=== PATIENT | female | born 1985 | race Caucasian/White ===

== ENCOUNTER 2016-04-21 15:23 | Emergency (ER) | payer OTHER ==
[2016-04-21] MEDS ORDERED: Ketorolac INJ* 30 MG/ML 1 ML VIAL IV ONE (16:38)
[2016-04-21] MEDS ORDERED: NS 0.9% 1000 ML* 1,000 ML IV ONE (16:38)
[2016-04-21] MEDS ORDERED: Ondansetron INJ* 2 MG/ML VIAL ONE (16:51)
[2016-04-21] MEDS ORDERED: Ketorolac INJ* 30 MG/ML 1 ML VIAL ONE (16:51)
[2016-04-21] MEDS ORDERED: Ondansetron INJ* 2 MG/ML VIAL IV ONE (16:53)
[2016-04-21 17:02] LABS: Hematocrit 40 % (35-47); Hemoglobin 12.9 g/dl (12.0-16.0); Mean Corpuscular HGB Conc 32 g/dl (31-36); Mean Corpuscular Hemoglobin 25 pg (27-31); Mean Corpuscular Volume 79 fL (80-97); Mean Platelet Volume 7 um3 (7.4-10.4); Red Cell Distribution Width 15 % (10.5-15); White Blood Count 12.2 10^3/ul (3.5-10.8)
[2016-04-21 17:07] LABS: Urine Bacteria Absent (Absent); Urine Bilirubin Negative (Negative); Urine Glucose Negative (Negative); Urine Nitrite Negative (Negative)
[2016-04-21 17:35] LABS: ALT 12 U/L (7-52); AST 15 U/L (13-39); Albumin 3.7 g/dL (3.2-5.2); Alkaline Phosphatase 64 U/L (34-104); Anion Gap 6 mmol/L (2-11); BUN/Creatinine Ratio 10.4 (8-20); Blood Urea Nitrogen 11 mg/dL (6-24); CO2 Carbon Dioxide 26 mmol/L (22-32); Calcium 8.4 mg/dL (8.6-10.3); Chloride 107 mmol/L (101-111); EGFR African American 77.3 (>60); EGFR Non-African American 60.1 (>60); Globulin 3.1 g/dL (2-4); Glucose 87 mg/dL (70-100); Lipase 22 U/L (11.0-82.0); Potassium 3.7 mmol/L (3.5-5.0); Sodium 139 mmol/L (133-145); Total Protein 6.8 g/dL (6.4-8.9)
--- NOTE | 2016-04-21 18:48 | RAD ---
INDICATION: Right flank pain COMPARISON: CT abdomen pelvis dated May 24, 2013 TECHNIQUE: Real-time ultrasound examination of the right kidney including grayscale and Doppler color flow analysis. FINDINGS: The right kidney measures 11.2 x 5.5 x 5.2 cm. There is mild right-sided hydronephrosis. There is a small amount of perinephric fluid. At the right ureterovesical junction there is a shadowing 7 mm calcification that attenuates but does not a limited 8 the right ureteral jets. The left ureteral jet is normal. IMPRESSION: Sonographic imaging depicts a 7 mm calcification in the right ureterovesical junction with mild ipsilateral hydronephrosis.
[2016-04-21] MEDS ORDERED: Ciprofloxacin TAB* 500 MG PO ONE (19:35)
[2016-04-21] MEDS ORDERED: oxyCODONE TAB* 5 MG TAB PO ONE (20:05)
[2016-04-21 20:51] VITALS: BP 111/73
--- NOTE | 2016-04-21 22:08 | ED ---
Huan Sher Claudia, scribed for Derrick Beach MD on 04/21/16 at 1656 . GI/ HPI - HPI Summary HPI Summary: 30 year old female presents to the ED with right sided flank pain sudden onset this am when she woke up. Pt notes similar Sx to when she had a kidney stone in 2008. Pt admits to dysuria and nausea but denies any vomiting, diarrhea, vaginal pain or discharge. Pt denies any alleviating factors. - History of Current Complaint Chief Complaint: EDFlankPain Time Seen by Provider: 04/21/16 16:27 Stated Complaint: KIDNEY PAIN Hx Obtained From: Patient Onset/Duration: Started Hours Ago - this am, Still Present Timing: Constant Pain Intensity: 10 Location of Pain: Flank - right Pain Characteristics: Sharp Associated Signs and Symptoms: Positive: Nausea, Dysuria, Flank Pain. Negative : Vomiting, Discharge, Diarrhea, Fever Additional Signs & Symptoms: Negative: Vaginal Discharge - Allergy/Home Medications Allergies/Adverse Reactions: Allergies Allergy/AdvReac Type Severity Reaction Status Date / Time Amoxicillin Allergy Intermediate Vomiting Verified 02/17/16 17:23 and diarrhea Metronidazole [From Flagyl] Allergy Unknown Vomiting Verified 02/17/16 17:23 PMH/Surg Hx/FS Hx/Imm Hx Previously Healthy: Yes Endocrine/Hematology History: Denies: Hx Diabetes, Hx Thyroid Disease Cardiovascular History: Denies: Hx Congestive Heart Failure, Hx Hypertension, Hx Pacemaker/ICD Respiratory History: Reports: Hx Asthma, Hx Sleep Apnea - current CPAP user Denies: Hx Chronic Obstructive Pulmonary Disease (COPD) GI History: Denies: Hx Ulcer, Other GI Disorders History: Reports: Other Problems/Disorders - RENAL STONES Denies: Hx Dialysis, Hx Renal Disease Sensory History: Denies: Hx Hearing Aid Neurological History: Reports: Other Neuro Impairments/Disorders Psychiatric History: Reports: Hx Anxiety, Hx Depression, Hx Panic Disorder, Hx Inpatient Treatment, Hx Community Mental Health Tx, Hx Bipolar Disorder - Surgical History Surgery Procedure, Year, and Place: 01/19 [facility] [place] pilonidal cyst. 08/27 [facility] [place] (right ) renal lithotripsy - Immunization History Date of Tetanus Vaccine: october 2012 Date of Influenza Vaccine: 12/2012 Infectious Disease History: Yes Infectious Disease History: Reports: Hx of Known/Suspected MRSA Denies: Hx Clostridium Difficile, Hx Hepatitis, Hx Human Immunodeficiency Virus (HIV), Hx Shingles, Hx Tuberculosis, Hx Known/Suspected VRE, Hx Known/ Suspected VRSA, History Other Infectious Disease, Traveled Outside the [place] in Last 30 Days - Family History Known Family History: Positive: Unknown, Respiratory Disease - sister - asthma Negative: Cardiac Disease, Hypertension, Diabetes - Social History Occupation: Employed Full-time Lives: With Family Alcohol Use: Occasionally Alcohol Amount: 2 DRINKS/WEEK Hx Substance Use: No Substance Use Type: Reports: None Hx Tobacco Use: No Smoking Status (MU): Never Smoked Tobacco Review of Systems Negative: Fever, Chills Eyes: Negative ENT: Negative Cardiovascular: Negative Respiratory: Negative Positive: Nausea. Negative: Vomiting, Diarrhea Positive: dysuria, flank pain - right Musculoskeletal: Negative Skin: Negative Neurological: Negative Psychological: Normal All Other Systems Reviewed And Are Negative: Yes Physical Exam Triage Information Reviewed: Yes Vital Signs On Initial Exam: Initial Vitals Temp Pulse Resp BP Pulse Ox 98.0 F 78 16 150/97 100 04/21/16 15:36 04/21/16 15:36 04/21/16 15:36 04/21/16 15:36 04/21/16 15:36 Vital Signs Reviewed: Yes Appearance: Negative: Well-Appearing - uncomfortable, holding right flank Eyes: Positive: EOMI ENT: Positive: Other - moist mucosa Neck: Positive: Supple, Nontender Respiratory/Lung Sounds: Positive: Other - breathing comfortably Cardiovascular: Positive: RRR, S1, S2 Abdomen Description: Positive: Nontender, Soft - flat, Other: - right flank tenderness towards the low back. no cvat. Musculoskeletal: Negative: Edema Left, Edema Right Neurological: Positive: Alert, Oriented to Person Place, Time Psychiatric: Positive: Other - logical coherent Diagnostics - Vital Signs Vital Signs Temp Pulse Resp BP Pulse Ox 04/21/16 15:36 98.0 F 78 16 150/97 100 - Laboratory Lab Results: Lab Results 04/21/16 04/21/16 04/21/16 Range/Units 16:50 16:50 16:50 WBC 12.2 H (3.5-10.8) 10^3/ul RBC 5.10 (4.0-5.4) 10^6/ul Hgb 12.9 (12.0-16.0) g/dl Hct 40 (35-47) % MCV 79 L (80-97) fL MCH 25 L (27-31) pg MCHC 32 (31-36) g/dl RDW 15 (10.5-15) % Plt Count 288 (150-450) 10^3/ul MPV 7 L (7.4-10.4) um3 Neut % (Auto) 66.1 (38-83) % Lymph % (Auto) 24.2 L (25-47) % [place] % (Auto) 7.4 (1-9) % Eos % (Auto) 1.4 (0-6) % Baso % (Auto) 0.9 (0-2) % Absolute Neuts (auto) 8.1 H (1.5-7.7) 10^3/ul Absolute Lymphs (auto) 3.0 (1.0-4.8) 10^3/ul Absolute Monos (auto) 0.9 H (0-0.8) 10^3/ul Absolute Eos (auto) 0.2 (0-0.6) 10^3/ul Absolute Basos (auto) 0.1 (0-0.2) 10^3/ul Absolute Nucleated RBC 0.01 10^3/ul Nucleated RBC % 0.1 Sodium 139 (133-145) mmol/L Potassium 3.7 (3.5-5.0) mmol/L Chloride 107 (101-111) mmol/L Carbon Dioxide 26 (22-32) mmol/L Anion Gap 6 (2-11) mmol/L BUN 11 (6-24) mg/dL Creatinine 1.06 H (0.51-0.95) mg/dL Est GFR ( Amer) 77.3 (>60) Est GFR (Non-Af Amer) 60.1 (>60) BUN/Creatinine Ratio 10.4 (8-20) Glucose 87 (70-100) mg/dL Calcium 8.4 L (8.6-10.3) mg/dL Total Bilirubin 0.30 (0.2-1.0) mg/dL AST 15 (13-39) U/L ALT 12 (7-52) U/L Alkaline Phosphatase 64 (34-104) U/L Total Protein 6.8 (6.4-8.9) g/dL Albumin 3.7 (3.2-5.2) g/dL Globulin 3.1 (2-4) g/dL Albumin/Globulin Ratio 1.2 (1-3) Lipase 22 (11.0-82.0) U/L Beta HCG, Quant < 0.60 mIU/mL Urine Color Yellow Urine Appearance Cloudy Urine pH 5.0 (5-9) Ur Specific [place] 1.018 (1.010-1.030) Urine Protein Negative (Negative) Urine Ketones Negative (Negative) Urine Blood 3+ H (Negative) Urine Nitrate Negative (Negative) Urine Bilirubin Negative (Negative) Urine Urobilinogen Negative (Negative) Ur Leukocyte Esterase Trace H (Negative) Urine WBC (Auto) 1+(6-10/hpf) H (Absent) Urine RBC (Auto) 3+(>10/hpf) H (Absent) Ur Squamous Epith Cells Present H (Absent) Urine Bacteria Absent (Absent) Urine Glucose Negative (Negative) Result Diagrams: 04/21/16 16:50 04/21/16 16:50 Lab Statement: Any lab studies that have been ordered have been reviewed, and results considered in the medical decision making process. - Ultrasound No standard instances Ultrasound Interpretation: Positive (See Comments) - RENAL US: PER RADIOLOGIST, SONOGRAPHIC IMAGING DEPICTS A 7MM CALCIFICATION IN THE RIGHT URETEROVESICAL JUNCTION WITH MILD IPSILATERAL HYDRONEPHROSIS. Ultrasound Interpretation Completed By: Radiologist Re-Evaluation - Re-Evaluation 1 Re-Evaluation Time: 18:27 Comment: Results of the Renal US is disussed with the patient. Pt notes that the pain medication helped a significant amount. She notes that the pain went from a 10/10 to a 4/10. Pt agrees to a follow-up with Dr. Rahman. GIGU Course/Dx - Course Assessment/Plan: She has a right renal stone measuring 7mm. She has a history of this and unfortunately needed a stent and procedure to break the stone. There is no sign of sepsis, UTI, or proximal tenderness as she has no CVA tenderness. She agrees to come back for continuous vomiting, intractable pain, and fever. She will call Dr. Rahman for appointment in the morning. - Diagnoses Provider Diagnoses: Right kidney stone Discharge - Discharge Plan Condition: Good Disposition: HOME Prescriptions: Ciprofloxacin TAB* [Cipro Tab*] 500 mg PO BID #10 tab Ondansetron ODT TAB* [Zofran Odt TAB*] 4 mg PO Q8H PRN #12 tab.odt PRN Reason: Nausea oxyCODONE/Acetamin 5/325 MG* [Percocet 5/325 TAB*] 2 tab PO Q4H PRN #20 tab MDD 6 PRN Reason: Pain Patient Education Materials: Kidney Stones (ED) Forms: *Work Release Referrals: Nikolas Rahman MD [Medical Doctor] - The documentation as recorded by the Huan goldberg Claudia accurately reflects the service I personally performed and the decisions made by , Derrick Beach MD.
== END 2016-04-21 20:50 | disposition home or self-care (01) ==
LOC: ED 15:23
DX: N20.0 Calculus of kidney (principal); Z87.442 Personal history of urinary calculi; F31.9 Bipolar disorder, unspecified; Z88.0 Allergy status to penicillin
CPT/HCPCS: 36415; 76775; 80053; 81003; 81015; 83690; 84702; 85025; 87086; 99283; A9270-GY; J1885; J2405

== ENCOUNTER → 2016-04-24 13:08 | Day surgery (SDC) | payer OTHER ==
--- NOTE | 2016-04-23 22:26 | HP ---
ADMITTING HISTORY AND PHYSICAL: DATE OF ADMISSION: 04/24/16 ADMITTING DIAGNOSES: 1. Calculus, right ureter. 3. Right hydronephrosis. PLANNED PROCEDURE: Right ureteroscopy, possible laser and stent insertion. SURGEON: Dr. Rahman. HISTORY OF PRESENT ILLNESS: Barbara Ahmadi is a 30-year-old lady who was evaluated for right flank pain and dysuria. She had been initially evaluated in the emergency room and an ultrasound had revealed a 7 mm calculus in the right distal ureter with right hydronephrosis. She continues to have fairly significant pain and would like removal of the calculus and is now being brought in for right ureteroscopy. PAST MEDICAL HISTORY: Significant for: 1. Renal calculi. 2. Asthma. 3. Anxiety. PAST SURGICAL HISTORY: Significant for: 1. Right foot skin graft. 2. Lithotripsy. MEDICATIONS ON ADMISSION: 1. NuvaRing. 2. Klonopin 1 tablets 4 times a day (the patient not sure of the dose at the time of this dictation). 3. Zyrtec 10 mg a day. 4. Singulair 10 mg a day. 5. Wellbutrin 250 mg daily. 6. ProAir inhaler daily. 7. Cipro 500 mg twice a day. 8. Percocet p.r.n. ALLERGIES: FLAGYL and AMOXICILLIN. PHYSICAL EXAMINATION GENERAL: Reveals a pleasant uncomfortable-appearing, overweight lady. VITAL SIGNS: Blood pressure is 132/78, pulse 72 per minute, temperature 98.2, oxygen saturation 98% on room air. LUNGS: Clear bilaterally. CARDIOVASCULAR: Regular rate and rhythm. S1, S2. ABDOMEN: Soft with right flank tenderness. IMPRESSION: A 30-year-old lady with a calculus in the right distal ureter. I have discussed the options of trying to continue conservative management and trying alpha-blockers, but because of the severity and persistence of the pain, she would like to proceed with right ureteroscopy and the procedure was discussed in detail with her. PLAN: Right ureteroscopy, possible laser, and stent insertion. CC: Dr. Sarahi Henderson; Dr. Pako Causey* [id number]/CPS #: [id number] MTDD
[~2016-04-24 13:08] MED LIST: Buffered Lidocaine 1% SYR 3ML* 3 ML/SYR SYRINGE INTRADERM ONE; DiMENhydriNATE IV* 50 MG/ML VIAL IV PUSH PRN; Gentamicin ADULT (*) 180 MG in NS 0.9% 100 ML* 100 ML IVPB ONE; Iohexol 180 (CONTRAST) 10 ML SDV IV ONE; Lidocaine 2% MPF* 2 ML VIAL ONE; Midazolam* 1 MG/ML 2 ML VIAL (2 MG) ONE; Ondansetron ODT TAB* 4 MG PO PRN; Propofol* 10 MG/ML 20 ML BTL IV PUSH ONE; fentaNYL* 50 MCG/ML 2 ML VIAL (100 MCG VIAL) IV PRN; fentaNYL* 50 MCG/ML 2 ML VIAL (100 MCG VIAL) ONE
[2016-04-24 13:45] LABS: UR Preg Kit Lot# 6060104
[2016-04-24 13:46] LABS: Manual Entry Verification AS; UR Preg Internal Control QC Line Present
[2016-04-24 19:25] VITALS: BP 108/64
--- NOTE | 2016-04-25 17:04 | OP ---
OPERATIVE REPORT: DATE OF OPERATION: 04/24/16 - [facility] DATE OF : 81 SURGEON: Nikolas Rahman MD ANESTHESIOLOGIST: Richard Jarquin MD ANESTHESIA: General. PRE-OP DIAGNOSES: 1. Right hydronephrosis. 2. Calculus, right ureter. POST-OP DIAGNOSIS: Right hydronephrosis. OPERATIVE PROCEDURE: Cystoscopy, right retrograde pyelogram, right ureteroscopy , right pyeloscopy, and right stent insertion. INDICATIONS: Barbara Ahmadi is a 30-year-old lady with a history of recurrent renal calculi. She has had right flank pain and nausea secondary to a 7-mm calculus noted on ultrasound. Because of continued pain, she desires and is now being brought in for right ureteroscopy. COMPLICATIONS: None. POSTOPERATIVE CONDITION: Stable. STENT USED: 6-[place]izen [place] stent, right ureter. OPERATIVE FINDINGS: 1. Normal-appearing bladder. 2. Edema and inflammatory changes noted, right ureterovesical junction, but no calculus noted. 3. Right hydronephrosis and proximal hydroureter. POSTOPERATIVE CONDITION: Stable. DESCRIPTION OF PROCEDURE: After induction of general anesthesia, the patient was placed in dorsal lithotomy position. Sequential compression devices were in place and functioning. Initial cystoscopy revealed a normal-appearing bladder. A guidewire was introduced into the right ureter. Retrograde pyelogram revealed right hydronephrosis and proximal hydroureter. A 6-[place]izen [place] semi-rigid ureteroscope was introduced and advanced into the right ureter. Just inside the ureterovesical junction, there was about 1- to 1.5-cm length area, where there was significant edema and inflammation. The ureter above this was completely normal and dilated. The ureteroscope was advanced under direct vision. I did not visualize any calculus in the distal, mid, or proximal ureter. The ureteroscope was introduced into the renal pelvis and pyeloscopy was performed. I did not visualize a calculus in the renal pelvis either. It is possible that the calculus had passed, but the continued pain and obstruction were secondary to the edema and inflammation. The uteroscope was withdrawn under direct vision. I waited a few minutes to see if the contrast would drain spontaneously after withdrawing the ureteroscope, but since it did not, I elected to go ahead and proceed with placement of a 6- [place] stent. A 6- [place] stent was introduced and positioned under fluoroscopy with good proximal and distal positioning obtained. Significant drainage was noted from the stent at the end of the procedure. The bladder was emptied. The patient tolerated the procedure satisfactorily and was transferred back to the recovery area in stable condition. CC: Dr. Sarahi Henderson; Dr. Nikolas Rahman* [id number]/CPS #: [id number] MTDD
--- NOTE | 2016-04-26 09:48 | RAD ---
INDICATION: RIGHT hydronephrosis. Retrograde pyelogram and stent placement. COMPARISON: RIGHT unilateral renal ultrasound April 21, 2016 TECHNIQUE: 18 seconds fluoroscopy. FINDINGS: RIGHT retrograde pyelogram documents mild caliectasis. RIGHT ureteral stent placed with decompression of the collecting system. IMPRESSION: Procedural fluoroscopy. CPT II Codes: 6045F
== END | disposition home or self-care (01) ==
LOC: OR 13:08
PROVIDERS: ATTEND Urology
DX: N13.2 Hydronephrosis with renal and ureteral calculous obstruction (principal); E66.9 Obesity, unspecified; J45.909 Unspecified asthma, uncomplicated
CPT/HCPCS: 74420; 81025; C1876; J1580; J2250; J2704; J3010

== ENCOUNTER 2016-04-27 01:39 | Emergency (ER) | payer OTHER ==
[2016-04-27] MEDS ORDERED: Ketorolac INJ* 30 MG/ML 1 ML VIAL IV PUSH ONE (02:25)
[2016-04-27] MEDS ORDERED: Ondansetron INJ* 2 MG/ML VIAL ONE (02:27)
[2016-04-27] MEDS ORDERED: Ondansetron INJ* 2 MG/ML VIAL IV ONE (02:28)
[2016-04-27 03:03] LABS: Urine Bacteria Absent (Absent); Urine Bilirubin Negative (Negative); Urine Glucose Negative (Negative); Urine Nitrite Negative (Negative)
[2016-04-27 03:20] LABS: BUN/Creatinine Ratio 10.3 (8-20); Calcium 8.7 mg/dL (8.6-10.3); EGFR African American 76.4 (>60); EGFR Non-African American 59.4 (>60); Potassium 4.2 mmol/L (3.5-5.0)
[2016-04-27 03:23] LABS: Hematocrit 40 % (35-47); Mean Corpuscular HGB Conc 32 g/dl (31-36); Mean Corpuscular Hemoglobin 26 pg (27-31); Mean Corpuscular Volume 79 fL (80-97); Mean Platelet Volume 8 um3 (7.4-10.4); Red Blood Count 5.09 10^6/ul (4.0-5.4); Red Cell Distribution Width 15 % (10.5-15); White Blood Count 11.3 10^3/ul (3.5-10.8)
--- NOTE | 2016-04-27 03:31 | ED ---
Bartolome Sher Billy, scribed for Yoan Avila MD on 04/27/16 at 0253 . GI/ HPI - HPI Summary HPI Summary: Patient is a 30 year-old female coming to [facility] presenting with constant right flank pain for 2 days. She reports pain severity 8/10. She was seen by Dr. Rahman for right hydronephrosis and had a right uretal stent placed. Pain was controlled by Percocet, but the patient states that she has since run out of pain medication. She denies any other symptoms at this time. - History of Current Complaint Chief Complaint: EDUrogenitalProblems Time Seen by Provider: 04/27/16 02:42 Stated Complaint: POST SURGERY PAIN FROM STENT ON L SIDE OF KIDNEY Hx Obtained From: Patient Onset/Duration: Started Days Ago, Still Present Timing: Constant Severity: Moderate Current Severity: Moderate Pain Intensity: 8 Location of Pain: Flank Associated Signs and Symptoms: Positive: Negative Aggravating Factor(s): Nothing Alleviating Factor(s): Medication - Allergy/Home Medications Allergies/Adverse Reactions: Allergies Allergy/AdvReac Type Severity Reaction Status Date / Time Amoxicillin Allergy Intermediate Vomiting Verified 04/24/16 13:36 and diarrhea Metronidazole [From Flagyl] Allergy Unknown Vomiting Verified 04/24/16 13:36 PMH/Surg Hx/FS Hx/Imm Hx Endocrine/Hematology History: Reports: Hx Anemia - STATES HX OF -OFF AND ON Denies: Hx Diabetes, Hx Thyroid Disease Cardiovascular History: Denies: Hx Congestive Heart Failure, Hx Hypertension, Hx Pacemaker/ICD Respiratory History: Reports: Hx Asthma, Hx Sleep Apnea - current CPAP user Denies: Hx Chronic Obstructive Pulmonary Disease (COPD) GI History: Denies: Hx Ulcer, Other GI Disorders History: Reports: Hx Kidney Stones - CURRENTLY / 04/2016 STENT PLACEMENT, Other Problems/Disorders - RENAL STONES Denies: Hx Dialysis, Hx Renal Disease Sensory History: Denies: Hx Contacts or Glasses, Hx Hearing Aid Opthamlomology History: Denies: Hx Contacts or Glasses Neurological History: Reports: Other Neuro Impairments/Disorders Psychiatric History: Reports: Hx Anxiety - ON MEDICATION FOR, Hx Depression - ON MEDICATION FOR, Hx Panic Disorder, Hx Inpatient Treatment, Hx Community Mental Health Tx, Hx Bipolar Disorder - Surgical History Surgery Procedure, Year, and Place: 01/19 [facility] [place] pilonidal cyst. 08/27 [facility] [place] (right ) renal lithotripsy Hx Anesthesia Reactions: No - Immunization History Date of Tetanus Vaccine: october 2012 Date of Influenza Vaccine: 12/2012 Infectious Disease History: No Infectious Disease History: Reports: Hx of Known/Suspected MRSA Denies: Hx Clostridium Difficile, Hx Hepatitis, Hx Human Immunodeficiency Virus (HIV), Hx Shingles, Hx Tuberculosis, Hx Known/Suspected VRE, Hx Known/ Suspected VRSA, History Other Infectious Disease, Traveled Outside the [place] in Last 30 Days - Family History Known Family History: Positive: Respiratory Disease - sister - asthma Negative: Cardiac Disease, Hypertension, Diabetes - Social History Alcohol Use: Occasionally Alcohol Amount: 2 DRINKS Hx Substance Use: No Substance Use Type: Reports: None Hx Tobacco Use: No Smoking Status (MU): Former Smoker Amount Used/How Often: A TEEN Review of Systems Negative: Fever Positive: flank pain All Other Systems Reviewed And Are Negative: Yes Physical Exam Triage Information Reviewed: Yes Vital Signs On Initial Exam: Initial Vitals Temp Pulse Resp BP Pulse Ox 97.5 F 95 16 106/68 97 04/27/16 01:53 04/27/16 01:53 04/27/16 01:53 04/27/16 01:53 04/27/16 01:53 Vital Signs Reviewed: Yes Appearance: Positive: Well-Appearing, Pain Distress - mild discomfport, Obese Skin: Positive: Warm Eyes: Positive: EOMI, JOHN ENT: Positive: Hearing grossly normal Neck: Positive: Supple Respiratory/Lung Sounds: Positive: Clear to Auscultation, Breath Sounds Present Cardiovascular: Positive: Normal Abdomen Description: Positive: Nontender, No Organomegaly, Soft. Negative: CVA Tenderness (R), CVA Tenderness (L) Bowel Sounds: Positive: Present Musculoskeletal: Positive: Strength/ROM Intact Neurological: Positive: Sensory/Motor Intact, Alert, Oriented to Person Place, Time Psychiatric: Positive: Affect/Mood Appropriate Diagnostics - Vital Signs Vital Signs Temp Pulse Resp BP Pulse Ox 04/27/16 01:53 97.5 F 95 16 106/68 97 - Laboratory Lab Results: Lab Results 04/27/16 04/27/16 04/27/16 Range/Units 02:17 02:17 02:45 WBC 11.3 H (3.5-10.8) 10^3/ul RBC 5.09 (4.0-5.4) 10^6/ul Hgb 13.0 (12.0-16.0) g/dl Hct 40 (35-47) % MCV 79 L (80-97) fL MCH 26 L (27-31) pg MCHC 32 (31-36) g/dl RDW 15 (10.5-15) % Plt Count 317 (150-450) 10^3/ul MPV 8 (7.4-10.4) um3 Neut % (Auto) 66.2 (38-83) % Lymph % (Auto) 24.9 L (25-47) % [place] % (Auto) 6.2 (1-9) % Eos % (Auto) 2.2 (0-6) % Baso % (Auto) 0.5 (0-2) % Absolute Neuts (auto) 7.5 (1.5-7.7) 10^3/ul Absolute Lymphs (auto) 2.8 (1.0-4.8) 10^3/ul Absolute Monos (auto) 0.7 (0-0.8) 10^3/ul Absolute Eos (auto) 0.3 (0-0.6) 10^3/ul Absolute Basos (auto) 0.1 (0-0.2) 10^3/ul Absolute Nucleated RBC 0 10^3/ul Nucleated RBC % 0 Sodium 136 (133-145) mmol/L Potassium 4.2 (3.5-5.0) mmol/L Chloride 105 (101-111) mmol/L Carbon Dioxide 27 (22-32) mmol/L Anion Gap 4 (2-11) mmol/L BUN 11 (6-24) mg/dL Creatinine 1.07 H (0.51-0.95) mg/dL Est GFR ( Amer) 76.4 (>60) Est GFR (Non-Af Amer) 59.4 (>60) BUN/Creatinine Ratio 10.3 (8-20) Glucose 82 (70-100) mg/dL Calcium 8.7 (8.6-10.3) mg/dL Urine Color Yellow Urine Appearance Cloudy Urine pH 8.0 (5-9) Ur Specific [place] 1.014 (1.010-1.030) Urine Protein 2+(100 mg/dl) H (Negative) Urine Ketones Negative (Negative) Urine Blood 3+ H (Negative) Urine Nitrate Negative (Negative) Urine Bilirubin Negative (Negative) Urine Urobilinogen Negative (Negative) Ur Leukocyte Esterase 2+ H (Negative) Urine WBC (Auto) 1+(6-10/hpf) H (Absent) Urine RBC (Auto) 3+(>10/hpf) H (Absent) Ur Squamous Epith Cells Present H (Absent) Urine Bacteria Absent (Absent) Urine Glucose Negative (Negative) Result Diagrams: 04/27/16 02:17 04/27/16 02:17 Lab Statement: Any lab studies that have been ordered have been reviewed, and results considered in the medical decision making process. Re-Evaluation - Re-Evaluation First Eval Re-Evaluation Time: 03:33 Change: Improved Comment: Pain has improved. GIGU Course/Dx - Course Assessment/Plan: 30 year-old female coming to the ED with right flank pain. She recently had a right uretal stent placed by Dr. Rahman. She will be sent home with Percocet and follow up with urology. - Diagnoses Provider Diagnoses: Renal colic Discharge - Discharge Plan Condition: Stable Disposition: HOME Patient Education Materials: Renal Colic (ED) Referrals: Sarahi Henderson MD [Primary Care Provider] - Nikolas Rahman MD [Medical Doctor] - The documentation as recorded by the Bartolome goldberg Billy accurately reflects the service I personally performed and the decisions made by , Yoan Avila MD.
[2016-04-27] MEDS ORDERED: HYDROmorphone INJ* 1 MG/ML CARPUJECT SYRINGE IV SLOW PU ONE (03:33)
[2016-04-27] MEDS ORDERED: oxyCODONE/Acetamin 5/325 MG* TAB PO ONE (03:38)
[2016-04-27 03:45] VITALS: BP 114/54
== END 2016-04-27 04:05 | disposition home or self-care (01) ==
LOC: ED 01:39
DX: N13.2 Hydronephrosis with renal and ureteral calculous obstruction (principal); Z87.442 Personal history of urinary calculi; Z88.1 Allergy status to other antibiotic agents; Z88.0 Allergy status to penicillin; Z87.891 Personal history of nicotine dependence
CPT/HCPCS: 36415; 80048; 81003; 81015; 85025; 87086; 96374; 96375; 99284; A9270-GY; J1170; J1885; J2405

== ENCOUNTER 2016-06-14 08:06 | Emergency (ER) | payer OTHER ==
[2016-06-14 08:37] VITALS: BP 131/78
[2016-06-14] MEDS ORDERED: Phenazopyridine TAB* 100 MG PO ONE (09:18)
[2016-06-14] MEDS ORDERED: Ibuprofen TAB* 600 MG PO ONE (09:18)
--- NOTE | 2016-06-14 10:06 | UC ---
Complaint Female HPI - HPI Summary HPI Summary: ONSET OF DYSURIA, FREQUENCY AND URGENCY LAST NIGHT. NO FEVER OR NAUSEA OR BACK PAIN. HAS H/O KIDNEY STONES MOST RECENTLY IN APRIL 2016. LAST SAW UROLOGY 3 DAYS AGO ON 06/11/16 AND HAD CLEAN URINE. HAD 3 DAYS WORTH OF CIPRO FROM A PREVIOUS RX AND HAS TAKEN 2 DOSES (LAST NIGHT AND THIS MORNING). STATES THE PAIN HAS GONE FROM A 10 TO A 7. - History Of Current Complaint Chief Complaint: UCGU Stated Complaint: URINARY ISSUE Time Seen by Provider: 06/14/16 08:11 Hx Obtained From: Patient Hx Last Menstrual Period: Nuvaring Control Onset/Duration: Sudden Onset, Lasting Hours, Still Present Timing: Constant Severity Initially: Moderate Severity Currently: Moderate Pain Intensity: 8 Pain Scale Used: 0-10 Numeric Character: Burning Aggravating Factor(s): Urination Alleviating Factor(s): Nothing Associated Signs And Symptoms: Negative: Fever, Back Pain, Vaginal Bleeding/ Discharge, Vaginal Discharge, Nausea, Vomiting(# Of Episodes =), Genital Swelling, Genital Blisters - Allergies/Home Medications Allergies/Adverse Reactions: Allergies Allergy/AdvReac Type Severity Reaction Status Date / Time Amoxicillin Allergy Intermediate Vomiting Verified 06/14/16 08:21 and diarrhea Metronidazole [From Flagyl] Allergy Unknown Vomiting Verified 06/14/16 08:21 PMH/Surg Hx/FS Hx/Imm Hx Endocrine History Of: Denies: Diabetes, Thyroid Disease Cardiovascular History Of: Denies: Cardiac Disorders, Hypertension, Pacemaker/ICD, Congestive Heart Failure Respiratory History Of: Reports: Asthma, Bronchitis - HX OF IN THE PAST Denies: COPD GI/ History Of: Reports: Kidney Stones - CURRENTLY / 04/2016 STENT PLACEMENT Denies: Ulcer, Renal Disease Psychological History Of: Reports: Anxiety - ON MEDICATION FOR, Depression - ON MEDICATION FOR, Bipolar Disorder, Post Traumatic Stress Disorder - Surgical History Surgical History: Yes Surgery Procedure, Year, and Place: 01/19 [facility] – [place] pilonidal cyst. 08/27 [facility] [place] ) renal lithotripsy - Family History Known Family History: Positive: Respiratory Disease - sister - asthma Negative: Cardiac Disease, Hypertension, Diabetes Family History: KIDNEY STONES - DAD - Social History Alcohol Use: Occasionally Alcohol Amount: 2 DRINKS Substance Use Type: None Smoking Status (MU): Former Smoker Amount Used/How Often: A TEEN - Immunization History Most Recent Influenza Vaccination: Jan 2016 Most Recent Tetanus Shot: UTD Review of Systems Constitutional: Negative Respiratory: Negative Cardiovascular: Negative Gastrointestinal: Abdominal Pain Genitourinary: Dysuria, Frequency, Urgency All Other Systems Reviewed And Are Negative: Yes Physical Exam Triage Information Reviewed: Yes Appearance: Well-Appearing, No Pain Distress, Well-Nourished Vital Signs: Initial Vital Signs Temp 98.2 F 06/14/16 08:26 Pulse 85 06/14/16 08:26 Resp 18 06/14/16 08:26 BP 131/78 06/14/16 08:26 Pulse Ox 98 06/14/16 08:26 Vital Signs Reviewed: Yes Eyes: Positive: Conjunctiva Clear ENT: Positive: Hearing grossly normal Neck: Positive: Supple Respiratory: Positive: No respiratory distress, No accessory muscle use Cardiovascular: Positive: Pulses Normal Abdomen Description: Positive: Soft, Other: - SUPRAPUBIC TTP. Negative: CVA Tenderness (R), CVA Tenderness (L), Distended, Guarding Musculoskeletal: Positive: No Edema Neurological: Positive: Alert Psychological: Positive: Age Appropriate Behavior Skin: Negative: rashes Diagnostics - Laboratory Diagnostic Studies Completed/Ordered: URINE DIP SP. GR 1.025, 2+LEUKS Complaint Female Dx - Differential Dx/Diagnosis Provider Diagnoses: UTI Discharge - Discharge Plan Condition: Stable Disposition: HOME Prescriptions: Ciprofloxacin TAB* [Cipro Tab*] 500 mg PO BID #4 tab Phenazopyridine TAB* [Pyridium TAB*] 200 mg PO TID #6 tab Patient Education Materials: Urinary Tract Infection in Women (ED) Forms: *Work Release Referrals: Sarahi Henderson MD [Primary Care Provider] - If Needed Nikolas Rahman MD [Medical Doctor] - If Needed Additional Instructions: WE WILL SEND YOUR URINE FOR CULTURE AND CALL YOU IF WE NEED TO CHANGE YOUR ANTIBIOTIC. STAY HYDRATED. GO TO THE ER WITHOUT FAIL IF YOU DEVELOP WORSENING PAIN, FEVER, NAUSEA OR ANY OTHER CONCERNING SYMPTOMS.
== END 2016-06-14 10:30 | disposition home or self-care (01) ==
LOC: UCEAST 08:06
DX: N39.0 Urinary tract infection, site not specified (principal); Z87.442 Personal history of urinary calculi; F41.9 Anxiety disorder, unspecified; F31.9 Bipolar disorder, unspecified; F43.10 Post-traumatic stress disorder, unspecified; Z88.0 Allergy status to penicillin; Z88.1 Allergy status to other antibiotic agents
CPT/HCPCS: 81002; 87086; 99212; A9270-GY; G0463

== ENCOUNTER 2016-07-14 16:01 | Emergency (ER) | payer OTHER ==
[2016-07-14 17:07] VITALS: BP 121/76
--- NOTE | 2016-07-14 18:11 | UC ---
UC General HPI - HPI Summary HPI Summary: HAD DIARRHEA FIVE DAYS AGO. CALLED INTO WORK AND TOLD TO GET DOCTORS NOT TO RETURN TO WORK WHEN SYMPTOM FREE. CURRENTLY NO DIARRHEA. NO FEVER. NO PAIN. NO FEVER. - History of Current Complaint Chief Complaint: UCGeneralIllness Stated Complaint: WORK NOTE Time Seen by Provider: 07/14/16 16:38 Hx Obtained From: Patient, Family/Manager Nuclear Onset/Duration: Gradual Onset, Lasting Days, Resolved Onset Severity: Moderate Current Severity: None Pain Intensity: 0 Associated Signs & Symptoms: Positive: Diarrhea - Allergy/Home Medications Allergies/Adverse Reactions: Allergies Allergy/AdvReac Type Severity Reaction Status Date / Time Amoxicillin Allergy Intermediate Vomiting Verified 06/14/16 08:21 and diarrhea Metronidazole [From Flagyl] Allergy Unknown Vomiting Verified 06/14/16 08:21 PMH/Surg Hx/FS Hx/Imm Hx Previously Healthy: Yes Endocrine History Of: Denies: Diabetes, Thyroid Disease Cardiovascular History Of: Denies: Cardiac Disorders, Hypertension, Pacemaker/ICD, Congestive Heart Failure Respiratory History Of: Reports: Asthma, Bronchitis - HX OF IN THE PAST Denies: COPD GI/ History Of: Reports: Kidney Stones - CURRENTLY / 04/2016 STENT PLACEMENT Denies: Ulcer, Renal Disease Psychological History Of: Reports: Anxiety - ON MEDICATION FOR, Depression - ON MEDICATION FOR, Bipolar Disorder, Post Traumatic Stress Disorder - Surgical History Surgical History: Yes Surgery Procedure, Year, and Place: 01/19 [facility] [place] pilonidal cyst. 08/27 [facility] [place] (right ) renal lithotripsy - Family History Known Family History: Positive: Respiratory Disease - sister - asthma Negative: Cardiac Disease, Hypertension, Diabetes Family History: KIDNEY STONES - DAD - Social History Occupation: Employed Full-time Lives: With Family Alcohol Use: Weekly Alcohol Amount: 2 DRINKS Substance Use Type: None Smoking Status (MU): Former Smoker Amount Used/How Often: A TEEN - Immunization History Most Recent Influenza Vaccination: Jan 2016 Most Recent Tetanus Shot: UTD Review of Systems Constitutional: Negative Skin: Negative Eyes: Negative ENT: Negative Respiratory: Negative Cardiovascular: Negative Gastrointestinal: Diarrhea - RESOLVED Genitourinary: Negative Motor: Negative Neurovascular: Negative Musculoskeletal: Negative Neurological: Negative Psychological: Negative All Other Systems Reviewed And Are Negative: Yes Physical Exam Triage Information Reviewed: Yes Appearance: Well-Appearing, No Pain Distress, Well-Nourished, Obese Vital Signs: Initial Vital Signs Temp 97.8 F 03/26/17 16:33 Pulse 80 07/14/16 16:33 Resp 18 07/14/16 16:33 BP 121/76 07/14/16 16:33 Pulse Ox 100 07/14/16 16:33 Vital Signs Reviewed: Yes Eye Exam: Normal Eyes: Positive: Conjunctiva Clear ENT Exam: Normal ENT: Positive: Normal ENT inspection, Hearing grossly normal, Pharynx normal, TMs normal Dental Exam: Normal Neck exam: Normal Neck: Positive: Supple, Nontender, No Lymphadenopathy. Negative: Nuchal Rigidity Respiratory Exam: Normal Respiratory: Positive: Chest non-tender, Lungs clear, Normal breath sounds, No respiratory distress Cardiovascular Exam: Normal Cardiovascular: Positive: RRR, No Murmur Abdominal Exam: Normal Abdomen Description: Positive: Nontender, No Organomegaly, Soft. Negative: CVA Tenderness (R), CVA Tenderness (L) Bowel Sounds: Positive: Present Musculoskeletal Exam: Normal Musculoskeletal: Positive: Strength Intact, ROM Intact Neurological Exam: Normal Psychological Exam: Normal Skin Exam: Normal Course/Dx - Differential Dx - Multi-Symptom Differential Diagnoses: Metabolic Abnormality Provider Diagnoses: NORMAL PHYSICAL EXAM; RETURN TO WORK NOTE PROVIDED Discharge - Discharge Plan Condition: Stable Disposition: HOME Patient Education Materials: Normal Exam (ED) Forms: *Work Release Referrals: Sarahi Henderson MD [Primary Care Provider] -
== END 2016-07-14 17:36 | disposition home or self-care (01) ==
LOC: UCEAST 16:01
DX: Z00.8 Encounter for other general examination (principal); F31.9 Bipolar disorder, unspecified; F43.10 Post-traumatic stress disorder, unspecified
CPT/HCPCS: 99211; G0463

== ENCOUNTER 2016-07-28 10:26 | Emergency (ER) | payer OTHER ==
[2016-07-28] MEDS ORDERED: Ibuprofen TAB* 600 MG PO ONE (11:29)
[2016-07-28 11:35] VITALS: BP 108/74
--- NOTE | 2016-07-28 12:06 | UC ---
Throat Pain/Nasal Vasyl HPI - HPI Summary HPI Summary: WOKE UP YESTERDAY MORNING WITH ST. GOT MUCH WORSE OVER THE COURSE OF THE DAY. LAST NIGHT HAD SUBJECTIVE FEVER, CHILLS AND MANZANO. FEELS LIKE SHE IS SWALLOWING GLASS. DIFFUSE BODY ACHES. - History of Current Complaint Stated Complaint: BAD SORE THROAT,ACHES Time Seen by Provider: 07/28/16 11:29 Hx Obtained From: Patient Hx Last Menstrual Period: 07/17/16 Onset/Duration: Gradual Onset, Lasting Days - 1 DAY, Still Present Severity: Severe Pain Intensity: 10 Pain Scale Used: 0-10 Numeric Cough: None Associated Signs & Symptoms: Positive: Fever. Negative: Wheezing, Hoarseness, Nasal Discharge, Vomiting, Rash - Allergies/Home Medications Allergies/Adverse Reactions: Allergies Allergy/AdvReac Type Severity Reaction Status Date / Time Amoxicillin Allergy Intermediate Vomiting Verified 06/14/16 08:21 and diarrhea Metronidazole [From Flagyl] Allergy Unknown Vomiting Verified 06/14/16 08:21 PMH/Surg Hx/FS Hx/Imm Hx Endocrine History Of: Denies: Diabetes, Thyroid Disease Cardiovascular History Of: Denies: Cardiac Disorders, Hypertension, Pacemaker/ICD, Congestive Heart Failure Respiratory History Of: Reports: Asthma, Bronchitis - HX OF IN THE PAST Denies: COPD GI/ History Of: Reports: Kidney Stones - CURRENTLY / 04/2016 STENT PLACEMENT Denies: Ulcer, Renal Disease Psychological History Of: Reports: Anxiety - ON MEDICATION FOR, Depression - ON MEDICATION FOR, Bipolar Disorder, Post Traumatic Stress Disorder - Surgical History Surgical History: Yes Surgery Procedure, Year, and [place] [facility] [place] [facility] [place] lithotripsy again in 04/2016 with stents - Family History Known Family History: Positive: Respiratory Disease - sister - asthma Negative: Cardiac Disease, Hypertension, Diabetes Family History: KIDNEY STONES - DAD - Social History Alcohol Use: Weekly Alcohol Amount: 2 DRINKS Substance Use Type: None Smoking Status (MU): Former Smoker Amount Used/How Often: A TEEN - Immunization History Most Recent Influenza Vaccination: Jan 2016 Most Recent Tetanus Shot: UTD Review of Systems Constitutional: Fever, Chills, Fatigue ENT: Sore Throat Respiratory: Negative Cardiovascular: Negative Gastrointestinal: Negative Musculoskeletal: Myalgia Neurological: Headache All Other Systems Reviewed And Are Negative: Yes Physical Exam Triage Information Reviewed: Yes Appearance: Well-Nourished, Ill-Appearing - MILD, Pain Distress - MODERATE Vital Signs: Initial Vital Signs Temp 100.7 F 07/28/16 11:30 Pulse 120 07/28/16 11:30 Resp 16 07/28/16 11:30 BP 108/74 07/28/16 11:30 Pulse Ox 97 07/28/16 11:30 Vital Signs Reviewed: Yes Eyes: Positive: Conjunctiva Clear ENT: Positive: Hearing grossly normal, Pharyngeal erythema, TMs normal. Negative: Tonsillar swelling, Tonsillar exudate Neck: Positive: Supple, Tenderness @ - SPFL CERVICL LAD, Enlarged Nodes @ - SPFL CERVICL LAD Respiratory Exam: Normal Cardiovascular: Positive: Tachycardia Abdomen Description: Positive: Soft Musculoskeletal: Positive: No Edema Neurological: Positive: Alert Psychological: Positive: Age Appropriate Behavior Skin: Negative: rashes Diagnostics - Laboratory Diagnostic Studies Completed/Ordered: RAPID STREP POSITIVE. RAPID FLU NEGATIVE Throat Pain/Nasal Course/Dx - Differential Dx/Diagnosis Provider Diagnoses: STREP PHARYNGITIS Discharge - Discharge Plan Condition: Stable Disposition: HOME Prescriptions: Cephalexin CAP* [Keflex 500 CAP*] 500 mg PO BID #20 cap Ibuprofen TAB* [Motrin TAB* 600 MG] 1 tab PO Q6H PRN #30 tab PRN Reason: Pain Patient Education Materials: Strep Throat (ED) Forms: *Work Release Referrals: Sarahi Henderson MD [Primary Care Provider] - If Needed Additional Instructions: STREP TEST POSITIVE. RAPID FLU NEGATIVE. OTC CHLORASEPTIC OR CEPACOL LOZENGES FOR SORE THROAT NEEDED ONCE SYMPTOMS RESOLVED - NEW TOOTHBRUSH DO NOT SHARE FOOD, DRINK, UTENSILS
== END 2016-07-28 13:10 | disposition home or self-care (01) ==
LOC: UCEAST 10:26
DX: J02.0 Streptococcal pharyngitis (principal); J45.909 Unspecified asthma, uncomplicated; F41.9 Anxiety disorder, unspecified; F31.9 Bipolar disorder, unspecified; F43.10 Post-traumatic stress disorder, unspecified; Z87.891 Personal history of nicotine dependence; Z87.09 Personal history of other diseases of the respiratory system; Z87.442 Personal history of urinary calculi; Z88.3 Allergy status to other anti-infective agents
CPT/HCPCS: 87502; 87651; 99212; A9270-GY; G0463

== ENCOUNTER 2016-07-30 19:20 | Emergency (ER) | payer OTHER ==
[2016-07-30 20:59] VITALS: BP 110/75
--- NOTE | 2016-07-30 21:22 | UC ---
Throat Pain/Nasal Vasyl HPI - HPI Summary HPI Summary: The patient comes in today for: 1. Throat pain: Onset: Two days ago. Palliative/provocative: Drinking ice helps. Quality: Soreness. Region: Posterior pharynx. Severity: Sore throat 10/28 Associated symptoms: Previous treatment: She was seen two days ago for her sore throat. The flu test and the strep test were done, but only the strep test was positive. She was put on cephalexin 500 mg twice a day. She also has ibuprofen. Gargling of salt water. Right ear: hurts. She states that she is doing better. Rhinitis: Green material. Fever: None since Friday. Asthma is acting up at this time. She is only on albuterol inhaler. * - History of Current Complaint Chief Complaint: UCGeneralIllness Stated Complaint: THROAT PAIN Time Seen by Provider: 07/30/16 21:15 Hx Obtained From: Patient Hx Last Menstrual Period: 07/17/16 - Allergies/Home Medications Allergies/Adverse Reactions: Allergies Allergy/AdvReac Type Severity Reaction Status Date / Time Amoxicillin Allergy Intermediate Vomiting Verified 07/30/16 20:43 and diarrhea Metronidazole [From Flagyl] Allergy Unknown Vomiting Verified 07/30/16 20:43 PMH/Surg Hx/FS Hx/Imm Hx Previously Healthy: No - Family planning/Nuvaring. Endocrine History Of: Denies: Diabetes, Thyroid Disease, Hyperthyroidism, Hypothyroidism, Dyslipidemia Cardiovascular History Of: Denies: Cardiac Disorders, Hypertension, Pacemaker/ICD, Myocardial Infarction , Congestive Heart Failure, Atrial Fibrillation, Deep Vein Thrombosis, Bleeding Disorders Respiratory History Of: Reports: Asthma Denies: COPD, Bronchitis, Pneumonia, Pulmonary Embolism GI/ History Of: Reports: Kidney Stones - CURRENTLY 04/2016 STENT PLACEMENT Denies: Gastroesophageal Reflux, Ulcer, Gastrointestinal Bleed, Gall Bladder Disease, Diverticulitis, Renal Disease, Urosepsis Neurological History Of: Denies: TIA, CVA, Dementia, Seizures, Migraine Psychological History Of: Reports: Anxiety - ON MEDICATION FOR, Depression - ON MEDICATION FOR, Bipolar Disorder, Post Traumatic Stress Disorder Denies: Schizophrenia Cancer History Of: Denies: Lung Cancer, Colorectal Cancer, Breast Cancer, Prostate Cancer, Cervical Cancer Other History Of: Negative For: HIV, Hepatitis B, Hepatitis C, Anticoagulant Therapy - Surgical History Surgical History: Yes Surgery Procedure, Year, and Place: 01/19 [facility] [place] pilonidal cyst. 08/27 [facility] [place] (right ) renal lithotripsy again in 04/2016 with stents - Family History Known Family History: Positive: Respiratory Disease - sister - asthma Negative: Cardiac Disease, Hypertension, Diabetes Family History: KIDNEY STONES - DAD - Social History Occupation: Employed Part-time, Student Alcohol Use: Weekly Alcohol Amount: 2 DRINKS Substance Use Type: None Smoking Status (MU): Former Smoker Amount Used/How Often: A TEEN - Immunization History Most Recent Influenza Vaccination: Jan 2016 Most Recent Tetanus Shot: UTD Review of Systems Constitutional: Negative Skin: Negative Eyes: Negative ENT: Sore Throat, Ear Ache Respiratory: Negative Cardiovascular: Negative Gastrointestinal: Negative Genitourinary: Negative All Other Systems Reviewed And Are Negative: Yes Physical Exam Triage Information Reviewed: Yes Appearance: Well-Appearing, No Pain Distress, Well-Nourished, Other: - She is quite anxious about her condition and is asking a lot of questions. Vital Signs: Initial Vital Signs Temp 97.8 F 07/30/16 20:52 Pulse 95 07/30/16 20:52 Resp 18 07/30/16 20:52 BP 110/75 07/30/16 20:52 Pulse Ox 100 07/30/16 20:52 Vital Signs Reviewed: Yes Eyes: Positive: Conjunctiva Clear. Negative: Discharge ENT: Positive: Hearing grossly normal, Other: - No tonsilar exudates or asymmetry.. Negative: Pharyngeal erythema, Nasal congestion, Nasal drainage, TM bulging, TM dull, TM red, Tonsillar swelling, Tonsillar exudate Dental: Negative: Gross Decay/Caries @, Dental Fracture @ Neck: Positive: Supple, Nontender, No Lymphadenopathy. Negative: Nuchal Rigidity Respiratory: Positive: Lungs clear, No respiratory distress, No accessory muscle use. Negative: Crackles, Wheezing Cardiovascular: Positive: RRR, No Murmur Abdomen Description: Positive: Nontender, No Organomegaly, Soft. Negative: Distended, Guarding Musculoskeletal: Positive: Strength Intact, ROM Intact Neurological: Positive: Alert, Muscle Tone Normal, Fatigued Psychological: Positive: Age Appropriate Behavior, Consolable Skin: Negative: rashes, breakdown Throat Pain/Nasal Course/Dx - Course Course Of Treatment: Patient was concerned about her asthma. Told her we can prescribe a steroid inhaler to help her during this time. She does not think that she needs it usually. - Differential Dx/Diagnosis Provider Diagnoses: pharyngitis. asthma Discharge - Discharge Plan Condition: Stable Disposition: HOME Patient Education Materials: Asthma (ED), Pharyngitis (ED) Forms: *School Release, *Work Release Referrals: Sarahi Henderson MD [Primary Care Provider] -
== END 2016-07-30 21:55 | disposition home or self-care (01) ==
LOC: UCEAST 19:20
DX: J02.9 Acute pharyngitis, unspecified (principal); J45.909 Unspecified asthma, uncomplicated; F41.8 Other specified anxiety disorders; Z88.1 Allergy status to other antibiotic agents; Z87.891 Personal history of nicotine dependence
CPT/HCPCS: 99212; G0463

== ENCOUNTER 2016-09-25 20:30 | Emergency (ER) | payer OTHER ==
[2016-09-25 22:11] VITALS: BP 129/75
--- NOTE | 2016-09-25 23:35 | UC ---
Abdominal Pain Female HPI - HPI Summary HPI Summary: diarrhea since 09/17/16. States it started out pure watery that was yellow. Now diarrhea is more solid, but is bright green. No abd pain. No fever. No blood in the stool. No vomiting. Has not traveled outside the country. Was on antibiotics in July. Is on city water and purifies it. 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 States the stool got more formed for a day or so and then diarrhea came back. - History of Current Complaint Chief Complaint: UCGI Stated Complaint: DIARRHEA Time Seen by Provider: 09/25/16 23:34 Hx Obtained From: Patient Hx Last Menstrual Period: 09/20/16 ?: No Onset/Duration: Gradual Onset Timing: Constant Severity Initially: Moderate Severity Currently: Moderate Pain Intensity: 0 Pain Scale Used: 0-10 Numeric Location: Diffuse Radiates: No Character: Cramping Aggravating Factor(s): Food Associated Signs and Symptoms: Positive: Decreased Appetite, Diarrhea. Negative : Fever, Constipation, Blood in Stool, Urinary Symptoms, Nausea, Vomiting Allergies/Adverse Reactions: Allergies Allergy/AdvReac Type Severity Reaction Status Date / Time Amoxicillin Allergy Intermediate Vomiting Verified 09/25/16 22:02 and diarrhea Metronidazole [From Flagyl] Allergy Unknown Vomiting Verified 09/25/16 22:02 PMH/Surg Hx/FS Hx/Imm Hx Previously Healthy: Yes Other History Of: Negative For: HIV, Hepatitis B, Hepatitis C, Anticoagulant Therapy - Surgical History Surgical History: Yes Surgery Procedure, Year, and Place: 01/19 [facility] [place] pilonidal cyst. 08/27 [facility] [place] renal lithotripsy again in 04/2016 with stents - Family History Known Family History: Positive: Respiratory Disease - sister - asthma Negative: Cardiac Disease, Hypertension, Diabetes Family History: KIDNEY STONES - DAD - Social History Occupation: Employed Full-time Alcohol Use: Occasionally Alcohol Amount: 2 DRINKS Substance Use Type: None Smoking Status (MU): Former Smoker Amount Used/How Often: A TEEN - Immunization History Most Recent Influenza Vaccination: Jan 2016 Most Recent Tetanus Shot: UTD Review of Systems Constitutional: Negative Skin: Negative Eyes: Negative ENT: Negative Respiratory: Negative Cardiovascular: Negative Gastrointestinal: Diarrhea Genitourinary: Negative Motor: Negative Neurovascular: Negative Musculoskeletal: Negative Neurological: Negative Psychological: Negative All Other Systems Reviewed And Are Negative: Yes Physical Exam Triage Information Reviewed: Yes Appearance: No Pain Distress, Ill-Appearing, Obese Vital Signs: Initial Vital Signs Temp 98 F 09/25/16 21:57 Pulse 80 09/25/16 21:57 Resp 16 09/25/16 21:57 BP 129/75 09/25/16 21:57 Pulse Ox 100 09/25/16 21:57 Vital Signs Reviewed: Yes Eyes: Positive: Conjunctiva Clear ENT: Positive: Hearing grossly normal. Negative: Muffled/hoarse voice Neck: Positive: Supple, Nontender, No Lymphadenopathy Respiratory: Positive: Lungs clear, Normal breath sounds, No respiratory distress Cardiovascular: Positive: RRR, No Murmur, Pulses Normal, Brisk Capillary Refill Abdomen Description: Positive: Nontender, No Organomegaly, Soft. Negative: CVA Tenderness (R), CVA Tenderness (L), Distended, Guarding, Hepatomegaly, McBurney' s Point Tenderness, Peritoneal Signs, Pulsatile Mass, Splenomegaly Bowel Sounds: Positive: Present Musculoskeletal: Positive: Strength Intact, ROM Intact Neurological: Positive: Alert, Muscle Tone Normal Psychological Exam: Normal Skin Exam: Normal Abd Pain Female Course/Dx - Course Course Of Treatment: pt unable to provide stool sample while in UC. Will send with lab slip and lab slip. - Differential Dx/Diagnosis Differential Diagnosis: Bowel Obstruction, Diverticulitis, Irritable Bowel Syndrome, Other - colitis, inflammatory bowel disease, dysentery Provider Diagnoses: acute diarrhea Discharge - Discharge Plan Condition: Stable Disposition: HOME Patient Education Materials: Acute Diarrhea (ED), Loperamide (By mouth) Forms: *Work Release Referrals: Sarahi Henderson MD [Primary Care Provider] - Additional Instructions: You may take loperamide, immodium if you do not have fever. Please return the stool specimen to be tested. Once the stool has been submitted it will be a few days, and we will have results. We will contact you if you need further treatment based on the results. Go to the emergency room if you have new or worsening symptoms.
== END 2016-09-26 00:45 | disposition home or self-care (01) ==
LOC: UCEAST 20:30
DX: R19.7 Diarrhea, unspecified (principal); E66.9 Obesity, unspecified; Z88.1 Allergy status to other antibiotic agents; Z87.891 Personal history of nicotine dependence
CPT/HCPCS: 99211; G0463

== ENCOUNTER 2017-01-09 10:34 | Emergency (ER) | payer OTHER ==
[2017-01-09] MEDS ORDERED: NS 0.9% 1000 ML* 1,000 ML IV ONE (10:49)
[2017-01-09] MEDS ORDERED: methylPREDNISolone 125 MG* 2 ML VIAL IV ONE (10:49)
--- NOTE | 2017-01-09 11:23 | RAD ---
HISTORY: Shortness of breath COMPARISONS: December 06, 2015 VIEWS: 4: Frontal dual-energy and lateral views of the chest. FINDINGS: CARDIOMEDIASTINAL SILHOUETTE: The cardiomediastinal silhouette is normal. ERIC: The eric are normal. PLEURA: The costophrenic angles are sharp. No pleural abnormalities are noted. LUNG PARENCHYMA: The lungs are clear. ABDOMEN: The upper abdomen is clear. There is no subphrenic gas. BONES AND SOFT TISSUES: No bone or soft tissue abnormalities are noted. OTHER: None. IMPRESSION: NO ACTIVE CARDIOPULMONARY DISEASE.
[2017-01-09 11:28] LABS: Hematocrit 41 % (35-47); Hemoglobin 13.4 g/dl (12.0-16.0); Mean Corpuscular HGB Conc 33 g/dl (31-36); Mean Corpuscular Hemoglobin 27 pg (27-31); Mean Corpuscular Volume 81 fL (80-97); Mean Platelet Volume 7 um3 (7.4-10.4); Red Blood Count 5.01 10^6/ul (4.0-5.4); Red Cell Distribution Width 16 % (10.5-15); White Blood Count 9.7 10^3/ul (3.5-10.8)
[2017-01-09 11:41] LABS: ALT 12 U/L (7-52); AST 14 U/L (13-39); Albumin 3.6 g/dL (3.2-5.2); Alkaline Phosphatase 72 U/L (34-104); Anion Gap 7 mmol/L (2-11); Blood Urea Nitrogen 11 mg/dL (6-24); C Reactive Protein 25.08 mg/L (< 5.00); CO2 Carbon Dioxide 24 mmol/L (22-32); Calcium 8.6 mg/dL (8.6-10.3); Chloride 108 mmol/L (101-111); EGFR African American 82.1 (>60); EGFR Non-African American 63.9 (>60); Globulin 3.3 g/dL (2-4); Glucose 81 mg/dL (70-100); Potassium 3.6 mmol/L (3.5-5.0); Sodium 139 mmol/L (133-145); Total Protein 6.9 g/dL (6.4-8.9)
[2017-01-09 13:12] LABS: Urine Bilirubin Negative (Negative); Urine Glucose Negative (Negative); Urine Nitrite Negative (Negative)
[2017-01-09 13:18] LABS: Urine Bacteria 1+ (Absent)
[2017-01-09 13:23] VITALS: BP 105/64
--- NOTE | 2017-01-09 18:34 | ED ---
Joel Sher Angela, scribed for Jan Fuller MD on 01/09/17 at 1051 . Asthma - HPI Summary HPI Summary: This pt is a 31 y/o female presenting to [facility] c/o asthma exacerbation since 9 days ago. Pt reports she went to her PCP's office 3 days ago and was prescribed a Z-pack. She just finished Z-pack today. Pt states using her nebulizer twice this morning with relief. Pt denies any triggers, she states only being around air freshener in [facility]. LMP: upcoming this week. Pt is not on any steroids currently. - History of Current Complaint Chief Complaint: EDAsthma Stated Complaint: ASTHMA ISSUES Time Seen by Provider: 01/09/17 10:45 Hx Obtained From: Patient Hx Last Menstrual Period: 09/20/16 Onset/Duration: Lasting Days Timing: Days Pain Intensity: 0 Location/Character: Wheezing Aggravating Symptoms: Other: - unknown Alleviating Symptoms: Inhalers/Nebulizers Associated Signs and Symptoms: Positive: Shortness of Breath. Negative: Calf Pain, Edema, URI, Sinus Infection - Allergy/Home Medications Allergies/Adverse Reactions: Allergies Allergy/AdvReac Type Severity Reaction Status Date / Time Amoxicillin Allergy Intermediate Vomiting Verified 09/25/16 22:02 and diarrhea Metronidazole [From Flagyl] Allergy Unknown Vomiting Verified 09/25/16 22:02 PMH/Surg Hx/FS Hx/Imm Hx Endocrine/Hematology History: Reports: Hx Anemia - STATES HX OF -OFF AND ON Denies: Hx Anticoagulant Therapy, Hx Diabetes, Hx Thyroid Disease Cardiovascular History: Denies: Hx Congestive Heart Failure, Hx Deep Vein Thrombosis, Hx Hypertension , Hx Myocardial Infarction, Hx Pacemaker/ICD Respiratory History: Reports: Hx Asthma, Hx Sleep Apnea - current CPAP user Denies: Hx Chronic Obstructive Pulmonary Disease (COPD), Hx Lung Cancer, Hx Pneumonia, Hx Pulmonary Embolism GI History: Denies: Hx Gall Bladder Disease, Hx Gastrointestinal Bleed, Hx Ulcer, Hx Urosepsis, Other GI Disorders History: Reports: Hx Kidney Stones - CURRENTLY / 04/2016 STENT PLACEMENT, Other Problems/Disorders - RENAL STONES Denies: Hx Dialysis, Hx Renal Disease Sensory History: Denies: Hx Contacts or Glasses, Hx Hearing Aid Opthamlomology History: Denies: Hx Contacts or Glasses Neurological History: Reports: Other Neuro Impairments/Disorders Denies: Hx Dementia, Hx Migraine, Hx Seizures, Hx Transient Ischemic Attacks (TIA) Psychiatric History: Reports: Hx Anxiety - ON MEDICATION FOR, Hx Depression - ON MEDICATION FOR, Hx Panic Disorder, Hx Inpatient Treatment, Hx Community Mental Health Tx, Hx Bipolar Disorder Denies: Hx Schizophrenia - Surgical History Surgery Procedure, Year, and Place: 01/19 [facility] [place] pilonidal cyst. 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 Denies: Hx Clostridium Difficile, Hx Hepatitis, Hx Human Immunodeficiency Virus (HIV), Hx Shingles, Hx Tuberculosis, Hx Known/Suspected VRE, Hx Known/ Suspected VRSA, History Other Infectious Disease, Traveled Outside the in Last 30 Days - Family History Known Family History: Positive: Respiratory Disease - sister - asthma Negative: Cardiac Disease, Hypertension, Diabetes Family History: KIDNEY STONES - DAD - Social History Alcohol Use: Occasionally Alcohol Amount: 2 DRINKS Hx Substance Use: No Substance Use Type: Reports: None Hx Tobacco Use: No Smoking Status (MU): Former Smoker Amount Used/How Often: A TEEN Review of Systems Negative: Fever, Chills Negative: Chest Pain Positive: Shortness Of Breath Gastrointestinal: Negative Genitourinary: Negative Skin: Negative Negative: Headache, Weakness, Paresthesia All Other Systems Reviewed And Are Negative: Yes Physical Exam - Summary Physical Exam Summary: VITAL SIGNS: Reviewed. GENERAL: ~Patient is a well-developed and nourished female who is lying comfortable in the stretcher. ~Patient is not in any acute respiratory distress. HEAD AND FACE: No signs of trauma. ~No ecchymosis, hematomas or skull depressions. No sinus tenderness. EYES: PERRLA, EOMI x 2, No injected conjunctiva, no nystagmus. EARS: Hearing grossly intact. Ear canals and tympanic membranes are within normal limits. MOUTH: Oropharynx within normal limits. NECK: Supple, trachea is midline, no adenopathy, no JVD, no carotid bruit, no c- spine tenderness, neck with full ROM. CHEST: Symmetric, no tenderness at palpation LUNGS: Clear to auscultation bilaterally. No wheezing or crackles. CVS: Regular rate and rhythm, S1 and S2 present, no murmurs or gallops appreciated. ABDOMEN: Soft, non-tender. No signs of distention. No rebound no guarding, and no masses palpated. Bowel sounds are normal. EXTREMITIES: FROM in all major joints, no edema, no cyanosis or clubbing. NEURO: Alert and oriented x 3. No acute neurological deficits. Speech is normal and follows commands. SKIN: Dry and warm Triage Information Reviewed: Yes Vital Signs On Initial Exam: Initial Vitals Temp Pulse Resp BP Pulse Ox 97.5 F 63 22 120/72 99 01/09/17 10:35 01/09/17 10:35 01/09/17 10:35 01/09/17 10:35 01/09/17 10:35 Vital Signs Reviewed: Yes Diagnostics - Vital Signs Vital Signs Temp Pulse Resp BP Pulse Ox 01/09/17 10:35 97.5 F 63 22 120/72 99 - Laboratory Lab Results: Lab Results 01/09/17 01/09/17 01/09/17 Range/Units 11:10 11:10 11:10 WBC 9.7 (3.5-10.8) 10^3/ul RBC 5.01 (4.0-5.4) 10^6/ul Hgb 13.4 (12.0-16.0) g/dl Hct 41 (35-47) % MCV 81 (80-97) fL MCH 27 (27-31) pg MCHC 33 (31-36) g/dl RDW 16 H (10.5-15) % Plt Count 290 (150-450) 10^3/ul MPV 7 L (7.4-10.4) um3 Neut % (Auto) 53.5 (38-83) % Lymph % (Auto) 37.2 (25-47) % Iron % (Auto) 7.0 (1-9) % Eos % (Auto) 1.7 (0-6) % Baso % (Auto) 0.6 (0-2) % Absolute Neuts (auto) 5.2 (1.5-7.7) 10^3/ul Absolute Lymphs (auto) 3.6 (1.0-4.8) 10^3/ul Absolute Monos (auto) 0.7 (0-0.8) 10^3/ul Absolute Eos (auto) 0.2 (0-0.6) 10^3/ul Absolute Basos (auto) 0.1 (0-0.2) 10^3/ul Absolute Nucleated RBC 0 10^3/ul Nucleated RBC % 0 Sodium 139 (133-145) mmol/L Potassium 3.6 (3.5-5.0) mmol/L Chloride 108 (101-111) mmol/L Carbon Dioxide 24 (22-32) mmol/L Anion Gap 7 (2-11) mmol/L BUN 11 (6-24) mg/dL Creatinine 1.00 H (0.51-0.95) mg/dL Est GFR ( Amer) 82.1 (>60) Est GFR (Non-Af Amer) 63.9 (>60) BUN/Creatinine Ratio 11.0 (8-20) Glucose 81 (70-100) mg/dL Calcium 8.6 (8.6-10.3) mg/dL Total Bilirubin 0.40 (0.2-1.0) mg/dL AST 14 (13-39) U/L ALT 12 (7-52) U/L Alkaline Phosphatase 72 (34-104) U/L C-Reactive Protein 25.08 H (< 5.00) mg/L B-Natriuretic Peptide 55 ( - 100) pg/mL Total Protein 6.9 (6.4-8.9) g/dL Albumin 3.6 (3.2-5.2) g/dL Globulin 3.3 (2-4) g/dL Albumin/Globulin Ratio 1.1 (1-3) Beta HCG, Quant < 0.60 mIU/mL Urine Color Urine Appearance Urine pH (5-9) Ur Specific Secor (1.010-1.030) Urine Protein (Negative) Urine Ketones (Negative) Urine Blood (Negative) Urine Nitrate (Negative) Urine Bilirubin (Negative) Urine Urobilinogen (Negative) Ur Leukocyte Esterase (Negative) Urine WBC (Auto) (Absent) Urine RBC (Auto) (Absent) Ur Squamous Epith Cells (Absent) Urine Bacteria (Absent) Urine Glucose (Negative) 01/09/17 Range/Units 12:15 WBC (3.5-10.8) 10^3/ul RBC (4.0-5.4) 10^6/ul Hgb (12.0-16.0) g/dl Hct (35-47) % MCV (80-97) fL MCH (27-31) pg MCHC (31-36) g/dl RDW (10.5-15) % Plt Count (150-450) 10^3/ul MPV (7.4-10.4) um3 Neut % (Auto) (38-83) % Lymph % (Auto) (25-47) % Iron % (Auto) (1-9) % Eos % (Auto) (0-6) % Baso % (Auto) (0-2) % Absolute Neuts (auto) (1.5-7.7) 10^3/ul Absolute Lymphs (auto) (1.0-4.8) 10^3/ul Absolute Monos (auto) (0-0.8) 10^3/ul Absolute Eos (auto) (0-0.6) 10^3/ul Absolute Basos (auto) (0-0.2) 10^3/ul Absolute Nucleated RBC 10^3/ul Nucleated RBC % Sodium (133-145) mmol/L Potassium (3.5-5.0) mmol/L Chloride (101-111) mmol/L Carbon Dioxide (22-32) mmol/L Anion Gap (2-11) mmol/L BUN (6-24) mg/dL Creatinine (0.51-0.95) mg/dL Est GFR ( Amer) (>60) Est GFR (Non-Af Amer) (>60) BUN/Creatinine Ratio (8-20) Glucose (70-100) mg/dL Calcium (8.6-10.3) mg/dL Total Bilirubin (0.2-1.0) mg/dL AST (13-39) U/L ALT (7-52) U/L Alkaline Phosphatase (34-104) U/L C-Reactive Protein (< 5.00) mg/L B-Natriuretic Peptide ( - 100) pg/mL Total Protein (6.4-8.9) g/dL Albumin (3.2-5.2) g/dL Globulin (2-4) g/dL Albumin/Globulin Ratio (1-3) Beta HCG, Quant mIU/mL Urine Color Yellow Urine Appearance Cloudy Urine pH 5 (5-9) Ur Specific Secor 1.035 H (1.010-1.030) Urine Protein Negative (Negative) Urine Ketones Negative (Negative) Urine Blood Negative (Negative) Urine Nitrate Negative (Negative) Urine Bilirubin Negative (Negative) Urine Urobilinogen Negative (Negative) Ur Leukocyte Esterase 2+ H (Negative) Urine WBC (Auto) 2+(11-20/hpf) H (Absent) Urine RBC (Auto) Absent (Absent) Ur Squamous Epith Cells Present H (Absent) Urine Bacteria 1+ H (Absent) Urine Glucose Negative (Negative) Result Diagrams: 01/09/17 11:10 01/09/17 11:10 Lab Statement: Any lab studies that have been ordered have been reviewed, and results considered in the medical decision making process. - Radiology Chest XR Xray Interpretation: No Acute Changes - IMPRESSION: No active cardiopulmonary disease. ED physician has reviewed this radiology report and agrees. Radiology Interpretation Completed By: Radiologist Re-Evaluation - Re-Evaluation First Eval Re-Evaluation Time: 12:20 Comment: I reviewed the XR results with the pt. She is feeling better. Asthma Course/Dx - Course Assessment/Plan: This pt is a 31 y/o female presenting to [facility] c/o asthma exacerbation since 9 days ago. Pt reports she went to her PCP's office 3 days ago and was prescribed a Z-pack. She just finished Z-pack today. Pt states using her nebulizer twice this morning with relief. Pt denies any triggers, she states only being around air freshener in [facility]. LMP: upcoming this week. Pt is not on any steroids currently. Tests results are without any significant abnormalities. Urinalysis is negative for UTI. Chest XR is negative for an acute pathology. In the ED course, the pt was not wheezing, was not in respiratory distress, or SOB. Pt reported that she took her nebulizer twice at home and her symptoms resolved. The pt was upset for a couple of hours and the symptoms did not return. Therefore, the pt will be discharged home and will follow up with her PCP. Pt is hemodynamically stable, alert and oriented x3. - Diagnoses Differential Diagnosis/HQI/PQRI: Positive: Bronchitis, CHF, COPD Excerbation, Reactive Airway Disease Provider Diagnoses: Asthma exacerbation Discharge - Discharge Plan Condition: Stable Disposition: HOME Prescriptions: predniSONE TAB* [Deltasone TAB*] 40 mg PO DAILY #8 tab Patient Education Materials: Asthma (ED) Forms: *Work Release Referrals: Sarahi Henderson MD [Primary Care Provider] - Genesis Rogers MD [Medical Doctor] - 3 Days Additional Instructions: Please follow up with your primary care provider. Also, follow up with Dr. Rogers, pie crust mixer. The documentation as recorded by the Joel goldberg Angela accurately reflects the service I personally performed and the decisions made by me, Jan Fuller MD.
--- NOTE | 2017-01-11 08:56 | PN ---
Progress Note - Progress Note Date of Service: 01/09/17 Note: urine preliminary culture results show 10-25,000 of enterococcus faecalis. urine dip does not show UTI. Patient did not have complaints. No need for treatment due to amount of bacteria growth. However will wait for susceptibility final results incase treatment is needed in future.
== END 2017-01-09 13:00 | disposition home or self-care (01) ==
LOC: ED 10:34
DX: J45.901 Unspecified asthma with (acute) exacerbation (principal); G47.30 Sleep apnea, unspecified; F41.8 Other specified anxiety disorders; F31.9 Bipolar disorder, unspecified; Z87.891 Personal history of nicotine dependence
CPT/HCPCS: 36415; 71020; 80053; 81003; 81015; 83880; 84702; 85025; 86140; 87077; 87086; 87186; 96360; 99282; J2930

== ENCOUNTER 2017-02-10 16:11 | Emergency (ER) | payer OTHER ==
[2017-02-10 16:19] VITALS: BP 139/81
--- NOTE | 2017-02-10 16:47 | RAD ---
INDICATION: Right thumb pain COMPARISON: None TECHNIQUE: AP, lateral, and oblique views were obtained. FINDINGS: The bony structures, joint spaces, and soft tissues are normal for age. IMPRESSION: NEGATIVE EXAMINATION.
--- NOTE | 2017-02-10 18:05 | UC ---
Upper Extremity HPI - HPI Summary HPI Summary: 31 yo pt states her right thumb at the MP joint has been aching, burning pain, and feels it popping and snapping. States that her right thumb popped out in 1997 and this is the first time it has bothered her since then. She did not fracture it in 1997. States she is right handed. 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 States it started aching on 02/03/17. - History of Current Complaint Chief Complaint: UCUpperExtremity Stated Complaint: HAND PAIN, AND FINGER PAIN Time Seen by Provider: 02/10/17 16:15 Hx Obtained From: Patient Hx Last Menstrual Period: 3 wks ago ?: No Onset/Duration: Gradual Onset, Lasting Weeks - 1 Severity Initially: Moderate Severity Currently: Moderate Pain Intensity: 5 Pain Scale Used: 0-10 Numeric Location Of Pain: Is Discrete @ - right thumb MP joint Character: Aching, Burning Alleviating Factor(s): Nothing Associated Signs And Symptoms: Positive: Negative Related History: Dominant Hand Right - Allergies/Home Medications Allergies/Adverse Reactions: Allergies Allergy/AdvReac Type Severity Reaction Status Date / Time Amoxicillin Allergy Intermediate Vomiting Verified 02/10/17 16:19 and diarrhea Metronidazole [From Flagyl] Allergy Unknown Vomiting Verified 02/10/17 16:19 Home Medications: Home Medications Fluticasone-Salmeterol 250-50* [Advair Diskus 250-50*] 1 puff INH DAILY [History Confirmed 02/10/17] PMH/Surg Hx/FS Hx/Imm Hx Previously Healthy: Yes Other History Of: Negative For: HIV, Hepatitis B, Hepatitis C, Anticoagulant Therapy - Surgical History Surgical History: Yes Surgery Procedure, Year, and Place: 01/19 [facility] [place]ilon[place]. 08/27 [facility] [place] renal lithotripsy again in 04/2016 with stents - Family History Known Family History: Positive: Respiratory Disease - sister - asthma Negative: Cardiac Disease, Hypertension, Diabetes Family History: KIDNEY STONES - DAD - Social History Alcohol Use: Occasionally Alcohol Amount: 2 DRINKS Substance Use Type: None Smoking Status (MU): Former Smoker Amount Used/How Often: A TEEN - Immunization History Most Recent Influenza Vaccination: Jan 2016 Most Recent Tetanus Shot: UTD Review of Systems Constitutional: Negative Respiratory: Negative Cardiovascular: Negative Musculoskeletal: Arthralgia Neurological: Negative Psychological: Negative Is Patient Immunocompromised?: Yes All Other Systems Reviewed And Are Negative: Yes Physical Exam Triage Information Reviewed: Yes Appearance: Well-Appearing, Well-Nourished, Pain Distress Vital Signs: Initial Vital Signs Temp 98.3 F 02/10/17 16:15 Pulse 98 02/10/17 16:15 Resp 18 02/10/17 16:15 BP 139/81 02/10/17 16:15 Pulse Ox 100 02/10/17 16:15 Vital Signs Reviewed: Yes Eyes: Positive: Conjunctiva Clear ENT: Positive: Normal ENT inspection Neck: Positive: Supple Respiratory: Positive: No respiratory distress Cardiovascular: Positive: RRR, Pulses Normal, Brisk Capillary Refill Musculoskeletal: Positive: Strength Intact, ROM Intact, Other: - UCL ligaments intact with stress by me Neurological: Positive: Alert Psychological Exam: Normal Skin Exam: Normal Upper Extremity Course/Dx - Course Course Of Treatment: xray neg for fx or dislocation per radiologist. LEILA MANUEL reviewed xray and report and agrees with this. - Differential Dx/Diagnosis Differential Diagnosis/HQI/PQRI: Arthritis, Strain, Sprain, Other - dislocation Provider Diagnoses: right thumb sprain. elevated BP without diagnosis of HTN Discharge - Discharge Plan Condition: Stable Disposition: HOME Prescriptions: Ibuprofen TAB* [Motrin TAB* 800 MG] 800 mg PO Q6H #30 tab Patient Education Materials: Skier's Thumb (ED), Finger Sprain (ED) Forms: *Gen. Provider Communication, *Work Release Referrals: Janie Reese MD [Medical Doctor] - As Soon As Possible (within one week as referred by Dr. Yue Kimbrough ) Sarahi Henderson MD [Primary Care Provider] - 2 Weeks (for elevated BP ) Additional Instructions: Please wear the splint at all times until you are seen by Dr. Reese or the orthopedist. You may take the splint off to shower, but then replace it. You may take ibuprofen for pain. Return to urgent care if you have new or worsening symptoms, or are not able to obtain a timely appointment with orthopedics.
== END 2017-02-10 17:27 | disposition home or self-care (01) ==
LOC: UCEAST 16:11
DX: S63.601A Unspecified sprain of right thumb, initial encounter (principal); X58.XXXA Exposure to other specified factors, initial encounter; Y93.9 Activity, unspecified; Y92.9 Unspecified place or not applicable; R03.0 Elevated blood-pressure reading, without diagnosis of hypertension; Z88.1 Allergy status to other antibiotic agents; Z87.891 Personal history of nicotine dependence
CPT/HCPCS: 99211; G0463

== ENCOUNTER 2017-03-06 16:08 | Emergency (ER) | payer OTHER ==
[2017-03-06 16:58] VITALS: BP 139/75
--- NOTE | 2017-03-06 17:37 | UC ---
Respiratory Complaint HPI - HPI Summary HPI Summary: 2 day history of increasing sinus pressure, left ear pain, sore throat, decreased appetite and subjective fever. Has hx of asthma, needed prolonged prednisone use in to gain control. Has advair which she is concerned about using because of FH of glaucoma. Uses singulair regularly, last albuterol use was 2 weeks ago. - History of Current Complaint Chief Complaint: UCGeneralIllness Stated Complaint: THROAT PAIN Time Seen by Provider: 03/06/17 17:23 Hx Obtained From: Patient Hx Last Menstrual Period: 02/17/17 Onset/Duration: Gradual Onset, Lasting Days - 3 Timing: Constant Severity Initially: Moderate Severity Currently: Moderate Character: Cough: Productive, Sputum Description: - yellow Aggravating Factors: Deep Breaths, Recumbent Position Alleviating Factors: Nothing - has used codein cough suppressant and ibuprofen Associated Signs And Symptoms: Positive: Dyspnea, Nasal Congestion, Hoarseness, Sinus Discomfort - Risk Factors Pulmonary Embolism Risk Factors: Negative Cardiac Risk Factors: Negative Pseudomonas Risk Factors: Negative Tuberculosis Risk Factors: Negative - Allergies/Home Medications Allergies/Adverse Reactions: Allergies Allergy/AdvReac Type Severity Reaction Status Date / Time Amoxicillin Allergy Intermediate Vomiting Verified 03/06/17 16:49 and diarrhea Metronidazole [From Flagyl] Allergy Unknown Vomiting Verified 03/06/17 16:49 PMH/Surg Hx/FS Hx/Imm Hx - Additional Past Medical History Additional PMH: obesity sleep apnea, irregular use of treatment. Respiratory History: Asthma Psychological History: Anxiety, Depression Other History Of: Negative For: HIV, Hepatitis B, Hepatitis C, Anticoagulant Therapy - Surgical History Surgical History: Yes Surgery Procedure, Year, and Place: 01/19 [facility] [place] pilonidal cyst. 08/27 [facility] [place] ) renal lithotripsy again in 04/2016 with stents - Family History Known Family History: Positive: Respiratory Disease - sister - asthma Negative: Cardiac Disease, Hypertension, Diabetes Family History: KIDNEY STONES - DAD - Social History Alcohol Use: Occasionally Alcohol Amount: 2 DRINKS Substance Use Type: None Smoking Status (MU): Former Smoker Amount Used/How Often: A TEEN - Immunization History Most Recent Influenza Vaccination: Jan 2016 Most Recent Tetanus Shot: UTD Review of Systems Constitutional: Fatigue Skin: Negative Eyes: Negative ENT: Sore Throat, Ear Ache - left Respiratory: Cough Cardiovascular: Negative Gastrointestinal: Negative Genitourinary: Negative Motor: Negative Neurovascular: Negative Musculoskeletal: Negative Neurological: Headache Psychological: Negative Is Patient Immunocompromised?: No All Other Systems Reviewed And Are Negative: Yes Physical Exam Triage Information Reviewed: Yes Appearance: Ill-Appearing - looks mildly unwell, Obese Vital Signs: Initial Vital Signs Temp 98.4 F 03/06/17 16:51 Pulse 90 03/06/17 16:51 Resp 20 03/06/17 16:51 BP 139/75 03/06/17 16:51 Pulse Ox 98 03/06/17 16:51 Eyes: Positive: Conjunctiva Clear ENT: Positive: TM dull - bilateral, Other - percussive sinus tenderness. Neck: Positive: Supple, Nontender, No Lymphadenopathy Respiratory: Positive: Lungs clear, Normal breath sounds Cardiovascular: Positive: RRR, No Murmur Musculoskeletal Exam: Normal Neurological Exam: Normal Psychological Exam: Other - mildly anxious UC Diagnostic Evaluation - Laboratory O2 Sat by Pulse Oximetry: 98 Respiratory Course/Dx - Course Course Of Treatment: zpack for sinusitis, initiate Advair and albuterol - Differential Dx/Diagnosis Differential Diagnosis/HQI/PQRI: Asthma, Bronchitis, Laryngitis, Sinusitis Provider Diagnoses: acute bilateral frontal sinusitis Discharge - Discharge Plan Condition: Stable Disposition: HOME Prescriptions: Azithromyxin FAVIO (NF) [Z-Favio (Zithromax) 250 mg tabs #6] 2 tab PO .TODAY, THEN 1 DAILY #6 tab Ibuprofen TAB* [Motrin TAB* 800 MG] 800 mg PO TID PRN #30 tab PRN Reason: Pain Patient Education Materials: Sinusitis (ED) Referrals: Sarahi Henderson MD [Primary Care Provider] - Additional Instructions: Take your full course of antibiotics. Begin use of advair to prevent progression of your asthma. Using this for a week or so now can help to prevent the need for oral steroids. Use ibuprofen as needed for pain. Resume nasal steroids as well.
== END 2017-03-06 18:00 | disposition home or self-care (01) ==
LOC: UCEAST 16:08
DX: J01.10 Acute frontal sinusitis, unspecified (principal); Z72.89 Other problems related to lifestyle; Z87.891 Personal history of nicotine dependence
CPT/HCPCS: 99212; G0463

== ENCOUNTER 2017-03-15 18:45 | Emergency (ER) | payer OTHER ==
[2017-03-15 18:55] VITALS: BP 112/85
--- NOTE | 2017-03-15 19:02 | UC ---
UC General HPI - HPI Summary HPI Summary: was out 3 days last week with resolving sinus headache, sx have resolved and needs a note to return to work, no pain, fever, rash, n/v/d - History of Current Complaint Chief Complaint: UCGeneralIllness Stated Complaint: NEEDS A NOTE TO RETURN TO WORK Time Seen by Provider: 03/15/17 18:57 Hx Obtained From: Patient Hx Last Menstrual Period: february 17 Onset/Duration: Resolved Current Severity: None Associated Signs & Symptoms: Positive: Headache Related Hx: Recent Illness - Allergy/Home Medications Allergies/Adverse Reactions: Allergies Allergy/AdvReac Type Severity Reaction Status Date / Time Amoxicillin Allergy Intermediate Vomiting Verified 03/15/17 18:56 and diarrhea Metronidazole [From Flagyl] Allergy Unknown Vomiting Verified 03/15/17 18:56 PMH/Surg Hx/FS Hx/Imm Hx Previously Healthy: No Respiratory History: Asthma Other History Of: Negative For: HIV, Hepatitis B, Hepatitis C, Anticoagulant Therapy - Surgical History Surgical History: Yes Surgery Procedure, Year, and Place: 01/19 [facility] [place] pilonidal cyst. 08/27 [facility] [place] ([place] ) renal lithotripsy again in 04/2016 with stents - Family History Known Family History: Positive: Respiratory Disease - sister - asthma Negative: Cardiac Disease, Hypertension, Diabetes Family History: KIDNEY STONES - DAD - Social History Occupation: Employed Full-time Lives: With Family Alcohol Use: Occasionally Alcohol Amount: 2 DRINKS Substance Use Type: None Smoking Status (MU): Never Smoked Tobacco Amount Used/How Often: tried once or twice as a teen - Immunization History Most Recent Influenza Vaccination: Jan 2016 Most Recent Tetanus Shot: UTD Review of Systems Constitutional: Negative Skin: Negative Eyes: Negative ENT: Negative Respiratory: Negative Cardiovascular: Negative Gastrointestinal: Negative Genitourinary: Negative Motor: Negative Neurovascular: Negative Musculoskeletal: Negative Neurological: Negative Psychological: Negative Is Patient Immunocompromised?: No All Other Systems Reviewed And Are Negative: Yes Physical Exam Triage Information Reviewed: Yes Appearance: Well-Appearing, No Pain Distress, Well-Nourished Vital Signs: Initial Vital Signs Temp 97 F 03/15/17 18:50 Pulse 104 03/15/17 18:50 Resp 16 03/15/17 18:50 BP 112/85 03/15/17 18:50 Pulse Ox 98 03/15/17 18:50 Vital Signs Reviewed: Yes Eye Exam: Normal Eyes: Positive: Conjunctiva Clear ENT Exam: Normal ENT: Positive: Normal ENT inspection, Hearing grossly normal. Negative: Nasal drainage, Trismus, Muffled voice, Hoarse voice Dental Exam: Normal Neck exam: Normal Neck: Positive: Supple Respiratory Exam: Normal Respiratory: Positive: Chest non-tender, No respiratory distress, No accessory muscle use Cardiovascular Exam: Normal Cardiovascular: Positive: RRR, Brisk Capillary Refill Musculoskeletal Exam: Normal Musculoskeletal: Positive: Strength Intact, ROM Intact, No Edema Neurological Exam: Normal Neurological: Positive: Alert, Muscle Tone Normal Psychological Exam: Normal Skin Exam: Normal Course/Dx - Course Course Of Treatment: re check prn - Differential Dx - Multi-Symptom Provider Diagnoses: resolved sinusitis Discharge - Discharge Plan Condition: Stable Disposition: HOME Patient Education Materials: General Headache (ED) Forms: *Work Release Referrals: Sarahi Henderson MD [Primary Care Provider] - If Needed
== END 2017-03-15 19:09 | disposition home or self-care (01) ==
LOC: UCEAST 18:45
DX: Z02.79 Encounter for issue of other medical certificate (principal)
CPT/HCPCS: 99211; G0463

== ENCOUNTER 2017-03-25 21:27 | Emergency (ER) | payer OTHER ==
[2017-03-25 21:39] VITALS: BP 115/74
--- NOTE | 2017-03-25 21:49 | UC ---
Zenaida Sher Alfonso, scribed for Amanuel Domingo MD on 03/25/17 at 2148 . General HPI - HPI Summary HPI Summary: This patient is a 31 year old F presenting to [facility] with a chief complaint of blood in the stool and diarrhea a few days ago. She reports her symptoms are completely resolved. Patient denies pain and nausea. She is requesting a note to return to work tomorrow. - History of Current Complaint Chief Complaint: UCGeneralIllness Stated Complaint: ABDOMINAL COMPLAINT Hx Obtained From: Patient Hx Last Menstrual Period: 03/25/2017 Onset/Duration: Sudden Onset, Resolved Timing: Constant Current Severity: None Associated Signs & Symptoms: Positive: Other - Patient denies pain and nausea - Allergy/Home Medications Allergies/Adverse Reactions: Allergies Allergy/AdvReac Type Severity Reaction Status Date / Time Amoxicillin Allergy Intermediate Vomiting Verified 03/25/17 21:31 and diarrhea Metronidazole [From Flagyl] Allergy Unknown Vomiting Verified 03/25/17 21:31 PMH/Surg Hx/FS Hx/Imm Hx Previously Healthy: No Respiratory History: Asthma Other History Of: Negative For: HIV, Hepatitis B, Hepatitis C, Anticoagulant Therapy - Surgical History Surgical History: Yes Surgery Procedure, Year, and Place: 01/19 [facility] [place] pilonidal cyst. 08/27 [facility] (right ) renal lithotripsy with stent again in 04/2016 with stents - Family History Known Family History: Positive: Respiratory Disease - sister - asthma Negative: Cardiac Disease, Hypertension, Diabetes Family History: KIDNEY STONES - DAD - Social History Alcohol Use: Weekly Alcohol Amount: 2 DRINKS Substance Use Type: None Smoking Status (MU): Never Smoked Tobacco Amount Used/How Often: tried once or twice as a teen - Immunization History Most Recent Influenza Vaccination: February 2017 Most Recent Tetanus Shot: UTD Review of Systems Constitutional: Negative Gastrointestinal: Other - blood in the stool and diarrhea resolved; Negative pain and nausea All Other Systems Reviewed And Are Negative: Yes Physical Exam Triage Information Reviewed: Yes Appearance: Well-Appearing, No Pain Distress, Obese Vital Signs: Initial Vital Signs Temp 97.6 F 03/25/17 21:32 Pulse 99 03/25/17 21:32 Resp 18 03/25/17 21:32 BP 115/74 03/25/17 21:32 Pulse Ox 100 03/25/17 21:32 Vital Signs Reviewed: Yes Eyes: Positive: Conjunctiva Clear ENT: Positive: Normal ENT inspection Neck: Positive: Supple Respiratory: Positive: Lungs clear, No respiratory distress Cardiovascular: Positive: RRR Abdomen Description: Positive: Nontender Bowel Sounds: Positive: Present Musculoskeletal: Positive: Strength Intact Neurological: Positive: Alert Psychological: Positive: Age Appropriate Behavior Skin: Negative: rashes Course/Dx - Differential Dx - Multi-Symptom Provider Diagnoses: General physical exam. Discharge - Discharge Plan Condition: Stable Disposition: HOME Forms: *Work Release Referrals: Sarahi Henderson MD [Primary Care Provider] - Additional Instructions: PLEASE RETURN FOR ANY WORSENING OR CONCERENING SYMPTOMS AND REPORT TO THE ER FOR ANY EMERGENCIES PLEASE MAKE AN APPOINTMENT WTIH YOUR PRIMARY CARE DOCTOR TO BE SEEN WITHIN 1 WEEK The documentation as recorded by the Zenaida goldberg Alfonso accurately reflects the service I personally performed and the decisions made by , Amanuel Domingo MD.
== END 2017-03-25 21:52 | disposition home or self-care (01) ==
LOC: UCEAST 21:27
DX: R19.7 Diarrhea, unspecified (principal); K92.1 Melena; J45.909 Unspecified asthma, uncomplicated; E66.9 Obesity, unspecified; Z88.1 Allergy status to other antibiotic agents
CPT/HCPCS: 99211; G0463

== ENCOUNTER 2017-04-15 20:54 | Emergency (ER) | payer OTHER ==
--- OUTSIDE RECORDS SUMMARY | 2017-04-15 21:02 | XMS REPORT ---
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 5'3.50" Weight 224.00 lb Heart Rate 79 /min BP Systolic Sitting 109 mmHg BP Diastolic Sitting 76 mmHg BMI (Body Mass Index) 39.1 kg/m2 11/08/2011 Height 63.50 inches 5'3.50" Weight 228.00 lb Heart Rate 80 /min BP Systolic Sitting 98 mmHg BP Diastolic Sitting 60 mmHg BMI (Body Mass Index) 39.8 kg/m2 08/26/2011 Height 63.50 inches 5'3.50" Weight 216.00 lb Heart Rate 98 /min BP Systolic Sitting 100 mmHg BP Diastolic Sitting 80 mmHg Body Temperature 97.9 F O2 % BldC Oximetry 97 % BMI (Body Mass Index) 37.7 kg/m2 08/01/2011 Height 63.50 inches 5'3.50" Weight 215.00 lb Heart Rate 68 /min BP Systolic Sitting 102 mmHg L BP Diastolic Sitting 70 mmHg L Body Temperature 97.5 F BMI (Body Mass Index) 37.5 kg/m2 07/29/2011 Height 63.50 inches 5'3.50" Weight 215.00 lb Heart Rate 96 /min BP Systolic Sitting 111 mmHg BP Diastolic Sitting 72 mmHg BMI (Body Mass Index) 37.5 kg/m2 06/24/2011 Height 64 inches 5'4" Est Weight 201.00 lb Heart Rate 68 /min BP Systolic Sitting 100 mmHg BP Diastolic Sitting 80 mmHg BMI (Body Mass Index) 34.5 kg/m2 06/18/2011 Height 64 inches 5'4" Est Weight 206.00 lb Heart Rate 94 /min BP Systolic Sitting 118 mmHg L BP Diastolic Sitting 72 mmHg L BMI (Body Mass Index) 35.4 kg/m2 05/22/2011 Height 64 inches 5'4" Est Weight 199.00 lb Heart Rate 68 /min BP Systolic Sitting 114 mmHg BP Diastolic Sitting 78 mmHg BMI (Body Mass Index) 34.2 kg/m2 Results Test Date Test Result H/L Range Note Laboratory test finding 01/09/2017 C Reactive Protein 25.08 mg/L High &lt ; 5.00 1 HCG < 0.60 mIU/mL 2 Urinalysis Profile 01/09/2017 Urine Color Yellow Urine Appearance Cloudy Urine Specific Eva 1.035 High 1.010-1.030 Urine pH 5 5-9 Urine Urobilinogen Negative Negative Urine Ketones Negative Negative Urine Protein Negative Negative Urine Leukocytes 2+ Negative Urine Blood Negative Negative Urine Nitrite Negative Negative Urine Bilirubin Negative Negative Urine Glucose Negative Negative Urine White Blood Cell 2+(11-20/hpf) Absent Urine Red Blood Cell Absent Absent Urine Bacteria 1+ Absent Urine Squamous Epithelial Cell Present Absent Urine Culture And 01/09/2017 Urine Culture SEE RESULT BELOW 3 Sensitivities CBC Auto Diff 01/09/2017 White Blood Count 9.7 10^3/uL 3.5-10.8 Red Blood Count 5.01 10^6/uL 4.0-5.4 Hemoglobin 13.4 g/dL 12.0-16.0 Hematocrit 41 % 35-47 Mean Corpuscular Volume 81 fL 80-97 Mean Corpuscular Hemoglobin 27 pg 27-31 Mean Corpuscular HGB Conc 33 g/dL 31-36 Red Cell Distribution Width 16 % High 10.5-15 Platelet Count 290 10^3/uL 150-450 Mean Platelet Volume 7 um3 Low 7.4-10.4 Abs Neutrophils 5.2 10^3/uL 1.5-7.7 Abs Lymphocytes 3.6 10^3/uL 1.0-4.8 Abs Monocytes 0.7 10^3/uL 0-0.8 Abs Eosinophils 0.2 10^3/uL 0-0.6 Abs Basophils 0.1 10^3/uL 0-0.2 Abs Nucleated RBC 0 10^3/uL Granulocyte % 53.5 % 38-83 Lymphocyte % 37.2 % 25-47 Monocyte % 7.0 % 1-9 Eosinophil % 1.7 % 0-6 Basophil % 0.6 % 0-2 Nucleated Red Blood Cells % 0 Laboratory test finding 01/09/2017 B-Type Natriuretic Peptide 55 pg/mL 4 BNP Comp Metabolic Panel 01/09/2017 Sodium 139 mmol/L 133-145 Potassium 3.6 mmol/L 3.5-5.0 Chloride 108 mmol/L 101-111 Co2 Carbon Dioxide 24 mmol/L 22-32 Anion Gap 7 mmol/L 2-11 Glucose 81 mg/dL 70-100 Blood Urea Nitrogen 11 mg/dL 6-24 Creatinine 1.00 mg/dL High 0.51-0.95 BUN/Creatinine Ratio 11.0 8-20 Calcium 8.6 mg/dL 8.6-10.3 Total Protein 6.9 g/dL 6.4-8.9 Albumin 3.6 g/dL 3.2-5.2 Globulin 3.3 g/dL 2-4 Albumin/Globulin Ratio 1.1 1-3 Total Bilirubin 0.40 mg/dL 0.2-1.0 Alkaline Phosphatase 72 U/L 34-104 Alt 12 U/L 7-52 Ast 14 U/L 13-39 Egfr Non- 63.9 >60 Egfr 82.1 >60 5 Laboratory test 09/26/2016 Fecal Lactoferrin SEE RESULT BELOW 6 finding (Stool WBC) Stool Occult Blood 09/26/2016 Stool Occult Blood, SEE RESULT BELOW 7 Diag Diag Laboratory test 09/26/2016 E.Coli 0157:H7 SEE RESULT BELOW 8 finding Rapid Influenza A 07/28/2016 Influenza A Molecular NEGATIVE Negative 9 & B Molecular Influenza B Molecular NEGATIVE Negative Urine Culture And 06/14/2016 Urine Culture SEE RESULT BELOW 10, 11 Sensitivities Basic Metabolic Panel 05/02/2016 Sodium 139 mmol/L 133-145 Potassium 3.8 mmol/L 3.5-5.0 Chloride 107 mmol/L 101-111 Co2 Carbon Dioxide 25 mmol/L 22-32 Anion Gap 7 mmol/L 2-11 Glucose 84 mg/dL 70-100 Blood Urea Nitrogen 16 mg/dL 6-24 Creatinine 1.03 mg/dL High 0.51-0.95 BUN/Creatinine Ratio 15.5 8-20 Calcium 10.6 mg/dL High 8.6-10.3 Egfr Non- 62.1 >60 Egfr 79.9 >60 12 Urinalysis Profile 04/27/2016 Urine Color Yellow Urine Appearance Cloudy Urine Specific Eva 1.014 1.010-1.030 Urine pH 8.0 5-9 Urine Urobilinogen Negative Negative Urine Ketones Negative Negative Urine Protein 2+(100 mg/dL) Negative Urine Leukocytes 2+ Negative Urine Blood 3+ Negative Urine Nitrite Negative Negative Urine Bilirubin Negative Negative Urine Glucose Negative Negative Urine White Blood Cell 1+(6-10/hpf) Absent Urine Red Blood Cell 3+(>10/hpf) Absent Urine Bacteria Absent Absent Urine Squamous Epithelial Cell Present Absent Urine Culture And 04/27/2016 Urine Culture SEE RESULT BELOW 13 Sensitivities Basic Metabolic Panel 04/27/2016 Sodium 136 mmol/L 133-145 Potassium 4.2 mmol/L 3.5-5.0 Chloride 105 mmol/L 101-111 Co2 Carbon Dioxide 27 mmol/L 22-32 Anion Gap 4 mmol/L 2-11 Glucose 82 mg/dL 70-100 Blood Urea Nitrogen 11 mg/dL 6-24 Creatinine 1.07 mg/dL High 0.51-0.95 BUN/Creatinine Ratio 10.3 8-20 Calcium 8.7 mg/dL 8.6-10.3 Egfr Non- 59.4 >60 Egfr 76.4 >60 14 CBC Auto Diff 04/27/2016 White Blood Count 11.3 10^3/uL High 3.5-10.8 Red Blood Count 5.09 10^6/uL 4.0-5.4 Hemoglobin 13.0 g/dL 12.0-16.0 Hematocrit 40 % 35-47 Mean Corpuscular Volume 79 fL Low 80-97 Mean Corpuscular Hemoglobin 26 pg Low 27-31 Mean Corpuscular HGB Conc 32 g/dL 31-36 Red Cell Distribution Width 15 % 10.5-15 Platelet Count 317 10^3/uL 150-450 Mean Platelet Volume 8 um3 7.4-10.4 Abs Neutrophils 7.5 10^3/uL 1.5-7.7 Abs Lymphocytes 2.8 10^3/uL 1.0-4.8 Abs Monocytes 0.7 10^3/uL 0-0.8 Abs Eosinophils 0.3 10^3/uL 0-0.6 Abs Basophils 0.1 10^3/uL 0-0.2 Abs Nucleated RBC 0 10^3/uL Granulocyte % 66.2 % 38-83 Lymphocyte % 24.9 % Low 25-47 Monocyte % 6.2 % 1-9 Eosinophil % 2.2 % 0-6 Basophil % 0.5 % 0-2 Nucleated Red Blood Cells % 0 Laboratory test finding 04/24/2016 (HCG) Urine Negative Negative 15 Urinalysis Profile 04/21/2016 Urine Color Yellow Urine Appearance Cloudy Urine Specific Eva 1.018 1.010-1.030 Urine pH 5.0 5-9 Urine Urobilinogen Negative Negative Urine Ketones Negative Negative Urine Protein Negative Negative Urine Leukocytes Trace Negative Urine Blood 3+ Negative Urine Nitrite Negative Negative Urine Bilirubin Negative Negative Urine Glucose Negative Negative Urine White Blood Cell 1+(6-10/hpf) Absent Urine Red Blood Cell 3+(>10/hpf) Absent Urine Bacteria Absent Absent Urine Squamous Epithelial Cell Present Absent CBC Auto Diff 04/21/2016 White Blood Count 12.2 10^3/uL High 3.5-10.8 Red Blood Count 5.10 10^6/uL 4.0-5.4 Hemoglobin 12.9 g/dL 12.0-16.0 Hematocrit 40 % 35-47 Mean Corpuscular Volume 79 fL Low 80-97 Mean Corpuscular Hemoglobin 25 pg Low 27-31 Mean Corpuscular HGB Conc 32 g/dL 31-36 Red Cell Distribution Width 15 % 10.5-15 Platelet Count 288 10^3/uL 150-450 Mean Platelet Volume 7 um3 Low 7.4-10.4 Abs Neutrophils 8.1 10^3/uL High 1.5-7.7 Abs Lymphocytes 3.0 10^3/uL 1.0-4.8 Abs Monocytes 0.9 10^3/uL High 0-0.8 Abs Eosinophils 0.2 10^3/uL 0-0.6 Abs Basophils 0.1 10^3/uL 0-0.2 Abs Nucleated RBC 0.01 10^3/uL Granulocyte % 66.1 % 38-83 Lymphocyte % 24.2 % Low 25-47 Monocyte % 7.4 % 1-9 Eosinophil % 1.4 % 0-6 Basophil % 0.9 % 0-2 Nucleated Red Blood Cells % 0.1 Comp Metabolic Panel 04/21/2016 Sodium 139 mmol/L 133-145 Potassium 3.7 mmol/L 3.5-5.0 Chloride 107 mmol/L 101-111 Co2 Carbon Dioxide 26 mmol/L 22-32 Anion Gap 6 mmol/L 2-11 Glucose 87 mg/dL 70-100 Blood Urea Nitrogen 11 mg/dL 6-24 Creatinine 1.06 mg/dL High 0.51-0.95 BUN/Creatinine Ratio 10.4 8-20 Calcium 8.4 mg/dL Low 8.6-10.3 Total Protein 6.8 g/dL 6.4-8.9 Albumin 3.7 g/dL 3.2-5.2 Globulin 3.1 g/dL 2-4 Albumin/Globulin Ratio 1.2 1-3 Total Bilirubin 0.30 mg/dL 0.2-1.0 Alkaline Phosphatase 64 U/L 34-104 Alt 12 U/L 7-52 Ast 15 U/L 13-39 Egfr Non- 60.1 >60 Egfr 77.3 >60 16 Laboratory test finding 04/21/2016 Lipase 22 U/L 11.0-82.0 HCG < 0.60 mIU/mL 17 Urine Culture And 04/21/2016 Urine Culture SEE RESULT BELOW 18 Sensitivities Laboratory test 02/17/2016 Rapid Strep Negative Negative 19 finding Molecular Laboratory test 01/15/2016 MRSA Screen SEE RESULT BELOW 20 finding Laboratory test 01/11/2016 MRSA Screen SEE RESULT BELOW 21 finding Laboratory test 09/20/2015 TSH (Thyroid Stim 2.50 ?IU/mL 0.34-5.60 22 finding Horm) CBC Auto Diff 09/20/2015 White Blood Count 11.7 10^3/uL High 3.5-10.8 Red Blood Count 4.95 10^6/uL 4.0-5.4 Hemoglobin 12.1 g/dL 12.0-16.0 Hematocrit 38 % 35-47 Mean Corpuscular Volume 77 fL Low 80-97 Mean Corpuscular Hemoglobin 25 pg Low 27-31 Mean Corpuscular HGB Conc 32 g/dL 31-36 Red Cell Distribution Width 15 % 10.5-15 Platelet Count 308 10^3/uL 150-450 Mean Platelet Volume 7 um3 Low 7.4-10.4 Abs Neutrophils 7.8 10^3/uL High 1.5-7.7 Abs Lymphocytes 3.0 10^3/uL 1.0-4.8 Abs Monocytes 0.7 10^3/uL 0-0.8 Abs Eosinophils 0.2 10^3/uL 0-0.6 Abs Basophils 0.1 10^3/uL 0-0.2 Abs Nucleated RBC 0.01 10^3/uL Granulocyte % 66.4 % 38-83 Lymphocyte % 25.4 % 25-47 Monocyte % 5.7 % 1-9 Eosinophil % 1.9 % 0-6 Basophil % 0.6 % 0-2 Nucleated Red Blood Cells % 0.1 HIV 1/2 AB Evaluation 09/20/2015 HIV 1 2 Antibody Nonreactive Nonreactive 23 Comp Metabolic Panel 09/20/2015 Sodium 137 mmol/L 133-145 Potassium 3.6 mmol/L 3.5-5.0 Chloride 104 mmol/L 101-111 Co2 Carbon Dioxide 25 mmol/L 22-32 Anion Gap 8 mmol/L 2-11 Glucose 95 mg/dL 70-100 Blood Urea Nitrogen 12 mg/dL 6-24 Creatinine 0.94 mg/dL 0.51-0.95 BUN/Creatinine Ratio 12.8 8-20 Calcium 8.7 mg/dL 8.6-10.3 Total Protein 6.8 g/dL 6.4-8.9 Albumin 4.0 g/dL 3.2-5.2 Globulin 2.8 g/dL 2-4 Albumin/Globulin Ratio 1.4 1-3 Total Bilirubin 0.50 mg/dL 0.2-1.0 Alkaline Phosphatase 94 U/L 34-104 Alt 11 U/L 7-52 Ast 12 U/L Low 13-39 Egfr Non- 69.5 >60 Egfr 89.3 >60 24 Laboratory test finding 09/20/2015 Lyme Disease Serology Equivocal Negative 25 Lyme Western Blot 09/20/2015 Lyme Disease IgG Ab WB Negative Negative Lyme Disease IgG Bands Present p41, kDa Lyme Disease IgM Ab WB Negative Negative Lyme Disease IgM Bands Present No bands detecte <SEE NOTE> kDa 26 Lyme Disease Interpretation See Comment 27 Urine Culture And 08/26/2015 Urine Culture SEE RESULT BELOW 28 Sensitivities Laboratory test finding 06/12/2015 Rapid Influenza A B SEE RESULT BELOW 29 Antigen Rapid Influenza A & 06/12/2015 Influenza A NEGATIVE Negative 30 B Molecular Molecular Influenza B Molecular NEGATIVE Negative Rapid Influenza A & B 04/26/2015 Influenza A Molecular NEGATIVE Negative 31 Molecular Influenza B Molecular NEGATIVE Negative Laboratory test 04/26/2015 Influenza A & B SEE RESULT BELOW 32 finding Request Laboratory test 05/24/2014 TSH (Thyroid 2.75 IU/mL 0.34-5.60 finding Stimulating Horm) Free T3 3.10 pg/mL 2.5-3.9 Free T4 0.85 ng/mL 0.61-1.12 Laboratory test finding 05/05/2014 Hemoglobin A1c 5.5 5-7 CBC Auto Diff 04/19/2014 White Blood Count 11.2 10^3/uL High 4.8-10.8 Red Blood Count 5.05 10^6/uL 4.0-5.4 Hemoglobin 12.5 g/dL 12.0-16.0 Hematocrit 40 % 35-47 Mean Corpuscular Volume 79 fL Low 80-97 Mean Corpuscular Hemoglobin 25 pg Low 27-31 Mean Corpuscular HGB Conc 32 g/dL 31-36 Red Cell Distribution Width 16 % High 10.5-15 Platelet Count 284 10^3/uL 150-450 Mean Platelet Volume 8 um3 7.4-10.4 Abs Neutrophils 7.2 10^3/uL 1.5-7.7 Abs Lymphocytes 2.9 10^3/uL 1.0-4.8 Abs Monocytes 0.7 10^3/uL 0-0.8 Abs Eosinophils 0.4 10^3/uL 0-0.6 Abs Basophils 0.1 10^3/uL 0-0.2 Abs Nucleated RBC 0.01 10^3/uL Granulocyte % 64.1 % 38-83 Lymphocyte % 25.8 % 25-47 Monocyte % 6.3 % 1-9 Eosinophil % 3.1 % 0-6 Basophil % 0.7 % 0-2 Nucleated Red Blood Cells % 0 Laboratory test finding 04/19/2014 Erythrocyte Sed Rate 25 mm/Hr High 0- 14 Lyme Western Blot 04/19/2014 Lyme Disease IgG Ab WB Negative Negative Lyme Disease IgG Bands Present p41, kDa Lyme Disease IgM Ab WB Negative Negative Lyme Disease IgM Bands Present No bands detecte <SEE NOTE> kDa 33 Lyme Disease Interpretation See Comment 34 Laboratory test finding 01/12/2014 Copper 1.38 g/mL 0.75-1.45 35 Ceruloplasmin 28.4 mg/dL 36 Laboratory test finding 12/11/2013 Saliva Cortisol <50 ng/dL <100 37 Cortisol Free 24HR Urine 12/11/2013 Urine Free Cortisol 43 mcg/24h 3.5- 45 Urine Collection Duration 24 h Urine Total Volume 2700 mL 38 Laboratory test finding 2013 Hemoglobin A1c 5.6 5-7 GC/Chlamydia Amplified Rna 11/09/2013 GC/Chlamydia Rna (SEE NOTE) 39 Comp Metabolic Panel 11/09/2013 Sodium 138 mmol/L 133-145 Potassium 4.1 mmol/L 3.7-5.6 Chloride 104 mmol/L 101-111 Co2 Carbon Dioxide 25 mmol/L 22-32 Anion Gap 9 mmol/L 2-11 Glucose 111 mg/dL High 70-100 Blood Urea Nitrogen 10 mg/dL 6-24 Creatinine 0.98 mg/dL High 0.51-0.95 BUN/Creatinine Ratio 10.2 8-20 Calcium 8.7 mg/dL 8.6-10.3 Total Protein 7.0 g/dL 6.4-8.9 Albumin 3.9 g/dL 3.2-5.2 Globulin 3.1 g/dL 2-4 Albumin/Globulin Ratio 1.3 1-3 Total Bilirubin 0.40 mg/dL 0.2-1.0 Alkaline Phosphatase 117 U/L High 34-104 Alt 21 U/L 7-52 Ast 31 U/L 13-39 Egfr Non- 67.1 >60 Egfr 86.3 >60 40 Laboratory test finding 11/09/2013 TSH (Thyroid Stimulating 1.92 IU/mL 0.34-5.60 Horm) Free T4 0.87 ng/mL 0.61-1.12 Free T3 4.00 pg/mL High 2.5-3.9 Laboratory test finding 11/09/2013 Affirm Vaginal Dna Probe (SEE NOTE) 41 Surgical Pathology 07/15/2013 S RUN DATE: <SEE NOTE> Stool Culture 06/06/2013 Stool Culture (SEE NOTE) 43 Laboratory test finding 06/06/2013 Fecal Lactoferrin (Stool (SEE NOTE) 44 WBC) C. difficile Amplified Dna (SEE NOTE) 45 Laboratory test finding 06/06/2013 Stool Helicobacter pylori Ag TNP Negative 46 Stool Norovirus Ag NEGATIVE 47 Laboratory test finding 06/06/2013 Serum Negative Negative 48 CBC Auto Diff 06/06/2013 White Blood Count 16.4 10^3/uL High 4.8-10.8 Red Blood Count 5.20 10^6/uL 4.0-5.4 Hemoglobin 11.9 g/dL Low 12.0-16.0 Hematocrit 40 % 35-47 Mean Corpuscular Volume 76 fL Low 80-97 Mean Corpuscular Hemoglobin 23 pg Low 27-31 Mean Corpuscular HGB Conc 30 g/dL Low 31-36 Red Cell Distribution Width 15 % 10.5-15 Platelet Count 331 10^3/uL 150-450 Mean Platelet Volume 7 um3 Low 7.4-10.4 Abs Neutrophils 13.3 10^3/uL High 1.5-7.7 Abs Lymphocytes 2.3 10^3/uL 1.0-4.8 Abs Monocytes 0.6 10^3/uL 0-0.8 Abs Eosinophils 0.2 10^3/uL 0-0.6 Abs Basophils 0.1 10^3/uL 0-0.2 Abs Nucleated RBC 0.01 10^3/uL Granulocyte % 80.8 % 38-83 Lymphocyte % 13.9 % Low 25-47 Monocyte % 3.7 % 1-9 Eosinophil % 1.3 % 0-6 Basophil % 0.3 % 0-2 Nucleated Red Blood Cells % 0.1 Comp Metabolic Panel 06/06/2013 Sodium 139 mmol/L 133-145 Potassium 4.4 mmol/L 3.7-5.6 Chloride 107 mmol/L 101-111 Co2 Carbon Dioxide 26 mmol/L 22-32 Anion Gap 6 mmol/L 2-11 Glucose 108 mg/dL High 70-100 Blood Urea Nitrogen 10 mg/dL 6-24 Creatinine 1.02 mg/dL High 0.51-0.95 BUN/Creatinine Ratio 9.8 8-20 Calcium 8.8 mg/dL 8.6-10.3 Total Protein 6.7 g/dL 6.4-8.9 Albumin 3.9 g/dL 3.2-5.2 Globulin 2.8 g/dL 2-4 Albumin/Globulin Ratio 1.4 1-3 Total Bilirubin 0.30 mg/dL 0.2-1.0 Alkaline Phosphatase 109 U/L High 34-104 Alt 13 U/L 7-52 Ast 16 U/L 13-39 Egfr Non- 64.1 >60 Egfr 82.4 >60 49 Laboratory test finding 06/06/2013 Lipase 16 U/L 11.0-82.0 C Reactive Protein 41.57 mg/L 50 Urinalysis 06/06/2013 Urine Color Yellow Urine Appearance Clear Urine Specific Eva 1.028 1.010-1.030 Urine Esterase Negative Negative Urine Nitrate Negative Negative Urine Urobilinogen Negative E.U./dL Negative Urine Protein Trace mg/dL Negative Urine pH 5.0 5-9 Urine Blood Negative Negative Urine Ketones Negative mg/dL Negative Urine Bilirubin Negative Negative Urine Glucose Negative mg/dL Negative Comp Metabolic Panel 05/24/2013 Sodium 136 mmol/L 133-145 Potassium 4.1 mmol/L 3.5-5.0 Chloride 105 mmol/L 101-111 Co2 Carbon Dioxide 25.0 mmol/L 22-32 Anion Gap 6.0 mmol/L 2-11 Glucose 100 mg/dL 70-100 Blood Urea Nitrogen 9 mg/dL 6-24 Creatinine 1.00 mg/dL 0.50-1.40 BUN/Creatinine Ratio 9.0 8-20 Calcium 8.7 mg/dL 8.1-9.9 Total Protein 7.3 g/dL 6.2-8.1 Albumin 3.5 g/dL Low 3.6-5.4 Globulin 3.8 g/dL 2-4 Albumin/Globulin Ratio 0.9 Low 1-3 Total Bilirubin 0.5 mg/dL 0.4-1.5 Alkaline Phosphatase 115 U/L High 30-110 Alt 19 U/L 14-54 Ast 20 U/L 12-42 Egfr Non- 65.6 >60 Egfr 84.3 >60 51 Laboratory test finding 05/24/2013 C Reactive Protein 4.0 mg/dL High Less than 0.5 Serum Negative Negative 52 CBC Auto Diff 05/24/2013 White Blood Count 17.0 10^3/uL High 4.8-10.8 Red Blood Count 5.18 10^6/uL 4.0-5.4 Hemoglobin 12.7 g/dL 12.0-16.0 Hematocrit 39 % 35-47 Mean Corpuscular Volume 76 fL Low 80-97 Mean Corpuscular Hemoglobin 25 pg Low 27-31 Mean Corpuscular HGB Conc 32 g/dL 31-36 Red Cell Distribution Width 15 % 10.5-15 Platelet Count 314 10^3/uL 150-450 Mean Platelet Volume 7 um3 Low 7.4-10.4 Abs Neutrophils 14.1 10^3/uL High 1.5-7.7 Abs Lymphocytes 2.0 10^3/uL 1.0-4.8 Abs Monocytes 0.8 10^3/uL 0-0.8 Abs Eosinophils 0.1 10^3/uL 0-0.6 Abs Basophils 0.1 10^3/uL 0-0.2 Abs Nucleated RBC 0.01 10^3/uL Granulocyte % 83.0 % 38-83 Lymphocyte % 11.5 % Low 25-47 Monocyte % 4.6 % 1-9 Eosinophil % 0.5 % 0-6 Basophil % 0.4 % 0-2 Nucleated Red Blood Cells % 0 Urinalysis 05/24/2013 Urine Color Yellow Urine Appearance Clear Urine Specific Eva 1.029 1.010-1.030 Urine Esterase Negative Negative Urine Nitrate Negative Negative Urine Urobilinogen Negative E.U./dL Negative Urine Protein Trace mg/dL Negative Urine pH 5.0 5-9 Urine Blood Negative Negative Urine Ketones Negative mg/dL Negative Urine Bilirubin Negative Negative Urine Glucose Negative mg/dL Negative CBC Auto Diff 05/06/2013 White Blood Count 15.8 10^3/uL High 4.8-10.8 Red Blood Count 5.48 10^6/uL High 4.0-5.4 Hemoglobin 13.4 g/dL 12.0-16.0 Hematocrit 42 % 35-47 Mean Corpuscular Volume 76 fL Low 80-97 Mean Corpuscular Hemoglobin 25 pg Low 27-31 Mean Corpuscular HGB Conc 32 g/dL 31-36 Red Cell Distribution Width 15 % 10.5-15 Platelet Count 350 10^3/uL 150-450 Mean Platelet Volume 7 um3 Low 7.4-10.4 Abs Neutrophils 9.5 10^3/uL High 1.5-7.7 Abs Lymphocytes 4.9 10^3/uL High 1.0-4.8 Abs Monocytes 1.2 10^3/uL High 0-0.8 Abs Eosinophils 0.2 10^3/uL 0-0.6 Abs Basophils 0.1 10^3/uL 0-0.2 Abs Nucleated RBC 0.01 10^3/uL Granulocyte % 59.8 % 38-83 Lymphocyte % 30.6 % 25-47 Monocyte % 7.8 % 1-9 Eosinophil % 1.1 % 0-6 Basophil % 0.7 % 0-2 Nucleated Red Blood Cells % 0.1 Laboratory test finding 05/06/2013 Serum Negative Negative 53 Comp Metabolic Panel 05/06/2013 Sodium 141 mmol/L 133-145 Potassium 3.6 mmol/L 3.5-5.0 Chloride 108 mmol/L 101-111 Co2 Carbon Dioxide 22.0 mmol/L 22-32 Anion Gap 11.0 mmol/L 2-11 Glucose 81 mg/dL 70-100 Blood Urea Nitrogen 7 mg/dL 6-24 Creatinine 0.90 mg/dL 0.50-1.40 BUN/Creatinine Ratio 7.8 Low 8-20 Calcium 8.9 mg/dL 8.1-9.9 Total Protein 6.9 g/dL 6.2-8.1 Albumin 3.8 g/dL 3.6-5.4 Globulin 3.1 g/dL 2-4 Albumin/Globulin Ratio 1.2 1-3 Total Bilirubin 0.4 mg/dL 0.4-1.5 Alkaline Phosphatase 143 U/L High 30-110 Alt 24 U/L 14-54 Ast 20 U/L 12-42 Egfr Non- 74.0 >60 Egfr 95.2 >60 54 Laboratory test finding 05/06/2013 Alcohol 267.5 mg/dL High Less Than 10 55 Urinalysis 01/31/2013 Urine Color Yellow Urine Appearance Clear Urine Specific Eva 1.022 1.010-1.030 Urine Esterase 1+ Negative Urine Nitrate Negative Negative Urine Urobilinogen Negative E.U./dL Negative Urine Protein Negative mg/dL Negative Urine pH 7.5 5-9 Urine Blood Negative Negative Urine Ketones Negative mg/dL Negative Urine Bilirubin Negative Negative Urine Glucose Negative mg/dL Negative Urine Microscopic 01/31/2013 Urine WBC 1+ (<10 /hpf) None Seen Urine RBC None Seen None Seen Urine Epithelial Cells 2+ Squamous /hpf None Seen Bacteria Urine 2+ None Seen Urine Culture And 01/31/2013 Urine Culture (SEE NOTE) 56 Sensitivities CBC Auto Diff 01/31/2013 White Blood Count 15.0 10^3/uL High 4.8-10.8 Red Blood Count 5.07 10^6/uL 4.0-5.4 Hemoglobin 11.9 g/dL Low 12.0-16.0 Hematocrit 39 % 35-47 Mean Corpuscular Volume 77 fL Low 80-97 Mean Corpuscular Hemoglobin 24 pg Low 27-31 Mean Corpuscular HGB Conc 31 g/dL 31-36 Red Cell Distribution Width 15 % 10.5-15 Platelet Count 244 10^3/uL 150-450 Mean Platelet Volume 7 um3 Low 7.4-10.4 Abs Neutrophils 11.5 10^3/uL High 1.5-7.7 Abs Lymphocytes 2.2 10^3/uL 1.0-4.8 Abs Monocytes 0.9 10^3/uL High 0-0.8 Abs Eosinophils 0.3 10^3/uL 0-0.6 Abs Basophils 0 10^3/uL 0-0.2 Abs Nucleated RBC 0 10^3/uL Granulocyte % 76.9 % 38-83 Lymphocyte % 14.9 % Low 25-47 Monocyte % 5.9 % 1-9 Eosinophil % 2.1 % 0-6 Basophil % 0.2 % 0-2 Nucleated Red Blood Cells % 0 Comp Metabolic Panel 01/31/2013 Sodium 139 mmol/L 133-145 Potassium 3.8 mmol/L 3.5-5.0 Chloride 107 mmol/L 101-111 Co2 Carbon Dioxide 27.0 mmol/L 22-32 Anion Gap 5.0 mmol/L 2-11 Glucose 108 mg/dL High 70-100 Blood Urea Nitrogen 10 mg/dL 6-24 Creatinine 0.70 mg/dL 0.50-1.40 BUN/Creatinine Ratio 14.3 8-20 Calcium 8.5 mg/dL 8.1-9.9 Total Protein 6.7 g/dL 6.2-8.1 Albumin 3.3 g/dL Low 3.6-5.4 Globulin 3.4 g/dL 2-4 Albumin/Globulin Ratio 1.0 1-3 Total Bilirubin 0.7 mg/dL 0.4-1.5 Alkaline Phosphatase 135 U/L High 30-110 Alt 63 U/L High 14-54 Ast 52 U/L High 12-42 Egfr Non- 98.9 >60 Egfr 127.2 >60 57 Laboratory test finding 01/31/2013 Amylase 41 U/L 20-120 Lipase 21 U/L Low 22-51 C Reactive Protein 2.1 mg/dL High Less than 0.5 Hepatitis Acute Panel 01/31/2013 Hepatitis B Surface Nonreactive Nonreactive Antigen Hepatitis B Core IgM Nonreactive Nonreactive Hepatitis A AB IgM Nonreactive Nonreactive Hepatitis C Antibody Nonreactive Nonreactive Urinalysis 01/08/2013 Urine Color Yellow Urine Appearance Cloudy Urine Specific Eva 1.024 1.010-1.030 Urine Esterase 2+ Negative Urine Nitrate Negative Negative Urine Urobilinogen Negative E.U./dL Negative Urine Protein Negative mg/dL Negative Urine pH 5.5 5-9 Urine Blood Negative Negative Urine Ketones Negative mg/dL Negative Urine Bilirubin Negative Negative Urine Glucose Negative mg/dL Negative Urine Microscopic 01/08/2013 Urine WBC 2+ (>10-30 /hpf) None Seen 58 Urine RBC 1+ (<3 /hpf) None Seen Urine Mucus Present /lpf Absent Urine Epithelial Cells 2+ Squamous /hpf None Seen Bacteria Urine 1+ None Seen Crystals Urine Calcium Oxalate /lpf None Seen Urine Culture And Sensitivities 01/08/2013 Urine Culture (SEE NOTE) 59 Comp Metabolic Panel 01/08/2013 Sodium 139 mmol/L 133-145 Potassium 4.2 mmol/L 3.5-5.0 Chloride 105 mmol/L 101-111 Co2 Carbon Dioxide 31.0 mmol/L 22-32 Anion Gap 3.0 mmol/L 2-11 Glucose 127 mg/dL High 70-100 Blood Urea Nitrogen 10 mg/dL 6-24 Creatinine 0.90 mg/dL 0.50-1.40 BUN/Creatinine Ratio 11.1 8-20 Calcium 8.8 mg/dL 8.1-9.9 Total Protein 6.4 g/dL 6.2-8.1 Albumin 3.1 g/dL Low 3.6-5.4 Globulin 3.3 g/dL 2-4 Albumin/Globulin Ratio 0.9 Low 1-3 Total Bilirubin 0.8 mg/dL 0.4-1.5 Alkaline Phosphatase 120 U/L High 30-110 Alt 66 U/L High 14-54 Ast 57 U/L High 12-42 Egfr Non- 74.0 >60 Egfr 95.2 >60 60 CBC Auto Diff 01/08/2013 White Blood Count 13.1 10^3/uL High 4.8-10.8 Red Blood Count 4.92 10^6/uL 4.0-5.4 Hemoglobin 12.0 g/dL 12.0-16.0 Hematocrit 38 % 35-47 Mean Corpuscular Volume 78 fL Low 80-97 Mean Corpuscular Hemoglobin 25 pg Low 27-31 Mean Corpuscular HGB Conc 32 g/dL 31-36 Red Cell Distribution Width 16 % High 10.5-15 Platelet Count 256 10^3/uL 150-450 Mean Platelet Volume 7 um3 Low 7.4-10.4 Abs Neutrophils 9.2 10^3/uL High 1.5-7.7 Abs Lymphocytes 2.6 10^3/uL 1.0-4.8 Abs Monocytes 0.9 10^3/uL High 0-0.8 Abs Eosinophils 0.3 10^3/uL 0-0.6 Abs Basophils 0.1 10^3/uL 0-0.2 Abs Nucleated RBC 0 10^3/uL Granulocyte % 70.3 % 38-83 Lymphocyte % 19.9 % Low 25-47 Monocyte % 7.2 % 1-9 Eosinophil % 2.2 % 0-6 Basophil % 0.4 % 0-2 Nucleated Red Blood Cells % 0 Laboratory test finding 01/08/2013 Lipase 21 U/L Low 22-51 C Reactive Protein 2.2 mg/dL High Less than 0.5 CBC Auto Diff 01/06/2013 White Blood Count 11.7 10^3/uL High 4.8-10.8 Red Blood Count 5.01 10^6/uL 4.0-5.4 Hemoglobin 12.4 g/dL 12.0-16.0 Hematocrit 39 % 35-47 Mean Corpuscular Volume 77 fL Low 80-97 Mean Corpuscular Hemoglobin 25 pg Low 27-31 Mean Corpuscular HGB Conc 32 g/dL 31-36 Red Cell Distribution Width 16 % High 10.5-15 Platelet Count 265 10^3/uL 150-450 Mean Platelet Volume 8 um3 7.4-10.4 Abs Neutrophils 7.0 10^3/uL 1.5-7.7 Abs Lymphocytes 3.2 10^3/uL 1.0-4.8 Abs Monocytes 1.0 10^3/uL High 0-0.8 Abs Eosinophils 0.3 10^3/uL 0-0.6 Abs Basophils 0.1 10^3/uL 0-0.2 Abs Nucleated RBC 0.01 10^3/uL Granulocyte % 60.3 % 38-83 Lymphocyte % 27.6 % 25-47 Monocyte % 8.6 % 1-9 Eosinophil % 2.8 % 0-6 Basophil % 0.7 % 0-2 Nucleated Red Blood Cells % 0.1 Comp Metabolic Panel 01/06/2013 Sodium 140 mmol/L 133-145 Potassium 4.1 mmol/L 3.5-5.0 Chloride 107 mmol/L 101-111 Co2 Carbon Dioxide 27.0 mmol/L 22-32 Anion Gap 6.0 mmol/L 2-11 Glucose 84 mg/dL 70-100 Blood Urea Nitrogen 11 mg/dL 6-24 Creatinine 0.80 mg/dL 0.50-1.40 BUN/Creatinine Ratio 13.8 8-20 Calcium 9.2 mg/dL 8.1-9.9 Total Protein 6.1 g/dL Low 6.2-8.1 Albumin 3.4 g/dL Low 3.6-5.4 Globulin 2.7 g/dL 2-4 Albumin/Globulin Ratio 1.3 1-3 Total Bilirubin 0.4 mg/dL 0.4-1.5 Alkaline Phosphatase 133 U/L High 30-110 Alt 74 U/L High 14-54 Ast 106 U/L High 12-42 Egfr Non- 84.8 >60 Egfr 109.1 >60 61 CBC Auto Diff 08/26/2012 White Blood Count 13.6 10^3/uL High 4.8-10.8 Red Blood Count 4.73 10^6/uL 4.0-5.4 Hemoglobin 11.7 g/dL Low 12.0-16.0 Hematocrit 37 % 35-47 Mean Corpuscular Volume 78 fL Low 80-97 Mean Corpuscular Hemoglobin 25 pg Low 27-31 Mean Corpuscular HGB Conc 32 g/dL 31-36 Red Cell Distribution Width 15 % 10.5-15 Platelet Count 300 10^3/uL 150-450 Mean Platelet Volume 8 um3 7.4-10.4 Abs Neutrophils 8.8 10^3/uL High 1.5-7.7 Abs Lymphocytes 3.3 10^3/uL 1.0-4.8 Abs Monocytes 1.0 10^3/uL High 0-0.8 Abs Eosinophils 0.4 10^3/uL 0-0.6 Abs Basophils 0.1 10^3/uL 0-0.2 Abs Nucleated RBC 0.01 10^3/uL Granulocyte % 64.6 % 38-83 Lymphocyte % 24.5 % Low 25-47 Monocyte % 7.4 % 1-9 Eosinophil % 3.1 % 0-6 Basophil % 0.4 % 0-2 Nucleated Red Blood Cells % 0.1 Laboratory test finding 08/26/2012 Glucose 87 mg/dL 70-100 B Type Natriuretic Peptide 28.0 pg/mL 0-100 Urine Culture And Sensitivities 07/28/2012 Urine Culture (SEE NOTE) 62 Urinalysis W/Microscopic 07/28/2012 Urine Color Yellow Urine Appearance Clear Urine Specific Eva 1.007 Low 1.010-1.030 Urine Esterase 1+ Negative Urine Nitrate Negative Negative Urine Urobilinogen Negative E.U./dL Negative Urine Protein Negative mg/dL Negative Urine pH 6.0 5-9 Urine Blood Negative Negative Urine Ketones Negative mg/dL Negative Urine Bilirubin Negative Negative Urine Glucose Negative mg/dL Negative Urine WBC 1+ (<10 /hpf) None Seen Urine RBC None Seen None Seen Urine Epithelial Cells 1+ Squamous /hpf None Seen Bacteria Urine 1+ None Seen Laboratory test finding 07/28/2012 Hemoglobin A1c 5.7 5-7 Ua Routine 07/28/2012 Ua Specific Eva 1.005 Ua PH 5 Ua Color yellow Ua Appera clear Ua WBC negative Ua Protein negative Ua Glucose negative Ua Ketones negative Ua Bilirubin negative Ua Urobilinogen negative Ua Nitrite negative Ua Occult Blood negative CBC Auto Diff 07/15/2012 White Blood Count 14.6 10^3/uL High 4.8-10.8 Red Blood Count 5.04 10^6/uL 4.0-5.4 Hemoglobin 13.1 g/dL 12.0-16.0 Hematocrit 40 % 35-47 Mean Corpuscular Volume 79 fL Low 80-97 Mean Corpuscular Hemoglobin 26 pg Low 27-31 Mean Corpuscular HGB Conc 33 g/dL 31-36 Red Cell Distribution Width 16 % High 10.5-15 Platelet Count 283 10^3/uL 150-450 Mean Platelet Volume 8 um3 7.4-10.4 Abs Neutrophils 9.7 10^3/uL High 1.5-7.7 Abs Lymphocytes 3.6 10^3/uL 1.0-4.8 Abs Monocytes 0.8 10^3/uL 0-0.8 Abs Eosinophils 0.4 10^3/uL 0-0.6 Abs Basophils 0.1 10^3/uL 0-0.2 Abs Nucleated RBC 0.01 10^3/uL Granulocyte % 66.4 % 38-83 Lymphocyte % 24.8 % Low 25-47 Monocyte % 5.6 % 1-9 Eosinophil % 2.5 % 0-6 Basophil % 0.7 % 0-2 Nucleated Red Blood Cells % 0.1 Comp Metabolic Panel 07/15/2012 Sodium 140 mmol/L 133-145 Potassium 4.2 mmol/L 3.5-5.0 Chloride 107 mmol/L 101-111 Co2 Carbon Dioxide 24.0 mmol/L 22-32 Anion Gap 9.0 mmol/L 2-11 Glucose 110 mg/dL High 70-100 Blood Urea Nitrogen 10 mg/dL 6-24 Creatinine 0.90 mg/dL 0.50-1.40 BUN/Creatinine Ratio 11.1 8-20 Calcium 8.8 mg/dL 8.1-9.9 Total Protein 6.3 g/dL 6.2-8.1 Albumin 3.2 g/dL Low 3.6-5.4 Globulin 3.1 g/dL 2-4 Albumin/Globulin Ratio 1.0 1-3 Total Bilirubin 0.4 mg/dL 0.4-1.5 Alkaline Phosphatase 93 U/L 30-110 Alt 17 U/L 14-54 Ast 24 U/L 12-42 Egfr Non- 74.6 >60 Egfr 95.9 >60 63 Laboratory test finding 07/15/2012 Free T4 0.86 ng/mL 0.61-1.24 64 Free T3 3.68 pg/mL 2.39-6.79 65 TSH (Thyroid Stimulating Horm) 1.69 miu/mL 0.34-5.60 66 Laboratory test finding 01/30/2012 Throat Beta Strep (SEE NOTE) 67 Culture CBC Auto Diff 01/29/2012 White Blood Count 13.9 10^3/uL High 4.8-10.8 Red Blood Count 4.94 10^6/uL 4.0-5.4 Hemoglobin 12.6 g/dL 12.0-16.0 Hematocrit 40 % 35-47 Mean Corpuscular Volume 80 fL 80-97 Mean Corpuscular Hemoglobin 26 pg Low 27-31 Mean Corpuscular HGB Conc 32 g/dL 31-36 Red Cell Distribution Width 16 % High 10.5-15 Platelet Count 300 10^3/uL 150-450 Mean Platelet Volume 7 um3 Low 7.4-10.4 Abs Neutrophils 10.0 10^3/uL High 1.5-7.7 Abs Lymphocytes 2.8 10^3/uL 1.0-4.8 Abs Monocytes 0.8 10^3/uL 0-0.8 Abs Eosinophils 0.3 10^3/uL 0-0.6 Abs Basophils 0 10^3/uL 0-0.2 Abs Nucleated RBC 0 10^3/uL Granulocyte % 71.8 % 38-83 Lymphocyte % 19.8 % Low 25-47 Monocyte % 6.0 % 1-9 Eosinophil % 2.1 % 0-6 Basophil % 0.3 % 0-2 Nucleated Red Blood Cells % 0 Comp Metabolic Panel 01/29/2012 Sodium 136 mmol/L 133-145 Potassium 3.9 mmol/L 3.5-5.0 Chloride 107 mmol/L 101-111 Co2 Carbon Dioxide 27.0 mmol/L 22-32 Anion Gap 2.0 mmol/L 2-11 Glucose 93 mg/dL 70-100 Blood Urea Nitrogen 7 mg/dL 6-24 Creatinine 0.90 mg/dL 0.50-1.40 BUN/Creatinine Ratio 7.8 Low 8-20 Calcium 8.4 mg/dL 8.1-9.9 Total Protein 6.3 GM/DL 6.2-8.1 Albumin 3.3 GM/DL Low 3.6-5.4 Globulin 3.0 GM/DL 2-4 Albumin/Globulin Ratio 1.1 1-3 Total Bilirubin 0.7 mg/dL 0.1-1.0 68 Alkaline Phosphatase 85 U/L 30-110 Alt 22 U/L 14-54 Ast 27 U/L 12-42 Egfr Non- 74.6 >60 Egfr 95.9 >60 69 Laboratory test finding 01/29/2012 Vitamin B12 258 pg/mL 180-914 Laboratory test finding 01/29/2012 B Type Natriuretic Peptide 8.0 pg/mL 0 -100 TSH (Thyroid Stimulating Horm) 2.74 MIU/ML 0.34-5.60 Free T3 3.73 pg/mL 2.39-6.79 Free T4 0.86 NG/ML 0.61-1.24 Laboratory test finding 11/11/2011 TSH 3.12 MIU/ML 0.34-5.60 Lipid Profile (Trig/Chol/HDL) 11/11/2011 Triglyceride 132 mg/dL 40-200 Cholesterol 172 mg/dL Less Than 200 70 High Density Lipoprotein 56 mg/dL 40-60 71 Cholesterol/HDL Ratio 3.07 AVERAGE 1-4.44 Low Density Lipoprotein 90 mg/dL Less Than 100 72 Comp Metabolic Panel 11/11/2011 Sodium 137 mmol/L 135-145 Potassium 4.6 mmol/L 3.5-5.0 Chloride 109 mmol/L 101-111 Co2 (Carbon Dioxide) 23.0 mmol/L 22-32 Anion Gap 5.0 mmol/L 2-11 73 Glucose 86 mg/dL 70-100 BUN 9 mg/dL 6-24 Creatinine 0.8 mg/dL 0.50-1.40 One Over Creatinine 1.25 BUN/Creatinine Ratio 11.3 8-20 Calcium 8.4 mg/dL 8.1-9.9 Total Protein 5.6 GM/DL Low 6.2-8.1 Albumin 3.2 GM/DL Low 3.6-5.4 Globulin 2.4 GM/DL 2-4 Albumin/Globulin Ratio 1.3 1-3 Bilirubin Total 1.2 mg/dL 0.4-1.5 74 Alkaline Phosphatase 82 U/L 30-110 Alt (SGPT) 22 U/L 14-54 Ast (Sgot) 40 U/L 12-42 eGFR Non- 86.0 > 60 eGFR 110.7 > 60 75 Laboratory test 07/29/2011 Throat Culture <SEE 76 finding Full NOTE> 1 Acute inflammation: >10.00 2 <5.0 Negative 5.0 - 25.0 Indeterminate (Repeat testing recommended after 72 hours) >25.0 Positive Perimenopausal women can display HCG levels of up to 20 mIU/mL 3 SEE RESULT BELOW Name: BARBARA AHMADI : [address]: Jan Fuller MD Acct: [id number] Unit: [id number] AGE: 31 Location: ED Re01/09/17 SEX: F Status: DEP ER SPEC: [id number] NADIR: 01/09/17-[address] [facility] [address]: Jan Fuller MD REQ: [id number] RECD: 01/09/17-1242 STATUS: COMP WENDY DR: Sarahi Henderson MD _ SOURCE: URINE SPDESC: ORDERED: Urine Culture QUERIES: Urine Source: Random Procedure Result Reported Site Urine Culture Final 01/11/17- 08 ML Organism 1 ENTEROCOCCUS FAECALIS [place] Count 10-25,000 (Moderate) CFU/ML 1. ENTEROCOCCUS FAECALIS M.I.C. RX --------- ------ Ampicillin <=2 S Penicillin 2 S Ciprofloxacin <=0.5 S Gentamicin High Level S Levofloxacin 0.5 S Linezolid 1 S Nitrofurantoin <=16 S * Quinupristin/Dalfopristin 4 R * Streptomycin High Level S Tetracycline >=16 R Tigecycline <=0.12 S Vancomycin 1 S Imipenem-Deduced S * Ampicillin/Sulbactam-Deduced S * These antibiotics are not available in the [facility] Formulary Contact the Microbiology Department for any additional antibiotic reporting. * ML - MAIN LAB ([facility]) . END OF REPORT * ML=Testing performed at Main Lab DEPARTMENT OF PATHOLOGY, [address] [place] [address] Thomas Christensen M.D. Director [facility] # [id number] 4 >100 to <200 pg/mL: likely compensated congestive heart failure (CHF) 200 to 400 pg/mL: likely moderate CHF >400 pg/mL: likely moderate to severe CHF 5 Because ethnic data is not always readily available, this report includes an eGFR for both -Americans and non- Americans. The National Kidney Disease Education Program (NKDEP) does not endorse the use of the MDRD equation for patients that are not between the ages of 18 and 70, are , have extremes of body size, muscle mass, or nutritional status, or are non- or non-. According to the National Kidney Foundation, irrespective of diagnosis, the stage of the disease is based on the level of kidney function: Stage Description GFR(mL/min/1.73 m(2)) 1 Kidney damage with normal or decreased GFR 90 2 Kidney damage with mild decrease in GFR 60-89 3 Moderate decrease in GFR 30-59 4 Severe decrease in GFR 15-29 5 Kidney failure <15 (or dialysis) 6 SEE RESULT BELOW Name: BARBARA AHMADI : [address]: Sarahi Henderson MD Acct: [id number] Unit: [id number] AGE: 30 Location: [facility] Re09/26/16 SEX: F Status: REG REF SPEC: [id number] NADIR: 09/26/16-[address] [facility] [address]: Sarahi Henderson MD REQ: [id number] RECD: 09/26/16 STATUS: RES _ SOURCE: STOOL SPDESC: ORDERED: E.coli O157:H7, Occult Bl, Diag, C. diff PCR, Stool Culture, Fecal Lacto Rotavirus Ag St Procedure Result Reported Site E.coli O157:H7 Culture PENDING Stool Culture PENDING Stool Specimen Description PENDING Shiga Toxin 1 2 PENDING C. difficile PCR PENDING Fecal Lactoferrin (Stool WBC) Final 09/26/16- 2022 ML Fecal Lactoferrin Negative by Immunoassay TEST LIMITATIONS: Assay detects elevated levels of lactoferrin released from fecal leukocytes as a marker of intestinal inflammation. The test may not be appropriate in immunocompromised persons. Fecal samples from breast fed infants should not be used with this assay. Stool Occult Blood (1) PENDING CONTINUED ON NEXT PAGE * ML=Testing performed at Main Lab DEPARTMENT OF PATHOLOGY, [address] [place] [address] Thomas Christensen M.D. Director [facility] # [id number] Patient: BARBARA AHMADI [id number] (Continued) Specimen: [id number] Collected: 09/26/16 Received: 09/26/16 (Continued) Procedure Result Reported Site Rotavirus Antigen Stool PENDING * ML - MAIN LAB ([facility]) . END OF REPORT * ML=Testing performed at Main Lab DEPARTMENT OF PATHOLOGY, [address] [place] [address] Thomas Christensen M.D. Director [facility] # [id number] 7 SEE RESULT BELOW Name: BARBARA HAMADI : [address]: Sarahi Henderson MD Acct: [id number] Unit: [id number] AGE: 30 Location: [facility] Re09/26/16 SEX: F Status: REG REF SPEC: [id number] NADIR: 09/26/16-[address] [facility] [address]: Sarahi Henderson MD REQ: [id number] RECD: 09/26/16 STATUS: RES _ SOURCE: STOOL SPDESC: ORDERED: E.coli O157:H7, Occult Bl, Diag, C. diff PCR, Stool Culture, Fecal Lacto Rotavirus Ag St Procedure Result Reported Site E.coli O157:H7 Culture PENDING Stool Culture PENDING Stool Specimen Description Final 09/26/16- 2042 ML Stool Color Greenish Brown Stool Form Nonformed Stool Consistency Pasty Shiga Toxin 1 2 Final 09/27/16- 1037 ML Organism 1 Negative Shiga Toxin 1 2 Immunochromatographic Assay C. difficile PCR Final 09/26/16- 2115 ML Organism 1 027 Presumptive NEGATIVE Organism 2 Toxigenic C.diff NEGATIVE Fecal Lactoferrin (Stool WBC) Final 09/26/16- 2022 ML Fecal Lactoferrin Negative by Immunoassay TEST LIMITATIONS: Assay detects elevated levels of lactoferrin released from fecal leukocytes as a marker of intestinal inflammation. The test may not be appropriate in immunocompromised persons. Fecal samples from breast fed infants should not be used CONTINUED ON NEXT PAGE * ML=Testing performed at Main Lab DEPARTMENT OF PATHOLOGY, [address] [place] [address] Thomas Christensen M.D. Director [facility] # [id number] Patient: BARBARA AHMADI [id number] (Continued) Specimen: [id number] Collected: 09/26/16 Received: 09/26/16 (Continued) Procedure Result Reported Site Fecal Lactoferrin (Stool WBC) Final (continued) 09/26/16- 2022 with this assay. Stool Occult Blood (1) Final 09/26/16- 2042 ML Stool Occult Blood Negative Collection Date (1) 09/26/16 Rotavirus Antigen Stool Final 09/27/16- 1052 ML Organism 1 Negative Rotavirus Antigen testing by enzyme immunoassay * ML - MAIN LAB ([facility]) . END OF REPORT * ML=Testing performed at Main Lab DEPARTMENT OF PATHOLOGY, [address] [place] [address] Thomas Christensen M.D. Director [facility] # [id number] 8 SEE RESULT BELOW Name: BARBARA AHMADI : [address]: Sarahi Henderson MD Acct: [id number] Unit: [id number] AGE: 30 Location: [facility] Re09/26/16 SEX: F Status: REG REF SPEC: [id number] NADIR: 09/26/16-[address] [facility] [address]: Sarahi Henderson MD REQ: [id number] RECD: 09/26/16170 STATUS: COMP _ SOURCE: STOOL SPDESC: ORDERED: E.coli O157:H7, Occult Bl, Diag, C. diff PCR, Stool Culture, Fecal Lacto Rotavirus Ag St Procedure Result Reported Site E.coli O157:H7 Culture Final 09/28/16- 1117 ML E. coli 0157 Culture Negative Stool Culture Final 09/29/16- 0944 ML Result No enteric pathogens isolated Testing for Salmonella, Shigella, Aeromonas, Plesiomonas, Yersinia and Campylobacter are included in a Stool Culture. Vibrio spp not routinely tested for in a stool culture. If testing is desired, please request specifically when placing test order. Sensitivities not routinely performed on stool isolates, as antibiotics may prolong the carriage rate of bacteria. Please contact the microbiology lab if sensitivities are required. Stool Specimen Description Final 09/26/16- 204 ML Stool Color Greenish Brown Stool Form Nonformed Stool Consistency Pasty Shiga Toxin 1 2 Final 09/27/16- 1037 ML Organism 1 Negative Shiga Toxin 1 2 CONTINUED ON NEXT PAGE * ML=Testing performed at Main Lab DEPARTMENT OF PATHOLOGY, [address] [place] [address] Thomas Christensen M.D. Director [facility] # [id number] Patient: KARLENEBARBARA L [id number] (Continued) Specimen: [id number] Collected: 09/26/16-1414 Received: 09/26/16-1699 (Continued) Procedure Result Reported Site Shiga Toxin 1 2 Final (continued) 09/27/16- 1037 Immunochromatographic Assay C. difficile PCR Final 09/26/16- 2115 ML Organism 1 027 Presumptive NEGATIVE Organism 2 Toxigenic C.diff NEGATIVE Fecal Lactoferrin (Stool WBC) Final 09/26/16- 2022 ML Fecal Lactoferrin Negative by Immunoassay TEST LIMITATIONS: Assay detects elevated levels of lactoferrin released from fecal leukocytes as a marker of intestinal inflammation. The test may not be appropriate in immunocompromised persons. Fecal samples from breast fed infants should not be used with this assay. Stool Occult Blood (1) Final 09/26/16- 2042 ML Stool Occult Blood Negative Collection Date (1) 09/26/16 Rotavirus Antigen Stool Final 09/27/16- 1052 ML Organism 1 Negative Rotavirus Antigen testing by enzyme immunoassay * ML - MAIN LAB ([facility]) . END OF REPORT * ML=Testing performed at Main Lab DEPARTMENT OF PATHOLOGY, [address] [place] [address] Thomas Christensen M.D. Director [facility] # [id number] 9 [employer]: [id number] 11 SEE RESULT BELOW Name: BARBARA AHMADI : [address]: Sheila Lawler MD Acct: [id number] Unit: [id number] AGE: 30 Location: [facility] Re06/14/16 SEX: F Status: DEP ER SPEC: [id number] NADIR: 06/14/[address] [facility] [address]: Sheila Lawler MD REQ: [id number] RECD: 06/14/16 STATUS: NEFTALY NGUYEN DR: Sarahi Henderson MD _ SOURCE: URINE SPDESC: ORDERED: Urine Culture COMMENTS: [id number] Procedure Result Reported Site Urine Culture Final 06/15/16 43 ML No Growth (<1,000 CFU/mL) * ML - MAIN LAB ([facility]) . END OF REPORT * ML=Testing performed at Main Lab DEPARTMENT OF PATHOLOGY, [address] [place] [address] Thomas Christensen M.D. Director [facility] # [id number] 12 Because ethnic data is not always readily available, this report includes an eGFR for both -Americans and non- Americans. The National Kidney Disease Education Program (NKDEP) does not endorse the use of the MDRD equation for patients that are not between the ages of 18 and 70, are , have extremes of body size, muscle mass, or nutritional status, or are non- or non-. According to the National Kidney Foundation, irrespective of diagnosis, the stage of the disease is based on the level of kidney function: Stage Description GFR(mL/min/1.73 m(2)) 1 Kidney damage with normal or decreased GFR 90 2 Kidney damage with mild decrease in GFR 60-89 3 Moderate decrease in GFR 30-59 4 Severe decrease in GFR 15-29 5 Kidney failure <15 (or dialysis) 13 SEE RESULT BELOW Name: BARBARA AHMADI : [address]: Yoan Avila MD Acct: [id number] Unit: [id number] AGE: 30 Location: ED Re04/27/16 SEX: F Status: DEP ER SPEC: [id number] NADIR: 04/27/16-[address] [facility] [address]: Yoan Avila MD REQ: [id number] RECD: 04/27/16 STATUS: NEFTALY NGUYEN DR: [facility] Sarahi Henderson MD _ SOURCE: URINE [facility]: ORDERED: Urine Culture Procedure Result Reported Site Urine Culture Final 04/28/16928 ML No Growth (<1,000 CFU/mL) * ML - [facility] LAB ([facility]) . END OF REPORT * ML=Testing performed at Main Lab DEPARTMENT OF PATHOLOGY, [address] [place] [address] Thomas Christensen M.D. Director [facility] # [id number] 14 Because ethnic data is not always readily available, this report includes an eGFR for both -Americans and non- Americans. The National Kidney Disease Education Program (NKDEP) does not endorse the use of the MDRD equation for patients that are not between the ages of 18 and 70, are , have extremes of body size, muscle mass, or nutritional status, or are non- or non-. According to the National Kidney Foundation, irrespective of diagnosis, the stage of the disease is based on the level of kidney function: Stage Description GFR(mL/min/1.73 m(2)) 1 Kidney damage with normal or decreased GFR 90 2 Kidney damage with mild decrease in GFR 60-89 3 Moderate decrease in GFR 30-59 4 Severe decrease in GFR 15-29 5 Kidney failure <15 (or dialysis) 15 If is still suspected, please repeat test after 48 to 72 hours. This test detects intact HCG only and is indicated for the early detection of . 16 Because ethnic data is not always readily available, this report includes an eGFR for both -Americans and non- Americans. The National Kidney Disease Education Program (NKDEP) does not endorse the use of the MDRD equation for patients that are not between the ages of 18 and 70, are , have extremes of body size, muscle mass, or nutritional status, or are non- or non-. According to the National Kidney Foundation, irrespective of diagnosis, the stage of the disease is based on the level of kidney function: Stage Description GFR(mL/min/1.73 m(2)) 1 Kidney damage with normal or decreased GFR 90 2 Kidney damage with mild decrease in GFR 60-89 3 Moderate decrease in GFR 30-59 4 Severe decrease in GFR 15-29 5 Kidney failure <15 (or dialysis) 17 <5.0 Negative 5.0 - 25.0 Indeterminate (Repeat testing recommended after 72 hours) >25.0 Positive Perimenopausal women can display HCG levels of up to 20 mIU/mL 18 SEE RESULT BELOW Name: BARBARA AHMADI : [address]: Derrick Beach MD Acct: [id number] Unit: [id number] AGE: 30 Location: ED Re04/21/16 SEX: F Status: DEP ER SPEC: [id number] NADIR: 04/21/16-[address] [facility] [address]: Derrick Beach MD REQ: [id number] RECD: 04/21/16 STATUS: NEFTALY NGUYEN DR: Sarahi Henderson MD _ SOURCE: URINE SPDESC: ORDERED: Urine Culture Procedure Result Reported Site Urine Culture Final 04/23/16- 0820 ML No growth of clinically significant organisms * ML - MAIN LAB ([facility]) . END OF REPORT * ML=Testing performed at Main Lab DEPARTMENT OF PATHOLOGY, [address] [place] [address] Thomas Christensen M.D. Director [facility] # [id number] 19 [employer]: [id number] MELINA Copeland 20 SEE RESULT BELOW Name: BARBARA AHMADI : [address]: Yoan ORNELAS Acct: [id number] Unit: [id number] AGE: 30 Location: [facility] Re01/15/16 SEX: F Status: REG REF SPEC: [id number] NADIR: 01/15/16-[address] [facility] [address]: Yoan ORNELAS REQ: [id number] RECD: 01/15/16-2030 STATUS: NEFTALY NGUYEN DR: Sarahi Henderson MD _ SOURCE: NASAL SPDESC: ORDERED: MRSA PCR-Nasal Procedure Result Reported Site MRSA PCR (Nasal) Final 01/16/16- 0151 ML Organism 1 MRSA NEGATIVE * ML - MAIN LAB ([facility]) . END OF REPORT * ML=Testing performed at Main Lab DEPARTMENT OF PATHOLOGY, [address] [place] [address] Thomas Christensen M.D. Director [facility] # [id number] 21 SEE RESULT BELOW Name: BARBARA AHMADI : [address]: Yoan ORNELAS Acct: [id number] Unit: [id number] AGE: 30 Location: [facility] Re01/11/16 SEX: F Status: REG REF SPEC: [id number] NADIR: 01/11/16-[address] [facility] [address]: Yoan ORNELAS REQ: [id number] RECD: 01/15/16 STATUS: NEFTALY NGUYEN DR: Sarahi Henderson MD _ SOURCE: NASAL SPDESC: ORDERED: MRSA PCR-Nasal Procedure Result Reported Site MRSA PCR (Nasal) Final 01/16/16- 015 ML Organism 1 MRSA NEGATIVE * ML - MAIN LAB ([facility]) . END OF REPORT * ML=Testing performed at Main Lab DEPARTMENT OF PATHOLOGY, [address] [place] [address] Thomas Christensen M.D. Director [facility] # [id number] 22 FASTING 10 HOUR 23 It is recognized that currently available assays for the detection of antibodies to HIV-1 and/or HIV-2 may not detect all infected individuals. HIV antibodies may be undetectable in some stages of the infection and in some clinical conditions. The performance of this assay has not been established for populations of infants or children. Assayed by Chemiluminescence Microparticle Immunoassay on the Siemens Advia Centaur CP. Values obtained with different methods or kits cannot be used interchangeably.The diagnostic specificity of the ADVIA Centaur 1/O/2 Enhanced assay in the low risk population was 99.90% (6052/6058) with a 95% confidence interval of 99.78 to 99.96%. 24 Because ethnic data is not always readily available, this report includes an eGFR for both -Americans and non- Americans. The National Kidney Disease Education Program (NKDEP) does not endorse the use of the MDRD equation for patients that are not between the ages of 18 and 70, are , have extremes of body size, muscle mass, or nutritional status, or are non- or non-. According to the National Kidney Foundation, irrespective of diagnosis, the stage of the disease is based on the level of kidney function: Stage Description GFR(mL/min/1.73 m(2)) 1 Kidney damage with normal or decreased GFR 90 2 Kidney damage with mild decrease in GFR 60-89 3 Moderate decrease in GFR 30-59 4 Severe decrease in GFR 15-29 5 Kidney failure <15 (or dialysis) 25 Not diagnostic. Supplemental testing ordered by reflex. Test Performed by: [place] [address] Carving Machine Operator: Santhosh Rowland II, M.D., Ph.D. 26 No bands detected 27 Specific serologic response to B. burgdorferi infection is not detected, but cannot rule out early infection during which low or undetectable antibody levels to B. burgdorferi may be present. If clinically indicated, a new serum specimen should be submitted in 7-14 days. ADDITIONAL INFORMATION CDC criteria require >=5 bands for IgG or >=2 bands for IgM for the Immunoblot to be considered positive. Bands (e.g.,p41) may be detected in patients without Lyme disease, and patterns not meeting the CDC criteria should be interpreted with caution. Immunoblot should be ordered only on specimens that are positive or equivocal by a FDA-licensed Lyme disease antibody screening test (e.g., EIA). Test Performed by: [address] [address] Carving Machine Operator: Santhosh Rowland II, M.D., Ph.D. 28 SEE RESULT BELOW Name: BARBARA AHMADI Mateusz : [address]: Sheila Lawler MD Acct: [id number] Unit: [id number] AGE: 29 Location: [facility] Re08/26/15 SEX: F Status: DEP ER SPEC: [id number] NADIR: 08/26/[address] [facility] [address]: Sheila Lawler MD REQ: [id number] RECD: 08/27/158 STATUS: NEFTALY NGUYEN DR: Jessica [facility] Sarahi Henderson MD _ SOURCE: URINE SPDESC: ORDERED: Urine Culture Procedure Result Reported Site Urine Culture Final 08/29/15- 32 ML Organism 1 ESCHERICHIA COLI [place] Count 75-100,000 (Many) CFU/ML 1. ESCHERICHIA COLI M.I.C. RX --------- ------ Ampicillin 4 S Cefazolin <=4 S Cefepime <=1 S Ceftriaxone <=1 S Ciprofloxacin <=0.25 S Gentamicin <=1 S Levofloxacin <=0.12 S Meropenem <=0.25 S Nitrofurantoin <=16 S Tetracycline <=1 S Pipercillin/Tazobactam <=4 S Trimethoprim/Sulfamethoxazole <=20 S Amoxicillin/Clavulanic Acid <=2 S Aztreonam <=1 S Contact the Microbiology Department for any additional antibiotic reporting. * ML - MAIN LAB ([facility]) . END OF REPORT * ML=Testing performed at Main Lab DEPARTMENT OF PATHOLOGY, [address] [place] [address] Thomas Christensen M.D. Director [facility] # [id number] 29 SEE RESULT BELOW Name: BARBARA AHMADI : [address]: Erik Karimi MD Acct: [id number] Unit: [id number] AGE: 29 Location: ED Re06/11/15 SEX: F Status: REG ER SPEC: [id number] NADIR: 06/12/[address]: Erik Karimi MD REQ: [id number] RECD: 06/12/15 STATUS: NEFTALY NGUYEN DR: Sarahi Henderson MD _ SOURCE: NASAL SPDESC: ORDERED: Flu A B Request Procedure Result Reported Site Rapid Influenza A B Request Final 06/12/1556 ML Specimen received for Influenza A/B Molecular testing * ML - MAIN LAB ([facility]) . END OF REPORT * ML=Testing performed at Main Lab DEPARTMENT OF PATHOLOGY, [address] [place] [address] Thomas Christensen M.D. Director [facility] # [id number] Flatwork Washer: [id number] SHAW PERALES 31 Flatwork Washer: [id number] MARIS VAZQUEZ 32 SEE RESULT BELOW Name: BARBARA AHMADI : [address]: Tone Edmond MD Acct: [id number] Unit: [id number] AGE: 29 Location: [facility] Re04/26/15 SEX: F Status: REG REF SPEC: [id number] NADIR: 04/26/[address]: Tone Edmond MD REQ: [id number] RECD: 04/26/15 STATUS: COMP _ [facility]: ORDERED: Flu A B Request Procedure Result Reported Site Rapid Influenza A B Request Final 04/26/15- 2044 ML Specimen received for Influenza A/B Molecular testing * ML - MAIN LAB ([facility]) . END OF REPORT * ML=Testing performed at Main Lab DEPARTMENT OF PATHOLOGY, [address] [place] [address] Thomas Christensen M.D. Director [facility] # [id number] 33 No bands detected 34 Specific serologic response to B. burgdorferi infection is not detected, but cannot rule out early infection during which low or undetectable antibody levels to B. burgdorferi may be present. If clinically indicated, a new serum specimen should be submitted in 7-14 days. ADDITIONAL INFORMATION CDC criteria require >=5 bands for IgG or >=2 bands for IgM for the Immunoblot to be considered positive. Bands (e.g.,p41) may be detected in patients without Lyme disease, and patterns not meeting the CDC criteria should be interpreted with caution. Immunoblot should be ordered only on specimens that are positive or equivocal by a FDA-licensed Lyme disease antibody screening test (e.g., EIA). Test Performed by: [place] [address] Carving Machine Operator: Van Rubin M.D. 35 Test Performed by: [place] [address] Carving Machine Operator: Boy Nogueira III, M.D. 36 -- REFERENCE VALUE -- 16.0 - 45.0 Test Performed by: [place] [address] Carving Machine Operator: Boy Nogueira III, M.D. 37 Test Performed by: [place] [address] Carving Machine Operator: Boy Nogueira III, M.D. 38 Test Performed by: [place] [address] Carving Machine Operator: Boy Nogueira III, M.D. 39 RUN DATE: 11/13/13 [facility] LAB LIVE PAGE 1 RUN TIME: [address] [place] [address] Specimen Inquiry Name: BARBARA AHMADI : [address]: Sarahi Henderson MD Acct: [id number] Unit: [id number] AGE: 27 Location: [facility] Re11/09/13 SEX: F Status: REG REF SPEC: [id number] NADIR: 11/09/[address]: Sarahi Henderson MD REQ: [id number] RECD: 11/09/13 STATUS: COMP _ SOURCE: URINE SPDESC: ORDERED: GC/Chlam RNA QUERIES: [employer] Number [id number] Procedure Result Verified Site Chlamydia Trachomatis RNA Final 11/13/13- 0759 ML NEGATIVE for Chlamydia trachomatis rRNA GC (N. gonorrhoeae) RNA Final 11/12/13- 1421 ML NEGATIVE for Neisseria gonorrhoeae rRNA A negative result does not preclude the presence of a C. trachomatis or N. gonorrhoeae infection because results are dependent on adequate specimen collection, absence of inhibitors, and sufficient rRNA to be detected. Test results may be affected by improper specimen collection, improper storage, technical error, or specimen mixup. Limitations of the Procedure: The [employer] Combo 2 Assay is not intended for the evaluation of suspected sexual abuse or for other medico-legal indications. For those patients for whom a false positive result may have adverse psychosocial impact, the CDC recommends retesting by a method using an alternate technology. Therapeutic failure or success cannot be determined with the [employer] Combo 2 Assay since nucleic acid may persist following appropriate antimicrobial therapy. Results from the [employer] Combo 2 Assay should be interpreted in conjunction with other laboratory and clinical data available to the clinican. CONTINUED ON NEXT PAGE * ML=Testing performed at Main Lab DEPARTMENT OF PATHOLOGY, [facility] [employer] [place] [address] Thomas Christensen M.D. Director [facility] # [id number] RUN DATE: 11/13/13 [facility] LAB LIVE PAGE 2 RUN TIME: 758 [facility] [employer] [place], [place] [address] Specimen Inquiry Patient: SASHA AHMADICARLA Child [id number] (Continued) Specimen: [id number] Collected: 11/09/13 Received: 11/09/13 (Continued) Procedure Result Verified Site GC (N. gonorrhoeae) RNA Final (continued) 11/12/13- 1421 Performance characteristics for detecting C. trachomatis and N. gonorrhoeae are derived from high prevalence populations. Positive results in low prevalence populations should be interpreted carefully with the understanding that the likelihood of a false positive may be higher than a true positive. END OF REPORT * ML=Testing performed at Main Lab DEPARTMENT OF PATHOLOGY, [address] [place] [address] Thomas Christensen M.D. Director [facility] # [id number] 40 Because ethnic data is not always readily available, this report includes an eGFR for both -Americans and non- Americans. The National Kidney Disease Education Program (NKDEP) does not endorse the use of the MDRD equation for patients that are not between the ages of 18 and 70, are , have extremes of body size, muscle mass, or nutritional status, or are non- or non-. According to the National Kidney Foundation, irrespective of diagnosis, the stage of the disease is based on the level of kidney function: Stage Description GFR(mL/min/1.73 m(2)) 1 Kidney damage with normal or decreased GFR 90 2 Kidney damage with mild decrease in GFR 60-89 3 Moderate decrease in GFR 30-59 4 Severe decrease in GFR 15-29 5 Kidney failure <15 (or dialysis) 41 RUN DATE: 11/10/13 [facility] LAB LIVE PAGE 1 RUN TIME: [address] [place] [address] Specimen Inquiry Name: BARBARA AHMADI : [address]: Sarahi Henderson MD Acct: [id number] Unit: [id number] AGE: 27 Location: [facility] Re11/09/13 SEX: F Status: REG REF SPEC: [id number] NADIR: 11/09/13-[address] [facility] [address]: Sarahi Henderson MD REQ: [id number] RECD: 11/09/13 STATUS: COMP _ SOURCE: VAGINAL SPDESC: ORDERED: Affirm QUERIES: [employer] Number [id number] Procedure Result Verified Site Affirm Vaginal DNA Probe Final 11/10/13- 1338 ML Organism 1 Negative Trichomonas Organism 2 POSITIVE GARDNERELLA Organism 3 Negative Roula The presence of G. vaginalis, although suggestive, is not diagnostic for bacterial vaginosis. Results should be interpreted in conjunction with other clinical and laboratory data available. Women with vaginal discharge should be evaluated for risk factors of cervicitis and pelvic inflammatory disease, toxic shock syndrome (S.aureus), and if present, evaluated for organisms not included in this assay such as N. gonorrhoeae, C. trachomatis, Mobiluncus, Mycoplasma and/or Prevotella. Mixed infections may occur. The performance of this test on patient specimens collected during or immediately after antimicrobial therapy is unknown. The presence or absence of Roula species, G. vaginalis or T. vaginalis cannot be used as a test for therapeutic success or failure. END OF REPORT * ML=Testing performed at Main Lab DEPARTMENT OF PATHOLOGY, [facility] [employer] [place] [address] Thomas Christensen M.D. Director [facility] # [id number] RUN DATE: 07/19/13 [facility] LAB LIVE PAGE 1 RUN TIME: 6722 [facility] [employer] [place], [place] [address] Specimen Inquiry Name: BARBARA AHMADI : [address]: Edson Dodge MD Acct: [id number] Unit: [id number] AGE: 27 Location: [facility] Re07/15/13 SEX: F Status: REG REF SPEC: [id number] NADIR: 07/15/13- SUBM DR: Edson Dodge MD REQ: [id number] RECD: 07/15/13 STATUS: MARLY NGUYEN DR: Sarahi Henderson MD _ ORDERED: H PYLORI IMM ST, LEVEL IV/2 An H. pylori immunostain, with appropriately reacting controls, was performed on sections cut from specimen #2 and is negative for helicobacter organisms. Addendum Signed (signature on file) Sara Talamantes MD 1135 FINAL DIAGNOSIS 1. Duodenum, biopsy: A. Benign duodenal mucosa with no significant pathologic abnormalities. B. No evidence of villous blunting or increased intraepithelial lymphocytes. 2. Stomach, antrum, biopsy: Body type gastric mucosa with minimal superficial chronic inflammation. COMMENT: No Helicobacter organisms are seen on H E examination. An H. pylori immunostain is pending and the results will be reported in an addendum. CLINICAL HISTORY Abdominal pain CONTINUED ON NEXT PAGE * ML=Testing performed at Main Lab DEPARTMENT OF PATHOLOGY, [facility] [employer] [place], [place] [address] Thomas Christensen M.D. Director [facility] Permit #[id number] RUN DATE: 07/19/13 [facility] LAB LIVE PAGE 2 RUN TIME: 1135 [facility] [employer] [place], [place] [address] Specimen Inquiry Patient: BARBARA AHMADI [id number] (Continued) POST-OPERATIVE DIAGNOSIS (Continued) POST-OPERATIVE DIAGNOSIS Esophagus - normal, stomach - normal, biopsied; duodenum - normal, biopsied GROSS DESCRIPTION 1. The specimen is received in formalin labeled Guera Kirk Duodenum, and consists of a 0.5 x 0.3 x 0.2 cm. gorman-pink, irregular soft tissue fragments. Submitted entirely, one cassette. 2. The specimen is received in formalin labeled Barbara Ahmadi Biopsies Gastric Antrum, and consists of a 0.5 x 0.3 x 0.2 cm. gorman, irregular soft tissue fragment. Submitted entirely, one cassette. Signed (signature on file) Sara Talamantes MD 1617 END OF REPORT * ML=Testing performed at Main Lab DEPARTMENT OF PATHOLOGY, [facility] [employer] [place], [place] [address] Thomas Christesnen M.D. Director [facility] Permit #[id number] RUN DATE: 06/08/13 [facility] LAB LIVE PAGE 1 RUN TIME: 946 [facility] [employer] [place], [place] [address] Specimen Inquiry Name: BARBARA AHMADI : [address]: Laure Goel MD Acct: [id number] Unit: [id number] AGE: 27 Location: ED Re06/06/13 SEX: F Status: DEP ER SPEC: [id number] NADIR: 06/06/13-[address] [facility] [address]: Laure Goel MD REQ: [id number] RECD: 06/06/13736 STATUS: NEFTALY NGUYEN DR: Sarahi Henderson MD _ SOURCE: STOOL [facility]: ORDERED: Stool Culture, Fecal Lactoferr, C. diff Amp DNA COMMENTS: Unable to perform Shiga Toxin testing. Specimen collection requirements were not met. Stool for Shiga Toxin testing must be received by the laboratory within 2 hours of collection or placed in Thomas-Nickolas transport medium. Verbal to ED by NISH at 1430 on 06/06/13. *please interpret stool culture result with caution* Stool specimen was not placed into appropriate transport medium within recommended time-frame. Testing may be less Sensitive. Procedure Result Verified Site Stool Culture Final 06/08/13- 0947 ML Result No enteric pathogens isolated Testing for Salmonella, Shigella, Aeromonas, Plesiomonas, Yersinia and Campylobacter are included in a Stool Culture. Vibrio spp not routinely tested for in a stool culture. If testing is desired, please request specifically when placing test order. Sensitivities not routinely performed on stool isolates, as antibiotics may prolong the carriage rate of bacteria. Please contact the microbiology lab if sensitivities are required. Stool Specimen Description Final 06/06/13- 1444 ML Stool Color Gorman Stool Form Nonformed Stool Consistency Liquid CONTINUED ON NEXT PAGE * ML=Testing performed at Main Lab DEPARTMENT OF PATHOLOGY, [address] [place] [address] Thomas Christensen M.D. Director [facility] Permit #[id number] RUN DATE: 06/08/13 [facility] LAB LIVE PAGE 2 RUN TIME: [address] [place] [address] Specimen Inquiry Patient: BARBARA AHMADI [id number] (Continued) Specimen: [id number] Collected: 06/06/13-1109 Received: 06/06/13-1431 (Continued) Procedure Result Verified Site Shiga Toxin 1 2 Final 06/06/13- 1444 ML Test not performed C. difficile Amplified DNA Final 06/07/13- 1411 ML Organism 1 Neg: No C. difficile detected Assay tests for toxigenic C. difficile with Pathogen Locus (PALOC) TEST LIMITATIONS: Assay does not distinguish between viable and nonviable organisms. Test results are to be used in conjunction with information available from the patient clinical evaluation and other diagnostic procedures. Two distinct groups have been identified that can harbor C. difficile asymptomatically at very high rates. Colonization at rates up to 50% and higher have been reported in infants and rates up to 32% in cystic fibrosis patients. Fecal Lactoferrin (Stool WBC) Final 06/07/13- 1350 ML Fecal Lactoferrin Positive by Immunoassay TEST LIMITATIONS: Assay detects elevated levels of lactoferrin released from fecal leukocytes as a marker of intestinal inflammation. The test may not be appropriate in immunocompromised persons. Fecal samples from breast fed infants should not be used with this assay. END OF REPORT * ML=Testing performed at Main Lab DEPARTMENT OF PATHOLOGY, [facility] [employer] [place], [place] [address] Thomas Christensen M.D. Director [facility] Permit #[id number] RUN DATE: 06/07/13 [facility] LAB LIVE PAGE 1 RUN TIME: [address] [place] [address] Specimen Inquiry Name: BARBARA AHMADI : [address]: Laure Goel MD Acct: [id number] Unit: [id number] AGE: 27 Location: ED Re06/06/13 SEX: F Status: DEP ER SPEC: [id number] NADIR: 06/06/13-[address] [facility] [address]: Laure Goel MD REQ: [id number] RECD: 06/06/13-143 STATUS: RES OTHR DR: Sarahi Henderson MD _ SOURCE: STOOL SPDESC: ORDERED: Stool Culture, Fecal Lactoferr, C. diff Amp DNA COMMENTS: Unable to perform Shiga Toxin testing. Specimen collection requirements were not met. Stool for Shiga Toxin testing must be received by the laboratory within 2 hours of collection or placed in [place]-Nickolas transport medium. Verbal to ED by NISH at 1430 on 06/06/13. *please interpret stool culture result with caution* Stool specimen was not placed into appropriate transport medium within recommended time-frame. Testing may be less Sensitive. Procedure Result Verified Site Stool Culture PENDING Stool Specimen Description Final 06/06/13- 1444 ML Stool Color Gorman Stool Form Nonformed Stool Consistency Liquid Shiga Toxin 1 2 Final 06/06/13- 1444 ML Test not performed C. difficile Amplified DNA PENDING Fecal Lactoferrin (Stool WBC) Final 06/07/13- 1350 ML Fecal Lactoferrin Positive by Immunoassay TEST LIMITATIONS: Assay detects elevated levels of lactoferrin released from fecal leukocytes as a marker of intestinal inflammation. The test may not be appropriate in immunocompromised persons. Fecal samples from breast fed infants should not be used CONTINUED ON NEXT PAGE * ML=Testing performed at Main Lab DEPARTMENT OF PATHOLOGY, [facility] [employer] [place] [address] Thomas Christensen M.D. Director [facility] Permit #[id number] RUN DATE: 06/07/13 [facility] LAB LIVE PAGE 2 RUN TIME: 2746 [facility] [employer] [place], [place] [address] Specimen Inquiry Patient: BARBARA AHMADI [id number] (Continued) Specimen: [id number] Collected: 06/06/13-1109 Received: 06/06/13-1431 (Continued) Procedure Result Verified Site Fecal Lactoferrin (Stool WBC) Final (continued) 06/07/13- 1350 with this assay. END OF REPORT * ML=Testing performed at Main Lab DEPARTMENT OF PATHOLOGY, [facility] [employer] [place] [address] Thomas Christensen M.D. Director [facility] Permit #[id number] RUN DATE: 06/07/13 [facility] LAB LIVE PAGE 1 RUN TIME: 1411 [facility] [employer] [facility] [place], [place] [address] Specimen Inquiry Name: BARBARA AHMADI : [address]: Laure Goel MD Acct: [id number] Unit: [id number] AGE: 27 Location: ED Re06/06/13 SEX: F Status: DEP ER SPEC: [id number] NADIR: 06/06/13-[address] [facility] [address]: Laure Goel MD REQ: [id number] RECD: 06/06/13 STATUS: RES OTHR DR: Sarahi Henderson MD _ SOURCE: STOOL SPDESC: ORDERED: Stool Culture, Fecal Lactoferr, C. diff Amp DNA COMMENTS: Unable to perform Shiga Toxin testing. Specimen collection requirements were not met. Stool for Shiga Toxin testing must be received by the laboratory within 2 hours of collection or placed in Thomas-Nickolas transport medium. Verbal to ED by NISH at 1430 on 06/06/13. *please interpret stool culture result with caution* Stool specimen was not placed into appropriate transport medium within recommended time-frame. Testing may be less Sensitive. Procedure Result Verified Site Stool Culture PENDING Stool Specimen Description Final 06/06/13- 1444 ML Stool Color Gorman Stool Form Nonformed Stool Consistency Liquid Shiga Toxin 1 2 Final 06/06/13- 1444 ML Test not performed C. difficile Amplified DNA Final 06/07/13- 1411 ML Organism 1 Neg: No C. difficile detected Assay tests for toxigenic C. difficile with Pathogen Locus (PALOC) TEST LIMITATIONS: Assay does not distinguish between viable and nonviable organisms. Test results are to be used in conjunction with information available from the patient clinical evaluation CONTINUED ON NEXT PAGE * ML=Testing performed at Main Lab DEPARTMENT OF PATHOLOGY, [facility] [employer] [place] [address] Thomas Christensen M.D. Director [facility] Permit #[id number] RUN DATE: 06/07/13 [facility] LAB LIVE PAGE 2 RUN TIME: [address] [place] [address] Specimen Inquiry Patient: AHMADIBARBARA [id number] (Continued) Specimen: [id number] Collected: 06/06/13-1109 Received: 06/06/13-143 (Continued) Procedure Result Verified Site C. difficile Amplified DNA Final (continued) 06/07/13- 1411 and other diagnostic procedures. Two distinct groups have been identified that can harbor C. difficile asymptomatically at very high rates. Colonization at rates up to 50% and higher have been reported in infants and rates up to 32% in cystic fibrosis patients. Fecal Lactoferrin (Stool WBC) Final 06/07/13- 1350 ML Fecal Lactoferrin Positive by Immunoassay TEST LIMITATIONS: Assay detects elevated levels of lactoferrin released from fecal leukocytes as a marker of intestinal inflammation. The test may not be appropriate in immunocompromised persons. Fecal samples from breast fed infants should not be used with this assay. END OF REPORT * ML=Testing performed at Main Lab DEPARTMENT OF PATHOLOGY, [address] [place] [address] Thomas Christensen M.D. Director [facility] Permit #[id number] 46 Helicobacter pylori Ag, F was cancelled on 06/14/2013 at 07:15; Strict frozen sample required, unable to aliquot. Test Performed by: [address] [address] Carving Machine Operator: Boy Nogueira III, M.D. 47 A negative result does not exclude norovirus infection. Test Performed by: [employer] [address] [place] [phone] 48 This test detects intact HCG only and is indicated for the early detection of . 49 Because ethnic data is not always readily available, this report includes an eGFR for both -Americans and non- Americans. The National Kidney Disease Education Program (NKDEP) does not endorse the use of the MDRD equation for patients that are not between the ages of 18 and 70, are , have extremes of body size, muscle mass, or nutritional status, or are non- or non-. According to the National Kidney Foundation, irrespective of diagnosis, the stage of the disease is based on the level of kidney function: Stage Description GFR(mL/min/1.73 m(2)) 1 Kidney damage with normal or decreased GFR 90 2 Kidney damage with mild decrease in GFR 60-89 3 Moderate decrease in GFR 30-59 4 Severe decrease in GFR 15-29 5 Kidney failure <15 (or dialysis) 50 Low risk: <1.0 mg/L Average risk: 1.0-3.0 mg/L High risk: >3.0 mg/L Acute inflammation: >10.0 mg/L 51 Because ethnic data is not always readily available, this report includes an eGFR for both -Americans and non- Americans. The National Kidney Disease Education Program (NKDEP) does not endorse the use of the MDRD equation for patients that are not between the ages of 18 and 70, are , have extremes of body size, muscle mass, or nutritional status, or are non- or non-. According to the National Kidney Foundation, irrespective of diagnosis, the stage of the disease is based on the level of kidney function: Stage Description GFR(mL/min/1.73 m(2)) 1 Kidney damage with normal or decreased GFR 90 2 Kidney damage with mild decrease in GFR 60-89 3 Moderate decrease in GFR 30-59 4 Severe decrease in GFR 15-29 5 Kidney failure <15 (or dialysis) 52 This test detects intact HCG only and is indicated for the early detection of . 53 This test detects intact HCG only and is indicated for the early detection of . 54 Because ethnic data is not always readily available, this report includes an eGFR for both -Americans and non- Americans. The National Kidney Disease Education Program (NKDEP) does not endorse the use of the MDRD equation for patients that are not between the ages of 18 and 70, are , have extremes of body size, muscle mass, or nutritional status, or are non- or non-. According to the National Kidney Foundation, irrespective of diagnosis, the stage of the disease is based on the level of kidney function: Stage Description GFR(mL/min/1.73 m(2)) 1 Kidney damage with normal or decreased GFR 90 2 Kidney damage with mild decrease in GFR 60-89 3 Moderate decrease in GFR 30-59 4 Severe decrease in GFR 15-29 5 Kidney failure <15 (or dialysis) 55 The detection limit for Ethanol is 10.0 mg/dl . Values less than 10.0 mg/dl cannot be accurately measured. 56 RUN DATE: 02/02/13 [facility] LAB LIVE PAGE 1 RUN TIME: [address] [place] [address] Specimen Inquiry Name: BARBARA AHMADI : [address]: Keshav Narvaez MD Acct: [id number] Unit: [id number] AGE: 27 Location: ED Re01/31/13 SEX: F Status: DEP ER SPEC: [id number] NADIR: 01/31/[address]: Francisco Tarango MD REQ: [id number] RECD: 01/31/13 STATUS: NEFTALY NGUYEN DR: Sarahi Henderson MD _ SOURCE: URINE [facility]: ORDERED: Urine Culture Procedure Result Verified Site Urine Culture Final 02/02/13920 ML Organism 1 NORMAL VERONA [place] Count 75-100,000 (Many) CFU/ML END OF REPORT * ML=Testing performed at Main Lab DEPARTMENT OF PATHOLOGY, [address] [place] [address] Thomas Christensen M.D. Director [facility] Permit #[id number] 57 Because ethnic data is not always readily available, this report includes an eGFR for both -Americans and non- Americans. The National Kidney Disease Education Program (NKDEP) does not endorse the use of the MDRD equation for patients that are not between the ages of 18 and 70, are , have extremes of body size, muscle mass, or nutritional status, or are non- or non-. According to the National Kidney Foundation, irrespective of diagnosis, the stage of the disease is based on the level of kidney function: Stage Description GFR(mL/min/1.73 m(2)) 1 Kidney damage with normal or decreased GFR 90 2 Kidney damage with mild decrease in GFR 60-89 3 Moderate decrease in GFR 30-59 4 Severe decrease in GFR 15-29 5 Kidney failure <15 (or dialysis) 58 2+ (>10-30 /hpf) 59 RUN DATE: 01/10/13 [facility] LAB LIVE PAGE 1 RUN TIME: [address] [place] [address] Specimen Inquiry Name: AHMADIBARBARA L : [address]: Francisco Valenzuela MD Acct: [id number] Unit: [id number] AGE: 27 Location: ED Re01/08/13 SEX: F Status: DEP ER SPEC: [id number] NADIR: 01/08/[address]: Francisco Valenzuela MD REQ: [id number] RECD: 01/08/13 STATUS: NEFTALY NGUYEN DR: Sarahi Henderson MD _ SOURCE: URINE SPDESC: ORDERED: Urine Culture Procedure Result Verified Site Urine Culture Final 01/10/13- 0844 ML Organism 1 NORMAL VERONA [place] Count >100,000 (Many) CFU/ML END OF REPORT * ML=Testing performed at Main Lab DEPARTMENT OF PATHOLOGY, [address] [place] [address] Thomas Christensen M.D. Director [facility] Permit #[id number] 60 Because ethnic data is not always readily available, this report includes an eGFR for both -Americans and non- Americans. The National Kidney Disease Education Program (NKDEP) does not endorse the use of the MDRD equation for patients that are not between the ages of 18 and 70, are , have extremes of body size, muscle mass, or nutritional status, or are non- or non-. According to the National Kidney Foundation, irrespective of diagnosis, the stage of the disease is based on the level of kidney function: Stage Description GFR(mL/min/1.73 m(2)) 1 Kidney damage with normal or decreased GFR 90 2 Kidney damage with mild decrease in GFR 60-89 3 Moderate decrease in GFR 30-59 4 Severe decrease in GFR 15-29 5 Kidney failure <15 (or dialysis) 61 Because ethnic data is not always readily available, this report includes an eGFR for both -Americans and non- Americans. The National Kidney Disease Education Program (NKDEP) does not endorse the use of the MDRD equation for patients that are not between the ages of 18 and 70, are , have extremes of body size, muscle mass, or nutritional status, or are non- or non-. According to the National Kidney Foundation, irrespective of diagnosis, the stage of the disease is based on the level of kidney function: Stage Description GFR(mL/min/1.73 m(2)) 1 Kidney damage with normal or decreased GFR 90 2 Kidney damage with mild decrease in GFR 60-89 3 Moderate decrease in GFR 30-59 4 Severe decrease in GFR 15-29 5 Kidney failure <15 (or dialysis) 62 RUN DATE: 07/31/12 [facility] LAB LIVE PAGE 1 RUN TIME: [address] [place] [address] Specimen Inquiry Name: BARBARA AHMADI : [address]: Sarahi Henderson MD Acct: [id number] Unit: [id number] AGE: 26 Location: [facility] Re07/28/12 SEX: F Status: REG REF SPEC: [id number] NADIR: 07/28/12-[address] [facility] [address]: Sarahi Henderson MD REQ: [id number] RECD: 07/28/12 STATUS: COMP _ SOURCE: URINE SPDESC: ORDERED: Urine Culture QUERIES: Medent Number [id number] Procedure Result Verified Site Urine Culture Final 07/31/12- 0901 ML Organism 1 STREP GROUP B [place] Count >100,000 (Many) CFU/ML Organism 2 ESCHERICHIA COLI [place] Count 10-25,000 (Moderate) CFU/ML Susceptibility testing of penicillins and other B-lactams approved by FDA for treatment of Streptococcus pyogenes (Group A Strep) and Streptococcus agalactiae (Group B Strep) is not necessary for clinical purposes and need not be done routinely, since as with vancomycin, resistant strains have not been recognized. (CLSI M933-M02;p.66) Positive isolates will be saved for one week. Please call the Microbiology Laboratory if further susceptibility testing is needed. 2. ESCHERICHIA COLI M.I.C. RX --------- ------ Ampicillin 8 S Cefazolin <=4 S Cefepime <=1 S Ceftriaxone <=1 S Ciprofloxacin <=0.25 S Gentamicin <=1 S Imipenem <=0.25 S Levofloxacin <=0.12 S Meropenem <=0.25 S Nitrofurantoin 32 S CONTINUED ON NEXT PAGE * ML=Testing performed at Main Lab DEPARTMENT OF PATHOLOGY, [facility] [employer] [place], [place] [address] Thomas Christensen M.D. Director [facility] Permit #[id number] RUN DATE: 07/31/12 [facility] LAB LIVE PAGE 2 RUN TIME: 900 [facility] [employer] [place], [place] [address] Specimen Inquiry Patient: BARBARA AHMADI [id number] (Continued) Specimen: [id number] Collected: 07/28/12 Received: 07/28/12 (Continued) Procedure Result Verified Site Urine Culture Final (continued) 07/31/12- 900 2. ESCHERICHIA COLI (continued) M.I.C. RX --------- ------ Tetracycline <=1 S Pipercillin/Tazobactam <=4 S Trimethoprim/Sulfamethoxazole <=20 S Amoxicillin/Clavulanic Acid 4 S Aztreonam <=1 S Contact the Microbiology Department for any additional antibiotic reporting. END OF REPORT * ML=Testing performed at Main Lab DEPARTMENT OF PATHOLOGY, [address] [place] [address] Thomas Christensen M.D. Director [facility] Permit #[id number] 63 Because ethnic data is not always readily available, this report includes an eGFR for both -Americans and non- Americans. The National Kidney Disease Education Program (NKDEP) does not endorse the use of the MDRD equation for patients that are not between the ages of 18 and 70, are , have extremes of body size, muscle mass, or nutritional status, or are non- or non-. According to the National Kidney Foundation, irrespective of diagnosis, the stage of the disease is based on the level of kidney function: Stage Description GFR(mL/min/1.73 m(2)) 1 Kidney damage with normal or decreased GFR 90 2 Kidney damage with mild decrease in GFR 60-89 3 Moderate decrease in GFR 30-59 4 Severe decrease in GFR 15-29 5 Kidney failure <15 (or dialysis) 64 FASTING 12 HOUR 65 FASTING 12 HOUR 66 FASTING 12 HOUR 67 RUN DATE: 02/01/12 [facility] LAB LIVE PAGE 1 RUN TIME: [address] [place] [address] Specimen Inquiry Name: BARBARA AHMADI : [address]: Kim Donaldson NP Acct: [id number] Unit: [id number] AGE: 26 Location: [facility] Re01/30/12 SEX: F Status: REG REF SPEC: [id number] NADIR: 01/30/[address]: Kim Donaldson NP REQ: [id number] RECD: 01/30/12 STATUS: COMP _ SOURCE: THROAT SPDESC: ORDERED: Throat Beta Str QUERIES: Medent Number [id number] Procedure Result Verified Site Throat Beta Strep Culture Final 02/01/12- 901 ML Negative For Group A Beta Streptococcus END OF REPORT * ML=Testing performed at Main Lab DEPARTMENT OF PATHOLOGY, [address] [place] [address] Thomas Christensen M.D. Director [facility] Permit #[id number] 68 A metabolite of Naproxen, O-desmethylnaproxen, has been shown to interfere with the Jendrassik-Storden method for measuring total bilirubin. Samples from patients who have taken Naproxen have shown spurious elevation in total bilirubin levels. 69 Because ethnic data is not always readily available, this report includes an eGFR for both -Americans and non- Americans. The National Kidney Disease Education Program (NKDEP) does not endorse the use of the MDRD equation for patients that are not between the ages of 18 and 70, are , have extremes of body size, muscle mass, or nutritional status, or are non- or non-. According to the National Kidney Foundation, irrespective of diagnosis, the stage of the disease is based on the level of kidney function: Stage Description GFR(mL/min/1.73 m(2)) 1 Kidney damage with normal or decreased GFR 90 2 Kidney damage with mild decrease in GFR 60-89 3 Moderate decrease in GFR 30-59 4 Severe decrease in GFR 15-29 5 Kidney failure <15 (or dialysis) 70 CHOLESTEROL INTERPRETATION: Desirable: Less than 200 MG/DL Borderline-High Risk: 200-239 MG/DL High-Risk: 240 MG/DL and over 71 HDL INTERPRETATION: Undesirable: High Risk: Less than 40 MG/DL Desirable: Low Risk: Greater than 60 MG/DL 72 LDL INTERPRETATION: Low Risk Optimal Level: LDL Less than 100 MG/DL Near or Above Optimal: LDL 100-129 MG/DL Borderline High Risk: LDL 130-159 MG/DL High Risk: LDL 160-189 MG/DL Very High Risk: LDL Greater than 189 MG/DL 73 Anion gap measurement may be of limited value in the presence of any alkalosis, especially in a combined acid base disorder. . 74 A metabolite of Naproxen, O-desmethylnaproxen, has been shown to interfere with the Jendrassik-Lakshmi method for measuring total bilirubin. Samples from patients who have taken Naproxen have shown spurious elevation in total bilirubin levels. 75 Because ethnic data is not always readily available, this report includes an eGFR for both -Americans and non- Americans. The National Kidney Disease Education Program (NKDEP) does not endorse the use of the MDRD equation for patients that are not between the ages of 18 and 70, are , have extremes of body size, muscle mass, or nutritional status, or are non- or non-. According to the National Kidney Foundation, irrespective of diagnosis, the stage of the disease is based on the level of kidney function: Stage Description GFR(mL/min/1.73 m(2)) 1 Kidney damage with normal or decreased GFR 90 2 Kidney damage with mild decrease in GFR 60-89 3 Moderate decrease in GFR 30-59 4 Severe decrease in GFR 15-29 5 Kidney failure <15 (or dialysis) 76 RUN DATE: 07/31/11 [facility] NMI LIVE PAGE 1 RUN TIME: 1032 Specimen Inquiry RUN USER: INTERFACE Name: BARBARA AHMADI Status: REG REF Re07/29/11 Age/Sex: 25/F Unit#: [id number] Location: [facility] : [birth year] SPEC #: [id number] NADIR: 07/29/11 STATUS: COMP REQ #: [id number] RECD: 07/29/[address] [facility] [address]: Santiago MANUEL,[facility] SOURCE: THROAT ENTR: 07/29/[address]: SPDCURT: ORDERED: THROAT CULTURE QUERIES: MEDENT REQUISITION # [id number] ACT WKST: B 07/31/11 #1 Procedure Result Verified Site > THROAT CULTURE FULL Final -1032 ML NORMAL THROAT VERONA FULL THROAT CULTURES ARE CLINICALLY INDICATED TO DETECT THE PRESENCE OF GROUP A STREP, ARCANOBACTERIUM AND YEAST. ML - [facility] State Permit #[id number] [address] [place] [address] DEPARTMENT OF PATHOLOGY, [address] [place] [address] [facility] Permit #[id number] Thomas Christensen M.D. Director Cortney Morales M.D. [employer] Procedures Date CPT Code Description Status 02/21/201799037 Inject Tendon Sheath Or Ligament Aponeurosis Eg Plantar Completed Fascia 03/08/2013 Colonoscopy Completed 07/30/2012 46359 Polysomnography Sleep Staging 4+ Parameters W/Cpap Completed 06/03/2012 00991 Polysomnography Sleep Staging 4+ Parameters Completed Encounters Type Date Location Provider CPT E/M Dx Office Visit 02/21/2017 [facility] [place] [address] M65.311 9:30a [facility] Office Visit 02/04/2017 [facility] [place] [address] J45.909 2:15p Services Of [facility] G47.33 E66.01 Office Visit 01/13/2017 10:15a [facility] [place] [address] J45.909 Services Of [facility] G47.33 E66.01 Z68.41 Office Visit 01/06/2017 2:20p [facility] Internal Medicine Pamela Gutierrez, N.P. 64776 J45.901 - [place] Office Visit 08/20/2016 3:40p [facility] Internal Medicine Jan Howard, 71563 R11.2 - Antolin Cabrera Office Visit 08/06/2016 2:15p [facility] Micaela Diamond 03013 G47.33 Services Of [facility] RUI CARRERO, [facility]- E66.01 Z68.41 Office Visit 05/13/2016 10:00a [facility] [place] [address] J06.9 [place] A08.4 Office Visit 05/01/2016 2:40p [facility] Internal Medicine Sarahi Henderson M.D. 59892 H53.8 - [place] R51 N20.0 E66.9 Office Visit 04/11/2016 4:20p [facility] [place] [address] J06.9 - [place] Office Visit 02/06/2016 1:20p [facility] Internal Medicine Pamela Gutierrez, N.P. 81255 B37.3 - [place] R19.7 Office Visit 01/08/2016 4:20p [facility] Internal Medicine Elzbieta Daniels M.D. 12016 R21 - [place] J01.90 Office Visit 2015 4:20p [facility] [place] [address] J45.21 [place] J30.9 R05 Office Visit 11/20/2015 4:00p [facility] [address] R21 - [place] Office Visit 10/04/2015 4:00p [facility] Internal Medicine Jan Howard, 70031 Z02.89 - [place] M.D. Office Visit 08/18/2015 2:00p [facility] Micaela Diamond, 54368 G47.33 Services Of [facility] RUI CARRERO, [facility] Office Visit 08/08/2015 8:50a [facility] Internal Medicine Sarahi Henderson, 66883 B86 - [place] M.Victorino Office Visit 06/27/2015 3:40p [facility] Internal Medicine Jan Howard, 77428 J06.9 - [place] M.DRich Office Visit 06/13/2015 4:00p [facility] Internal Medicine Jan Howard, 28857 N23 - [place] MEddy Office Visit 04/26/2015 4:00p [facility] Internal Medicine Tone Edmond, 18356 J06.9 - [place] M.DRich Office Visit 03/15/2015 3:40p [facility] [place] [address] J06.9 - [place] H81.12 Office Visit 02/10/2015 2:30p [facility] [place] [address] R11.0 - [place] Office Visit 01/18/2015 10:40a [facility] [place] [address] J01.90 - [place] Office Visit 12/16/2014 1:00p [facility] Sleep Micaela Diamond, 39682 327.23 Services Of [facility] RUI CARRERO, [facility] 780.52 Office Visit 12/14/2014 1:30p [facility] [place] [address] 278.01 493.10 V74.1 079.89 Office Visit 10/27/2014 1:50p [facility] Internal Medicine Sarahi Henderson M.D. 60877 238.2 - [place] 278.01 493.10 709.9 Office Visit 05/16/2014 11:50a [facility] Internal Medicine Sarahi Henderson M.D. 09093 V41.1 - [place] 626.4 Office Visit 05/05/2014 2:30p [facility] Internal Medicine Sarahi Henderson 18381 790.21 - [place] Cabrera 844.9 278.01 Office Visit 04/22/2014 2:20p [facility] Internal Medicine Tone Edmond, 82518 719.46 - [place] Cabrera Office Visit 04/15/2014 3:00p [facility] Internal Medicine Tone Edmond, 39861 719.46 - [place] Cabrera Office Visit 03/04/2014 2:00p [facility] Sleep Micaela Diamond, 84186 327.23 Services Of [facility] MAGAN, RN, SCALING MACHINE OPERATOR- Office Visit 01/19/2014 3:30p [place] [facility] Ta Hodges, 88215 333.1 Services Of [facility] Ramón.Victorino E939.3 Office Visit 12/29/2013 2:00p [place] [facility] Ta Hodges, 52469 333.1 Services Of [facility] Deborah E939.3 Office Visit 2013 3:10p [facility] Internal Medicine Sarahi Henderson 10881 790.21 - [place] Cabrera 278.01 Office Visit 11/09/2013 2:30p [facility] Internal Medicine Sarahi Henderson M.D. 32854 623.5 - [place] Office Visit 11/02/2013 2:30p [facility] Internal Medicine Sarahi Henderson M.D. 38756 704.8 - [place] 278.01 303.91 782.3 V65.42 Office Visit 09/28/2013 1:50p [facility] Internal Medicine - Sarahi Henderson M.D. 57790 684 Kat 847.9 278.01 303.91 691.8 Office Visit 09/07/2013 3:00p [facility] Internal Medicine Libra Dela Cruz M.D. 61297 995.3 - [place] Office Visit 08/18/2013 4:10p [facility] Internal Medicine Sarahi Henderson 47234 333.1 - [place] Cabrera Office Visit 04/27/2013 1:50p [facility] Internal Medicine Sarahi Henderson 74454 845.09 - [place] Cabrera Office Visit 04/16/2013 1:40p [facility] Internal Medicine Libra Dela Cruz M.D. 12084 845.09 - [place] Office Visit 03/31/2013 4:40p [facility] Internal Medicine Eduardo Lentzd, 46601 466.0 - [place] MEddy,FACP Office Visit 02/16/2013 2:50p [facility] Internal Medicine Sarahi Henderson, 16533 278.01 - [place] Cabrera 303.91 Office Visit 01/13/2013 2:50p [facility] Internal Medicine Sarahi Henderson 01715 789.00 - [place] Cabrera 796.2 Office Visit 01/06/2013 2:40p [facility] Internal Medicine Tone Edmond, 89601 465.8 - [place] Cabrera Office Visit 12/31/2012 1:50p [facility] Internal Medicine Sarahi Henderson M.D. 67231 461.8 - [place] 691.8 Office Visit 12/11/2012 1:00p [facility] Internal Medicine Kim Donaldson, N.P. 34615 372.39 - [place] Office Visit 09/17/2012 2:30p [facility] Internal Medicine Sarahi Henderson M.D. 22459 278.01 - [place] 111.0 Office Visit 08/27/2012 2:50p [facility] Internal Medicine Sarahi Henderson M.D. 41122 782.3 - [place] 303.90 Office Visit 07/28/2012 1:50p [facility] Internal Medicine Sarahi Henderson M.D. 00141 782.3 - [place] 790.21 288.60 303.90 110.5 Office Visit 07/14/2012 2:10p [facility] Internal Medicine Sarahi Henderson M.D. 18893 783.1 - [place] 278.01 303.92 111.0 780.79 782.3 Office Visit 06/16/2012 10:36a Jazmyn Eldridge, 75791 327.23 [facility] Deborah Office Visit 06/15/2012 2:30p [facility] Internal Medicine Sarahi Henderson M.D. 10842 110.5 - [place] Office Visit 05/21/2012 11:10a [facility] Internal Medicine Sarahi Henderson M.D. 98570 493.92 - [place] Office Visit 05/18/2012 10:30a [facility] Internal Medicine Sarahi Henderson M.D. 55655 461.9 - [place] Office Visit 05/13/2012 11:10a [facility] Internal Medicine Sarahi Henderson M.D. 67060 461.9 - [place] Office Visit 04/22/2012 9:31a Jazmyn Eldridge, 23545 786.09 [facility] Deborah 780.79 Office Visit 02/24/2012 1:40p [facility] Internal Medicine Tone Edmond, 34795 840.8 - [place] MEddy Office Visit 01/30/2012 12:30p [facility] Internal Medicine Kim Donaldson N.Esperanza 96314 462 - [place] 461.0 Office Visit 01/28/2012 2:10p [facility] Internal Medicine Sarahi Henderson M.D. 78089 783.1 - [place] 780.79 278.01 786.02 Office Visit 12/24/2011 1:50p [facility] Internal Medicine Sarahi Henderson M.D. 33941 782.1 - [place] 727.05 Office Visit 12/12/2011 2:10p [facility] Internal Medicine Sarahi Henderson M.D. 75197 782.1 - [place] 727.05 Office Visit 11/20/2011 1:50p [facility] Internal Medicine Sarahi Henderson 61595 278.00 - [place] Cabrera 782.3 Office Visit 11/08/2011 2:00p [facility] Internal Medicine Libra Dela Cruz M.D. 48169 477.9 - [place] 278.00 782.3 Office Visit 08/26/2011 2:30p [facility] Internal Medicine Sarahi Henderson 64851 461.8 - [place] Deborah Office Visit 08/01/2011 11:45a [facility] Internal Medicine Sarahi Henderson 40232 461.8 - [place] Deborah Office Visit 07/29/2011 2:30p [facility] Internal Medicine Sarahi Henderson 72781 462 - [place] Deborah Office Visit 06/24/2011 12:45p [facility] Internal Medicine Sarahi Henderson 51671 493.10 - [place] Cabrera Office Visit 06/18/2011 10:15a [facility] Internal Medicine Sarahi Henderson, 09752 493.92 - [place] Cabrera 477.9 Office Visit 05/22/2011 1:00p [facility] Internal Medicine Sarahi Henderson M.D. 29614 782.0 - [place] 278.00 Plan of Care Future Appointment(s):04/23/2017 11:15 am - Maycol Perry MD at [facility]05/12/2017 3:30 pm - Genesis Rogers MD at [facility]
[2017-04-15 21:05] VITALS: BP 129/66
--- NOTE | 2017-04-15 21:08 | ED ---
Upper Extremity Pain - HPI Summary HPI Summary: 31 year old female presents with complains of left 2nd finger pain after lifting garbage bags. - History of Current Complaint Chief Complaint: UCUpperExtremity Stated Complaint: FINGER INJURY Time Seen by Provider: 04/15/17 21:08 Hx Obtained From: Patient Hx Last Menstrual Period: 03/25/2017 Severity Initially: Moderate Severity Currently: Moderate Character: Throbbing Aggravating Factor(s): Nothing Alleviating Factor(s): Nothing Associated Signs & Symptoms: Positive: Numbness/Tingling - Allergies/Home Medications Allergies/Adverse Reactions: Allergies Allergy/AdvReac Type Severity Reaction Status Date / Time Amoxicillin Allergy Intermediate Vomiting Verified 04/15/17 21:05 and diarrhea Metronidazole [From Flagyl] Allergy Unknown Vomiting Verified 04/15/17 21:05 PMH/Surg Hx/FS Hx/Imm Hx Previously Healthy: Yes Endocrine/Hematology History: Reports: Hx Anemia - STATES HX OF -OFF AND ON Denies: Hx Anticoagulant Therapy, Hx Diabetes, Hx Thyroid Disease Cardiovascular History: Denies: Hx Congestive Heart Failure, Hx Deep Vein Thrombosis, Hx Hypertension , Hx Myocardial Infarction, Hx Pacemaker/ICD Respiratory History: Reports: Hx Asthma, Hx Sleep Apnea - current CPAP user Denies: Hx Chronic Obstructive Pulmonary Disease (COPD), Hx Lung Cancer, Hx Pneumonia, Hx Pulmonary Embolism GI History: Denies: Hx Gall Bladder Disease, Hx Gastrointestinal Bleed, Hx Ulcer, Hx Urosepsis, Other GI Disorders History: Reports: Hx Kidney Stones - 04/2016 STENT PLACEMENT, Other Problems/Disorders - RENAL STONES Denies: Hx Dialysis, Hx Renal Disease Sensory History: Denies: Hx Contacts or Glasses, Hx Hearing Aid Opthamlomology History: Denies: Hx Contacts or Glasses Neurological History: Reports: Other Neuro Impairments/Disorders Denies: Hx Dementia, Hx Migraine, Hx Seizures, Hx Transient Ischemic Attacks (TIA) Psychiatric History: Reports: Hx Anxiety - ON MEDICATION FOR, Hx Depression - ON MEDICATION FOR, Hx Panic Disorder, Hx Inpatient Treatment, Hx Community Mental Health Tx, Hx Bipolar Disorder Denies: Hx Schizophrenia - Surgical History Surgery Procedure, Year, and Place: 01/19 [facility] [place] pilonidal cyst. 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 Denies: Hx Clostridium Difficile, Hx Hepatitis, Hx Human Immunodeficiency Virus (HIV), Hx Shingles, Hx Tuberculosis, Hx Known/Suspected VRE, Hx Known/ Suspected VRSA, History Other Infectious Disease, Traveled Outside the [place] in Last 30 Days - Family History Known Family History: Positive: Respiratory Disease - sister - asthma Negative: Cardiac Disease, Hypertension, Diabetes Family History: KIDNEY STONES - DAD - Social History Alcohol Use: Weekly Alcohol Amount: 2 DRINKS Hx Substance Use: No Substance Use Type: Reports: None Hx Tobacco Use: No Smoking Status (MU): Never Smoked Tobacco Amount Used/How Often: tried once or twice as a teen Review of Systems Constitutional: Negative Eyes: Negative ENT: Negative Cardiovascular: Negative Respiratory: Negative Gastrointestinal: Negative Genitourinary: Negative Musculoskeletal: Negative Skin: Negative Neurological: Other - left 2nd fingertip numbness All Other Systems Reviewed And Are Negative: Yes Physical Exam Triage Information Reviewed: Yes Vital Signs On Initial Exam: Initial Vitals Temp Pulse Resp BP Pulse Ox 36.5 C 76 18 129/66 99 04/15/17 21:01 04/15/17 21:01 04/15/17 21:01 04/15/17 21:01 04/15/17 21:01 Appearance: Positive: Well-Appearing Skin: Positive: Warm Eyes: Positive: Normal ENT: Positive: Normal ENT inspection Dental: Positive: Percussion Tenderness @ Neck: Positive: Supple Respiratory/Lung Sounds: Positive: Clear to Auscultation Cardiovascular: Positive: Normal Abdomen Description: Positive: Nontender Bowel Sounds: Positive: Present Musculoskeletal: Positive: Other - left 2nd fingertip numbness Diagnostics - Vital Signs Vital Signs Temp Pulse Resp BP Pulse Ox 04/15/17 21:01 36.5 C 76 18 129/66 99 - Laboratory Lab Statement: Any lab studies that have been ordered have been reviewed, and results considered in the medical decision making process. Course/Dx - Diagnoses Provider Diagnoses: Finger numbness Discharge - Discharge Plan Condition: Stable Disposition: HOME Patient Education Materials: Paresthesia (ED) Forms: *Work Release Referrals: Sarahi Henderson MD [Primary Care Provider] - Additional Instructions: neurologist referral of patient choice for numb left 2nd finger
== END 2017-04-15 21:35 | disposition home or self-care (01) ==
LOC: UCEAST 20:54
DX: R20.0 Anesthesia of skin (principal); Z72.89 Other problems related to lifestyle
CPT/HCPCS: 99211; G0463

== ENCOUNTER 2017-05-31 05:20 | Emergency (ER) | payer SELFPAY ==
[2017-05-31] MEDS ORDERED: Ondansetron INJ* 2 MG/ML VIAL IV ONE (05:43)
[2017-05-31] MEDS ORDERED: NS 0.9% 1000 ML* 1,000 ML IV ONE (05:43)
[2017-05-31] MEDS ORDERED: Morphine INJ* 10 MG/ML 1 ML CARPUJECT IV PRN (05:43)
--- OUTSIDE RECORDS SUMMARY | 2017-05-31 06:28 | XMS REPORT ---
:1985 External Reference #:[id number] Author Organization [facility] Address [address] [address] Phone [phone] Care Team Providers Name Role Phone Sarahi Henderson MD Primary Care Physician Unavailable Payers Type Date Identification Numbers Payment Provider Subscriber Commercial Policy Number: [id number] [place]/[employer] Barbara Ahmadi PayID: [id number] [address] [address] [place] [address] Problems Date Description Provider Status Onset: 06/18/2011 Obesity Sarahi Henderson M.D. Active Onset: 08/26/2011 Allergic rhinitis Sarahi Henderson M.D. Active Onset: 08/26/2011 Intrinsic asthma without status Sarahi Henderson M.D. 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 needed Singulair Active Tablets 10mg 90tab 1 by Sarahi s mouth Henderson, every day M.D. Klonopin Active Tablets 1mg 30tab 1 po qid 300.00 s Wellbutrin SR Active Tablets ER 200mg 1 tab by 12HR mouth daily Epinastine HCL Active Solution 0.05% 1 ggt Unknown both eyes twice a day as needed allergies Hydrocortisone Active Cream 0.2% 45uni topical Rex Valerate ts twice REJI Wisdom daily to area as needed Nuvaring Active Ring 0.12-0.01 insert 1 Unknown /0000 5mg/24HR ring vaginally every 28 days leave [...] Hx Tablets 250mg 6tabs two tabs J45.901 Pamela /2017 day one, Varn, N.P. - one daily 01/16 till Fluticasone 01/06 Hx Suspension 50mcg/Act 16uni 2 sprays J45.901 Pamela Propionate ts each Varn, N.P. - nostril 01/20 Chlorhexidine 05/01 Hx Liquid 2% Sarahi Gluconate /2016 Concepcion Henderson M.D. 01/06 Mupirocin Calcium 04/30 Hx Cream 2% Gonyou, /2016 Concepcion Garcia PA-C 05/13 Benzonatate 04/11 Hx Capsules 100mg 30cap take one J06.9 Rex s or two Artis, [employer] - capsules 05/01 every hours as needed for cough. Fluconazole 02/05 Hx Tablets 150mg 2tabs one by B37.3 mouth august Varn, N.P. - repeat in 05/01 3 days needed Clotrimazole/Beta 02/05 Hx Cream 1-0.05% 15gm apply 2 - B37.3 methasone 3 times Varn, N.P. Dipropionate - daily as 02/19 needed Terconazole 02/05 Hx Suppository 80mg 3unit 1 B37.3 s supposito Varn, N.P. - ry 02/11 intravagi gildardo at bedtime for 3 nights Cephalexin 01/07 Hx Tablets 500mg 21tab take one R21 Elzbieta s tablet Cotton, - every 8 M.D. 02/05 hours 7 days Advair Diskus 12/07 Hx Aerosol 250-50mcg 60uni inhale 1 J45.21 Rex /2015 /Dose ts puff by Artis, [employer] - mouth 05/01 twice a day. RInse mouth after use. Guaifenesin ac 12/07 Hx Syrup 100-10mg/ 300ml 10ml R05 5ML every 4 Artis, [employer] - hours for 01/07 cough Nasonex 12/07 Hx Suspension 50mcg/Act 17gm two J30.9 sprays Artis, [employer] - each 05/01 nostril once daily for 2 weeks. Cephalexin 11/19 Hx Tablets 500mg 21tab take one R2ph s tablet Artis, [employer] - every 8 / hours for 7 days Triamcinolone 11/19 Hx Cream 0.1% 15gm apply R2 Rex Acetonide thin film Artis, [employer] - twice 05/01 Permethrin 08/07 Hx Cream 5% 1unit apply to B86 Sarahi s all body Santiago, - once/august M.D. 10/03 repeat in 1 week Levofloxacin 04/26 Hx Tablets 500mg 10tab once J06.9 s daily Feli - M.D. 06/13 Azithromycin 03/15 Hx Tablets 250mg 6tabs 2 tabs by J06.9 mouth Artis, [employer] - every day 03/20 x1 day, tab by mouth every day x 4 days Doxycycline 01/18 Hx Capsules 100mg 20cap one J01.90 Rex Hyclate s tablet Artis, [employer] - twice 01/27 daily for 10 days. Nasonex 01/18 Hx Suspension 50mcg/Act 17gm two J01.90 Rex sprays Artis, [employer] - each 01/18 nostril once daily for 2 weeks. Fluticasone 01/18 Hx Suspension 50mcg/Act 16uni 2 sprays J01.90 Rex Propionate ts each Artis, [employer] - nostril 06/13 qd two weeks Ibuprofen 04/15 Hx Tablets 600mg 90tab three 719.46 [place] s times a Feli, - day prn M.D. 06/13 with food /2015 Metronidazole 11/10 Hx Gel 0.75% 1unit apply s intravagi Santiago, - gildardo M.D. 12/08 once a day x 7 days Sulfamethoxazole/ 11/02 Hx Tablets 800-160mg 10tab 1 by 704.8 Sarahi Trimethoprim DS s mouth Henderson, - twice a M.D. Furosemide 11/02 Hx Tablets 20mg 12tab 1 tab 782.3 s every Henderson, - other day M.D. 12/08 3 times a week for swelling X 3 wks Cephalexin 09/28 Hx Tablets 250mg 10tab 1 by 684 Sarahi s mouth , - twice a M.D. Mometasone 09/28 Hx Cream 0.1% 1unit apply to 691.8 Sarahi Furoate s affected Santiago, - areas M.D. 12/08 twice a day 7 days only Methylprednisolon 09/07 Hx Tablets 4mg 995.3 Libra e Concepcion Dela Cruz M.D. 09/07 Methylprednisolon 09/07 Hx Tablets 4mg 1pack as 995.3 Libra e (Malik) directed Jose De Jesus - Deborah 11/02 Percocet 04/11 Hx Tablets 5-325mg 10tab 1 tab po Libra /2013 s q6h prn Jose De Jesus, - pain Ramón.Victorino 08/18 Clarithromycin 03/31 Hx Tablets 500mg 20tab 1 po bid 466.0 Eduardo /2012 s for 10 D. Les, - days M.DRich,FACP 04/16 Cheratussin ac 03/31 Hx Syrup 100-10mg/ 120ml 10 J20.9 Jan E. /2012 5ML millilite Anita, - rs by Deborah 08/07 mouth four times a day as needed Butalbital/Acetam 01/06 Hx Capsules 50-325-40 20cap 1 tab 465.8 [place] inophen/Caffeine /2012 mg s every 8 h Feli, - prn Deborah 08/18 Mometasone 12/31 Hx Cream 0.1% 1unit apply to 691.8 Sarahi Fur s affected Santiago, - areas bid M.D. 08/18 10 only Azithromycin 12/31 Hx Tablets 250mg 6tabs take 2 461.8 tab on Santiago, - day 1 M.D. 01/06 then tab daily x 4 days Polymyxin B 12/11 Hx Solution 80947-5.1 10ml 1 gtt in 372.39 Kim Sulfate/Trimethop Unit/ML-% eyes b/l Anika, rim Sulfate - 4 times a N.P. 12/31 day x days Ketoconazole 09/17 Hx Tablets 200mg 2tabs 2 tab 111.0 once Santiago, - /exercise M.D. 12/31 vigorousl y afterward s to cause sweating Compression 08/27 Hx Large 1unit as needed 782.3 Sarahi Stockings s Santiago - M.D. 12/11 Furosemide 07/28 Hx Tablets 40mg 30tab 1 po qd 782.3 s Santiago - M.D. 08/27 Fluconazole 07/28 Hx Tablets 150mg 4tabs 2 po once 110.5 Tone /2013 a week X Feli, - 2 wks M.D. 08/27 Furosemide 07/20 Hx Tablets 40mg 28tab 1 tab bid s prn Santiago - M.D. 12/31 Furosemide 07/14 Hx Tablets 20mg 10tab 1 po 782.3 s daily 3 Santiago, - times a M.D. Nebulizer 06/18 Hx Misc 1 J45.901 Sarahi /2013 Santiago - M.DRich 01/12 Advair Diskus 06/15 Hx Aerosol 250-50mcg 1unit 1 puff 461.8 Sarahi /2013 /Dose s bid Concepcion Henderson M.D. 08/18 Prednisone 05/21 Hx Tablets 20mg 27tab 3 tab by 493.92 s mouth Santiago, - every day M.D. 06/15 x3 days /2012 then 2 tab daily for 5 days, then 1 tab daily for 5 days then 1/2 tab daily for 5 days Clarithromycin 05/18 Hx Tablets 500mg 20tab 1 po bid 461.9 Sarahi s Santiago, - M.D. 06/15 Prednisone 05/18 Hx Tablets 10mg 13tab take 3 461.9 s tab daily Santiago, - x 2 days M.D. 06/15 then tab daily x 3 days and then 1 tab daily until all taken Azithromycin 05/13 Hx Tablets 250mg 6tabs take 2 461.9 tab on Santiago, - day 1 M.D. 05/18 then tab daily x 4 days Mobic 02/23 Hx Tablets 15mg 15tab once 840.8 s daily Feli - M.DRich 05/18 Flexeril 02/23 Hx Tablets 10mg 14tab 1 po bid 840.8 s prn Feli - M.DRich 05/18 Doxycycline 02/04 Hx Tablets 100mg 10tab 100 mg Kim Hycl s orally Anika, - twice N.P. 02/09 daily x days Ibuprofen 01/29 Hx Tablets 400mg 100ta 400 mg po 462 Kim bs q4-6h; Anika, - max 2400 N.P. /09 mg/ /2014 Nasal Saline 01/29 Hx Solution 0.65% 1ml 2 sprays 461.0 Kim /2011 in each Anika, - nostril 5 N.P. / times day Amoxicillin 01/29 Hx Capsules 500mg 20cap 1 cap bid 461.0 Kim /2011 s for 10 Anika, - days N.P. 02/04 Wrist Brace/Suede 12/11 Hx Misc 1unit 727.05 Sarahi Finish/Right/ s syl Henderson - M.DRich 01/12 Permethrin 12/11 Hx Liquid 5% 1unit apply to 782.1 Sarahi s affected Henderson, - areas M.D. 02/23 once/august repeat in 1 week Triamcinolone 12/11 Hx Cream 0.5% 1unit apply to 782.1 Sarahi Acetonide s affected Santiago, - areas of M.D. 02/23 skin bid X 10 days Claritin 11/24 Hx Capsules 10mg 30cap 1 po qd s Santiago - M.D. 12/11 Furosemide 11/07 Hx Tablets [...] puff 461.8 /Dose s bid Santiago - M.DRich 02/23 Azithromycin 07/31 Hx Tablets 250mg 6tabs [...] Tablets 180mg 90tab 1 po qd 493.92 s Santiago - M.DRich 05/18 L Wrist Splint 05/22 Hx as needed 782.0 Concepcion Henderson M.DRich 05/18 Abilify Hx Tablets 20mg 1 every / day - 02/23 Wellbutrin SR Hx Tablets ER 150mg 180ta 1 po qd Unknown 12HR bs - 12/11 Klonopin Hx Tablets 1mg 60tab 1 po tid Unknown s prn - 03/31 Nystatin/Triamcin 00/00 Hx Cream 672383-3. 30gm apply to Unknown olone /0000 1Unit/GM- affected - % area 02/23 twice daily as needed Qvar 00/00 Hx Aerosol 40mcg/Act 1unit 2 puff Unknown /0000 s bid - 11/19 Nasonex 00/00 Hx Suspension 50mcg/Act 1unit 2 sprays Unknown /0000 s to each - nostril 12/20 daily Pataday Hx Solution 0.2% 2.500 instill Unknown / ml one drop - into each 12/14 eye Wellbutrin XL Hx Tablets ER 150mg 30tab 1 po qd Unknown / 24HR s - 12/20 Furosemide 00 Hx Tablets 20mg 1 po qam Unknown / - 05/18 Abilify Hx Tablets 10mg 1 po qd Unknown / - 12/20 Diflucan Hx Tablets 2tabs Unknown / - 06/15 Provigil 00 Hx Tablets 200mg 1 po qd Unknown / - 12/11 Nuvaring Hx Ring 0.12-0.01 1unit insert 1 Unknown / 5mg/24HR s ring - vaginally 03/03 for weeks, remove for 1 week Zofran Hx Tablets 4mg 20tab prn. Unknown /0000 s - 08/18 Chlordiazepoxide Hx Capsules 25mg 15cap 1 capsule Unknown HCL /0000 s bid - 08/18 Librium /00 Hx 25mg 1 tab bid Unknown / - 04/16 Pulmicort 00/00 Hx Aerosol 90mcg/Act 1mont 2 puff Unknown Flexhaler /0000 h twice a - day 12/20 Primidone 00/00 Hx Tablets 50mg 1 tab bid Unknown / - 12/08 Norpramin 00/00 Hx Tablets 25mg at Unknown /0000 bedtime - 05/16 Tobramycin 00/ Hx Solution 0.3% Unknown / - 10/27 Norpramin 0000 Hx Tablets 50mg 300.00 Unknown / - 08/07 Pazeo Hx Solution 0.7% 1 drop 379.90 Unknown /0000 each eye - daily 06/13 Prednisone Hx Tablets 20mg 2 tabs Unknown /0000 [...] Injection Maycol and 3mg 017 MD Vicky Celestone 3 mg Administered Injection Maycol and 3mg 017 MD Vicky PPD Administered Injection Hakan 015 REJI Chaney Immunizations CPT Code Status Date Vaccine Lot # [id number] Given 02/06/2016 Influenza Virus Vaccine, Quadrivalent, Split Virus, Im Use Q2035 Given 01/18/2015 Afluria Vaccine 20703 Given 02/02/2014 Flu Vaccine Split Virus Preservative Free For Indiv 3Yr Older Q2037 Given 01/20/2014 Fluvirin Im 3Yrs And Older Q2037 Given 01/05/2013 Fluvirin Im 3Yrs And Older Q2038 Given 01/15/2012 Fluzone Vaccine [id number] 00029 Given 03/03/2005 Meningococcal Immunization 70128 Given 01/14/2000 Hep B Pediatric/Adolescent 16133 Given 01/12/1999 Hep B Pediatric/Adolescent 17162 Given 12/12/1998 Hep B Pediatric/Adolescent 92974 Given 12/12/1998 Tetanus And Diptheria (Td) For Adult Use Preservative Free 05498 Given 07/07/1990 Measles Mumps And Rubella MMR 99530 Given 09/10/1988 DTaP Vaccine Younger Than 7 07023 Given 09/10/1988 IPV/Poliomyelitis Immunization 31755 Given 07/16/1985 IPV/Poliomyelitis Immunization 67081 Given 07/16/1985 DTaP Vaccine Younger Than 7 54447 Given 04/16/1985 Measles Mumps And Rubella MMR 17241 Given 08/10/1984 IPV/Poliomyelitis Immunization 33795 Given 08/10/1984 DTaP Vaccine Younger Than 7 85701 Given 05/15/1984 IPV/Poliomyelitis Immunization 54034 Given 05/15/1984 DTaP Vaccine Younger Than 7 24754 Given 02/04/1984 IPV/Poliomyelitis Immunization 37895 Given 02/04/1984 DTaP Vaccine Younger Than 7 42832 Given Unknown Influenza Virus Vaccine, Quadrivalent, Split, Preservative Free Vital Signs Date Vital Result Comment 05/23/2017 Height 63.5 inches 5'3.50" Heart Rate 94 /min BP Systolic 110 mmHg BP Diastolic 78 mmHg Respiratory Rate 17 /min Body Temperature 98.0 F Pain Level 6 05/02/2017 Height 63.5 inches 5'3.50" Weight 240.00 lb per pt Heart Rate 88 /min reg BP Systolic Sitting 100 mmHg Rue BP Diastolic Sitting 70 mmHg Rue Respiratory Rate 16 /min Pain Level 4 right thumb BMI (Body Mass Index) 41.8 kg/m2 03/19/2017 Height 63.5 inches 5'3.50" Weight 242.00 [...] Color Yellow Urine Appearance Cloudy Urine Specific [place] 1.035 High 1.010-1.030 Urine pH 5 5-9 [...] Color Yellow Urine Appearance Cloudy Urine Specific [place] 1.014 1.010-1.030 Urine pH 8.0 5-9 Urine [...] Color Yellow Urine Appearance Cloudy Urine Specific [place] 1.018 1.010-1.030 Urine pH 5.0 5-9 Urine [...] Color Yellow Urine Appearance Clear Urine Specific [place] 1.028 1.010-1.030 Urine Esterase Negative Negative Urine [...] Color Yellow Urine Appearance Clear Urine Specific [place] 1.029 1.010-1.030 Urine Esterase Negative Negative Urine [...] Color Yellow Urine Appearance Clear Urine Specific [place] 1.022 1.010-1.030 Urine Esterase 1+ Negative Urine [...] Color Yellow Urine Appearance Cloudy Urine Specific [place] 1.024 1.010-1.030 Urine Esterase 2+ Negative Urine [...] Color Yellow Urine Appearance Clear Urine Specific [place] 1.007 Low 1.010-1.030 Urine Esterase 1+ Negative [...] 5.7 5-7 Ua Routine 07/28/2012 Ua Specific [place] 1.005 Ua PH 5 Ua Color yellow [...] [address]: Jan Fuller MD Acct: [id number] Unit: [id number] AGE: 31 Location: ED Re01/09/17 SEX: F Status: DEP ER SPEC: [id number] NADIR: 01/09/17-[address] [facility] [address]: Jan Fuller MD REQ: [id number] RECD: 01/09/17-1242 STATUS: NEFTALY NGUYEN DR: Sarahi Henderson MD _ SOURCE: URINE SPDESC: ORDERED: Urine Culture QUERIES: Urine Source: Random Procedure Result Reported Site Urine Culture Final 01/11/17- 08 ML Organism 1 ENTEROCOCCUS FAECALIS Marshall Count 10-25,000 (Moderate) CFU/ML 1. ENTEROCOCCUS FAECALIS [...] These antibiotics are not available in the [facility] Formulary Contact the Microbiology Department for any additional antibiotic reporting. * ML - MAIN LAB ([facility]) . END OF REPORT * ML=Testing performed at Main Lab DEPARTMENT OF PATHOLOGY, [address] [place] [address] Thomas Christensen M.D. Director [facility] # [id number] >100 to <200 pg/mL: likely compensated [...] (or dialysis) 6 SEE RESULT BELOW Name: WILFRIDO AHMADIDia Child : [address]: Sarahi Henderson MD Acct: [id number] Unit: [id number] AGE: 30 Location: [facility] Re09/26/16 SEX: F Status: REG REF SPEC: [id number] NADIR: 09/26/16-[address] [facility] [address]: Sarahi Henderson MD REQ: [id number] RECD: 09/26/16 STATUS: RES _ SOURCE: STOOL [...] performed at Main Lab DEPARTMENT OF PATHOLOGY, [address] [place] [address] Thomas Christensen M.D. Director [facility] # [id number] Patient: BARBARA AHMADI [id number] (Continued) Specimen: [id number] Collected: 09/26/16 Received: 09/26/16 (Continued) Procedure Result Reported Site Rotavirus Antigen Stool PENDING * ML - MAIN LAB ([facility]) . END OF REPORT * ML=Testing performed at Main Lab DEPARTMENT OF PATHOLOGY, [address] [place] [address] Thomas Christensen M.D. Director [facility] # [id number] 7 SEE RESULT BELOW Name: BARBARA AHMADI : [address]: Sarahi Henderson MD Acct: [id number] Unit: [id number] AGE: 30 Location: [facility] Re09/26/16 SEX: F Status: REG REF SPEC: [id number] NADIR: 09/26/16-[address]: Sarahi Henderson MD REQ: [id number] RECD: 09/26/16-1699 STATUS: RES _ SOURCE: STOOL SPDESC: ORDERED: [...] performed at Main Lab DEPARTMENT OF PATHOLOGY, [address] [place] [address] Thomas Christensen M.D. Director [facility] # [id number] Patient: BARBARA AHMADI [id number] (Continued) Specimen: [id number] Collected: 09/26/16 Received: 09/26/16 (Continued) Procedure Result Reported Site Fecal Lactoferrin (Stool WBC) Final (continued) 09/26/16- 2022 with this assay. Stool Occult Blood (1) Final 09/26/16- 2042 ML Stool Occult Blood Negative Collection Date (1) 09/26/16 Rotavirus Antigen Stool Final 09/27/16- 2 ML Organism 1 Negative Rotavirus Antigen testing by enzyme immunoassay * ML - [facility] ([facility]) . END OF REPORT * ML=Testing performed at Main Lab DEPARTMENT OF PATHOLOGY, [address] [place] [address] Thomas Christensen M.D. Director [facility] # [id number] 8 SEE RESULT BELOW Name: BARBARA AHMADI : [address]: Sarahi Henderson MD Acct: [id number] Unit: [id number] AGE: 30 Location: [facility] Re09/26/16 SEX: F Status: REG REF SPEC: [id number] NADIR: 09/26/16-[address] [facility] [address]: Sarahi Henderson MD REQ: [id number] RECD: 09/26/16 STATUS: COMP _ SOURCE: STOOL SPDESC: ORDERED: [...] are required. Stool Specimen Description Final 09/26/16- 2042 ML Stool Color Greenish Brown Stool Form Nonformed Stool Consistency Pasty Shiga Toxin 1 2 Final 09/27/16- 1037 ML Organism 1 Negative Shiga Toxin 1 2 CONTINUED ON NEXT PAGE * ML=Testing performed at [facility] DEPARTMENT OF PATHOLOGY, [address] [place] [address] Thomas Christensen M.D. Director [facility] # [id number] Patient: BARBARA AHMADI [id number] (Continued) Specimen: [id number] Collected: 09/26/16-1414 Received: 09/26/16 (Continued) Procedure Result Reported Site Shiga Toxin [...] enzyme immunoassay * ML - MAIN LAB ([facility]) . END OF REPORT * ML=Testing performed at Main Lab DEPARTMENT OF PATHOLOGY, [address] [place] [address] Thomas Christensen M.D. Director [facility] # [id number] 9 Chemical Laboratory Scientist: [id number] 11 SEE RESULT BELOW Name: BARBARA AHMADI : [address]: Sheila Lawler MD Acct: [id number] Unit: [id number] AGE: 30 Location: [facility] Re06/14/16 SEX: F Status: DEP ER SPEC: [id number] NADIR: 06/14/16-[address]: Sheila Lawler MD REQ: [id number] RECD: 06/14/16-1022 STATUS: COMP OTHR DR: Sarahi Henderson MD _ SOURCE: URINE SPDESC: ORDERED: Urine Culture COMMENTS: [id number] Procedure Result Reported Site Urine Culture Final 06/15/16- 0944 ML No Growth (<1,000 CFU/mL) * ML - [facility] ([facility]) . END OF REPORT * ML=Testing performed at Main Lab DEPARTMENT OF PATHOLOGY, [address] [place] [address] Thomas Christensen M.D. Director [facility] # [id number] 12 Because ethnic data is not always [...] [address]: Yoan Avila MD Acct: [id number] Unit: [id number] AGE: 30 Location: ED Re04/27/16 SEX: F Status: DEP ER SPEC: [id number] NADIR: 04/27/[address] [facility] [address]: Yoan Avila MD REQ: [id number] RECD: 04/27/16 STATUS: NEFTALY NGUYEN DR: [facility] Sarahi Henderson MD _ SOURCE: URINE SPDESC: ORDERED: Urine Culture Procedure Result Reported Site Urine Culture Final 04/28/16- 928 ML No Growth (<1,000 CFU/mL) * ML - MAIN LAB ([facility]) . END OF REPORT * ML=Testing performed at Main Lab DEPARTMENT OF PATHOLOGY, [address] [place] [address] Thomas Christensen M.D. Director [facility] # [id number] 14 Because ethnic data is not always [...] [address]: Derrick Beach MD Acct: [id number] Unit: [id number] AGE: 30 Location: ED Re04/21/16 SEX: F Status: DEP ER SPEC: [id number] NADIR: 04/21/[address]: Derrick Beach MD REQ: [id number] RECD: 04/21/16 STATUS: NEFTALY NGUYEN DR: Sarahi Henderson MD _ SOURCE: URINE SPDESC: ORDERED: Urine Culture Procedure Result Reported Site Urine Culture Final 04/23/16- 819 ML No growth of clinically significant organisms * ML - MAIN LAB ([facility]) . END OF REPORT * ML=Testing performed at Main Lab DEPARTMENT OF PATHOLOGY, [address] [place] [address] Thomas Christensen M.D. Director [facility] # [id number] 19 Chemical Laboratory Scientist: [id number] MELINA Cpoeland 20 SEE RESULT BELOW Name: BARBARA AHMADI : [address]: Yoan ORNELAS Acct: [id number] Unit: [id number] AGE: 30 Location: [facility] Re01/15/16 SEX: F Status: REG REF SPEC: [id number] NADIR: 01/15/16-[address]: Yoan ORNELAS REQ: [id number] RECD: 01/15/16 STATUS: NEFTALY NGUYEN DR: Sarahi Henderson MD _ SOURCE: NASAL SPDES: ORDERED: MRSA PCR-Nasal Procedure Result Reported Site MRSA PCR (Nasal) Final 01/16/16- 150 ML Organism 1 MRSA NEGATIVE * ML - MAIN LAB ([facility]) . END OF REPORT * ML=Testing performed at Main Lab DEPARTMENT OF PATHOLOGY, [address] [place] [address] Thomas Christensen M.D. Director [facility] # [id number] 21 SEE RESULT BELOW Name: BARBARA AHMADI : [address]: Yoan ORNELAS Acct: [id number] Unit: [id number] AGE: 30 Location: [facility] Re01/11/16 SEX: F Status: REG REF SPEC: [id number] NADIR: 01/11/16-[address] [facility] [address]: Yoan ORNELAS REQ: [id number] RECD: 01/15/16 STATUS: NEFTALY NGUYEN DR: Sarahi Henderson MD _ SOURCE: NASAL SPDESC: ORDERED: MRSA PCR-Nasal Procedure Result Reported Site MRSA PCR (Nasal) Final 01/16/16- 0151 ML Organism 1 MRSA NEGATIVE * ML - MAIN LAB ([facility]) . END OF REPORT * ML=Testing performed at Main Lab DEPARTMENT OF PATHOLOGY, [address] [place] [address] Thomas Christensen M.D. Director [facility] # [id number] 22 FASTING 10 HOUR 23 It is [...] testing ordered by reflex. Test Performed by: [facility] - [address] [address] Adult Parole Officer: Santhosh Rowland II, M.D., Ph.D. 26 No [...] screening test (e.g., EIA). Test Performed by: [place] [address] Adult Parole Officer: Santhosh Rowland II, M.D., Ph.D. 28 SEE RESULT BELOW Name: BARBARA AHMADI : [address]: Sheila Lawler MD Acct: [id number] Unit: [id number] AGE: 29 Location: [facility] Re08/26/15 SEX: F Status: DEP ER SPEC: [id number] NADIR: 08/26/15-[address] [facility] [address]: Sheila Lawler MD REQ: [id number] RECD: 08/27/150336 STATUS: NEFTALY NGUYEN DR: [facility] Sarahi Henderson MD _ SOURCE: URINE [facility]: ORDERED: Urine Culture Procedure Result Reported Site Urine Culture Final 08/29/15- 0832 ML Organism 1 ESCHERICHIA COLI Marshall Count 75-100,000 (Many) CFU/ML 1. ESCHERICHIA COLI [...] antibiotic reporting. * ML - MAIN LAB ([facility]) . END OF REPORT * ML=Testing performed at Main Lab DEPARTMENT OF PATHOLOGY, [address] [place] [address] Thomas Christensen M.D. Director [facility] # [id number] 29 SEE RESULT BELOW Name: BABRARA AHMADI : [address]: Erik Karimi MD Acct: [id number] Unit: [id number] AGE: 29 Location: ED Re06/11/15 SEX: F Status: REG ER SPEC: [id number] NADIR: 06/12/[address] [facility] [address]: Erik Karimi MD REQ: [id number] RECD: 06/12/15 STATUS: NEFTALY NGUYEN DR: Sarahi Henderson MD _ SOURCE: NASAL SPDESC: ORDERED: Flu A B Request Procedure Result Reported Site Rapid Influenza A B Request Final 06/12/15- 0057 ML Specimen received for Influenza A/B Molecular testing * ML - MAIN LAB ([facility]) . END OF REPORT * ML=Testing performed at Main Lab DEPARTMENT OF PATHOLOGY, [address] [place] [address] Thomas Christensen M.D. Director [facility] # [id number] 30 Chemical Laboratory Scientist: [id number] SHAW PERALES 31 Chemical Laboratory Scientist: [id number] MARIS VAZQUEZ 30 SEE RESULT BELOW Name: BARBARA AHMADI : [address]: Tone Edmond MD Acct: [id number] Unit: [id number] AGE: 29 Location: [facility] Re04/26/15 SEX: F Status: REG REF SPEC: [id number] NADIR: 04/26/[address]: Tone Edmond MD REQ: [id number] RECD: 04/26/15 STATUS: COMP _ SOURCE: [facility]: ORDERED: Flu A B Request Procedure Result Reported Site Rapid Influenza A B Request Final 04/26/152044 ML Specimen received for Influenza A/B Molecular testing * ML - MAIN LAB ([facility]) . END OF REPORT * ML=Testing performed at Main Lab DEPARTMENT OF PATHOLOGY, [address] [place], [place] [address] Thomas Christensen M.D. Director [facility] # [id number] 33 No bands detected 34 Specific serologic [...] screening test (e.g., EIA). Test Performed by: [place] [address] Adult Parole Officer: Van Rubin M.D. 35 Test Performed by: [place] [address] Adult Parole Officer: Boy Nogueira III, M.D. 36 -- REFERENCE VALUE -- 16.0 - 45.0 Test Performed by: [place] [address] Adult Parole Officer: Boy Nogueira III, M.D. 37 Test Performed by: [place] [address] Adult Parole Officer: Boy Nogueira III, M.D. 38 Test Performed by: [place] [address] Adult Parole Officer: Boy Nogueira III, M.D. 39 RUN DATE: 11/13/13 [facility] LAB LIVE PAGE 1 RUN TIME: [address] [place] [address] Specimen Inquiry Name: BARBARA AHMADI : [address]: Sarahi Henderson MD Acct: [id number] Unit: [id number] AGE: 27 Location: [facility] Re11/09/13 SEX: F Status: REG REF SPEC: [id number] NADIR: 11/09/[address]: Sarahi Henderson MD REQ: [id number] RECD: 11/09/13 STATUS: COMP _ SOURCE: URINE SPDESC: ORDERED: GC/Chlam RNA QUERIES: Medent Number [id number] Procedure Result Verified Site Chlamydia Trachomatis RNA [...] specimen mixup. Limitations of the Procedure: The Aptima Combo 2 Assay is not intended for the evaluation of suspected sexual abuse or for other medico-legal indications. For those patients for whom a false positive result may have adverse psychosocial impact, the [facility] recommends retesting by a method using an [...] performed at Main Lab DEPARTMENT OF PATHOLOGY, [facility] [employer] [place] [address] Thomas Christensen M.D. Director [facility] # [id number] RUN DATE: 11/13/13 [facility] LAB LIVE PAGE 2 RUN TIME: [address] [place] [address] Specimen Inquiry Patient: BARBARA AHMADI Mateusz [id number] (Continued) Specimen: [id number] Collected: 11/09/13 Received: 11/09/13 (Continued) Procedure Result Verified Site GC (N. gonorrhoeae) RNA Final (continued) 11/12/131420 Performance characteristics for detecting C. trachomatis and N. gonorrhoeae are derived from high prevalence populations. Positive results in low prevalence populations should be interpreted carefully with the understanding that the likelihood of a false positive may be higher than a true positive. END OF REPORT * ML=Testing performed at Main Lab DEPARTMENT OF PATHOLOGY, [address] [place] [address] Thomas Christensen M.D. Director [facility] # [id number] 40 Because ethnic data is not always [...] <15 (or dialysis) 41 RUN DATE: 11/10/13 [facility] LAB LIVE PAGE 1 RUN TIME: [address] [place] [address] Specimen Inquiry Name: BARBARA AHMADI : [address]: Sarahi Henderson MD Acct: [id number] Unit: [id number] AGE: 27 Location: [facility] Re11/09/13 SEX: F Status: REG REF SPEC: [id number] NADIR: 11/09/13-[address] [facility] [address]: Sarahi Henderson MD REQ: [id number] RECD: 11/09/13 STATUS: COMP _ SOURCE: [facility]: ORDERED: Affirm QUERIES: Medent Number [id number] Procedure Result Verified Site Affirm Vaginal DNA [...] performed at Main Lab DEPARTMENT OF PATHOLOGY, [facility] [employer] [place], [place] [address] Thomas Christensen M.D. Director [facility] # [id number] 42 RUN DATE: 07/19/13 [facility] LAB LIVE PAGE 1 RUN TIME: 113 [address] [place], [place] [address] Specimen Inquiry Name: KARLENEBARBARA L : [address]: Edson Dodge MD Acct: [id number] Unit: [id number] AGE: 27 Location: ENDO Re07/15/13 SEX: F Status: REG REF SPEC: [id number] NADIR: 07/15/13- SUBM DR: Edson Dodge MD REQ: [id number] RECD: 07/15/13 STATUS: MARLY NGUYEN DR: Sarahi [...] performed at Main Lab DEPARTMENT OF PATHOLOGY, [facility] [employer] [place], [place] [address] Thomas Christensen M.D. Director [facility] Permit #[id number] RUN DATE: 07/19/13 [facility] LAB LIVE PAGE 2 RUN TIME: [address] [facility] [address] [place], [place] [address] Specimen Inquiry Patient: WILFRIDO AHMADIDia Child [id number] (Continued) POST-OPERATIVE DIAGNOSIS (Continued) POST-OPERATIVE DIAGNOSIS Esophagus - normal, stomach - normal, biopsied; duodenum - normal, biopsied GROSS DESCRIPTION 1. The specimen is received in formalin labeled Barbara Ahmadi, Biopsies Duodenum, and consists of a 0.5 x 0.3 x 0.2 cm. gorman-pink, irregular soft tissue fragments. Submitted entirely, one cassette. 2. The specimen is received in formalin labeled Barbara Ahmadi, Biopsies Gastric Antrum, and consists of a 0.5 x 0.3 x 0.2 cm. gorman, irregular soft tissue fragment. Submitted entirely, one cassette. Signed (signature on file) Sara Talamantes MD 1617 END OF REPORT * ML=Testing performed at Main Lab DEPARTMENT OF PATHOLOGY, [address] [place] [address] Thomas Christensen M.D. Director [facility] Permit #[id number] 43 RUN DATE: 06/08/13 [facility] LAB LIVE PAGE 1 RUN TIME: [address] [place] [address] Specimen Inquiry Name: BARBARA AHMADI : [address]: Laure Goel MD Acct: [id number] Unit: [id number] AGE: 27 Location: ED Re06/06/13 SEX: F Status: DEP ER SPEC: [id number] NADIR: 06/06/13-[address] [facility] [address]: Laure Goel MD REQ: [id number] RECD: 06/06/13 STATUS: NEFTALY [facility] DR: Sarahi Henderson MD _ S[facility] ORDERED: Stool Culture, Fecal Lactoferr, C. diff Amp DNA COMMENTS: Unable to perform Shiga Toxin testing. Specimen collection requirements were not met. Stool for Shiga Toxin testing must be received by the laboratory within 2 hours of collection or placed in [employer] transport medium. Verbal to ED by NISH [...] performed at Main Lab DEPARTMENT OF PATHOLOGY, [facility] [employer] [place], [place] [address] Thomas Christensen M.D. Director [facility] Permit #[id number] RUN DATE: 06/08/13 [facility] LAB LIVE PAGE 2 RUN TIME: [address] [facility] [address] [place], [place] [address] Specimen Inquiry Patient: BARBARA AHMADI [id number] (Continued) Specimen: [id number] Collected: 06/06/13-1109 Received: 06/06/13-143 (Continued) Procedure Result Verified Site Shiga Toxin [...] performed at Main Lab DEPARTMENT OF PATHOLOGY, [facility] [employer] [place], [place] [address] Thomas Christensen M.D. Director [facility] Permit #[id number] 44 RUN DATE: 06/07/13 [facility] LAB LIVE PAGE 1 RUN TIME: [address] [place] [address] Specimen Inquiry Name: BARBARA AHMADI Mateusz : [address]: Laure Goel MD Acct: [id number] Unit: [id number] AGE: 27 Location: ED Re06/06/13 SEX: F Status: DEP ER SPEC: [id number] NADIR: 06/06/13-[address]: Laure Goel MD REQ: [id number] RECD: 06/06/13-1431 STATUS: RES OT DR: Sarahi Henderson MD _ SOURCE: STOOL SPDESC: ORDERED: Stool Culture, Fecal Lactoferr, C. diff Amp DNA COMMENTS: Unable to perform Shiga Toxin testing. Specimen collection requirements were not met. Stool for Shiga Toxin testing must be received by the laboratory within 2 hours of collection or placed in [facility] transport medium. Verbal to ED by NISH [...] performed at Main Lab DEPARTMENT OF PATHOLOGY, [facility] [employer] [place] [address] Thomas Christensen M.D. Director [facility] Permit #[id number] RUN DATE: 06/07/13 [facility] LAB LIVE PAGE 2 RUN TIME: [address] [facility] [address] [place], [place] [address] Specimen Inquiry Patient: BARBARA AHMADI [id number] (Continued) Specimen: [id number] Collected: 06/06/13-1109 Received: 06/06/13-143 (Continued) Procedure Result Verified Site Fecal Lactoferrin (Stool WBC) Final (continued) 06/07/13- 7050 with this assay. END OF REPORT * ML=Testing performed at Main Lab DEPARTMENT OF PATHOLOGY, [facility] [employer] [place], [place] [address] Thomas Christensen M.D. Director [facility] Permit #[id number] 45 RUN DATE: 06/07/13 [facility] LAB LIVE PAGE 1 RUN TIME: [address] [facility] [address] [place], [place] [address] Specimen Inquiry Name: BARBARA AHMADI : [address]: Laure Goel MD Acct: [id number] Unit: [id number] AGE: 27 Location: ED Re06/06/13 SEX: F Status: DEP ER SPEC: [id number] NADIR: 06/06/13-[address]: Laure Goel MD REQ: [id number] RECD: 06/06/13-143 STATUS: RES OTHR DR: Sarahi Henderson MD _ SOURCE: STOOL SPDESC: ORDERED: Stool Culture, Fecal Lactoferr, C. diff Amp DNA COMMENTS: Unable to perform Shiga Toxin testing. Specimen collection requirements were not met. Stool for Shiga Toxin testing must be received by the laboratory within 2 hours of collection or placed in [employer] transport medium. Verbal to ED by NISH [...] performed at Main Lab DEPARTMENT OF PATHOLOGY, [facility] [employer] [place] [address] Thomas Christensen M.D. Director [facility] Permit #[id number] RUN DATE: 06/07/13 [facility] LAB LIVE PAGE 2 RUN TIME: [address] [facility] [address] [place], [place] [address] Specimen Inquiry Patient: BARBARA AHMADI [id number] (Continued) Specimen: [id number] Collected: 06/06/13-1109 Received: 06/06/13-1431 (Continued) Procedure Result Verified Site C. difficile [...] performed at Main Lab DEPARTMENT OF PATHOLOGY, [address] [place] [address] Thomas Christensen M.D. Director [facility] Permit #[id number] 46 Helicobacter pylori Ag, F was cancelled on 06/14/2013 at 07:15; Strict frozen sample required, unable to aliquot. Test Performed by: [address] [address] Adult Parole Officer: Boy Nogueira III, M.D. 47 A negative result does not exclude norovirus infection. Test Performed by: [employer]. [address] [place] [phone] 48 This test detects intact HCG only [...] be accurately measured. 56 RUN DATE: 02/02/13 [facility] LAB LIVE PAGE 1 RUN TIME: [address] [place] [address] Specimen Inquiry Name: AHMADIWILFRIDODia Child : [address]: Keshav Narvaez MD Acct: [id number] Unit: [id number] AGE: 27 Location: ED Re01/31/13 SEX: F Status: DEP ER SPEC: [id number] NADIR: 01/31/[address] [facility] [address]: Francisco Tarango MD REQ: [id number] RECD: 01/31/13 STATUS: NEFTALY NGUYEN DR: Sarahi Henderson MD _ SOURCE: URINE SPDESC: ORDERED: Urine Culture Procedure Result Verified Site Urine Culture Final 02/02/13- 920 ML Organism 1 NORMAL VERONA Marshall Count 75-100,000 (Many) CFU/ML END OF REPORT * ML=Testing performed at Main Lab DEPARTMENT OF PATHOLOGY, [address] [place] [address] Thomas Christensen M.D. Director [facility] Permit #[id number] 57 Because ethnic data is not always [...] 2+ (>10-30 /hpf) 59 RUN DATE: 01/10/13 [facility] LAB LIVE PAGE 1 RUN TIME: [address] [place] [address] Specimen Inquiry Name: AHMADIWILFRIDODia Child : [address]: Francisco Valenzuela MD Acct: [id number] Unit: [id number] AGE: 27 Location: ED Re01/08/13 SEX: F Status: DEP ER SPEC: [id number] NADIR: 01/08/[address] [facility] [address]: Francisco Valenzuela MD REQ: [id number] RECD: 01/08/13 STATUS: NEFTALY NGUYEN DR: Sarahi Henderson MD _ SOURCE: URINE SPDESC: ORDERED: Urine Culture Procedure Result Verified Site Urine Culture Final 01/10/13843 ML Organism 1 NORMAL VERONA Marshall Count >100,000 (Many) CFU/ML END OF REPORT * ML=Testing performed at Main Lab DEPARTMENT OF PATHOLOGY, [address] [place] [address] Thomas Christensen M.D. Director [facility] Permit #[id number] 60 Because ethnic data is not always [...] <15 (or dialysis) 62 RUN DATE: 07/31/12 [facility] LAB LIVE PAGE 1 RUN TIME: [address] [place] [address] Specimen Inquiry Name: BARBARA AHMADI : [address]: Sarahi Henderson MD Acct: [id number] Unit: [id number] AGE: 26 Location: [facility] Re07/28/12 SEX: F Status: REG REF SPEC: [id number] NADIR: 07/28/12-[address]: Sarahi Henderson MD REQ: [id number] RECD: 07/28/12 STATUS: COMP _ SOURCE: URINE SPDESC: ORDERED: Urine Culture QUERIES: Medent Number [id number] Procedure Result Verified Site Urine Culture Final 07/31/12- 0901 ML Organism 1 STREP GROUP B Marshall Count >100,000 (Many) CFU/ML Organism 2 ESCHERICHIA COLI Marshall Count 10-25,000 (Moderate) CFU/ML Susceptibility testing of penicillins and other B-lactams approved by FDA for treatment of Streptococcus pyogenes (Group A Strep) and Streptococcus agalactiae (Group B Strep) is not necessary for clinical purposes and need not be done routinely, since as with vancomycin, resistant strains have not been recognized. (CLSI M489-W38;p.66) Positive isolates will be saved for one [...] performed at Main Lab DEPARTMENT OF PATHOLOGY, [facility] [employer] [place], [place] [address] Thomas Christensen M.D. Director [facility] Permit #[id number] RUN DATE: 07/31/12 [facility] LAB LIVE PAGE 2 RUN TIME: [address] [facility] [place], [place] [address] Specimen Inquiry Patient: BARBARA AHMADI [id number] (Continued) Specimen: [id number] Collected: 07/28/120841 Received: 07/28/12866 (Continued) Procedure Result Verified Site Urine Culture Final (continued) 07/31/12900 2. ESCHERICHIA COLI (continued) M.I.C. RX --------- ------ Tetracycline <=1 S Pipercillin/Tazobactam <=4 S Trimethoprim/Sulfamethoxazole <=20 S Amoxicillin/Clavulanic Acid 4 S Aztreonam <=1 S Contact the Microbiology Department for any additional antibiotic reporting. END OF REPORT * ML=Testing performed at Main Lab DEPARTMENT OF PATHOLOGY, [address] [place] [address] Thomas Christensen M.D. Director [facility] Permit #[id number] 63 Because ethnic data is not always [...] FASTING 12 HOUR 67 RUN DATE: 02/01/12 [facility] LAB LIVE PAGE 1 RUN TIME: [address] [place] [address] Specimen Inquiry Name: BARBARA AHMADI : [address]: Kim Donaldson NP Acct: [id number] Unit: [id number] AGE: 26 Location: [facility] Re01/30/12 SEX: F Status: REG REF SPEC: [id number] NADIR: 01/30/12-[address]: Kim Donaldson NP REQ: [id number] RECD: 01/30/12636 STATUS: COMP _ SOURCE: THROAT SPDESC: ORDERED: Throat Beta Str QUERIES: Medent Number [id number] Procedure Result Verified Site Throat Beta Strep Culture Final 02/01/12- 0902 ML Negative For Group A Beta Streptococcus END OF REPORT * ML=Testing performed at Main Lab DEPARTMENT OF PATHOLOGY, [address] [place] [address] Thomas Christensen M.D. Director [facility] Permit #[id number] 68 A metabolite of Naproxen, O-desmethylnaproxen, has been shown to interfere with the Jenconcepción-Lakshmi method for measuring total bilirubin. Samples from [...] <15 (or dialysis) 76 RUN DATE: 07/31/11 [facility] NMI LIVE PAGE 1 RUN TIME: 1032 Specimen Inquiry RUN USER: INTERFACE Name: BARBARA AHMADI Status: REG REF Re07/29/11 Age/Sex: 25/F Unit#: [id number] Location: [facility] : [birth year] SPEC #: [id number] NADIR: 07/29/11 STATUS: COMP REQ #: [id number] RECD: 07/29/[address]: Sarahi Henderson MD SOURCE: THROAT ENTR: 07/29/11-1612 WENDY PALENCIA: RAN: ORDERED: THROAT CULTURE QUERIES: MEDENT REQUISITION # [id number] ACT WKST: B 07/31/11 #1 Procedure Result Verified Site > THROAT CULTURE FULL Final -1032 ML NORMAL THROAT VERONA FULL THROAT CULTURES ARE CLINICALLY INDICATED TO DETECT THE PRESENCE OF GROUP A STREP, ARCANOBACTERIUM AND YEAST. - [facility] Permit #[id number] [address] [place] [address] DEPARTMENT OF PATHOLOGY, [address] [place] [address] [facility] Permit #[id number] Deborah Ayala M.D. [employer] Procedures Date CPT Code Description Status 03/19/2017 Inject/Drain Joint/Bursa Small Completed 02/21/2017 Inject Tendon Sheath Or Ligament Aponeurosis Eg Plantar Completed Fascia 03/08/2013 Colonoscopy Completed 07/30/2012 11554 Polysomnography Sleep Staging 4+ Parameters W/Cpap Completed 06/03/2012 79151 Polysomnography Sleep Staging 4+ Parameters Completed Encounters Type Date Location Provider CPT E/M Dx Office Visit 05/02/2017 [facility] [place] [address] M18.11 10:45a C.M.A. Office Visit 02/21/2017 [facility] [place] [address] M65.311 9:30a C.M.A. Office Visit 02/04/2017 [facility] [place] [address] J45.909 2:15p Services Of [facility] G47.33 E66.01 Office Visit 01/13/2017 10:15a [facility] [place] [address] J45.[address] [facility] G47.33 E66.01 Z68.41 Office Visit 01/06/2017 2:20p [facility] Internal Medicine Pamela Gutierrez, N.P. 81353 J45.901 - Kat Office Visit 08/20/2016 3:40p [facility] Internal Medicine Jan Howard, [address] R11.2 - Antolin Cabrera Office Visit 08/06/2016 2:15p [facility] Micaela Diamond, [address] G47.[address] [facility] MAGAN RN, BROADCAST METEOROLOGIST- E66.01 Z68.41 Office Visit 05/13/2016 10:00a [facility] [place] [address] J06.9 Kat A08.4 Office Visit 05/01/2016 2:40p [facility] Internal Medicine Sarahi Henderson M.D. 14228 H53.8 - [place] R51 N20.0 E66.9 Office Visit 04/11/2016 4:20p [facility] [place] [address] J06.9 - [place] Office Visit 02/06/2016 1:20p [facility] Internal Medicine Pamela Gutierrez N.P. 16208 B37.3 - [place] R19.7 Office Visit 01/08/2016 4:20p [facility] Internal Medicine Elzbieta Daniels M.D. 76098 R21 - [place] J01.90 Office Visit 2015 4:20p [facility] [place] [address] J45.21 [place] J30.9 R05 Office Visit 11/20/2015 4:00p [facility] [place] [address] R21 - [place] Office Visit 10/04/2015 4:00p [facility] Internal Medicine Jan Howard, 29599 Z02.89 - Kat Cabrera Office Visit 08/18/2015 2:00p [facility] Sleep Micaela Diamond, 98842 G47.[address] [facility] RUI CARRERO, [facility]- Office Visit 08/08/2015 8:50a [facility] Internal Medicine Sarahi Henderson, 58202 B86 - Kat Cabrera Office Visit 06/27/2015 3:40p [facility] Internal Medicine Jan Howard, 87939 J06.9 - Kat Cabrera Office Visit 06/13/2015 4:00p [facility] Internal Medicine Jan Howard, 38023 N23 - Kta Cabrera Office Visit 04/26/2015 4:00p [facility] Internal Medicine Tone Edmond, 11660 J06.9 - Kat MEddy Office Visit 03/15/2015 3:40p [facility] [place] [address] J06.9 - [place] H81.12 Office Visit 02/10/2015 2:30p [facility] [place] [address] R11.0 - [place] Office Visit 01/18/2015 10:40a [facility] [place] [address] J01.90 - [place] Office Visit 12/16/2014 1:00p [facility] Micaela Diamond, 21603 327.[address] [facility] RUI CARRERO, [facility] 780.52 Office Visit 12/14/2014 1:30p [facility] [place] [address] 278.01 493.10 V74.1 079.89 Office Visit 10/27/2014 1:50p [facility] Internal Medicine Sarahi Henderson M.D. 41194 238.2 - [place] 278.01 493.10 709.9 Office Visit 05/16/2014 11:50a [facility] Internal Medicine Sarahi eHnderson M.D. 94795 V41.1 - [place] 626.4 Office Visit 05/05/2014 2:30p [facility] Internal Medicine Sarahi Henderson 08017 790.21 - Kat Cabrera 844.9 278.01 Office Visit 04/22/2014 2:20p [facility] Internal Medicine Tone [place] [address] 719.46 - Kat Cabrera Office Visit 04/15/2014 3:00p [facility] Internal Medicine Tone [place] 74199 719.46 - Kat Cabrera Office Visit 03/04/2014 2:00p Pul[facility]ology And Sleep Micaela Diamond, 17032 327.[address] 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 Internal Medicine Sarahi Henderson 14420 790.21 - Kat Cabrera 278.01 Office Visit 11/09/2013 2:30p [facility] Internal Medicine Sarahi Henderson M.D. 87284 623.5 - [place] Office Visit 11/02/2013 2:30p [facility] Internal Gia Henderson M.D. 79551 704.8 - [place] 278.01 303.91 782.3 V65.42 Office Visit 09/28/2013 1:50p [facility] Internal Medicine - Sarahi Henderson M.D. 22964 684 [place] 847.9 278.01 303.91 691.8 Office Visit 09/07/2013 3:00p [facility] Internal Medicine Libra Dela Cruz M.D. 51350 995.3 - [place] Office Visit 08/18/2013 4:10p [facility] Internal Medicine Sarahi Henderson 55853 333.1 - Kat Cabrera Office Visit 04/27/2013 1:50p [facility] Internal Medicine Sarahi Henderson 70127 845.09 - Kat Cabrera Office Visit 04/16/2013 1:40p [facility] Internal Medicine Libra Dela Cruz M.D. 94224 845.09 - Kat Office Visit 03/31/2013 4:40p [facility] Internal Medicine Eduardo Saldana, 85197 466.0 - Kat Cabrera,FACP Office Visit 02/16/2013 2:50p [facility] Internal Medicine Sarahi Henderson 35019 278.01 - Kat Cabrera 303.91 Office Visit 01/13/2013 2:50p [facility] Internal Medicine Sarahi Henderson 08550 789.00 - Kat aCbrera 796.2 Office Visit 01/06/2013 2:40p [facility] Internal Medicine Tone Edmond 41446 465.8 - Kat Caberra Office Visit 12/31/2012 1:50p [facility] Internal Medicine Sarahi Henderson M.D. 29883 461.8 - Kat 691.8 Office Visit 12/11/2012 1:00p [facility] Internal Medicine Kim Donaldson, N.PRich 50713 372.39 - [place] Office Visit 09/17/2012 2:30p [facility] Internal Medicine Sarahi Henderson M.D. 13438 278.01 - [place] 111.0 Office Visit 08/27/2012 2:50p [facility] Internal Medicine Sarahi Henderson M.D. 25621 782.3 - [place] 303.90 Office Visit 07/28/2012 1:50p [facility] Internal Medicine Sarahi Henderson M.D. 50309 782.3 - [place] 790.21 288.60 303.90 110.5 Office Visit 07/14/2012 2:10p [facility] Internal Medicine Sarahi Henderson M.D. 38062 783.1 - [place] 278.01 303.92 111.0 780.79 782.3 Office Visit 06/16/2012 10:36a Jazmyn Eldridge, 07654 327.23 [facility] Deborah Office Visit 06/15/2012 2:30p [facility] Internal Medicine Sarahi Henderson M.D. 24250 110.5 - [place] Office Visit 05/21/2012 11:10a [facility] Internal Medicine Sarahi Henderson M.D. 27882 493.92 - [place] Office Visit 05/18/2012 10:30a [facility] Internal Medicine Sarahi Henderson M.D. 59011 461.9 - [place] Office Visit 05/13/2012 11:10a [facility] Internal Medicine Sarahi Henderson M.D. 49546 461.9 - [place] Office Visit 04/22/2012 9:31a Jazmyn Eldridge, 17344 786.09 [facility] Deborah 780.79 Office Visit 02/24/2012 1:40p [facility] Internal Medicine Tone Edmond 81174 840.8 - [place] M.Victorino Office Visit 01/30/2012 12:30p [facility] Kim Donaldson, N.PRich 49495 462 - [place] 461.0 Office Visit 01/28/2012 2:10p [facility] Sarahi Henderson M.D. 97349 783.1 - [place] 780.79 278.01 786.02 Office Visit 12/24/2011 1:50p [facility] Sarahi Henderson M.D. 61871 782.1 - [place] 727.05 Office Visit 12/12/2011 2:10p [facility] Sarahi Henderson M.D. 95425 782.1 - [place] 727.05 Office Visit 11/20/2011 1:50p [facility] Sarahi Henderson 40022 278.00 - Kat Cabrera 782.3 Office Visit 11/08/2011 2:00p [facility] Libra Dela Cruz M.D. 33675 477.9 - [place] 278.00 782.3 Office Visit 08/26/2011 2:30p [facility] Sarahi Henderson 44509 461.8 - Kat Cabrera Office Visit 08/01/2011 11:45a [facility] Sarahi Henderson 47478 461.8 - Kat Cabrera Office Visit 07/29/2011 2:30p [facility] Sarahi Henderson 71708 462 - Kat Cabrera Office Visit 06/24/2011 12:45p [facility] Sarahi Henderson 25907 493.10 - Kat Cabrera Office Visit 06/18/2011 10:15a [facility] Sarahi Henderson 75073 493.92 - Kat Cabrera 477.9 Office Visit 05/22/2011 1:00p [facility] Sarahi Henderson M.D. 67832 782.0 - [place] 278.00 Plan of Care Future Appointment(s):06/20/2017 1:00 pm - Maycol Perry MD at [facility].05/23/2017 - Maycol Perry, [id number] Unil primary osteoarth of first carpometacarp joint, r handNew Therapy:Physical TherapyPhysical TherapyFollow up:Follow up: 4 [id number] Trigger thumb, right thumbNew Therapy:Physical TherapyPhysical Therapy
--- OUTSIDE RECORDS SUMMARY | 2017-05-31 06:30 | XMS REPORT ---
:1985 External Reference #:[id number] Author Organization [facility] Address [address] [address] Phone [phone] Care Team Providers Name Role Phone Sarahi Henderson MD Primary Care Physician Unavailable Payers Type Date Identification Numbers Payment Provider Subscriber Commercial Policy Number: [id number] Total Care/Dipesh GARCIAG [facility] Barbara Ahmadi PayID: [id number] [address] [address] [place] [address] Problems Date Description Provider Status Onset: 06/18/2011 Obesity Sarahi Henderson M.D. Active Onset: 08/26/2011 Allergic rhinitis Sarahi Henderson M.D. Active Onset: 08/26/2011 Intrinsic asthma without status Sarahi Henderson M.D. Active asthmaticus Onset: 03/04/2014 Obstructive sleep apnea of adult Micaela Diamond DNP, RN, Active DRY CHAIN PULLER-BC Onset: 07/02/2013 Impaired fasting glycaemia Sarahi Henderson M.D. Active Onset: 12/16/2014 Dyssomnia Micaela Diamond DNP, RN, Active DRY CHAIN PULLER-BC Onset: 03/19/2017 Localized, primary Maycol Perry MD [...] 1 tab by J01.90 Rex s mouth Artis CAR HOSTLER every day every morning Albuterol Sulfate 06/18 [...] one J06.9 Rex s or two Artis, CAR HOSTLER - capsules 05/01 every hours as needed [...] Rex /2015 /Dose ts puff by Artis, CAR HOSTLER - mouth 05/01 twice a day. RInse mouth after use. Guaifenesin ac 12/07 Hx Syrup 100-10mg/ 300ml 10ml R05 5ML every 4 Artis, CAR HOSTLER - hours for 01/07 cough Nasonex 12/07 Hx Suspension 50mcg/Act 17gm two J30.9 sprays Artis, CAR HOSTLER - each 05/01 nostril once daily for 2 weeks. Cephalexin 11/19 Hx Tablets 500mg 21tab take one R2ph s tablet Artis, CAR HOSTLER - every 8 / hours for 7 days Triamcinolone 11/19 Hx Cream 0.1% 15gm apply R2 Rex Acetonide thin film Artis, CAR HOSTLER - twice 05/01 Permethrin 08/07 Hx Cream 5% 1unit apply to B86 Sarahi s all body Santiago, - once/august M.D. 10/03 repeat in 1 week Levofloxacin 04/26 Hx Tablets 500mg 10tab once J06.9 s daily Feli - M.D. 06/13 Azithromycin 03/15 Hx Tablets 250mg 6tabs 2 tabs by J06.9 mouth Artis, CAR HOSTLER - every day 03/20 x1 day, tab by mouth every day x 4 days Doxycycline 01/18 Hx Capsules 100mg 20cap one J01.90 Rex Hyclate s tablet Artis, CAR HOSTLER - twice 01/27 daily for 10 days. Nasonex 01/18 Hx Suspension 50mcg/Act 17gm two J01.90 Rex sprays Artis, CAR HOSTLER - each 01/18 nostril once daily for 2 weeks. Fluticasone 01/18 Hx Suspension 50mcg/Act 16uni 2 sprays J01.90 Rex Propionate ts each Artis, CAR HOSTLER - nostril 06/13 qd for two weeks Ibuprofen 04/15 Hx Tablets 600mg 90tab three 719.46 [place] /2013 s times a Feli, - day prn [...] Tablets 250mg 10tab 1 by 684 Sarahi /2014 s mouth , - twice a M.D. Mometasone 09/28 Hx Cream 0.1% 1unit apply to 691.8 Sarahi Furoate s affected Henderson, - areas M.D. 12/08 twice a day 7 days only Methylprednisolon 09/07 Hx Tablets 4mg 995.3 Libra e Jose De eJsus - M.DRich 09/07 Methylprednisolon 09/07 Hx Tablets 4mg 1pack as 995.3 Libra e (Malik) directed Jose De Jesus - M.D. 11/02 Percocet 04/11 Hx Tablets 5-325mg 10tab 1 tab po Libra /2013 s q6h prn Jose De Jesus, - pain M.DRich 08/18 Clarithromycin 03/31 Hx Tablets 500mg 20tab 1 po bid 466.0 Eduardo /2012 s for 10 D. Les, - days M.D.,FACP 04/16 Cheratussin ac 03/31 Hx Syrup 100-10mg/ 120ml 10 J20.9 Jan E. /2012 5ML millilite Anita, - rs by MEddy 08/07 mouth four times a day as needed Butalbital/Acetam 01/06 Hx Capsules 50-325-40 20cap 1 tab 465.8 [place] inophen/Caffeine /2012 mg s every 8 h Feli, - prn M.D. 08/18 Mometasone 12/31 Hx Cream 0.1% 1unit apply to 691.8 Sarahi Fur s affected Santiago, - areas bid M.D. 08/18 10 only Azithromycin 12/31 Hx Tablets 250mg 6tabs take 2 461.8 tab on Santiago, - day 1 M.D. 01/06 then tab daily x 4 days Polymyxin B 12/11 Hx Solution 03978-9.1 10ml 1 gtt in 372.39 Kim Sulfate/Trimethop [...] 150mg 4tabs 2 po once 110.5 Tone /2012 a week X Feli, - 2 wks M.D. 08/27 Furosemide 07/20 Hx Tablets 40mg 28tab 1 tab bid s prn Santiago - M.D. 12/31 Furosemide 07/14 Hx Tablets 20mg 10tab 1 po 782.3 s daily 3 Santiago, - times a M.D. Nebulizer 06/18 Hx Misc 1 J45.901 Santiago - M.DRich 01/12 Advair Diskus 06/15 Hx Aerosol 250-50mcg 1unit 1 puff 461.8 Sarahi /Dose s bid Santiago - M.D. 08/18 Prednisone 05/21 Hx Tablets 20mg 27tab 3 tab by 493.92 s mouth Henderson, - every day M.D. 06/15 x3 days /2012 then 2 tab daily for 5 days, then 1 tab daily for 5 days then 1/2 tab daily for 5 days Clarithromycin 05/18 Hx Tablets 500mg 20tab 1 po bid 461.9 Sarahi s Santiago, - M.D. 06/15 Prednisone 05/18 Hx Tablets 10mg 13tab take 3 461.9 Sarahi /2013 s tab daily Santiago, - x 2 days M.D. 06/15 then tab daily x 3 days and then 1 tab daily until all taken Azithromycin 05/13 Hx Tablets 250mg 6tabs take 2 461.9 tab on Santiago, - day 1 M.D. 05/18 then tab daily x 4 days Mobic 02/23 Hx Tablets 15mg 15tab once 840.8 s daily Feli - M.D. 05/18 Flexeril 02/23 Hx Tablets 10mg 14tab 1 po bid 840.8 s prn Feli - M.D. 05/18 Doxycycline 02/04 Hx Tablets 100mg 10tab 100 mg Kim Hycl /2011 s orally Anika, - twice N.P. 02/09 daily x days Ibuprofen 01/29 Hx Tablets 400mg 100ta 400 mg po 462 Kim bs q4-6h; Anika, - max 2400 N.P. 09 mg/ Nasal Saline 01/29 Hx Solution 0.65% 1ml [...] Liquid 5% 1unit apply to 782.1 Sarahi /2012 s affected Santiago, - areas M.D. 02/23 once/august repeat in [...] 500mg 20tab 1 po bid 461.8 s Santiago, - M.D. 12/11 Advair Diskus 08/25 Hx [...] 1 po qd 493.92 s Santiago - M.D. 05/18 L Wrist Splint 05/22 Hx as needed 782.0 Santiago - M.DRich 05/18 Abilify Hx Tablets 20mg 1 every Unknown / day - 02/23 Wellbutrin SR Hx Tablets ER 150mg 180ta 1 po qd Unknown / 12HR bs - 12/11 Klonopin Hx Tablets 1mg 60tab 1 po tid Unknown / s prn - 03/31 Nystatin/Triamcin 00/00 Hx Cream 006408-8. 30gm apply to Unknown olone /0000 1Unit/GM- [...] po qam Unknown / - 05/18 Abilify 00 Hx Tablets 10mg 1 po qd Unknown / - 12/20 Diflucan Hx Tablets 2tabs Unknown / - 06/15 Provigil Hx Tablets 200mg 1 po qd Unknown / - 12/11 Nuvaring Hx Ring 0.12-0.01 1unit insert 1 / 5mg/24HR s ring - vaginally 03/03 [...] CPT Code Status Date Vaccine Lot # [id number] Given 02/06/2016 Influenza Virus Vaccine, Quadrivalent, Split Virus, Im Use Q2035 Given 01/18/2015 Afluria Vaccine 97453 Given 02/02/2014 Flu Vaccine Split Virus Preservative Free For Indiv 3Yr Older Q2037 Given 01/20/2014 Fluvirin Im 3Yrs And Older Q2037 Given 01/05/2013 Fluvirin Im 3Yrs And Older Q2038 Given 01/15/2012 Fluzone Vaccine [id number] 00584 Given 03/03/2005 Meningococcal Immunization 32549 Given 01/14/2000 Hep B Pediatric/Adolescent 35576 Given 01/12/1999 Hep B Pediatric/Adolescent 20599 Given 12/12/1998 Hep B Pediatric/Adolescent 12899 Given 12/12/1998 Tetanus And Diptheria (Td) For Adult Use Preservative Free 42608 Given 07/07/1990 Measles Mumps And Rubella MMR 05882 Given 09/10/1988 DTaP Vaccine Younger Than 7 45653 Given 09/10/1988 IPV/Poliomyelitis Immunization 66844 Given 07/16/1985 IPV/Poliomyelitis Immunization 11352 Given 07/16/1985 DTaP Vaccine Younger Than 7 57262 Given 04/16/1985 Measles Mumps And Rubella MMR 64484 Given 08/10/1984 IPV/Poliomyelitis Immunization 37117 Given 08/10/1984 DTaP Vaccine Younger Than 7 72601 Given 05/15/1984 IPV/Poliomyelitis Immunization 76976 Given 05/15/1984 DTaP Vaccine Younger Than 7 62829 Given 02/04/1984 IPV/Poliomyelitis Immunization 84272 Given 02/04/1984 DTaP Vaccine Younger Than 7 36545 Given Unknown Influenza Virus Vaccine, Quadrivalent, Split, Preservative Free Vital Signs Date Vital Result Comment 05/02/2017 Height 63.5 inches 5'3.50" Weight 240.00 [...] Color Yellow Urine Appearance Cloudy Urine Specific [place] 1.035 High 1.010-1.030 Urine pH 5 5-9 [...] Color Yellow Urine Appearance Cloudy Urine Specific [place] 1.014 1.010-1.030 Urine pH 8.0 5-9 Urine [...] Color Yellow Urine Appearance Cloudy Urine Specific [place] 1.018 1.010-1.030 Urine pH 5.0 5-9 Urine [...] Color Yellow Urine Appearance Clear Urine Specific [place] 1.028 1.010-1.030 Urine Esterase Negative Negative Urine [...] Color Yellow Urine Appearance Clear Urine Specific [place] 1.029 1.010-1.030 Urine Esterase Negative Negative Urine [...] Color Yellow Urine Appearance Clear Urine Specific [place] 1.022 1.010-1.030 Urine Esterase 1+ Negative Urine [...] Color Yellow Urine Appearance Cloudy Urine Specific [place] 1.024 1.010-1.030 Urine Esterase 2+ Negative Urine [...] Color Yellow Urine Appearance Clear Urine Specific [place] 1.007 Low 1.010-1.030 Urine Esterase 1+ Negative [...] 5.7 5-7 Ua Routine 07/28/2012 Ua Specific [place] 1.005 Ua PH 5 Ua Color yellow [...] 20 mIU/mL 3 SEE RESULT BELOW Name: WILFRIDO AHMADIDia Child : [address]: Jan Fuller MD Acct: [id number] Unit: [id number] AGE: 31 Location: ED Re01/09/17 SEX: F Status: DEP ER SPEC: [id number] NADIR: 01/09/17-1215 [facility] DR: Jan Fuller MD REQ: [id number] RECD: 01/09/17-1242 STATUS: NEFTALY NGUYEN DR: Sarahi Henderson MD _ SOURCE: URINE SPDESC: ORDERED: Urine Culture QUERIES: Urine Source: Random Procedure Result Reported Site Urine Culture Final 01/11/17- 08 ML Organism 1 ENTEROCOCCUS FAECALIS [place] Count 10-25,000 (Moderate) CFU/ML 1. ENTEROCOCCUS FAECALIS [...] These antibiotics are not available in the [facility] Formulary Contact the Microbiology Department for any additional antibiotic reporting. * ML - MAIN LAB ([facility]) . END OF REPORT * ML=Testing performed at Main Lab DEPARTMENT OF PATHOLOGY, [address] [place] [address] Thomas Christensen M.D. Director [facility] # [id number] 4 >100 to <200 pg/mL: likely compensated [...] [address]: Sarahi Henderson MD Acct: [id number] Unit: [id number] AGE: 30 Location: [facility] Re09/26/16 SEX: F Status: REG REF SPEC: [id number] NADIR: 09/26/16-[address]: Sarahi Henderosn MD REQ: [id number] RECD: 09/26/16170 STATUS: RES _ SOURCE: STOOL SPDESC: ORDERED: E.coli O157:H7, Occult Bl, Diag, C. diff PCR, Stool Culture, Fecal Lacto Rotavirus Ag St Procedure Result Reported Site E.coli O157:H7 Culture PENDING Stool Culture PENDING Stool Specimen Description PENDING Shiga Toxin 1 2 PENDING C. difficile PCR PENDING Fecal Lactoferrin (Stool WBC) Final 09/26/162022 ML Fecal Lactoferrin Negative by Immunoassay TEST [...] performed at Main Lab DEPARTMENT OF PATHOLOGY, [address] [place] [address] Thomas Christensen M.D. Director [facility] # [id number] Patient: BARBARA AHMADI [id number] (Continued) Specimen: [id number] Collected: 09/26/16-1414 Received: 09/26/16 (Continued) Procedure Result Reported Site Rotavirus Antigen Stool PENDING * ML - MAIN LAB ([facility]) . END OF REPORT * ML=Testing performed at Main Lab DEPARTMENT OF PATHOLOGY, [address] [place] [address] Thomas Christensen M.D. Director [facility] # [id number] 7 SEE RESULT BELOW Name: BARBARA AHMADI : [address]: Sarahi Henderson MD Acct: [id number] Unit: [id number] AGE: 30 Location: [facility] Re09/26/16 SEX: F Status: REG REF SPEC: [id number] NADIR: 09/26/16-[address]: Sarahi Henderson MD REQ: [id number] RECD: 09/26/16 STATUS: RES _ SOURCE: STOOL SPDESC: ORDERED: E.coli O157:H7, Occult Bl, Stalin Trejo PCR, Stool Culture, Fecal Lacto Rotavirus Ag [...] performed at Main Lab DEPARTMENT OF PATHOLOGY, [address] [place] [address] Thomas Christensen M.D. Director [facility] # [id number] Patient: BARBARA AHMADI [id number] (Continued) Specimen: [id number] Collected: 09/26/16 Received: 09/26/16-1699 (Continued) Procedure Result Reported Site Fecal Lactoferrin (Stool WBC) Final (continued) 09/26/16- 2022 with this assay. Stool Occult Blood (1) Final 09/26/16- 2042 ML Stool Occult Blood Negative Collection Date (1) 09/26/16 Rotavirus Antigen Stool Final 09/27/16- 2 ML Organism 1 Negative Rotavirus Antigen testing by enzyme immunoassay * ML - MAIN LAB ([facility]) . END OF REPORT * ML=Testing performed at Main Lab DEPARTMENT OF PATHOLOGY, [address] [place] [address] Thomas Christensen M.D. Director [facility] # [id number] 8 SEE RESULT BELOW Name: BARBARA AHMADI DOB: [address]: Sarahi Henderson MD Acct: [id number] Unit: [id number] AGE: 30 Location: [facility] Re09/26/16 SEX: F Status: REG REF SPEC: [id number] NADIR: 09/26/16-[address]: Sarahi Henderson MD REQ: [id number] RECD: 09/26/16 STATUS: COMP _ SOURCE: STOOL [...] are required. Stool Specimen Description Final 09/26/16- 2043 ML Stool Color Greenish Brown Stool Form Nonformed Stool Consistency Pasty Shiga Toxin 1 2 Final 09/27/16- 1037 ML Organism 1 Negative Shiga Toxin 1 2 CONTINUED ON NEXT PAGE * ML=Testing performed at [facility] Lab DEPARTMENT OF PATHOLOGY, [address] [place] [address] Thomas Christensen M.D. Director [facility] # [id number] Patient: BARBARA AHMADI [id number] (Continued) Specimen: [id number] Collected: 09/26/16-1414 Received: 09/26/16-170 (Continued) Procedure Result Reported Site Shiga Toxin [...] ML Stool Occult Blood Negative Collection Date () 09/26/16 Rotavirus Antigen Stool Final 09/27/16- 1052 ML Organism 1 Negative Rotavirus Antigen testing by enzyme immunoassay * ML - [facility] ([facility]) . END OF REPORT * ML=Testing performed at Main Lab DEPARTMENT OF PATHOLOGY, [address] [place] [address] Thomas Christensen M.D. Director [facility] # [id number] 9 Social Research Assistant: [id number] SEE RESULT BELOW Name: BARBARA AHMADI : [address]: Sheila Lawler MD Acct: [id number] Unit: [id number] AGE: 30 Location: [facility] Re06/14/16 SEX: F Status: DEP ER SPEC: [id number] NADIR: 06/14/16-842 [facility] DR: Sheila Lawler MD REQ: [id number] RECD: 06/14/16 STATUS: COMP OTHR DR: Sarahi Henderson MD _ SOURCE: URINE SPDESC: ORDERED: Urine Culture COMMENTS: [id number] Procedure Result Reported Site Urine Culture Final 06/15/16- 0944 ML No Growth (<1,000 CFU/mL) * ML - MAIN LAB ([facility]) . END OF REPORT * ML=Testing performed at Main Lab DEPARTMENT OF PATHOLOGY, [address] [place] [address] Thomas Christensen M.D. Director [facility] # [id number] 12 Because ethnic data is not always [...] [address]: Yoan Avila MD Acct: [id number] Unit: [id number] AGE: 30 Location: ED Re04/27/16 SEX: F Status: DEP ER SPEC: [id number] NADIR: 04/27/16 [facility] DR: Yoan Avila MD REQ: [id number] RECD: 04/27/16 STATUS: NEFTALY NGUYEN DR: [facility] Sarahi Henderson MD _ SOURCE: URINE SPDESC: ORDERED: Urine Culture Procedure Result Reported Site Urine Culture Final 04/28/16928 ML No Growth (<1,000 CFU/mL) * ML - MAIN LAB ([facility]) . END OF REPORT * ML=Testing performed at Main Lab DEPARTMENT OF PATHOLOGY, [address] [place] [address] Thomas Christensen M.D. Director [facility] # [id number] 14 Because ethnic data is not always [...] [address]: Derrick Beach MD Acct: [id number] Unit: [id number] AGE: 30 Location: ED Re04/21/16 SEX: F Status: DEP ER SPEC: [id number] NADIR: 04/21/[address]: Derrick Beach MD REQ: [id number] RECD: 04/21/16 STATUS: NEFTALY NGUYEN DR: Sarahi Henderson MD _ SOURCE: URINE SPDESC: ORDERED: Urine Culture Procedure Result Reported Site Urine Culture Final 01/819 ML No growth of clinically significant organisms * ML - MAIN LAB ([facility]) . END OF REPORT * ML=Testing performed at Main Lab DEPARTMENT OF PATHOLOGY, [address] [place] [address] Thomas Christensen M.D. Director [facility] # [id number] 19 Social Research Assistant: [id number] MELINA Copeland 20 SEE RESULT BELOW Name: AHMADIBARBARA : [address]: Yoan ORNELAS Acct: [id number] Unit: [id number] AGE: 30 Location: [facility] Re01/15/16 SEX: F Status: REG REF SPEC: [id number] NADIR: 01/15/16-[address]: Yoan ORNELAS REQ: [id number] RECD: 01/15/16 STATUS: COMP [facility] DR: Sarahi Henderson MD _ SOURCE: NASAL SPDESC: ORDERED: MRSA PCR-Nasal Procedure Result Reported Site MRSA PCR (Nasal) Final 01/16/16- 0151 ML Organism 1 MRSA NEGATIVE * ML - MAIN LAB ([facility]) . END OF REPORT * ML=Testing performed at Main Lab DEPARTMENT OF PATHOLOGY, [address] [place] [address] Thomas Christensen M.D. Director [facility] # [id number] 21 SEE RESULT BELOW Name: BARBARA AHMADI : [address]: Yoan ORNELAS Acct: [id number] Unit: [id number] AGE: 30 Location: [facility] Re01/11/16 SEX: F Status: REG REF SPEC: [id number] NADIR: 01/11/16-1315 [facility] DR: Yoan ORNELAS REQ: [id number] RECD: 01/15/16 STATUS: NEFTALY NGUYEN DR: Sarahi Henderson MD _ SOURCE: NASAL SPDESC: ORDERED: MRSA PCR-Nasal Procedure Result Reported Site MRSA PCR (Nasal) Final 01/16/16- 0151 ML Organism 1 MRSA NEGATIVE * ML - MAIN LAB ([facility]) . END OF REPORT * ML=Testing performed at Main Lab DEPARTMENT OF PATHOLOGY, [address] [place] [address] Thomas Christensen M.D. Director [facility] # [id number] 22 FASTING 10 HOUR 23 It is [...] testing ordered by reflex. Test Performed by: [address] [address] Metal Wire Technician: Santhosh Rowland II, M.D., Ph.D. 26 No [...] screening test (e.g., EIA). Test Performed by: [place] [address] Metal Wire Technician: Santhosh Rowland II, M.D., Ph.D. 28 SEE RESULT BELOW Name: BARBARA AHMADI : [address]: Sheila Lawler MD Acct: [id number] Unit: [id number] AGE: 29 Location: [facility] Re08/26/15 SEX: F Status: DEP ER SPEC: [id number] NADIR: 08/26/15-5 [facility] DR: Sheila Lawler MD REQ: [id number] RECD: 08/27/154373 STATUS: NEFTALY NGUYEN DR: [facility] Sarahi Henderson MD _ SOURCE: URINE SPDESC: ORDERED: Urine Culture Procedure Result Reported Site Urine Culture Final 08/29/15- 0832 ML Organism 1 ESCHERICHIA COLI [place] Count 75-100,000 (Many) CFU/ML 1. ESCHERICHIA COLI [...] antibiotic reporting. * ML - MAIN LAB ([facility]) . END OF REPORT * ML=Testing performed at Main Lab DEPARTMENT OF PATHOLOGY, [address] [place] [address] Thomas Christensen M.D. Director [facility] # [id number] 29 SEE RESULT BELOW Name: SASHA AHMADICARLA Child : [address]: Erik Karimi MD Acct: [id number] Unit: [id number] AGE: 29 Location: ED Re06/11/15 SEX: F Status: REG ER SPEC: [id number] NADIR: 06/12/15 [facility] DR: Erik Karimi MD REQ: [id number] RECD: 06/12/15 STATUS: NEFTALY NGUYEN DR: Sarahi Henderson MD _ SOURCE: NASAL SPDESC: ORDERED: Flu A B Request Procedure Result Reported Site Rapid Influenza A B Request Final 06/12/15- 0057 ML Specimen received for Influenza A/B Molecular testing * ML - MAIN LAB ([facility]) . END OF REPORT * ML=Testing performed at Main Lab DEPARTMENT OF PATHOLOGY, [address] [place] [address] Thomas Christensen M.D. Director [facility] # [id number] 30 Social Research Assistant: [id number] SHAW PERALES 31 Social Research Assistant: [id number] MARIS VAZQUEZ 32 SEE RESULT BELOW Name: BARBARA AHMADI : [address]: Tone Edmond MD Acct: [id number] Unit: [id number] AGE: 29 Location: [facility] Re04/26/15 SEX: F Status: REG REF SPEC: [id number] NADIR: 04/26/15 [facility] DR: Tone Edmond MD REQ: [id number] RECD: 04/26/15 STATUS: COMP _ SOURCE: [facility]: ORDERED: Flu A B Request Procedure Result Reported Site Rapid Influenza A B Request Final 04/26/152044 ML Specimen received for Influenza A/B Molecular testing * ML - MAIN LAB ([facility]) . END OF REPORT * ML=Testing performed at Main Lab DEPARTMENT OF PATHOLOGY, [address] [place] [address] Thomas Christensen M.D. Director [facility] # [id number] 33 No bands detected 34 Specific serologic [...] screening test (e.g., EIA). Test Performed by: [place] [address] Metal Wire Technician: Van Rubin M.D. 35 Test Performed by: [place] [address] Metal Wire Technician: Boy Nogueira III, M.D. 36 -- REFERENCE VALUE -- 16.0 - 45.0 Test Performed by: [place] [address] Metal Wire Technician: Boy Nogueira III, M.D. 37 Test Performed by: [place] [address] Metal Wire Technician: Boy Nogueira III, M.D. 38 Test Performed by: [place] [address] Metal Wire Technician: Boy Nogueira III, M.D. 39 RUN DATE: 11/13/13 [facility] LAB LIVE PAGE 1 RUN TIME: [address] [place] [address] Specimen Inquiry Name: BARBARA AHMADI : [address]: Sarahi Henderson MD Acct: [id number] Unit: [id number] AGE: 27 Location: [facility] Re11/09/13 SEX: F Status: REG REF SPEC: [id number] NADIR: 11/09/[address]: Sarahi Henderson MD REQ: [id number] RECD: 11/09/13 STATUS: COMP _ SOURCE: URINE SPDESC: ORDERED: GC/Chlam RNA QUERIES: Medent Number [id number] Procedure Result Verified Site Chlamydia Trachomatis RNA [...] result may have adverse psychosocial impact, the [facility] recommends retesting by a method using an [...] performed at Main Lab DEPARTMENT OF PATHOLOGY, [facility] [employer] [place], [place] [address] Thomas Christensen M.D. Director [facility] # [id number] RUN DATE: 11/13/13 [facility] LAB LIVE PAGE 2 RUN TIME: [address] [facility] [place], [place] [address] Specimen Inquiry Patient: BARBARA AHMADI [id number] (Continued) Specimen: [id number] Collected: 11/09/13 Received: 11/09/13 (Continued) Procedure Result [...] END OF REPORT * ML=Testing performed at [facility] Lab DEPARTMENT OF PATHOLOGY, [address] [place] [address] Thomas Christensen M.D. Director [facility] # [id number] 40 Because ethnic data is not always [...] <15 (or dialysis) 41 RUN DATE: 11/10/13 [facility] LAB LIVE PAGE 1 RUN TIME: [address] [place], [place] [address] Specimen Inquiry Name: BARBARA AHMADI : [address]: Sarahi Henderson MD Acct: [id number] Unit: [id number] AGE: 27 Location: [facility] Re11/09/13 SEX: F Status: REG REF SPEC: [id number] NADIR: 11/09/13-[address]: Sarahi Henderson MD REQ: [id number] RECD: 11/09/13 STATUS: COMP _ SOURCE: VAGINAL SPDESC: ORDERED: Affirm QUERIES: Medent Number [id number] Procedure Result Verified Site Affirm Vaginal DNA [...] performed at Main Lab DEPARTMENT OF PATHOLOGY, [address] [place] [place] [address] Thomas Christensen M.D. Director [facility] # [id number] 42 RUN DATE: 07/19/13 [facility] LAB LIVE PAGE 1 RUN TIME: [address] [place], [place] [address] Specimen Inquiry Name: AHMADIBARBARA L : [address]: Edson Dodge MD Acct: [id number] Unit: [id number] AGE: 27 Location: ENDO Re07/15/13 SEX: F Status: REG REF SPEC: [id number] NADIR: 07/15/13- SUBM DR: Edson Dodge MD REQ: [id number] RECD: 07/15/13 STATUS: MARLY NGUYEN DR: Sarahi Henderson MD _ ORDERED: H PYLORI IMM , LEVEL IV/2 An H. pylori immunostain, with appropriately reacting controls, was performed on sections cut from specimen #2 and is negative for helicobacter organisms. Addendum Signed (signature on file) aSra Talamantes MD 1135 FINAL DIAGNOSIS 1. Duodenum, [...] performed at Main Lab DEPARTMENT OF PATHOLOGY, [facility] [employer] [place] [id number] Thomas Christensen M.D. Director [facility] Permit #[id number] RUN DATE: 07/19/13 [facility] LAB LIVE PAGE 2 RUN TIME: [address] [facility] [facility], [place], [place] [address] Specimen Inquiry Patient: BARBARA AHMADI [id number] (Continued) POST-OPERATIVE DIAGNOSIS (Continued) POST-OPERATIVE DIAGNOSIS Esophagus [...] performed at Main Lab DEPARTMENT OF PATHOLOGY, [facility] [employer] [place] [address] Thomas Christensen M.D. Director [facility] Permit #[id number] RUN DATE: 06/08/13 [facility] LAB LIVE PAGE 1 RUN TIME: [address] [facility] [place], [place] [address] Specimen Inquiry Name: BARBARA AHMADI : [address]: Laure Goel MD Acct: [id number] Unit: [id number] AGE: 27 Location: ED Re06/06/13 SEX: F Status: DEP ER SPEC: [id number] NADIR: 06/06/13-1110 [facility] DR: Laure Goel MD REQ: [id number] RECD: 06/06/13-1432 STATUS: [facility] DR: Sarahi Henderson MD _ SOURCE: STOOL [facility]: ORDERED: Stool Culture, Fecal Lactoferr, C. [...] performed at Main Lab DEPARTMENT OF PATHOLOGY, [facility] [employer] [place], [place] [address] Thomas Christensen M.D. Director [facility] Permit #[id number] RUN DATE: 06/08/13 [facility] LAB LIVE PAGE 2 RUN TIME: [address] [facility] [place], [place] [address] Specimen Inquiry Patient: BARBARA AHMADI [id number] (Continued) Specimen: [id number] Collected: 06/06/13 Received: 06/06/13-143 (Continued) Procedure Result Verified Site [...] performed at Main Lab DEPARTMENT OF PATHOLOGY, [facility] [employer] [place], [place] [address] Thomas Christensen M.D. Director [facility] Permit #[id number] RUN DATE: 06/07/13 [facility] LAB LIVE PAGE 1 RUN TIME: [address] [facility] [place], [place] [address] Specimen Inquiry Name: BARBARA AHMADI : [address]: Laure Goel MD Acct: [id number] Unit: [id number] AGE: 27 Location: ED Re06/06/13 SEX: F Status: DEP ER SPEC: [id number] NADIR: 06/06/13-1110 [facility] DR: Laure Goel MD REQ: [id number] RECD: 06/06/13-1431 STATUS: RES OT DR: Sarahi Henderson MD _ SOURCE: STOOL SPDESC: ORDERED: Stool Culture, Fecal Lactoferr, C. diff Amp DNA COMMENTS: Unable to perform Shiga Toxin testing. Specimen collection requirements were not met. Stool for Shiga Toxin testing must be received by the laboratory within 2 hours of collection or placed in [place] transport medium. Verbal to ED by NISH [...] performed at Main Lab DEPARTMENT OF PATHOLOGY, [facility] [employer] [place], [place] [address] Thomas Christensen M.D. Director [facility] Permit #[id number] RUN DATE: 06/07/13 [facility] LAB LIVE PAGE 2 RUN TIME: [address] [facility] [place], [place] [address] Specimen Inquiry Patient: BARBARA AHMADI [id number] (Continued) Specimen: [id number] Collected: 06/06/13-1109 Received: 06/06/13-143 (Continued) Procedure Result Verified Site Fecal Lactoferrin (Stool WBC) Final (continued) 06/07/13- 1280 with this assay. END OF REPORT * ML=Testing performed at Main Lab DEPARTMENT OF PATHOLOGY, [facility] [employer] [place] [address] Thomas Christensen M.D. Director [facility] Permit #[id number] RUN DATE: 06/07/13 [facility] LAB LIVE PAGE 1 RUN TIME: [address] [facility] [place], [place] [address] Specimen Inquiry Name: BARBARA AHMADI : [address]: Laure Goel MD Acct: [id number] Unit: [id number] AGE: 27 Location: ED Re06/06/13 SEX: F Status: DEP ER SPEC: [id number] NADIR: 06/06/13-[address]: Laure Goel MD REQ: [id number] RECD: 06/06/13-143 STATUS: RES OTHR DR: Sarahi Henderson MD _ SOURCE: STOOL SPDESC: ORDERED: Stool Culture, Fecal Lactoferr, C. diff Amp DNA COMMENTS: Unable to perform Shiga Toxin testing. Specimen collection requirements were not met. Stool for Shiga Toxin testing must be received by the laboratory within 2 hours of collection or placed in [place] transport medium. Verbal to ED by NISH [...] performed at Main Lab DEPARTMENT OF PATHOLOGY, [facility] [employer] [place] [address] Thomas Christensen M.D. Director [facility] Permit #[id number] RUN DATE: 06/07/13 [facility] LAB LIVE PAGE 2 RUN TIME: [address] [facility] [place], [place] [address] Specimen Inquiry Patient: BARBARA AHMADI [id number] (Continued) Specimen: [id number] Collected: 06/06/13 Received: 06/06/13-1432 (Continued) Procedure Result Verified Site C. difficile [...] performed at Main Lab DEPARTMENT OF PATHOLOGY, [address] [place] [address] Thomas Christensen M.D. Director [facility] Permit #[id number] Helicobacter pylori Ag, F was cancelled on 06/14/2013 at 07:15; Strict frozen sample required, unable to aliquot. Test Performed by: [address] [address] Metal Wire Technician: Boy Nogueira III, M.D. 47 A negative result does not exclude norovirus infection. Test Performed by: [employer]. [address] [place] [id number] 48 This test detects intact HCG only [...] be accurately measured. 56 RUN DATE: 02/02/13 [facility] LAB LIVE PAGE 1 RUN TIME: [address] [place] [address] Specimen Inquiry Name: BARBARA AHMADI : [address]: Keshav Narvaez MD Acct: [id number] Unit: [id number] AGE: 27 Location: ED Re01/31/13 SEX: F Status: DEP ER SPEC: [id number] NADIR: 01/31/13 [facility] DR: Francisco Tarango MD REQ: [id number] RECD: 01/31/13 STATUS: NEFTALY NGUYEN DR: Sarahi Henderson MD _ SOURCE: URINE SPDESC: ORDERED: Urine Culture Procedure Result Verified Site Urine Culture Final 02/02/13920 ML Organism 1 NORMAL VERONA [place] Count 75-100,000 (Many) CFU/ML END OF REPORT * ML=Testing performed at Main Lab DEPARTMENT OF PATHOLOGY, [address] [place] [address] Thomas Christensen M.D. Director [facility] Permit #[id number] 57 Because ethnic data is not always [...] 2+ (>10-30 /hpf) 59 RUN DATE: 01/10/13 [facility] LAB LIVE PAGE 1 RUN TIME: [address] [place] [address] Specimen Inquiry Name: BARBARA AHMADI : [address]: Francisco Valenzuela MD Acct: [id number] Unit: [id number] AGE: 27 Location: ED Re01/08/13 SEX: F Status: DEP ER SPEC: [id number] NADIR: 01/08/13 [facility] DR: Francisco Valenzuela MD REQ: [id number] RECD: 01/08/13 STATUS: NEFTALY NGUYEN DR: Sarahi Henderson MD _ [facility] ORDERED: Urine Culture Procedure Result Verified Site Urine Culture Final 01/10/13- 0844 ML Organism 1 NORMAL VERONA [place] Count >100,000 (Many) CFU/ML END OF REPORT * ML=Testing performed at Main Lab DEPARTMENT OF PATHOLOGY, [address] [place] [place] [address] Thomas Christensen M.D. Director [facility] Permit #[id number] 60 Because ethnic data is not always [...] <15 (or dialysis) 62 RUN DATE: 07/31/12 [facility] LAB LIVE PAGE 1 RUN TIME: [address] [place] [address] Specimen Inquiry Name: WILFRIDO AHMADIDia Child : [address]: Sarahi Henderson MD Acct: [id number] Unit: [id number] AGE: 26 Location: [facility] Re07/28/12 SEX: F Status: REG REF SPEC: [id number] NADIR: 07/28/12-1455 [facility] DR: Sarahi Henderson MD REQ: [id number] RECD: 07/28/12 STATUS: COMP _ SOURCE: URINE SPDESC: ORDERED: Urine Culture QUERIES: Medent Number [id number] Procedure Result Verified Site Urine Culture Final 07/31/12- 0901 ML Organism 1 STREP GROUP B [place] Count >100,000 (Many) CFU/ML Organism 2 ESCHERICHIA COLI [place] Count 10-25,000 (Moderate) CFU/ML Susceptibility testing of penicillins and other B-lactams approved by FDA for treatment of Streptococcus pyogenes (Group A Strep) and Streptococcus agalactiae (Group B Strep) is not necessary for clinical purposes and need not be done routinely, since as with vancomycin, resistant strains have not been recognized. (CLSI Z211-B63;p.66) Positive isolates will be saved for one [...] performed at Main Lab DEPARTMENT OF PATHOLOGY, [facility] [employer] [place] [address] Thomas Christensen M.D. Director [facility] Permit #[id number] RUN DATE: 07/31/12 [facility] LAB LIVE PAGE 2 RUN TIME: [address] [facility] [place], [place] [address] Specimen Inquiry Patient: BARBARA AHMADI [id number] (Continued) Specimen: [id number] Collected: 07/28/12 Received: 07/28/12 (Continued) Procedure Result Verified Site Urine Culture Final (continued) 07/31/12- 900 2. ESCHERICHIA COLI (continued) M.I.C. RX --------- ------ Tetracycline <=1 S Pipercillin/Tazobactam <=4 S Trimethoprim/Sulfamethoxazole <=20 S Amoxicillin/Clavulanic Acid 4 S Aztreonam <=1 S Contact the Microbiology Department for any additional antibiotic reporting. END OF REPORT * ML=Testing performed at Main Lab DEPARTMENT OF PATHOLOGY, [address] [place] [place] [address] Thomas Christensen M.D. Director [facility] Permit #[id number] 63 Because ethnic data is not always [...] FASTING 12 HOUR 67 RUN DATE: 02/01/12 [facility] LAB LIVE PAGE 1 RUN TIME: [address] [place] [address] Specimen Inquiry Name: BARBARA AHMADI : [address]: Kim Donaldson NP Acct: [id number] Unit: [id number] AGE: 26 Location: [facility] Re01/30/12 SEX: F Status: REG REF SPEC: [id number] NADIR: 01/30/121309 SUBM DR: Kim Donaldson NP REQ: [id number] RECD: 01/30/12623 STATUS: COMP _ SOURCE: THROAT SPDESC: ORDERED: Throat Beta Str QUERIES: Medent Number [id number] Procedure Result Verified Site Throat Beta Strep Culture Final 02/01/12- 0902 ML Negative For Group A Beta Streptococcus END OF REPORT * ML=Testing performed at Main Lab DEPARTMENT OF PATHOLOGY, [address] [place] [place] [address] Thomas Christensen M.D. Director [facility] Permit #[id number] 68 A metabolite of Naproxen, O-desmethylnaproxen, has been shown to interfere with the Jendrassik-Mogul method for measuring total bilirubin. Samples from [...] <15 (or dialysis) 76 RUN DATE: 07/31/11 [facility] NMI LIVE PAGE 1 RUN TIME: 1032 Specimen Inquiry RUN USER: INTERFACE Name: BARBARA AHMADI Mateusz Status: REG REF Re07/29/11 Age/Sex: 25/F Unit#: [id number] Location: [facility] : [birth year] SPEC #: [id number] NADIR: 07/29/11 STATUS: COMP REQ #: [id number] RECD: 07/29/11 [facility] DR[facility] SOURCE: THROAT ENTR: 07/29/[address]: RAN: ORDERED: THROAT CULTURE QUERIES: MEDENT REQUISITION # [id number] ACT WKST: B 07/31/11 #1 Procedure Result Verified Site > THROAT CULTURE FULL Final -1032 ML NORMAL THROAT VERONA FULL THROAT CULTURES ARE CLINICALLY INDICATED TO DETECT THE PRESENCE OF GROUP A STREP, ARCANOBACTERIUM AND YEAST. - [facility] Permit #[id number] [address] [place] [address] DEPARTMENT OF PATHOLOGY, [address] [place] [address] [facility] Permit #[id number] Deborah Ayala M.D. Service Delivery Consultant Procedures Date CPT Code Description Status 03/19/2017 Inject/Drain Joint/Bursa Small Completed 02/21/2017 Inject Tendon Sheath Or Ligament Aponeurosis Eg Plantar Completed Fascia 03/08/2013 Colonoscopy Completed 07/30/2012 74912 Polysomnography Sleep Staging 4+ Parameters W/Cpap Completed 06/03/2012 39186 Polysomnography Sleep Staging 4+ Parameters Completed Encounters Type Date Location Provider CPT E/M Dx Office Visit 02/21/2017 [facility] [place] [address] M65.311 9:30a C.M.A. Office Visit 02/04/2017 [facility] [place] [address] J45.909 2:15p [facility] G47.33 E66.01 Office Visit 01/13/2017 10:15a [facility] [place] [address] J45.909 [facility] G47.33 E66.01 Z68.41 Office Visit 01/06/2017 2:20p [facility] Pamela Gutierrez, N.P. 13882 J45.901 - [place] Office Visit 08/20/2016 3:40p [facility] Jan Howard, 46835 R11.2 - Antolin Cabrera Office Visit 08/06/2016 2:15p [facility] Micaela Diamond, 29817 G47.33 [facility] RUI CARRERO, [facility]- E66.01 Z68.41 Office Visit 05/13/2016 10:00a [facility] [place] [address] J06.9 [place] A08.4 Office Visit 05/01/2016 2:40p [facility] Sarahi Henderson M.D. 51399 H53.8 - Antolin R51 N20.0 E66.9 Office Visit 04/11/2016 4:20p [facility] [place] [address] J06.9 - [place] Office Visit 02/06/2016 1:20p [facility] Pamela Gutierrez, N.P. 91707 B37.3 - [place] R19.7 Office Visit 01/08/2016 4:20p [facility] Elzbieta Daniels M.D. 55084 R21 - Kat J01.90 Office Visit 2015 4:20p [facility] [place] [address] J45.21 [place] J30.9 R05 Office Visit 11/20/2015 4:00p [facility] [place] [address] R21 - [place] Office Visit 10/04/2015 4:00p [facility] Jan Howard, 85047 Z02.89 - Kat MEddy Office Visit 08/18/2015 2:00p [facility] Micaela Diamond, 40774 G47.33 [facility] RUI CARRERO, [facility] Office Visit 08/08/2015 8:50a [facility] Sarahi Henderson, 97137 B86 - [place] Cabrera Office Visit 06/27/2015 3:40p [facility] Jan Howard, 53011 J06.9 - [place] Cabrera Office Visit 06/13/2015 4:00p [facility] Jan Howard, 50800 N23 - [place] Cabrera Office Visit 04/26/2015 4:00p [facility] Tone Edmond, 98445 J06.9 - [place] MEddy Office Visit 03/15/2015 3:40p [facility] [place] [address] J06.9 - [place] H81.12 Office Visit 02/10/2015 2:30p [facility] [place] [address] R11.0 - [place] Office Visit 01/18/2015 10:40a [facility] [place] [address] J01.90 - [place] Office Visit 12/16/2014 1:00p [facility] Micaela Diamond, 61072 327.23 [facility] RUI CARRERO, [facility] 780.52 Office Visit 12/14/2014 1:30p [facility] [place] [address] 278.01 493.10 V74.1 079.89 Office Visit 10/27/2014 1:50p [facility] Sarahi Henderson M.D. 13451 238.2 - [place] 278.01 493.10 709.9 Office Visit 05/16/2014 11:50a [facility] Sarahi Henderson M.D. 73192 V41.1 - [place] 626.4 Office Visit 05/05/2014 2:30p [facility] Sarahi Henderson 96958 790.21 - [place] Cabrera 844.9 278.01 Office Visit 04/22/2014 2:20p [facility] Tone Edmond 37693 719.46 - [place] Cabrera Office Visit 04/15/2014 3:00p [facility] Tone Edmond 67397 719.46 - [place] Cabrera Office Visit 03/04/2014 2:00p [facility] Micaela Diamond, 50874 327.23 [facility] MAGAN RN, DRY CHAIN PULLER- Office Visit 01/19/2014 3:30p [facility] Hodges, 55152 333.1 [facility] Deborah E939.3 Office Visit 12/29/2013 2:00p [facility] Ta Hodges, 03074 333.1 Services [facility] Hist[facility] Aide Deborah E939.3 Office Visit 2013 3:10p [facility] Sarahi Henderson 54813 790.21 - [place] Cabrera 278.01 Office Visit 11/09/2013 2:30p [facility] Sarahi Henderson M.D. 08188 623.5 - [place] Office Visit 11/02/2013 2:30p [facility] Sarahi Henderson M.D. 22531 704.8 - [place] 278.01 303.91 782.3 V65.42 Office Visit 09/28/2013 1:50p [facility] - Sarahi Henderson M.D. 18430 684 [place] 847.9 278.01 303.91 691.8 Office Visit 09/07/2013 3:00p [facility] Libra Dela Cruz M.D. 06116 995.3 - [place] Office Visit 08/18/2013 4:10p [facility] Sarahi Henderson 84478 333.1 - [place] MEddy Office Visit 04/27/2013 1:50p [facility] Sarahi Henderson 97369 845.09 - [place] Cabrera Office Visit 04/16/2013 1:40p [facility] Libra Dela Cruz M.D. 72237 845.09 - [place] Office Visit 03/31/2013 4:40p [facility] Eduardo Saldana, 08207 466.0 - [place] Cabrera,FACP Office Visit 02/16/2013 2:50p [facility] Sarahi Henderson 59695 278.01 - [place] Cabrera 303.91 Office Visit 01/13/2013 2:50p [facility] Sarahi Henderson 50980 789.00 - [place] Cabrera 796.2 Office Visit 01/06/2013 2:40p [facility] Tone Feli 77336 465.8 - [place] Cabrera Office Visit 12/31/2012 1:50p [facility] Sarahi Henderson M.D. 53485 461.8 - [place] 691.8 Office Visit 12/11/2012 1:00p [facility] Kim Donaldson, N.P. 99278 372.39 - [place] Office Visit 09/17/2012 2:30p [facility] Sarahi Henderson M.D. 94188 278.01 - [place] 111.0 Office Visit 08/27/2012 2:50p [facility] Sarahi Henderson M.D. 33883 782.3 - [place] 303.90 Office Visit 07/28/2012 1:50p [facility] Sarahi Henderson M.D. 48985 782.3 - [place] 790.21 288.60 303.90 110.5 Office Visit 07/14/2012 2:10p [facility] Sarahi Henderson M.D. 53378 783.1 - [place] 278.01 303.92 111.0 780.79 782.3 Office Visit 06/16/2012 10:36a Jazmyn Eldridge, 46572 327.23 [facility] Deborah Office Visit 06/15/2012 2:30p [facility] Sarahi Henderson M.D. 04444 110.5 - [place] Office Visit 05/21/2012 11:10a [facility] Sarahi Henderson M.D. 85860 493.92 - [place] Office Visit 05/18/2012 10:30a [facility] Sarahi Henderson M.D. 29715 461.9 - [place] Office Visit 05/13/2012 11:10a [facility] Sarahi Henderson M.D. 57784 461.9 - [place] Office Visit 04/22/2012 9:31a Jazmyn Eldridge, 82410 786.09 [facility] Deborah 780.79 Office Visit 02/24/2012 1:40p [facility] Tone Edmond, 09112 840.8 - [place] Cabrera Office Visit 01/30/2012 12:30p [facility] Sushila Skinner.[place]peranza [address]8063 462 - [place] 461.0 Office Visit 01/28/2012 2:10p [facility] Sarahi Henderson M.D. 14603 783.1 - [place] 780.79 278.01 786.02 Office Visit 12/24/2011 1:50p [facility] Sarahi Henderson M.D. 43175 782.1 - [place] 727.05 Office Visit 12/12/2011 2:10p [facility] Sarahi Henderson M.D. 94101 782.1 - [place] 727.05 Office Visit 11/20/2011 1:50p [facility] Sarahi Henderson 79268 278.00 - [place] Cab[place] 782.3 Office Visit 11/08/2011 2:00p [facility] Libra Dela Cruz M.D. 83599 477.9 - [place] 278.00 782.3 Office Visit 08/26/2011 2:30p [facility] Sarahi Henderson 24002 461.8 - [place] Cabrera Office Visit 08/01/2011 11:45a [facility] Sarahi Henderson 90783 461.8 - [place] Cabrera Office Visit 07/29/2011 2:30p [facility] Sarahi Henderson 65958 462 - Kat Cabrera Office Visit 06/24/2011 12:45p [facility] Sarahi Henderson 51845 493.10 - [place] Cabrera Office Visit 06/18/2011 10:15a [facility] Sarahi Henderson 79463 493.92 - [place] Cabrera 477.9 Office Visit 05/22/2011 1:00p [facility] Sarahi Henderson M.D. 59949 782.0 - [place] 278.00 Plan of Care Future Appointment(s):05/12/2017 3:30 pm - Genesis Rogers MD at [facility]
[2017-05-31 06:47] LABS: ABS Basophils 0.1 10^3/ul (0-0.2); ABS Eosinophils 0.2 10^3/ul (0-0.6); ABS Monocytes 0.5 10^3/ul (0-0.8); ABS Neutrophils 6.1 10^3/ul (1.5-7.7); ABS Nucleated RBC 0 10^3/ul; Eosinophil % 1.8 % (0-6); Hematocrit 46 % (35-47); Hemoglobin 14.7 g/dl (12.0-16.0); Lymphocyte % 30.6 % (25-47); Mean Corpuscular HGB Conc 32 g/dl (31-36); Mean Corpuscular Hemoglobin 27 pg (27-31); Mean Corpuscular Volume 83 fL (80-97); Mean Platelet Volume 8 um3 (7.4-10.4); Nucleated Red Blood Cells % 0.1; Platelet Count 352 10^3/ul (150-450); Red Blood Count 5.53 10^6/ul (4.0-5.4); Red Cell Distribution Width 14 % (10.5-15); White Blood Count 9.9 10^3/ul (3.5-10.8)
[2017-05-31 06:48] LABS: INR 0.98 (0.77-1.02)
[2017-05-31 06:54] LABS: EGFR Non-African American 55.5 (>60)
[2017-05-31 07:04] LABS: Urine Appearance Clear; Urine Blood 1+ (Negative); Urine Color Colorless; Urine Ketones Negative (Negative); Urine Protein Negative (Negative); Urine Specific Gravity 1.001 (1.010-1.030); Urine Urobilinogen Negative (Negative)
[2017-05-31 08:34] VITALS: BP 121/76
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
== END 2017-05-31 08:29 | disposition home or self-care (01) ==
LOC: ED 05:20
DX: S60.811A Abrasion of right wrist, initial encounter (principal); F10.129 Alcohol abuse with intoxication, unspecified; V49.9XXA Car occupant (driver) (passenger) injured in unspecified traffic accident, initial encounter; Y92.410 Unspecified street and highway as the place of occurrence of the external cause
CPT/HCPCS: 36415; 71045; 80053; 80320; 81003; 81015; 82150; 82550; 83605; 83690; 84702; 85025; 85610; 87086; 96374; 96375; 99283; G0480

== ENCOUNTER → 2017-06-06 17:27 | Emergency (ER) | payer SELFPAY ==
[~2017-06-06 17:27] MED LIST changes: -Buffered Lidocaine 1% SYR 3ML* 3 ML/SYR SYRINGE INTRADERM ONE; -DiMENhydriNATE IV* 50 MG/ML VIAL IV PUSH PRN; -Gentamicin ADULT (*) 180 MG in NS 0.9% 100 ML* 100 ML IVPB ONE; +HYDROcodone/ACETAMIN 5-325 MG* 1 TAB PO ONE; -Iohexol 180 (CONTRAST) 10 ML SDV IV ONE; -Lidocaine 2% MPF* 2 ML VIAL ONE; -Midazolam* 1 MG/ML 2 ML VIAL (2 MG) ONE; -Ondansetron ODT TAB* 4 MG PO PRN; -Propofol* 10 MG/ML 20 ML BTL IV PUSH ONE; -fentaNYL* 50 MCG/ML 2 ML VIAL (100 MCG VIAL) IV PRN; -fentaNYL* 50 MCG/ML 2 ML VIAL (100 MCG VIAL) ONE
[2017-06-06 18:20] VITALS: BP 116/69
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
--- NOTE | 2017-06-06 19:51 | RAD ---
INDICATION: Persistent headaches COMPARISON: CT brain December 19, 2008 TECHNIQUE: Noncontrast axial source images were acquired from the skull base to the vertex. FINDINGS: Ventricles/sulci: The ventricles and cisterns are normal in size and configuration for age. Brain parenchyma: There is no focal parenchymal finding, evidence of intracranial mass, or intracranial mass effect. Intracranial hemorrhage:None. Extra-axial spaces: There are no abnormal extra axial fluid collections or evidence of extra-axial mass. Calvarium: There is no calvarial fracture or other calvarial abnormality. Scalp: There is no evidence of scalp or extracalvarial soft tissue abnormality. Paranasal sinuses/mastoid: The paranasal sinuses and mastoid air cells are clear. Other: None. IMPRESSION: NEGATIVE EXAMINATION
== END | disposition home or self-care (01) ==
LOC: UCEAST 17:27
DX: F07.81 Postconcussional syndrome (principal); S20.211A Contusion of right front wall of thorax, initial encounter; V89.2XXA Person injured in unspecified motor-vehicle accident, traffic, initial encounter; Y92.9 Unspecified place or not applicable
CPT/HCPCS: 70450

== ENCOUNTER 2017-06-19 17:56 | Emergency (ER) | payer SELFPAY ==
[2017-06-19 18:12] VITALS: BP 117/75
[2017-06-19] MEDS ORDERED: Metoclopramide IV* 5 MG/ML 2 ML VIAL ONE (18:39)
[2017-06-19] MEDS ORDERED: Ibuprofen TAB* 400 MG PO ONE ×2 (18:39→18:40)
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
== END 2017-06-19 19:20 | disposition home or self-care (01) ==
LOC: UCEAST 17:56
DX: S06.0X9A Concussion with loss of consciousness of unspecified duration, initial encounter (principal); S39.012A Strain of muscle, fascia and tendon of lower back, initial encounter; V49.9XXA Car occupant (driver) (passenger) injured in unspecified traffic accident, initial encounter; Y93.89 Activity, other specified; Y92.410 Unspecified street and highway as the place of occurrence of the external cause; Z88.1 Allergy status to other antibiotic agents
CPT/HCPCS: 96372; 99212; A9270-GY; G0463; J2765

== ENCOUNTER 2017-06-23 18:23 | Emergency (ER) | payer OTHER ==
[2017-06-23 18:39] VITALS: BP 124/89
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
== END 2017-06-23 18:49 | disposition home or self-care (01) ==
LOC: UCEAST 18:23
DX: J32.9 Chronic sinusitis, unspecified (principal); R03.0 Elevated blood-pressure reading, without diagnosis of hypertension; J45.909 Unspecified asthma, uncomplicated; Z87.442 Personal history of urinary calculi; F41.9 Anxiety disorder, unspecified; F31.9 Bipolar disorder, unspecified; Z88.1 Allergy status to other antibiotic agents
CPT/HCPCS: 99212; G0463

== ENCOUNTER 2017-07-08 20:34 | Emergency (ER) | payer OTHER ==
--- OUTSIDE RECORDS SUMMARY | 2017-07-08 21:09 | XMS REPORT ---
:1985 External Reference #:[id number] Author Organization [facility] Address [address] [address] Phone [phone] Care Team Providers Name Role Phone Sarahi Henderson MD Primary Care Physician Unavailable Payers Type Date Identification Numbers Payment Provider Subscriber Commercial Policy Number: [id number] [place]/[employer] Medicaid Barbara Ahmadi PayID: [id number] [address] [address] [place] [address] Workers Compensation Onset: 2017 Policy Number: Esurance Barbara Ahmadi [id number] PayID: [id number] [address] [place] [address] Problems Date Description Provider Status Onset: 06/18/2011 Obesity Sarahi Henderson M.D. Active Onset: 08/26/2011 Allergic rhinitis Sarahi Henderson M.D. Active Onset: 08/26/2011 Intrinsic asthma without status Sarahi Henderson M.D. 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 Active Onset: 12/16/2014 Dyssomnia Micaela Diamond DNP, RN, Active SETTLEMENT TECHNICIAN-BC Onset: 03/19/2017 Localized, primary Maycol Perry MD [...] Form Strength Qnty SIG Indications Ordering Provider Lidocaine 06/26 Active Patches 5% 15uni apply M54.5 ts patch up Anita, to 12 M.D. hours once a day. Zofran 06/26 Active Tablets 4mg 30tab 1 tablet R51 s up to Anita, twice a M.D. day for nausea Zyrtec Allergy 05/13 Active Tablets 10mg 90tab 1 tab by J01.90 s mouth Artis, STAKE SETTER every day every morning Albuterol Sulfate 06/18 Active Nebulizer 0.63mg/3M 75uni every 4-6 J45.901 Pamela /2012 L ts hours as Varn, N.P. needed Singulair Active Tablets 10mg 90tab 1 by Sarahi s mouth Henderson, every day M.D. Klonopin Active Tablets 1mg 30tab 1 po qid 300.00 Unknown /0000 s Wellbutrin SR Active Tablets ER 200mg 1 tab by 12HR mouth daily Epinastine HCL Active Solution 0.05% 1 ggt / both eyes twice a day as needed allergies Hydrocortisone Active Cream 0.2% 45uni topical Rex Valerate /0000 ts twice Artis, STAKE SETTER daily to area as needed Ibuprofen Active Tablets 800mg by mouth Unknown /0000 three times a day as needed Fioricet Active Capsules 50-300-40 1 by Unknown /0000 mg mouth twice a day as needed headache max 2 days/wk Advair Diskus 02/04 Hx Aerosol 250-50mcg 90uni 1 puff J45.909 Genesis /Dose ts twice a MD Sue - day 06/25 Albuterol Sulfate 02/03 Hx Nebulizer 0.63mg/3M 75ml inhale L contents Varn, N.P. - of 1 vial 06/25 nebulizer Every 4 To 6 Hours as Needed Prednisone 01/13 Hx Tablets 10mg 42tab 30mg J45.909 Genesis /2017 s daily for MD Sue - 1 [...] one J06.9 Rex s or two Artis, STAKE SETTER - capsules 05/01 every hours as needed for cough. Fluconazole 02/05 Hx Tablets 150mg 2tabs one by B37.3 mouth may Varn, N.P. - repeat in 05/01 3 days as needed Clotrimazole/Beta 02/05 Hx Cream 1-0.05% 15gm [...] 100-10mg/ 300ml 10ml R05 5ML every 4 REJI Wisdom - hours for 01/07 cough Nasonex 12/07 Hx Suspension 50mcg/Act 17gm two J30.9 sprays REJI Wisdom - each 05/01 nostril once daily for 2 weeks. Cephalexin 11/19 Hx Tablets 500mg 21tab take one s tablet REJI Wisdom - every 8 11/26 hours 7 days Triamcinolone 11/19 Hx Cream 0.1% 15gm apply R2 Rex Acetonide thin film REJI Wisdom - twice 05/01 Permethrin 08/07 Hx Cream 5% 1unit apply to B86 Sarahi s all body Santiago, - once/august M.D. 10/03 repeat in 1 week Levofloxacin 04/26 Hx Tablets 500mg 10tab once J06.9 [place] s daily Feli, - M.D. 06/13 Azithromycin 03/15 Hx Tablets 250mg 6tabs 2 tabs by Donato06.9 mouth Artis, STAKE SETTER - every day 03/20 x1 day, tab by mouth every day x 4 days Doxycycline 01/18 Hx Capsules 100mg 20cap one J01.90 Rex Hyclate s tablet Artis STAKE SETTER - twice 01/27 daily 10 days. Nasonex 01/18 Hx Suspension 50mcg/Act 17gm two J01.90 Rex sprays Artis, STAKE SETTER - each 01/18 nostril once daily for 2 weeks. Fluticasone 01/18 Hx Suspension 50mcg/Act 16uni 2 sprays J01.90 Rex Propionate ts each Artis, STAKE SETTER - nostril 06/13 qd for two weeks Ibuprofen 04/15 Hx Tablets 600mg 90tab three 719.46 [place] s times a [place]ach[place], - day prn M.D. 06/13 with food /2015 Metronidazole 11/10 Hx Gel 0.75% 1unit apply Sarahi /2014 s intravagi Santiago, - gildardo M.D. 12/08 once a day x 7 days Sulfamethoxazole/ 11/02 Hx Tablets 800-160mg 10tab 1 by 704.8 Sarahi Trimethoprim s mouth Santiago, - twice a M.D. Furosemide 11/02 Hx Tablets 20mg 12tab 1 tab 782.3 s every Henderson, - other day M.D. 12/08 3 times a week for swelling X 3 wks Cephalexin 09/28 Hx Tablets 250mg 10tab 1 by 684 Sarahi /2014 s mouth Henderson, - twice a M.D. Mometasone 09/28 Hx Cream 0.1% 1unit apply to 691.8 Sarahi Furoate s affected Santiago, - areas M.D. 12/08 twice a day 7 days only Methylprednisolon 09/07 Hx Tablets 4mg 995.3 Libra e Jose De Jesus - M.D. 09/07 Methylprednisolon 09/07 Hx Tablets 4mg 1pack as 995.3 Libra e (Malik) directed Jose De Jesus - M.D. 11/02 Percocet 04/11 Hx Tablets 5-325mg 10tab 1 tab po Libra s q6h prn Jose De Jesus - pain M.D. 08/18 Clarithromycin 03/31 Hx Tablets 500mg 20tab 1 po bid 466.0 Eduardo s for 10 D. [place], - days M.DRich,FACP 04/16 Cheratussin ac 03/31 Hx Syrup 100-10mg/ 120ml 10 J20.9 Jan E. 5ML millilite Anita, - rs by Deborah 08/07 four times a day as needed Butalbital/Acetam 01/06 Hx Capsules 50-325-40 20cap 1 tab 465.8 [place] inophen/Caffeine /2012 mg s every 8 h Feli, - prn M.DRich 08/18 Mometasone 12/31 Hx Cream 0.1% 1unit apply to 691.8 Sarahi Furoate s affected Santiago, - areas bid M.D. 08/18 only Azithromycin 12/31 Hx Tablets 250mg 6tabs take 2 461.8 tab on Santiago, - day 1 M.D. 01/06 then tab daily x 4 days Polymyxin B 12/11 Hx Solution 37926-7.1 10ml 1 gtt in 372.39 Kim Sulfate/Trimethop Unit/ML-% eyes b/l Anika, rim Sulfate - 4 times a N.P. 12/31 day x days Ketoconazole 09/17 Hx Tablets 200mg 2tabs 2 tab 111.0 once Santiago - /exercise M.D. 12/31 vigorousl y afterward s to cause sweating Compression 08/27 Hx Large 1unit as needed 782.3 Sarahi Stockings s Concepcion Henderson.Victorino 12/11 Furosemide 07/28 Hx Tablets 40mg 30tab 1 po qd 782.3 Sarahi s [place] - M.DRich 08/27 Fluconazole 07/28 Hx Tablets 150mg 4tabs 2 po once 110.5 Tone /2012 a week X Feli, - 2 wks M.DRich 08/27 Furosemide 07/20 Hx Tablets 40mg 28tab 1 tab bid Sarahi /2013 s prn Concepcion Henderson.Victorino 12/31 Furosemide 07/14 Hx Tablets 20mg 10tab 1 po 782.3 Sarahi s daily 3 Henderson, - times a M.D. Nebulizer 06/18 Hx Misc 1 J45.901 [place], - M.D. 01/12 Advair Diskus 06/15 Hx Aerosol 250-50mcg 1unit 1 puff 461.8 /Dose s bid Santiago, - M.D. 08/18 Prednisone 05/21 Hx Tablets 20mg 27tab 3 tab by 493.92 s mouth Santiago, - every day M.D. 06/15 x3 days /2012 then 2 tab daily for 5 days, then 1 tab daily for 5 days then 1/2 tab daily for 5 days Clarithromycin 05/18 Hx Tablets 500mg 20tab 1 po bid 461.9 s Santiago, - M.D. 06/15 Prednisone 05/18 [...] Tablets 15mg 15tab once 840.8 s daily Feli, - M.D. 05/18 Flexeril 02/23 Hx Tablets 10mg 14tab 1 po bid 840.8 s prn Feli, - M.D. 05/18 Doxycycline 02/04 Hx Tablets 100mg 10tab 100 mg Kim Hyclate s orally Anika, - twice N.P. 02/09 daily x days Ibuprofen 01/29 Hx Tablets 400mg 100ta 400 mg po 462 Kim bs q4-6h; Anika, - max 2400 N.P. /09 mg/ /2014 Nasal Saline 01/29 Hx Solution 0.65% 1ml 2 sprays 461.0 Kim /2011 in each Anika, - nostril 5 N.P. 09/07 times day Amoxicillin 01/29 Hx Capsules 500mg 20cap 1 cap bid 461.0 Kim s for 10 Anika, - days N.P. 02/04 Wrist Brace/Suede 12/11 Hx Misc 1unit 727.05 Sarahi Finish/Right/ s Santiago um - M.D. 01/12 Permethrin 12/11 Hx Liquid 5% 1unit apply to 782.1 Sarahi /2012 s affected Santiago, - areas M.D. 02/23 once/august repeat in 1 week Triamcinolone 12/11 Hx Cream 0.5% 1unit apply to 782.1 Sarahi Acetonide s affected Henderson, - areas of M.D. 02/23 skin bid [...] Tablets 500mg 20tab 1 po bid 461.8 Sarahi s Santiago, - M.D. 12/11 Advair Diskus 08/25 Hx Aerosol 250-50mcg 1unit 1 puff 461.8 /Dose s bid Santiago, - M.D. 02/23 Azithromycin 07/31 Hx Tablets [...] Tablets 180mg 90tab 1 po qd 493.92 Sarahi /2012 Concepcion Orozco M.D. 05/18 L Wrist Splint 05/22 Hx as needed 782.0 Concepcion Henderson M.D. 05/18 Abilify Hx Tablets 20mg 1 every Unknown / day - 02/23 Wellbutrin SR Hx Tablets ER 150mg 180ta 1 po qd Unknown /0000 12HR bs - 12/11 Klonopin Hx Tablets 1mg 60tab 1 po tid Unknown /0000 s prn - 03/31 Nystatin/Triamcin Hx Cream 856072-4. 30gm apply to Unknown ol 1Unit/GM- affected - % area 02/23 daily as needed Qvar Hx Aerosol 40mcg/Act 1unit 2 puff Unknown /0000 s bid - 11/19 Nasonex Hx Suspension 50mcg/Act 1unit 2 sprays Unknown /0000 s to each - nostril 12/20 daily Pataday Hx Solution 0.2% 2.500 instill Unknown / ml one drop - into each 12/14 eye Wellbutrin XL Hx Tablets ER 150mg 30tab 1 po qd Unknown / 24HR s - 12/20 Furosemide Hx Tablets 20mg 1 po qam Unknown /0000 - 05/18 Abilify Hx Tablets 10mg 1 po qd Unknown /0000 - 12/20 Diflucan Hx Tablets 2tabs Unknown /0000 - 06/15 Provigil Hx Tablets 200mg 1 po qd Unknown /0000 - 12/11 Nuvaring Hx Ring 0.12-0.01 1unit insert 1 Unknown /0000 5mg/24HR s ring - vaginally 03/03 for weeks, remove for 1 week Zofran Hx Tablets 4mg 20tab prn. Unknown /0000 s - 08/18 Chlordiazepoxide Hx Capsules 25mg 15cap 1 capsule Unknown HCL /0000 s bid - 08/18 Librium 00/00 Hx 25mg 1 tab bid Unknown /0000 - 04/16 Pulmicort 00 Hx Aerosol 90mcg/Act 1mont 2 puff Unknown Flexhaler /0000 h twice a - day 12/20 Primidone Hx Tablets 50mg 1 tab bid Unknown /0000 - 12/08 Norpramin Hx Tablets 25mg at Unknown /0000 bedtime - 05/16 Tobramycin Hx Solution 0.3% Unknown /0000 - 10/27 Norpramin 00 Hx Tablets 50mg 300.00 Unknown /0000 - 08/07 Pazeo Hx Solution 0.7% 1 drop 379.90 Unknown /0000 each eye - daily 06/13 Prednisone 00 Hx Tablets 20mg 2 tabs Unknown / daily - 02/05 Uribel Hx Capsules 118mg 4 times a Unknown /[address] Dr[address] Concepcion Chen 05/13 Nuvaring Hx Ring 0.12-0.01 insert 1 Unknown 5mg/24HR ring - vaginally 06/25 every days leave in place for 3 weeks , remove and replace with a new ring after a 7 day break Albuterol Sulfate Hx Nebulizer 0.63mg/3M inhale Unknown [...] CPT Code Status Date Vaccine Lot # [id number] Given 02/06/2016 Influenza Virus Vaccine, Quadrivalent, Split Virus, Im Use Q2035 Given 01/18/2015 Afluria Vaccine 07782 Given 02/02/2014 Flu Vaccine Split Virus Preservative Free For Indiv 3Yr Older Q2037 Given 01/20/2014 Fluvirin Im 3Yrs And Older Q2037 Given 01/05/2013 Fluvirin Im 3Yrs And Older Q2038 Given 01/15/2012 Fluzone Vaccine [id number] 62899 Given 03/03/2005 Meningococcal Immunization 18915 Given 01/14/2000 Hep B Pediatric/Adolescent 99153 Given 01/12/1999 Hep B Pediatric/Adolescent 64442 Given 12/12/1998 Hep B Pediatric/Adolescent 84245 Given 12/12/1998 Tetanus And Diptheria (Td) For Adult Use Preservative Free 19973 Given 07/07/1990 Measles Mumps And Rubella MMR 49318 Given 09/10/1988 DTaP Vaccine Younger Than 7 63376 Given 09/10/1988 IPV/Poliomyelitis Immunization 81471 Given 07/16/1985 IPV/Poliomyelitis Immunization 43767 Given 07/16/1985 DTaP Vaccine Younger Than 7 20260 Given 04/16/1985 Measles Mumps And Rubella MMR 87828 Given 08/10/1984 IPV/Poliomyelitis Immunization 95780 Given 08/10/1984 DTaP Vaccine Younger Than 7 59633 Given 05/15/1984 IPV/Poliomyelitis Immunization 81438 Given 05/15/1984 DTaP Vaccine Younger Than 7 22712 Given 02/04/1984 IPV/Poliomyelitis Immunization 47982 Given 02/04/1984 DTaP Vaccine Younger Than 7 92084 Given Unknown Influenza Virus Vaccine, Quadrivalent, Split, Preservative Free Vital Signs Date Vital Result Comment 06/26/2017 Weight 243.00 lb Heart Rate 89 /min BP Systolic Sitting 120 mmHg BP Diastolic Sitting 78 mmHg Body Temperature 97.8 F Pain Level 4 lower back/head O2 % BldC Oximetry 99 % 05/23/2017 Height 63.5 inches 5'3.50" Heart Rate [...] Test Date Test Result H/L Range Note Urinalysis Profile 05/31/2017 Urine Color Colorless Urine Appearance Clear Urine Specific [place] 1.001 Low 1.010-1.030 Urine pH 6.0 5-9 Urine Urobilinogen Negative Negative Urine Ketones Negative Negative Urine Protein Negative Negative Urine Leukocytes Negative Negative Urine Blood 1+ Negative Urine Nitrite Negative Negative Urine Bilirubin Negative Negative Urine Glucose Negative Negative Urine White Blood Cell Absent Absent Urine Red Blood Cell Absent Absent Urine Bacteria 1+ Absent Urine Culture And 05/31/2017 Urine Culture SEE RESULT BELOW 1 Sensitivities CBC Auto Diff 05/31/2017 White Blood Count 9.9 10^3/uL 3.5-10.8 Red Blood Count 5.53 10^6/uL High 4.0-5.4 Hemoglobin 14.7 g/dL 12.0-16.0 Hematocrit 46 % 35-47 Mean Corpuscular Volume 83 fL 80-97 Mean Corpuscular Hemoglobin 27 pg 27-31 Mean Corpuscular HGB Conc 32 g/dL 31-36 Red Cell Distribution Width 14 % 10.5-15 Platelet Count 352 10^3/uL 150-450 Mean Platelet Volume 8 um3 7.4-10.4 Abs Neutrophils 6.1 10^3/uL 1.5-7.7 Abs Lymphocytes 3.0 10^3/uL 1.0-4.8 Abs Monocytes 0.5 10^3/uL 0-0.8 Abs Eosinophils 0.2 10^3/uL 0-0.6 Abs Basophils 0.1 10^3/uL 0-0.2 Abs Nucleated RBC 0 10^3/uL Granulocyte % 61.3 % 38-83 Lymphocyte % 30.6 % 25-47 Monocyte % 5.5 % 1-9 Eosinophil % 1.8 % 0-6 Basophil % 0.8 % 0-2 Nucleated Red Blood Cells % 0.1 Laboratory test finding 05/31/2017 Alcohol 205 mg/dL High <10 Comp Metabolic Panel 05/31/2017 Sodium 141 mmol/L 133-145 Chloride 108 mmol/L 101-111 Co2 Carbon Dioxide 22 mmol/L 22-32 Glucose 86 mg/dL 70-100 Blood Urea Nitrogen 9 mg/dL 6-24 Creatinine 1.13 mg/dL High 0.51-0.95 BUN/Creatinine Ratio 8.0 8-20 Calcium 9.3 mg/dL 8.6-10.3 Total Protein 7.5 g/dL 6.4-8.9 Albumin 4.4 g/dL 3.2-5.2 Globulin 3.1 g/dL 2-4 Albumin/Globulin Ratio 1.4 1-3 Total Bilirubin 0.40 mg/dL 0.2-1.0 Alkaline Phosphatase 80 U/L 34-104 Alt 16 U/L 7-52 Egfr Non- 55.5 >60 Egfr 71.3 >60 2 Potassium 3.7 mmol/L 3.5-5.0 Anion Gap 11 mmol/L 2-11 Ast 22 U/L 13-39 Laboratory test finding 05/31/2017 Amylase 50 U/L 29-103 Lipase 145 U/L High 11.0-82.0 Creatine Kinase(CK) 154 U/L 10-223 HCG < 0.60 mIU/mL 3 Inr/Protime 05/31/2017 Inr 0.98 0.77-1.02 Laboratory test finding 05/31/2017 Lactic Acid 1.9 mmol/L 0.5-2.0 4 Urinalysis Profile 01/09/2017 Urine Color Yellow Urine Appearance Cloudy Urine Specific [place] 1.035 High 1.010-1.030 Urine pH 5 5-9 [...] And 01/09/2017 Urine Culture SEE RESULT BELOW 5 Sensitivities CBC Auto Diff 01/09/2017 White Blood [...] finding 01/09/2017 B-Type Natriuretic Peptide 55 pg/mL 6 BNP Comp Metabolic Panel 01/09/2017 Sodium 139 [...] Egfr Non- 63.9 >60 Egfr 82.1 >60 7 Laboratory test finding 01/09/2017 C Reactive Protein 25.08 mg/L High &lt ; 5.00 8 HCG < 0.60 mIU/mL 9 Laboratory test 09/26/2016 Fecal Lactoferrin SEE RESULT BELOW 10 finding (Stool WBC) Stool Occult Blood 09/26/2016 Stool Occult Blood, SEE RESULT BELOW 11 Diag Diag Laboratory test 09/26/2016 E.Coli 0157:H7 SEE RESULT BELOW 12 finding Rapid Influenza A 07/28/2016 Influenza A Molecular NEGATIVE Negative 13 & B Molecular Influenza B Molecular NEGATIVE Negative Urine Culture And 06/14/2016 Urine Culture SEE RESULT BELOW 14, 15 Sensitivities Basic Metabolic Panel 05/02/2016 Sodium 139 mmol/L 133-145 Potassium 3.8 mmol/L 3.5-5.0 Chloride 107 mmol/L 101-111 Co2 Carbon Dioxide 25 mmol/L 22-32 Anion Gap 7 mmol/L 2-11 Glucose 84 mg/dL 70-100 Blood Urea Nitrogen 16 mg/dL 6-24 Creatinine 1.03 mg/dL High 0.51-0.95 BUN/Creatinine Ratio 15.5 8-20 Calcium 10.6 mg/dL High 8.6-10.3 Egfr Non- 62.1 >60 Egfr 79.9 >60 16 Urinalysis Profile 04/27/2016 Urine Color Yellow Urine Appearance Cloudy Urine Specific [place] 1.014 1.010-1.030 Urine pH 8.0 5-9 Urine [...] And 04/27/2016 Urine Culture SEE RESULT BELOW 17 Sensitivities Basic Metabolic Panel 04/27/2016 Sodium 136 mmol/L 133-145 Potassium 4.2 mmol/L 3.5-5.0 Chloride 105 mmol/L 101-111 Co2 Carbon Dioxide 27 mmol/L 22-32 Anion Gap 4 mmol/L 2-11 Glucose 82 mg/dL 70-100 Blood Urea Nitrogen 11 mg/dL 6-24 Creatinine 1.07 mg/dL High 0.51-0.95 BUN/Creatinine Ratio 10.3 8-20 Calcium 8.7 mg/dL 8.6-10.3 Egfr Non- 59.4 >60 Egfr 76.4 >60 18 CBC Auto Diff 04/27/2016 White Blood Count [...] test finding 04/24/2016 (HCG) Urine Negative Negative 19 Urinalysis Profile 04/21/2016 Urine Color Yellow Urine Appearance Cloudy Urine Specific [place] 1.018 1.010-1.030 Urine pH 5.0 5-9 Urine [...] Egfr Non- 60.1 >60 Egfr 77.3 >60 20 Laboratory test finding 04/21/2016 Lipase 22 U/L 11.0-82.0 HCG < 0.60 mIU/mL 21 Urine Culture And 04/21/2016 Urine Culture SEE RESULT BELOW 22 Sensitivities Laboratory test 02/17/2016 Rapid Strep Negative Negative 23 finding Molecular Laboratory test 01/15/2016 MRSA Screen SEE RESULT BELOW 24 finding Laboratory test 01/11/2016 MRSA Screen SEE RESULT BELOW 25 finding Laboratory test 09/20/2015 TSH (Thyroid Stim 2.50 ?IU/mL 0.34-5.60 26 finding Horm) CBC Auto Diff 09/20/2015 White [...] 09/20/2015 HIV 1 2 Antibody Nonreactive Nonreactive 27 Comp Metabolic Panel 09/20/2015 Sodium 137 mmol/L [...] Egfr Non- 69.5 >60 Egfr 89.3 >60 28 Laboratory test finding 09/20/2015 Lyme Disease Serology Equivocal Negative 29 Lyme Western Blot 09/20/2015 Lyme Disease IgG Ab WB Negative Negative Lyme Disease IgG Bands Present p41, kDa Lyme Disease IgM Ab WB Negative Negative Lyme Disease IgM Bands Present No bands detecte <SEE NOTE> kDa 30 Lyme Disease Interpretation See Comment 31 Urine Culture And 08/26/2015 Urine Culture SEE RESULT BELOW 32 Sensitivities Laboratory test finding 06/12/2015 Rapid Influenza A B SEE RESULT BELOW 33 Antigen Rapid Influenza A & 06/12/2015 Influenza A NEGATIVE Negative 34 B Molecular Molecular Influenza B Molecular NEGATIVE Negative Rapid Influenza A & B 04/26/2015 Influenza A Molecular NEGATIVE Negative 35 Molecular Influenza B Molecular NEGATIVE Negative Laboratory test 04/26/2015 Influenza A & B SEE RESULT BELOW 36 finding Request Laboratory test 05/24/2014 TSH (Thyroid [...] Present No bands detecte <SEE NOTE> kDa 37 Lyme Disease Interpretation See Comment 38 Laboratory test finding 01/12/2014 Copper 1.38 g/mL 0.75-1.45 39 Ceruloplasmin 28.4 mg/dL 40 Laboratory test finding 12/11/2013 Saliva Cortisol <50 ng/dL <100 41 Cortisol Free 24HR Urine 12/11/2013 Urine Free Cortisol 43 mcg/24h 3.5- 45 Urine Collection Duration 24 h Urine Total Volume 2700 mL 42 Laboratory test finding 2013 Hemoglobin A1c 5.6 5-7 GC/Chlamydia Amplified Rna 11/09/2013 GC/Chlamydia Rna (SEE NOTE) 43 Comp Metabolic Panel 11/09/2013 Sodium 138 mmol/L [...] Egfr Non- 67.1 >60 Egfr 86.3 >60 44 Laboratory test finding 11/09/2013 TSH (Thyroid Stimulating 1.92 IU/mL 0.34-5.60 Horm) Free T4 0.87 ng/mL 0.61-1.12 Free T3 4.00 pg/mL High 2.5-3.9 Laboratory test finding 11/09/2013 Affirm Vaginal Dna Probe (SEE NOTE) 45 Surgical Pathology 07/15/2013 S RUN DATE: <SEE NOTE> Stool Culture 06/06/2013 Stool Culture (SEE NOTE) 47 Laboratory test finding 06/06/2013 Fecal Lactoferrin (Stool (SEE NOTE) 48 WBC) C. difficile Amplified Dna (SEE NOTE) 49 Laboratory test finding 06/06/2013 Stool Helicobacter pylori Ag TNP Negative 50 Stool Norovirus Ag NEGATIVE 51 Laboratory test finding 06/06/2013 Serum Negative Negative 52 CBC Auto Diff 06/06/2013 White Blood Count [...] Egfr Non- 64.1 >60 Egfr 82.4 >60 53 Laboratory test finding 06/06/2013 Lipase 16 U/L 11.0-82.0 C Reactive Protein 41.57 mg/L 54 Urinalysis 06/06/2013 Urine Color Yellow Urine Appearance Clear Urine Specific [place] 1.028 1.010-1.030 Urine Esterase Negative Negative Urine [...] Egfr Non- 65.6 >60 Egfr 84.3 >60 55 Laboratory test finding 05/24/2013 C Reactive Protein 4.0 mg/dL High Less than 0.5 Serum Negative Negative 56 CBC Auto Diff 05/24/2013 White Blood Count [...] Color Yellow Urine Appearance Clear Urine Specific [place] 1.029 1.010-1.030 Urine Esterase Negative Negative Urine [...] Laboratory test finding 05/06/2013 Serum Negative Negative 57 Comp Metabolic Panel 05/06/2013 Sodium 141 mmol/L [...] Egfr Non- 74.0 >60 Egfr 95.2 >60 58 Laboratory test finding 05/06/2013 Alcohol 267.5 mg/dL High Less Than 10 59 Urinalysis 01/31/2013 Urine Color Yellow Urine Appearance Clear Urine Specific [place] 1.022 1.010-1.030 Urine Esterase 1+ Negative Urine [...] Culture And 01/31/2013 Urine Culture (SEE NOTE) 60 Sensitivities CBC Auto Diff 01/31/2013 White Blood [...] Egfr Non- 98.9 >60 Egfr 127.2 >60 61 Laboratory test finding 01/31/2013 Amylase 41 U/L 20-120 Lipase 21 U/L Low 22-51 C Reactive Protein 2.1 mg/dL High Less than 0.5 Hepatitis Acute Panel 01/31/2013 Hepatitis B Surface Nonreactive Nonreactive Antigen Hepatitis B Core IgM Nonreactive Nonreactive Hepatitis A AB IgM Nonreactive Nonreactive Hepatitis C Antibody Nonreactive Nonreactive Urinalysis 01/08/2013 Urine Color Yellow Urine Appearance Cloudy Urine Specific [place] 1.024 1.010-1.030 Urine Esterase 2+ Negative Urine Nitrate Negative Negative Urine Urobilinogen Negative E.U./dL Negative Urine Protein Negative mg/dL Negative Urine pH 5.5 5-9 Urine Blood Negative Negative Urine Ketones Negative mg/dL Negative Urine Bilirubin Negative Negative Urine Glucose Negative mg/dL Negative Comp Metabolic Panel 01/08/2013 Sodium 139 mmol/L [...] Egfr Non- 74.0 >60 Egfr 95.2 >60 62 Urine Microscopic 01/08/2013 Urine WBC 2+ (>10-30 /hpf) None Seen 63 Urine RBC 1+ (<3 /hpf) None Seen Urine Mucus Present /lpf Absent Urine Epithelial Cells 2+ Squamous /hpf None Seen Bacteria Urine 1+ None Seen Crystals Urine Calcium Oxalate /lpf None Seen Urine Culture And Sensitivities 01/08/2013 Urine Culture (SEE NOTE) 64 Laboratory test finding 01/08/2013 Lipase 21 U/L Low 22-51 C Reactive Protein 2.2 mg/dL High Less than 0.5 CBC Auto Diff 01/08/2013 White Blood Count [...] 0-2 Nucleated Red Blood Cells % 0 CBC Auto Diff 01/06/2013 White Blood Count [...] Egfr Non- 84.8 >60 Egfr 109.1 >60 65 CBC Auto Diff 08/26/2012 White Blood Count [...] B Type Natriuretic Peptide 28.0 pg/mL 0-100 Urinalysis W/Microscopic 07/28/2012 Urine Color Yellow Urine Appearance Clear Urine Specific [place] 1.007 Low 1.010-1.030 Urine Esterase 1+ Negative [...] 5.7 5-7 Ua Routine 07/28/2012 Ua Specific [place] 1.005 Ua PH 5 Ua Color yellow Ua Appera clear Ua WBC negative Ua Protein negative Ua Glucose negative Ua Ketones negative Ua Bilirubin negative Ua Urobilinogen negative Ua Nitrite negative Ua Occult Blood negative Urine Culture And Sensitivities 07/28/2012 Urine Culture (SEE NOTE) 66 Comp Metabolic Panel 07/15/2012 Sodium 140 mmol/L [...] Egfr Non- 74.6 >60 Egfr 95.9 >60 67 Laboratory test finding 07/15/2012 Free T4 0.86 ng/mL 0.61-1.24 68 Free T3 3.68 pg/mL 2.39-6.79 69 TSH (Thyroid Stimulating Horm) 1.69 miu/mL 0.34-5.60 70 CBC Auto Diff 07/15/2012 White Blood Count [...] Blood Cells % 0.1 Laboratory test finding 01/30/2012 Throat Beta Strep Culture (SEE NOTE) 71 Laboratory test finding 01/29/2012 Vitamin B12 258 pg/mL 180-914 Laboratory test finding 01/29/2012 B Type Natriuretic 8.0 pg/mL 0-100 Peptide TSH (Thyroid Stimulating Horm) 2.74 MIU/ML 0.34-5.60 Free T3 3.73 pg/mL 2.39-6.79 Free T4 0.86 NG/ML 0.61-1.24 CBC Auto Diff 01/29/2012 White Blood Count [...] 1.1 1-3 Total Bilirubin 0.7 mg/dL 0.1-1.0 72 Alkaline Phosphatase 85 U/L 30-110 Alt 22 U/L 14-54 Ast 27 U/L 12-42 Egfr Non- 74.6 >60 Egfr 95.9 >60 73 Comp Metabolic Panel 11/11/2011 Sodium 137 mmol/L 135-145 Potassium 4.6 mmol/L 3.5-5.0 Chloride 109 mmol/L 101-111 Co2 (Carbon Dioxide) 23.0 mmol/L 22-32 Anion Gap 5.0 mmol/L 2-11 74 Glucose 86 mg/dL 70-100 BUN 9 mg/dL 6-24 Creatinine 0.8 mg/dL 0.50-1.40 One Over Creatinine 1.25 BUN/Creatinine Ratio 11.3 8-20 Calcium 8.4 mg/dL 8.1-9.9 Total Protein 5.6 GM/DL Low 6.2-8.1 Albumin 3.2 GM/DL Low 3.6-5.4 Globulin 2.4 GM/DL 2-4 Albumin/Globulin Ratio 1.3 1-3 Bilirubin Total 1.2 mg/dL 0.4-1.5 75 Alkaline Phosphatase 82 U/L 30-110 Alt (SGPT) 22 U/L 14-54 Ast (Sgot) 40 U/L 12-42 eGFR Non- 86.0 > 60 eGFR 110.7 > 60 76 Laboratory test finding 11/11/2011 TSH 3.12 MIU/ML 0.34-5.60 Lipid Profile (Trig/Chol/HDL) 11/11/2011 Triglyceride 132 mg/dL 40-200 Cholesterol 172 mg/dL Less Than 200 77 High Density Lipoprotein 56 mg/dL 40-60 78 Cholesterol/HDL Ratio 3.07 AVERAGE 1-4.44 Low Density Lipoprotein 90 mg/dL Less Than 100 79 Laboratory test 07/29/2011 Throat Culture <SEE 80 finding Full NOTE> 1 SEE RESULT BELOW Name: BARBARA AHMADI : [address]: Henrietta Grace MD Acct: [id number] Unit: [id number] AGE: 31 Location: ED Re05/31/17 SEX: F Status: DEP ER SPEC: [id number] NADIR: 05/31/[address]: Henrietta Grace MD REQ: [id number] RECD: 05/31/17 STATUS: NEFTALY NGUYEN DR: Sarahi Henderson MD _ SOURCE: URINE SPDESC: ORDERED: Urine Culture Procedure Result Reported Site Urine Culture Final 06/01/17- 0958 ML No growth of clinically significant organisms * ML - MAIN LAB ([facility]) . END OF REPORT * ML=Testing performed at Main Lab DEPARTMENT OF PATHOLOGY, [address] [place] [address] Thomas Christensen M.D. Director [facility] # [id number] 2 Because ethnic data is not always readily [...] 15-29 5 Kidney failure <15 (or dialysis) 3 <5.0 Negative 5.0 - 25.0 Indeterminate (Repeat testing recommended after 72 hours) >25.0 Positive Perimenopausal women can display HCG levels of up to 20 mIU/mL 4 [facility] Severe Sepsis and Septic Shock Management Bundle Measure requires all lactic acids initially measuring >2.0 mmol/L be repeated. 5 SEE RESULT BELOW Name: BARBARA AHMADI : [address]: Jan Fuller MD Acct: [id number] Unit: [id number] AGE: 31 Location: ED Re01/09/17 SEX: F Status: DEP ER SPEC: [id number] NADIR: 01/09/17-[address]: Jan Fuller MD REQ: [id number] RECD: 01/09/17 STATUS: NEFTALY NGUYEN DR: Sarahi Henderson MD _ SOURCE: URINE SPDESC: ORDERED: Urine Culture QUERIES: Urine Source: Random Procedure Result Reported Site Urine Culture Final 01/11/17837 ML Organism 1 ENTEROCOCCUS FAECALIS [place] Count 10-25,000 (Moderate) CFU/ML 1. ENTEROCOCCUS FAECALIS [...] These antibiotics are not available in the [facility] Formulary Contact the Microbiology Department for any additional antibiotic reporting. * ML - MAIN LAB ([facility]) . END OF REPORT * ML=Testing performed at Main Lab DEPARTMENT OF PATHOLOGY, [address] [place] [address] Thomas Christensen M.D. Director [facility] # [id number] 6 >100 to <200 pg/mL: likely compensated congestive heart failure (CHF) 200 to 400 pg/mL: likely moderate CHF >400 pg/mL: likely moderate to severe CHF 7 Because ethnic data is not always readily [...] 15-29 5 Kidney failure <15 (or dialysis) 8 Acute inflammation: >10.00 9 <5.0 Negative 5.0 - 25.0 Indeterminate (Repeat testing recommended after 72 hours) >25.0 Positive Perimenopausal women can display HCG levels of up to 20 mIU/mL 10 SEE RESULT BELOW Name: BARBARA AHMADI : [address]: Sarahi Henderson MD Acct: [id number] Unit: [id number] AGE: 30 Location: [facility] Re09/26/16 SEX: F Status: REG REF SPEC: [id number] NADIR: 09/26/16-[address] [facility] [address]: Sarahi Henderson MD REQ: [id number] RECD: 09/26/16 STATUS: RES _ SOURCE: STOOL [...] performed at Main Lab DEPARTMENT OF PATHOLOGY, [address] [place] [address] Thomas Christensen M.D. Director [facility] # [id number] Patient: BARBARA AHMADI [id number] (Continued) Specimen: [id number] Collected: 09/26/16-1414 Received: 09/26/16-1699 (Continued) Procedure Result Reported Site Rotavirus Antigen Stool PENDING * ML - MAIN LAB ([facility]) . END OF REPORT * ML=Testing performed at Main Lab DEPARTMENT OF PATHOLOGY, [address] [place] [address] Thomas Christensen M.D. Director [facility] # [id number] 11 SEE RESULT BELOW Name: BARBARA AHMADI : [address]: Sarahi Henderson MD Acct: [id number] Unit: [id number] AGE: 30 Location: [facility] Re09/26/16 SEX: F Status: REG REF SPEC: [id number] NADIR: 09/26/16-[address]: Sarahi Henderson MD REQ: [id number] RECD: 09/26/16 STATUS: RES _ SOURCE: STOOL [...] performed at Main Lab DEPARTMENT OF PATHOLOGY, [address] [place] [address] Thomas Christensen M.D. Director [facility] # [id number] Patient: BARBARA AHMADI [id number] (Continued) Specimen: [id number] Collected: 09/26/16-1414 Received: 09/26/16-1699 (Continued) Procedure Result Reported Site Fecal Lactoferrin (Stool WBC) Final (continued) 09/26/16- 2022 with this assay. Stool Occult Blood (1) Final 09/26/16- 2042 ML Stool Occult Blood Negative Collection Date (1) 09/26/16 Rotavirus Antigen Stool Final 09/27/16- 1051 ML Organism 1 Negative Rotavirus Antigen testing by enzyme immunoassay * ML - MAIN LAB ([facility]) . END OF REPORT * ML=Testing performed at Main Lab DEPARTMENT OF PATHOLOGY, [address] [place] [address] Thomas Christensen M.D. Director [facility] # [id number] 12 SEE RESULT BELOW Name: BARBARA AHMADI : [address]: Sarahi Henderson MD Acct: [id number] Unit: [id number] AGE: 30 Location: [facility] Re09/26/16 SEX: F Status: REG REF SPEC: [id number] NADIR: 09/26/16-[address] [facility] [address]: Sarahi Henderson MD REQ: [id number] RECD: 09/26/16 STATUS: COMP _ SOURCE: STOOL SPDESC: ORDERED: E.coli O157:H7, Occult Bl, Diag C. diff PCR, Stool Culture, Fecal Lacto [...] performed at Main Lab DEPARTMENT OF PATHOLOGY, [address] [place] [address] Thomas Christensen M.D. Director [facility] # [id number] Patient: BARBARA AHMADI [id number] (Continued) Specimen: [id number] Collected: 09/26/16-1414 Received: 09/26/16-1699 (Continued) Procedure Result Reported Site Shiga Toxin 1 2 Final (continued) 09/27/16- 1036 Immunochromatographic Assay C. difficile PCR Final 09/26/16- [...] enzyme immunoassay * ML - MAIN LAB ([facility]) . END OF REPORT * ML=Testing performed at Main Lab DEPARTMENT OF PATHOLOGY, [address] [place] [address] Thomas Christensen M.D. Director [facility] # [id number] 13 Lining Marker: [id number] 15 SEE RESULT BELOW Name: BARBARA AHMADI : [address]: Sheila Lawler MD Acct: [id number] Unit: [id number] AGE: 30 [facility] Re06/14/16 SEX: F Status: DEP ER SPEC: [id number] NADIR: 06/14/[address]: Sheila Lawler MD REQ: [id number] RECD: 06/14/16 STATUS: NEFTALY NGUYEN DR: Sarahi Henderson MD _ SOURCE: URINE SPDESC: ORDERED: Urine Culture COMMENTS: [id number] Procedure Result Reported Site Urine Culture Final 06/15/16- 0944 ML No Growth (<1,000 CFU/mL) * ML - MAIN LAB ([facility]) . END OF REPORT * ML=Testing performed at Main Lab DEPARTMENT OF PATHOLOGY, [address] [place] [address] Thomas Christensen M.D. Director [facility] # [id number] 16 Because ethnic data is not always [...] 5 Kidney failure <15 (or dialysis) 17 SEE RESULT BELOW Name: BARBARA AHMADI : [address]: Yoan Avila MD Acct: [id number] Unit: [id number] AGE: 30 Location: ED Re04/27/16 SEX: F Status: DEP ER SPEC: [id number] NADIR: 04/27/[address] [facility] [address]: Yoan Avila MD REQ: [id number] RECD: 04/27/16 STATUS: NEFTALY NGUYEN DR: [facility] Sarahi Henderson MD _ SOURCE: URINE SPDESC: ORDERED: Urine Culture Procedure Result Reported Site Urine Culture Final 04/28/16928 ML No Growth (<1,000 CFU/mL) * ML - MAIN LAB ([facility]) . END OF REPORT * ML=Testing performed at Main Lab DEPARTMENT OF PATHOLOGY, [address] [place] [address] Thomas Christensen M.D. Director [facility] # [id number] 18 Because ethnic data is not always readily [...] 15-29 5 Kidney failure <15 (or dialysis) 19 If is still suspected, please repeat test after 48 to 72 hours. This test detects intact HCG only and is indicated for the early detection of . 20 Because ethnic data is not always readily [...] 15-29 5 Kidney failure <15 (or dialysis) 21 <5.0 Negative 5.0 - 25.0 Indeterminate (Repeat testing recommended after 72 hours) >25.0 Positive Perimenopausal women can display HCG levels of up to 20 mIU/mL 22 SEE RESULT BELOW Name: BARBARA AHMADI : [address]: Derrick Beach MD Acct: [id number] Unit: [id number] AGE: 30 Location: ED Re04/21/16 SEX: F Status: DEP ER SPEC: [id number] NADIR: 04/21/[address]: Derrick Beach MD REQ: [id number] RECD: 04/21/16 STATUS: NEFTALY NGUYEN DR: Sarahi Henderson MD _ SOURCE: URINE SPDESC: ORDERED: Urine Culture Procedure Result Reported Site Urine Culture Final 04/23/16- 0820 ML No growth of clinically significant organisms * ML - MAIN LAB ([facility]) . END OF REPORT * ML=Testing performed at Main Lab DEPARTMENT OF PATHOLOGY, [address] [place] [address] Thomas Christensen M.D. Director [facility] # [id number] 23 Lining Marker: [id number] MELINA Copeland 24 SEE RESULT BELOW Name: WILFRIDO AHMADIDia Child : [address]: Yoan ORNELAS Acct: [id number] Unit: [id number] AGE: 30 Location: [facility] Re01/15/16 SEX: F Status: REG REF SPEC: [id number] NADIR: 01/15/16-[address]: Yoan ORNELAS REQ: [id number] RECD: 01/15/16-2030 STATUS: NEFTALY NGUYEN DR: Sarahi Henderson MD _ SOURCE: NASAL SPDESC: ORDERED: MRSA PCR-Nasal Procedure Result Reported Site MRSA PCR (Nasal) Final 01/16/16- 150 ML Organism 1 MRSA NEGATIVE * ML - MAIN LAB ([facility]) . END OF REPORT * ML=Testing performed at Main Lab DEPARTMENT OF PATHOLOGY, [address] [place] [address] Thomas Christensen M.D. Director [facility] # [id number] 25 SEE RESULT BELOW Name: BARBARA AHMADI Mateusz : [address]: Yoan ORNELAS Acct: [id number] Unit: [id number] AGE: 30 Location: [facility] Re01/11/16 SEX: F Status: REG REF SPEC: [id number] NADIR: 01/11/16-[address] [facility] [address]: Yoan ORNELAS REQ: [id number] RECD: 01/15/16 STATUS: NEFTALY NGUYEN DR: Sarahi Henderson MD _ SOURCE: NASAL SPDESC: ORDERED: MRSA PCR-Nasal Procedure Result Reported Site MRSA PCR (Nasal) Final 01/16/16- 0151 ML Organism 1 MRSA NEGATIVE * ML - MAIN LAB ([facility]) . END OF REPORT * ML=Testing performed at Main Lab DEPARTMENT OF PATHOLOGY, [address] [place] [address] Thomas Christensen M.D. Director [facility] # [id number] 26 FASTING 10 HOUR 27 It is recognized that currently available assays [...] 95% confidence interval of 99.78 to 99.96%. 28 Because ethnic data is not always readily [...] 15-29 5 Kidney failure <15 (or dialysis) 29 Not diagnostic. Supplemental testing ordered by reflex. Test Performed by: [place] [address] Puller Out: Santhosh Rowland II, M.D., Ph.D. 30 No bands detected 31 Specific serologic response to B. burgdorferi infection [...] screening test (e.g., EIA). Test Performed by: [place] [address] Puller Out: Santhosh Rowland II, M.D., Ph.D. 32 SEE RESULT BELOW Name: BARBARA AHMADI : [address]: Sheila Lawler MD Acct: [id number] Unit: [id number] AGE: 29 [facility] Re08/26/15 SEX: F Status: DEP ER SPEC: [id number] NADIR: 08/26/[address] [facility] [address]: Sheila Lawler MD REQ: [id number] RECD: 08/27/151668 STATUS: NEFTALY NGUYEN DR: [facility] Sarahi Henderson MD _ SOURCE: URINE SPDESC: ORDERED: Urine Culture Procedure Result Reported Site Urine Culture Final 08/29/15- 831 ML Organism 1 ESCHERICHIA COLI [place] Count 75-100,000 (Many) CFU/ML 1. ESCHERICHIA COLI [...] antibiotic reporting. * ML - MAIN LAB ([facility]) . END OF REPORT * ML=Testing performed at Main Lab DEPARTMENT OF PATHOLOGY, [address] [place] [address] Thomas Christensen M.D. Director [facility] # [id number] 33 SEE RESULT BELOW Name: BARBARA AHMADI : [address]: Erik Karimi MD Acct: [id number] Unit: [id number] AGE: 29 Location: ED Re06/11/15 SEX: F Status: REG ER SPEC: [id number] NADIR: 06/12/[address] [facility] [address]: Erik Karimi MD REQ: [id number] RECD: 06/12/15 STATUS: NEFTALY NGUYEN DR: Sarahi Henderson MD _ SOURCE: NASAL SPDESC: ORDERED: Flu A B Request Procedure Result Reported Site Rapid Influenza A B Request Final 06/12/15- 0057 ML Specimen received for Influenza A/B Molecular testing * ML - MAIN LAB ([facility]) . END OF REPORT * ML=Testing performed at Main Lab DEPARTMENT OF PATHOLOGY, [address] [place] [address] Thomas Christensen M.D. Director [facility] # [id number] 34 Lining Marker: [id number] SHAW PERALES 35 Lining Marker: [id number] MARIS VAZQUEZ 36 SEE RESULT BELOW Name: BARBARA AHMADI : [address]: Tone Edmond MD Acct: [id number] Unit: [id number] AGE: 29 Location: [facility] Re04/26/15 SEX: F Status: REG REF SPEC: [id number] NADIR: 04/26/[address] [facility] [address]: Tone Edmond MD REQ: [id number] RECD: 04/26/15 STATUS: COMP _ SOURCE: [facility]: ORDERED: Flu A B Request Procedure Result Reported Site Rapid Influenza A B Request Final 04/26/152044 ML Specimen received for Influenza A/B Molecular testing * ML - MAIN LAB ([facility]) . END OF REPORT * ML=Testing performed at Main Lab DEPARTMENT OF PATHOLOGY, [address] [place] [address] Thomas Christensen M.D. Director [facility] # [id number] 37 No bands detected 38 Specific serologic response to B. burgdorferi infection [...] screening test (e.g., EIA). Test Performed by: [place] [address] Puller Out: Van Rubin M.D. 39 Test Performed by: [place] [address] Puller Out: Boy Nogueira III, M.D. 40 -- REFERENCE VALUE -- 16.0 - 45.0 Test Performed by: [place] [address] Puller Out: Boy Nogueira III, M.D. 41 Test Performed by: [place] [address] Puller Out: Boy Nogueira III, M.D. 42 Test Performed by: [place] [address] Puller Out: Boy Nogueira III, M.D. 43 RUN DATE: 11/13/13 [facility] LAB LIVE PAGE 1 RUN TIME: [address] [place] [address] Specimen Inquiry Name: BARBARA AHMADI : [address]: Sarahi Henderson MD Acct: [id number] Unit: [id number] AGE: 27 Location: [facility] Re11/09/13 SEX: F Status: REG REF SPEC: [id number] NADIR: 11/09/[address]: Sarahi Henderson MD REQ: [id number] RECD: 11/09/13 STATUS: COMP _ SOURCE: URINE SPDESC: ORDERED: GC/Chlam RNA QUERIES: Medent Number [id number] Procedure Result Verified Site Chlamydia Trachomatis RNA [...] result may have adverse psychosocial impact, the [facility] recommends retesting by a method using an [...] performed at Main Lab DEPARTMENT OF PATHOLOGY, [facility] [place] [address] Thomas Christensen M.D. Director [facility] # [id number] RUN DATE: 11/13/13 [facility] LAB LIVE PAGE 2 RUN TIME: [address] [place] [address] Specimen Inquiry Patient: BARBARA AHMADI [id number] (Continued) Specimen: [id number] Collected: 11/09/13 Received: 11/09/13 (Continued) Procedure Result [...] performed at Main Lab DEPARTMENT OF PATHOLOGY, [address] [place] [address] Thomas Christensen M.D. Director [facility] # [id number] 44 Because ethnic data is not always readily [...] 15-29 5 Kidney failure <15 (or dialysis) 45 RUN DATE: 11/10/13 [facility] LAB LIVE PAGE 1 RUN TIME: [address] [place] [address] Specimen Inquiry Name: BARBARA AHMADI : [address]: Sarahi Henderson MD Acct: [id number] Unit: [id number] AGE: 27 Location: [facility] Re11/09/13 SEX: F Status: REG REF SPEC: [id number] NADIR: 11/09/13-[address] [facility] [address]: Sarahi Henderson MD REQ: [id number] RECD: 11/09/13 STATUS: COMP _ SOURCE: [facility]: ORDERED: Affirm QUERIES: Medent Number [id number] Procedure Result Verified Site Affirm Vaginal DNA [...] performed at Main Lab DEPARTMENT OF PATHOLOGY, [address] [place] [address] Thomas Christensen M.D. Director [facility] # [id number] RUN DATE: 07/19/13 [facility] LAB LIVE PAGE 1 RUN TIME: [address] [place] [address] Specimen Inquiry Name: BARBARA AHMADI : [address]: Edson Dodge MD Acct: [id number] Unit: [id number] AGE: 27 Location: ENDO Re07/15/13 SEX: F Status: REG REF SPEC: [id number] NADIR: 07/15/13- SUBM DR: Edson Dodge MD REQ: [id number] RECD: 07/15/13 STATUS: MARLY NGUYEN DR: Sarahi Henderson MD _ ORDERED: H PYLORI [facility], LEVEL IV/2 An H. pylori immunostain, with [...] performed at Main Lab DEPARTMENT OF PATHOLOGY, [facility] [place], [place] [address] Thomas Christensen M.D. Director [facility] Permit #[id number] RUN DATE: 07/19/13 [facility] LAB LIVE PAGE 2 RUN TIME: 1135 [facility] [address] [place], [place] [address] Specimen Inquiry Patient: BARBARA AHMADI [id number] (Continued) POST-OPERATIVE DIAGNOSIS (Continued) POST-OPERATIVE DIAGNOSIS Esophagus - normal, stomach - normal, biopsied; duodenum - normal, biopsied GROSS DESCRIPTION 1. The specimen is received in formalin labeled Guera Kirk Duodenum, and consists of a 0.5 x 0.3 x 0.2 cm. gorman-pink, irregular soft tissue fragments. Submitted entirely, one cassette. 2. The specimen is received in formalin labeled Guera Garcia Gastric Antrum, and consists of a 0.5 x 0.3 x 0.2 cm. gorman, irregular soft tissue fragment. Submitted entirely, one cassette. Signed (signature on file) Sara Talamantes MD 1617 END OF REPORT * ML=Testing performed at Main Lab DEPARTMENT OF PATHOLOGY, [facility] [place] [address] Thomas Christensen M.D. Director [facility] Permit #[id number] RUN DATE: 06/08/13 [facility] LAB LIVE PAGE 1 RUN TIME: [address] [place] [address] Specimen Inquiry Name: BARBARA AHMADI : [address]: Laure Goel MD Acct: [id number] Unit: [id number] AGE: 27 Location: ED Re06/06/13 SEX: F Status: DEP ER SPEC: [id number] NADIR: 06/06/13-[address] [facility] [address]: Laure Goel MD REQ: [id number] RECD: 06/06/13-1432 STATUS: COMP [facility] DR: Sarahi Henderson MD _ SOURCE: STOOL [facility]: ORDERED: Stool Culture, Fecal Lactoferr, C. diff [...] performed at Main Lab DEPARTMENT OF PATHOLOGY, [address], [place], [place] [address] Thomas Christensen M.D. Director [facility] Permit #[id number] RUN DATE: 06/08/13 [facility] LAB LIVE PAGE 2 RUN TIME: [address] [place] [address] Specimen Inquiry Patient: BARBARA AHMADI [id number] (Continued) Specimen: [id number] Collected: 06/06/13 Received: 06/06/13-143 (Continued) Procedure Result [...] performed at Main Lab DEPARTMENT OF PATHOLOGY, [facility] [place], [place] [address] Thomas Christensen M.D. Director [facility] Permit #[id number] RUN DATE: 06/07/13 [facility] LAB LIVE PAGE 1 RUN TIME: 1897 [facility] [address] [place], [place] [address] Specimen Inquiry Name: BARBARA AHMADI : [address]: Laure Goel MD Acct: [id number] Unit: [id number] AGE: 27 Location: ED Re06/06/13 SEX: F Status: DEP ER SPEC: [id number] NADIR: 06/06/13-[address]: Laure Goel MD REQ: [id number] RECD: 06/06/13-1432 STATUS: RES OTHR DR: Sarahi Henderson MD _ SOURCE: STOOL SPDESC: ORDERED: Stool Culture, Fecal Lactoferr, C. diff Amp DNA COMMENTS: Unable to perform Shiga Toxin testing. Specimen collection requirements were not met. Stool for Shiga Toxin testing must be received by the laboratory within 2 hours of collection or placed in [place] transport medium. Verbal to ED by NISH [...] performed at Main Lab DEPARTMENT OF PATHOLOGY, [facility] [place] [address] Thomas Christensen M.D. Director [facility] Permit #[id number] RUN DATE: 06/07/13 [facility] LAB LIVE PAGE 2 RUN TIME: 0608 [facility] [address] [place], [place] [address] Specimen Inquiry Patient: BARBARA AHMADI [id number] (Continued) Specimen: [id number] Collected: 06/06/13-1109 Received: 06/06/13-1431 (Continued) Procedure Result Verified Site Fecal Lactoferrin (Stool WBC) Final (continued) 06/07/13- 2860 with this assay. END OF REPORT * ML=Testing performed at Main Lab DEPARTMENT OF PATHOLOGY, [facility] [place], [place] [address] Thomas Christensen M.D. Director [facility] Permit #[id number] RUN DATE: 06/07/13 [facility] LAB LIVE PAGE 1 RUN TIME: 2365 [facility] [address] [place], [place] [address] Specimen Inquiry Name: BARBARA AHMADI : [address]: Laure Goel MD Acct: [id number] Unit: [id number] AGE: 27 Location: ED Re06/06/13 SEX: F Status: DEP ER SPEC: [id number] NADIR: 06/06/13-[address]: Laure Goel MD REQ: [id number] RECD: 06/06/13-143 STATUS: RES OTHR DR: Sarahi Henderson MD _ SOURCE: STOOL SPDESC: ORDERED: Stool Culture, Fecal Lactoferr, C. diff Amp DNA COMMENTS: Unable to perform Shiga Toxin testing. Specimen collection requirements were not met. Stool for Shiga Toxin testing must be received by the laboratory within 2 hours of collection or placed in [place] transport medium. Verbal to ED by NISH [...] performed at Main Lab DEPARTMENT OF PATHOLOGY, [facility] [place] [address] Thomas Christensen M.D. Director [facility] Permit #[id number] RUN DATE: 06/07/13 [facility] LAB LIVE PAGE 2 RUN TIME: 1410 [facility] [address] [place], [place] [address] Specimen Inquiry Patient: AHMADIBARBARA Child [id number] (Continued) Specimen: [id number] Collected: 06/06/13 Received: 06/06/13-1431 (Continued) Procedure Result Verified Site [...] performed at Main Lab DEPARTMENT OF PATHOLOGY, [address] [place] [address] Thomas Christensen M.D. Director [facility] Permit #[id number] 50 Helicobacter pylori Ag, F was cancelled on 06/14/2013 at 07:15; Strict frozen sample required, unable to aliquot. Test Performed by: [address] [address] Puller Out: Boy Nogueira III, M.D. 51 A negative result does not exclude norovirus infection. Test Performed by: [employer], [employer] [address] [place] [phone] 52 This test detects intact HCG only and is indicated for the early detection of . 53 Because ethnic data is not always readily [...] 15-29 5 Kidney failure <15 (or dialysis) 54 Low risk: <1.0 mg/L Average risk: 1.0-3.0 mg/L High risk: >3.0 mg/L Acute inflammation: >10.0 mg/L 55 Because ethnic data is not always readily [...] 15-29 5 Kidney failure <15 (or dialysis) 56 This test detects intact HCG only and is indicated for the early detection of . 57 This test detects intact HCG only and is indicated for the early detection of . 58 Because ethnic data is not always readily [...] 15-29 5 Kidney failure <15 (or dialysis) 59 The detection limit for Ethanol is 10.0 mg/dl . Values less than 10.0 mg/dl cannot be accurately measured. 60 RUN DATE: 02/02/13 [facility] LAB LIVE PAGE 1 RUN TIME: [address] [place] [address] Specimen Inquiry Name: BARBARA AHMADI : [address]: Keshav Narvaez MD Acct: [id number] Unit: [id number] AGE: 27 Location: ED Re01/31/13 SEX: F Status: DEP ER SPEC: [id number] NADIR: 01/31/[address] [facility] [address]: Francisco Taragno MD REQ: [id number] RECD: 01/31/13 STATUS: NEFTALY NGUYEN DR: Sarahi Henderson MD _ SOURCE: URINE SPDESC: ORDERED: Urine Culture Procedure Result Verified Site Urine Culture Final 02/02/13920 ML Organism 1 NORMAL VERONA [place] Count 75-100,000 (Many) CFU/ML END OF REPORT * ML=Testing performed at Main Lab DEPARTMENT OF PATHOLOGY, [address] [place] [address] Thomas Christensen M.D. Director [facility] Permit #[id number] 61 Because ethnic data is not always [...] 5 Kidney failure <15 (or dialysis) 62 Because ethnic data is not always readily [...] 15-29 5 Kidney failure <15 (or dialysis) 63 2+ (>10-30 /hpf) 64 RUN DATE: 01/10/13 [facility] LAB LIVE PAGE 1 RUN TIME: [address] [place] [address] Specimen Inquiry Name: BARBARA AHMADI : [address]: Francisco Valenzuela MD Acct: [id number] Unit: [id number] AGE: 27 Location: ED Re01/08/13 SEX: F Status: DEP ER SPEC: [id number] NADIR: 01/08/[address]: Francisco Valenzuela MD REQ: [id number] RECD: 01/08/13 STATUS: NEFTALY NGUYEN DR: Sarahi Henderson MD _ SOURCE: URINE SPDESC: ORDERED: Urine Culture Procedure Result Verified Site Urine Culture Final 01/10/13- 0844 ML Organism 1 NORMAL VERONA [place] Count >100,000 (Many) CFU/ML END OF REPORT * ML=Testing performed at Main Lab DEPARTMENT OF PATHOLOGY, [facility] [place], [place] [address] Thomsa Christensen M.D. Director [facility] Permit #[id number] 65 Because ethnic data is not always readily [...] 15-29 5 Kidney failure <15 (or dialysis) 66 RUN DATE: 07/31/12 [facility] LAB LIVE PAGE 1 RUN TIME: [address] [place] [address] Specimen Inquiry Name: BARBARA AHMADI : [address]: Sarahi Henderson MD Acct: [id number] Unit: [id number] AGE: 26 Location: [facility] Re07/28/12 SEX: F Status: REG REF SPEC: [id number] NADIR: 07/28/12-[address] [facility] [address]: Sarahi Henderson MD REQ: [id number] RECD: 07/28/12 STATUS: COMP _ SOURCE: URINE SPDESC: ORDERED: Urine Culture QUERIES: Medent Number [id number] Procedure Result Verified Site Urine Culture Final 07/31/12- 0901 ML Organism 1 STREP GROUP B [place] Count >100,000 (Many) CFU/ML Organism 2 ESCHERICHIA COLI [place] Count 10-25,000 (Moderate) CFU/ML Susceptibility testing of penicillins and other B-lactams approved by FDA for treatment of Streptococcus pyogenes (Group A Strep) and Streptococcus agalactiae (Group B Strep) is not necessary for clinical purposes and need not be done routinely, since as with vancomycin, resistant strains have not been recognized. (CLSI Z797-A47;p.66) Positive isolates will be saved for one [...] performed at Main Lab DEPARTMENT OF PATHOLOGY, [facility] [place], [place] [address] Thomas Christensen M.D. Director [facility] Permit #[id number] RUN DATE: 07/31/12 [facility] LAB LIVE PAGE 2 RUN TIME: [address] [place] [address] Specimen Inquiry Patient: BARBARA AHMADI [id number] (Continued) Specimen: [id number] Collected: 07/28/12-1454 Received: 07/28/12 (Continued) Procedure Result Verified Site Urine Culture Final (continued) 07/31/12- 900 2. ESCHERICHIA COLI (continued) M.I.C. RX --------- ------ Tetracycline <=1 S Pipercillin/Tazobactam <=4 S Trimethoprim/Sulfamethoxazole <=20 S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
[2017-07-09] MEDS ORDERED: Bacitracin OINTMENT* 0.5% 0.5 oz TUBE ONE (01:29)
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
[2017-07-09 02:02] VITALS: BP 130/66
--- NOTE | 2017-07-09 07:25 | RAD ---
INDICATION: Right hand injury, foreign body. TECHNIQUE: 4 views of the right hand were obtained. FINDINGS: The bones are in normal alignment. No fracture is seen. No radiopaque foreign body is seen. IMPRESSION: NO RADIOPAQUE FOREIGN BODY IS SEEN.
--- NOTE | 2017-07-09 07:26 | RAD ---
INDICATION: Foreign body. TECHNIQUE: 2 views of the right forearm were obtained. FINDINGS: The bones are in normal alignment. No fracture is seen. No radiopaque foreign body is seen. IMPRESSION: NO RADIOPAQUE FOREIGN BODY IS SEEN.
== END 2017-07-09 01:40 | disposition home or self-care (01) ==
LOC: ED 20:34
DX: M79.5 Residual foreign body in soft tissue (principal)
CPT/HCPCS: 99281; A9270-GY

== ENCOUNTER → 2017-10-15 19:10 | Emergency (ER) | payer OTHER ==
[~2017-10-15 19:10] MED LIST changes: -HYDROcodone/ACETAMIN 5-325 MG* 1 TAB PO ONE; +Ondansetron ODT TAB* 4 MG ONE; +Ondansetron ODT TAB* 4 MG SL ONE; +traMADol TAB* 50 MG PO ONE
--- OUTSIDE RECORDS SUMMARY | 2017-10-15 19:36 | XMS REPORT ---
:1985 External Reference #:[id number] Author Organization [facility] 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 Active asthma Onset: 01/19/2016 Allergic rhinitis due to animals Holly Landry M.D. Active Onset: 01/19/2016 Allergic rhinitis Holly Landry M.D. Active Onset: 01/19/2016 Allergic rhinitis due to pollen Holly Landry M.D. 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 Home Environment Mattress is over 10 years old Home Environment Mattress is not encased in an allergy proof case Home Environment Regular Mattress Home Environment Pillows are not encased in an allergy proof case Home Environment Pillows are polyester Home Environment Does not use a dehumidifier Home Environment There are draperies in the home Home Environment The home is not prakash Home Environment The floors are wood throw rug Home Environment Uses hot water heating Home Environment Uses electric heating Home Environment Lives in an older 2nd floor apartment in the [facility] Home Environment Water Source: [facility] Smoke-Free Home is smoke-free Smoke-Free Work is smoke-free Pets None 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 ETOH Use Rarely consumes alcohol Smoking Patient is a former smoker Recreational Drug Use Denies Drug Use Allergies, Adverse Reactions, Alerts Date Description Reaction Status Severity Comments 06/21/2011 Flagyl Nausea and Vomiting active 12/25/2012 Amoxicillin Nausea and Vomiting active Medications Medication Date Status Form Strength Qnty SIG Indications Ordering Provider Armando 10/03/ Active Solution 0.2% 5ml 1 drop J30.1 Naye 2018 both eyes Uldrich, everyday [employer] apply rebate 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 rxpcn loyalty rxgrp [id number] id [id number] Montelukast 01/18/ Active Tablets 10mg 30tab 1 tab by J30.1 Naye Sodium 2015 s mouth Uldrich, every [employer] night at bedtime Klonopin / Active Tablets 1mg 1 tab 3x/d Unknown 0000 Wellbutrin SR / Active Tablets ER 150mg 1 tab in Unknown 0000 12HR am Hydrocortisone / Active Cream 2.5% Unknown 0000 Bupropion HCL ER / Active Tablets ER 200mg Unknown (SR) 0000 12HR Proair HFA / Active Aerosol 108(90Base 17gm inhale 2 Naye 0000 ) mcg/Act puffs by Uldrich, mouth [employer] every 4 hours if needed cough /wheeze/ch est tightness Latuda / Active Tablets 40mg Unknown 0000 Ra Allergy / Active Tablets 10mg 90tab take one Naye Relief 0000 s daily, august Uldrich, take [employer] second dose Ibuprofen / Active Tablets 800mg take 1 Unknown 0000 tablet by mouth every 6 hours if needed for pain maximum daily Medications Administered in Office Medication Date Status Form Strength Qnty SIG Indications Ordering Provider Celestone/Trent Administered Injection Richard jacinto 014 Yoandy, [id number] 1 M.Victorino cc Injection Administered Injection Allergy 013 Injection Injection Administered Injection Allergy 013 Injection Injection Administered Injection Allergy 013 Injection Injection Administered Injection Allergy 013 Injection Injection Administered Injection Allergy 013 Injection Injection Administered Injection Allergy 013 Injection Injection Administered Injection Allergy 013 Injection Injection Administered Injection Allergy 013 Injection Injection Administered Injection Holly M 013 Gris, M.D. Injection Administered Injection Holly M 013 Gris, M.D. Injection Administered Injection Holly M 013 Gris, M.D. Injection Administered Injection Holly M 013 Gris, M.D. Injection Administered Injection Holly M 013 Gris, M.D. Injection Administered Injection Holly M 012 Gris, M.D. Injection Administered Injection Holly M 012 Gris, M.D. Injection Administered Injection Holly M 012 Gris, M.D. Injection Administered Injection Holly M 012 Gris, M.D. Injection Administered Injection Holly M 012 Gris, M.D. Injection Administered Injection Holly M 012 Gris, M.D. Injection Administered Injection Holly M 012 Gris, M.D. Injection Administered Injection Holly M 012 Gris, M.D. Injection Administered Injection Holly M 012 Gris, M.D. Injection Administered Injection Holly M 012 Gris, M.D. Injection Administered Injection Holly M 012 Gris, M.D. Injection Administered Injection Holly M 012 Gris, M.D. Injection Administered Injection Holly M 012 Gris, M.D. Injection Administered Injection Holly M 012 Gris, M.D. Injection Administered Injection Holly M 012 Gris, M.D. Injection Administered Injection Holly M 012 Gris M.DRich Immunizations CPT Code Status Date Vaccine Lot # [id number] Given Unknown Influenza Vaccine Vital Signs Date Vital Result Comment 10/03/2017 Height 62 inches 5'2" Weight 225.00 lb Weight in kg's 102.060 Respiratory Rate 20 /min Heart Rate 71 /min O2 % BldC Oximetry 98 % BP Systolic 98 mmHg BP Diastolic 65 mmHg Asthma Control Test 24 BMI (Body Mass Index) 41.1 kg/m2 01/19/2016 Height 62 inches 5'2" Weight 261.00 lb Weight in kg's 118.390 Respiratory Rate 16 /min Heart Rate 85 /min O2 % BldC Oximetry 97 % BP Systolic 101 mmHg BP Diastolic 63 mmHg Asthma Control Test 19 BMI (Body Mass Index) 47.7 kg/m2 11/24/2014 Height 62 inches 5'2" Weight 282.00 lb Weight in kg's 127.915 Respiratory Rate 18 /min Heart Rate 96 /min O2 % BldC Oximetry 97 % BP Systolic 120 mmHg BP Diastolic 86 mmHg Asthma Control Test 24 BMI (Body Mass Index) 51.6 kg/m2 09/02/2013 Height 62 inches 5'2" Weight 280.00 lb Weight in kg's 127.008 Respiratory Rate 16 /min Heart Rate 92 /min O2 % BldC Oximetry 97 % BP Systolic 112 mmHg BP Diastolic 72 mmHg Asthma Control Test 21 BMI (Body Mass Index) 51.2 kg/m2 07/29/2013 Height 62 inches 5'2" Weight 280.00 lb Weight in kg's 127.008 Respiratory Rate 16 /min Heart Rate 95 /min O2 % BldC Oximetry 98 % BP Systolic 126 mmHg BP Diastolic 78 mmHg BMI (Body Mass Index) 51.2 kg/m2 12/25/2012 Height 62 inches 5'2" Weight 270.00 lb Weight in kg's 122.472 Respiratory Rate 17 /min Heart Rate 85 /min O2 % BldC Oximetry 96 % BP Systolic 122 mmHg BP Diastolic 82 mmHg BMI (Body Mass Index) 49.4 kg/m2 Results Description No Information Procedures Date CPT Code Description Status 10/03/2017 12675 Pre PFT Completed 11/24/2014 05076 Pre PFT Completed 07/29/2013 82933 Pre PFT Completed 12/25/2012 48012 Injection Completed 12/25/2012 27517 Oxygen Level - Pulse Oximiter Completed 12/11/2012 91212 Injection Completed 12/04/2012 46844 Injection Completed 10/09/2012 36650 Injection Completed 09/18/2012 50166 Injection Completed 09/11/2012 83266 Injection Completed 08/07/2012 99308 Injection Completed 07/29/2012 36797 Injection Completed 06/12/2012 11553 Extract 1-10 Completed 06/12/2012 66526 Injection Completed 06/05/2012 47651 Injection Completed 05/29/2012 13553 Injection Completed 05/08/2012 62507 Injection Completed 04/24/2012 39306 Injection Completed 03/20/2012 89364 Injection Completed 03/06/2012 85157 Injection Completed 02/14/2012 02579 Injection Completed 02/07/2012 58953 Injection Completed 01/24/2012 90487 Injection Completed 01/17/2012 63200 Extract 1-10 Completed 01/17/2012 98200 Injection Completed 01/10/2012 95256 Injection Completed 12/20/2011 00706 Injection Completed 12/13/2011 27505 Injection Completed 11/22/2011 83158 Injection Completed 11/08/2011 05142 Injection Completed 11/01/2011 26886 Injection Completed 10/18/2011 62287 Injection Completed 10/11/2011 34331 Injection Completed 07/24/2011 05169 Injection Completed 07/19/2011 52361 Injection Completed 07/08/2011 47457 Extract 1-10 Completed 07/05/2011 19127 Skin Tests Id Completed 06/28/2011 23279 Skin Test Scratch # Of Units ____ Completed 06/21/2011 15366 Oxygen Level - Pulse Oximiter Completed 06/21/2011 46404 Pulmonary Function Test Completed Encounters Type Date Location Provider CPT E/M Dx Office Visit 01/19/2016 4:00p Juan Carlos Landry M.D. 53301 J30.1 J30.89 J30.2 J30.81 J45.40 Office Visit 11/24/2014 3:00p Juan Carlos Dover, PH.D, RPA-C 15442 493.00 477.8 477.0 691.8 Office Visit 09/02/2013 3:20p Juan Carlos Pitt M.D. 09807 477.8 493.00 372.14 Office Visit 07/29/2013 11:00a Juan Carlos Pitt M.D. 01193 477.8 493.00 Office Visit 12/25/2012 3:40p [place] Annita Packer, [facility] 96994 477.8 477.0 493.00 691.8 Office Visit 11/08/2011 12:27p Juan Carlos Landry M.D. 81795 477.0 477.8 Office Visit 06/21/2011 2:20p Juan Carlos Landry M.D. 55215 493.90 477.0 477.8 691.8 Plan of Care 10/03/2017 - Naye Vasquez, [facility]-CJ30.1 Allergic rhinitis due to wwknucW30.89 Other allergic uxvptlbbW60.2 Other seasonal allergic exmgxlzhW41.81 Allergic rhinitis due to animal (cat) (dog) hair and aiimhfA83.40 Moderate persistent asthma, uncomplicatedNew Medication:Pataday 0.2 %Recommendations:Continue all medications as prescribed.Refrain from wearing perfumes/scented colognes while visitingour office. Continue the Proair 2 puffs every 4 as needed for cough, shortness of breath, chest tightness, or wheezing. Monitor Albuterol use. If using more than 2x/week, please call the office as your asthma medications may need to be adjusted. Continue the RA allergy 10mg 1 daily may increase to 2 Continue the Singulair 1 daily Try the Pataday 1 drop each eye as needed
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
[2017-10-15 23:11] VITALS: BP 113/64
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
== END | disposition home or self-care (01) ==
LOC: ED 19:10
DX: S06.0X0A Concussion without loss of consciousness, initial encounter (principal); Y04.8XXA Assault by other bodily force, initial encounter; Y92.811 Bus as the place of occurrence of the external cause; F41.8 Other specified anxiety disorders; Z79.899 Other long term (current) drug therapy; Z88.8 Allergy status to other drugs, medicaments and biological substances; Z88.3 Allergy status to other anti-infective agents
CPT/HCPCS: 70450; 99283; A9270-GY

== ENCOUNTER → 2018-06-04 14:07 | Emergency (ER) | payer OTHER ==
[~2018-06-04 14:07] MED LIST changes: +DiMENhydriNATE IV* 50 MG/ML VIAL IV PUSH ONE; +Metoclopramide IV* 5 MG/ML 2 ML VIAL IV ONE; +NS 0.9% 1000 ML** 1,000 ML IV ONE; -Ondansetron ODT TAB* 4 MG ONE; -Ondansetron ODT TAB* 4 MG SL ONE; -traMADol TAB* 50 MG PO ONE
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
[2018-06-04 16:50] LABS: ABS Basophils 0 10^3/ul (0-0.2); ABS Eosinophils 0 10^3/ul (0-0.6); ABS Lymphocytes 2.2 10^3/ul (1.0-4.8); ABS Monocytes 0.7 10^3/ul (0-0.8); ABS Neutrophils 9.4 10^3/ul (1.5-7.7); ABS Nucleated RBC 0 10^3/ul; Eosinophil % 0 %; Hematocrit 46 % (35-47); Hemoglobin 14.9 g/dl (12.0-16.0); Lymphocyte % 18.1 %; Mean Corpuscular HGB Conc 32 g/dl (31-36); Mean Corpuscular Hemoglobin 27 pg (27-31); Mean Corpuscular Volume 82 fL (80-97); Mean Platelet Volume 7.4 fL (7.4-10.4); Nucleated Red Blood Cells % 0.2; Platelet Count 315 10^3/ul (150-450); Red Cell Distribution Width 14 % (10.5-15); White Blood Count 12.2 10^3/ul (3.5-10.8)
[2018-06-04 17:03] LABS: Albumin/Globulin Ratio 1.5 (1-3); BUN/Creatinine Ratio 13.5 (8-20); C Reactive Protein 10.58 mg/L (<8.01); Calcium 9.7 mg/dL (8.6-10.3); EGFR African American 80.5 (>60); EGFR Non-African American 66.5 (>60); Globulin 3.3 g/dL (2-4); Potassium 4.1 mmol/L (3.5-5.0); Total Bilirubin 0.6 mg/dL (0.2-1.0); Total Protein 8.3 g/dL (6.4-8.9)
--- NOTE | 2018-06-04 17:05 | ED ---
Complex/Multi-Sys Presentation - HPI Summary HPI Summary: 32 year old F presenting [place] [facility] accompanied by male friend with a chief complaint of vomiting since two days ago. The patient rates the pain 0/10 in severity. Symptoms aggravated by nothing. Symptoms alleviated by nothing. Patient reports headache, abdominal pain, diarrhea, and nausea. Patient denies emesis. Patient has treated pain DRIER TAKE OFF TENDER with Zofran without relief. She tries drinking and eating but cannot keep anything down. Patient denies being on antibiotics recently. LNMP was two weeks ago. - History Of Current Complaint Chief Complaint: EDNauseaVomitDiarrh Time Seen by Provider: 06/04/18 16:47 Hx Obtained From: Patient Onset/Duration: Sudden Onset, Lasting Days - 2, Still Present Aggravating Factor(s): Nothing Alleviating Factor(s): Nothing Associated Signs And Symptoms: Positive: Other - Patient reports headache, abdominal pain, diarrhea, nausea; NEGATIVE: emesis - Allergies/Home Medications Allergies/Adverse Reactions: Allergies Allergy/AdvReac Type Severity Reaction Status Date / Time amoxicillin AdvReac Intermediate Diarrhea Verified 06/04/18 14:25 metronidazole [From Flagyl] AdvReac Unknown Diarrhea Verified 06/04/18 14:25 PMH/Surg Hx/FS Hx/Imm Hx Previously Healthy: No Endocrine/Hematology History: Reports: Hx Anemia - STATES HX OF -OFF AND ON Denies: Hx Anticoagulant Therapy, Hx Diabetes, Hx Thyroid Disease Cardiovascular History: Denies: Hx Congestive Heart Failure, Hx Deep Vein Thrombosis, Hx Hypertension , Hx Myocardial Infarction, Hx Pacemaker/ICD Respiratory History: Reports: Hx Asthma, Hx Sleep Apnea - current CPAP user Denies: Hx Chronic Obstructive Pulmonary Disease (COPD), Hx Lung Cancer, Hx Pneumonia, Hx Pulmonary Embolism GI History: Denies: Hx Gall Bladder Disease, Hx Gastrointestinal Bleed, Hx Ulcer, Hx Urosepsis, Other GI Disorders History: Reports: Hx Kidney Stones - 04/2016 STENT PLACEMENT, Other Problems/Disorders - RENAL STONES Denies: Hx Dialysis, Hx Renal Disease Sensory History: Denies: Hx Contacts or Glasses, Hx Hearing Aid Opthamlomology History: Denies: Hx Contacts or Glasses Neurological History: Reports: Other Neuro Impairments/Disorders Denies: Hx Dementia, Hx Migraine, Hx Seizures, Hx Transient Ischemic Attacks (TIA) Psychiatric History: Reports: Hx Anxiety - ON MEDICATION FOR, Hx Depression - ON MEDICATION FOR, Hx Panic Disorder, Hx Inpatient Treatment, Hx Community Mental Health Tx Denies: Hx Schizophrenia, Hx Bipolar Disorder - Surgical History Surgery Procedure, Year, and Place: 01/19 [facility] pilonidal [place]. 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 Denies: Hx Clostridium Difficile, Hx Hepatitis, Hx Human Immunodeficiency Virus (HIV), Hx Shingles, Hx Tuberculosis, Hx Known/Suspected VRE, Hx Known/ Suspected VRSA, History Other Infectious Disease, Traveled Outside the [place] in Last 30 Days - Family History Known Family History: Positive: Respiratory Disease - sister - asthma Negative: Cardiac Disease, Hypertension, Diabetes Family History: KIDNEY STONES - DAD - Social History Alcohol Use: Rare Alcohol Amount: 2 DRINKS Hx Substance Use: No Substance Use Type: Reports: None Hx Tobacco Use: No Smoking Status (MU): Never Smoked Tobacco Amount Used/How Often: tried once or twice as a teen Review of Systems Gastrointestinal: Negative - emesis Positive: Abdominal Pain, Vomiting, Diarrhea, Nausea Positive: Headache All Other Systems Reviewed And Are Negative: Yes Physical Exam - Summary Physical Exam Summary: Appearance: Well appearing, no pain distress Skin: warm, dry, reflects adequate perfusion Head/face: normal Eyes: EOMI, JOHN ENT: mucous membranes moist Neck: supple, non-tender Respiratory: CTA, breath sounds present Cardiovascular: RRR, pulses symmetrical Abdomen: diminished bowel sounds but no abdominal pain Bowel Sounds: present Musculoskeletal: normal, strength/ROM intact Neuro: normal, sensory motor intact, A&Ox3 Triage Information Reviewed: Yes Vital Signs On Initial Exam: Initial Vitals Temp Pulse Resp BP Pulse Ox 97.8 F 70 16 104/90 99 06/04/18 14:22 06/04/18 14:22 06/04/18 14:22 06/04/18 14:22 06/04/18 14:22 Vital Signs Reviewed: Yes Diagnostics - Vital Signs Vital Signs Temp Pulse Resp BP Pulse Ox 06/04/18 16:39 98.1 F 65 16 123/82 98 06/04/18 14:22 97.8 F 70 16 104/90 99 - Laboratory Result Diagrams: 06/04/18 16:35 06/04/18 16:35 Lab Statement: Any lab studies that have been ordered have been reviewed, and results considered in the medical decision making process. Complex Multi-Symp Course/Dx Course Of Treatment: Nurse's note reviewed. Patient with nausea vomiting and watery diarrhea not currently or recently on antibiotics. No risk factors for C. difficile colitis. Current endemic viral gastroenteritis in the area. Treated here with relief with IV fluids. No significant abnormalities on blood work. Discharged with symptom control. - Diagnoses Differential Diagnoses/HQI/PQRI: Metabolic Abnormality, Other - Gastroenteritis viral/bacterial, C. difficile colitis Provider Diagnoses: Gastroenteritis Discharge - Sign-Out/Discharge Documenting (check all that apply): Patient Departure Patient Received Moderate/Deep Sedation with Procedure: No - Discharge Plan Condition: Improved Disposition: HOME Prescriptions: Ondansetron ODT TAB* [Zofran 4 MG Odt TAB*] 4 mg PO Q8H PRN #12 tab.odt PRN Reason: Nausea Patient Education Materials: Gastroenteritis (ED) Referrals: Breanne Fernandez MD [Primary Care Provider] - Additional Instructions: Home Zofran and Imodium for nausea and diarrhea respectively. [place] diet, drink plenty of fluids. Gatorade G2 may help. Return if worse, unable to keep down fluids, new pain, fever, worse or other concerns. Call your doctor in the morning to schedule prompt follow-up. - Billing Disposition and Condition Condition: IMPROVED Disposition: Home - Attestation Statements Document Initiated by William: Yes Documenting Scribe: Joanie Johnson Provider For Whom William is Documenting (Include Credential): Frank Lyles MD Scribe Attestation: Joanie Sher, scribed for Frank Lyles MD on 06/04/18 at 2108. Scribe Documentation Reviewed: Yes Provider Attestation: The documentation as recorded by the Joanie goldberg accurately reflects the service I personally performed and the decisions made by Frank rodriguez MD Status of Scribe Document: Viewed
[2018-06-04 19:28] VITALS: BP 110/75
== END | disposition home or self-care (01) ==
LOC: ED 14:07
DX: K52.9 Noninfective gastroenteritis and colitis, unspecified (principal); R10.9 Unspecified abdominal pain; R19.7 Diarrhea, unspecified; Z88.0 Allergy status to penicillin; Z87.442 Personal history of urinary calculi; R11.2 Nausea with vomiting, unspecified
CPT/HCPCS: 36415; 80053; 83605; 83690; 84702; 85025; 86140; 96374; 96375; 99283; J1240; J2765

== ENCOUNTER 2018-08-03 17:44 | Inpatient (IN) | payer OTHER ==
[2018-08-03] MEDS ORDERED: Nicotine Inhaler* 10 MG AMP INH PRN (18:23)
[2018-08-03] MEDS ORDERED: Gabapentin CAP(*) 400 MG PO ONE (18:29)
[2018-08-03] MEDS ORDERED: Acetaminophen TAB* 325 MG PO ONE (18:29)
[2018-08-03] MEDS ORDERED: diPHENhydraMINE PO* 25 MG PO ONE (18:29)
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
[2018-08-03 18:53] LABS: Urine Appearance Clear; Urine Bilirubin Negative (Negative); Urine Blood Negative (Negative); Urine Color Yellow; Urine Glucose Negative (Negative); Urine Ketones Negative (Negative); Urine Nitrite Negative (Negative); Urine Protein Negative (Negative); Urine Specific Gravity 1.012 (1.010-1.030); Urine Urobilinogen Negative (Negative)
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
--- OUTSIDE RECORDS SUMMARY | 2018-08-03 18:53 | XMS REPORT | Continuity of Care Document ---
:1985 External Reference #:[id number] Author Name Linda Hoffman Care Team Providers Name Role Phone Breanne Fernandez MD Primary Care Physician Unavailable Payers Date Identification Numbers Payment Provider Subscriber Policy Number: [id number] [place]/[employer] Medicaid Barbara Soler PayID: [id number] [address] [address] [place] [address] Onset: 2017 Policy Number: [id number] Esurance Barbara Soler PayID: [id number] [address] [place] [address] Advance Directives Description No Information Available Problems Date Description Provider Status Onset: 06/18/2011 Obesity Sarahi Henderson M.D. Active Onset: 08/26/2011 Allergic rhinitis Sarahi Henderson M.D. Active Onset: 08/26/2011 Intrinsic asthma without status Sarahi Henderson M.D. 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 Active Onset: 01/23/2018 Dizziness and giddiness Sin Nielsen M.D. Active Onset: 07/13/2018 Visual disturbance Sin Nielsen M.D. Active Onset: 01/06/2013 Acute upper respiratory Tone Edmond M.D. Inactive infection of multiple sites Inactive: 05/05/2014 Onset: 04/15/2014 Arthralgia of the lower leg Tone Edmond M.D. Inactive Inactive: 05/05/2014 Onset: 02/24/2012 Sprain of shoulder and upper arm Tone Edmond M.D. 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 every day Venlafaxine HCL 07/13 Active Caps ER 150mg 90cap 1 [facility] adam Nielsen M.D. 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 needed Singulair Active Tablets 10mg 90tab 1 by Sarahi / s samantha Henderson M.D. 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 Lidocaine 07/21 Hx Cream 4% 30gm apply bid Jan E. to lower Deborah Howard - back as 10/16 needed Lidocaine Cream 07/08 Hx Cream 4% 30gm apply bid Jan E. to lower Deborah Howard - back as 07/21 needed Lidocaine 06/26 Hx Patches 5% 15uni apply M54.5 Jan E. ts patch up Deborah Howard - to 12 07/08 hours once a day. Zofran 06/26 Hx Tablets 4mg 20tab 1 tablet R51 Jan E. s up to Deborah Howard - twice a 07/22 day for nausea Advair Diskus 02/04 Hx Aerosol 250-50mcg 90uni 1 puff J45.909 Genesis /2016 /Dose ts twice a MD Sue - day 06/25 Albuterol 02/03 Hx Nebulizer 0.63mg/3M 75ml inhale Pamela L contents Varn, N.P. - of 1 vial 06/25 in nebulizer Every 4 To 6 Hours [...] Hx Suspension 50mcg/Act 16uni 2 sprays J45.901 Propionate ts each Varn, N.P. 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 Fluconazole 02/05 Hx Tablets 150mg 2tabs one by B37.3 mouth august Varn, N.P. - repeat in 05/01 3 days needed Clotrimazole/Bet 02/05 Hx Cream 1-0.05% 15gm apply 2 - B37.3 amethasone 3 times Varn, N.P. Dipropionate - daily as 02/19 needed Terconazole 02/05 Hx Suppositor 80mg 3unit 1 B37.3 y s supposito Varn, N.P. - ry 02/11 intravagi gildardo at bedtime for 3 nights Cephalexin 01/07 Hx Tablets 500mg 21tab take one R21 Elzbieta /2016 s tablet Deborah Daniels - every 8 02/05 hours for 7 days Advair Diskus 12/07 Hx Aerosol 250-50mcg 60uni inhale 1 J45.21 Rex Wisdom, /Dose ts puff by BENDING MACHINE SET UP OPERATOR - mouth 05/01 twice a day. RInse mouth after use. Guaifenesin ac 12/07 Hx Syrup 100-10mg/ 300ml 10ml R05 Rex Wisdom 5ML every 4 BENDING MACHINE SET UP OPERATOR - hours for 01/07 Nasonex 12/07 Hx Suspension 50mcg/Act 17gm two J30.9 Rex Wisdom, sprays BENDING MACHINE SET UP OPERATOR - each 05/01 nostril once daily for 2 weeks. Cephalexin 11/19 Hx Tablets 500mg 21tab take one R21 Rex Wisdom, s tablet BENDING MACHINE SET UP OPERATOR - every 8 08/08 hours for 7 days Triamcinolone 11/19 Hx Cream 0.1% 15gm apply R21 Rex Wisdom Acetonide thin film BENDING MACHINE SET UP OPERATOR - twice 05/01 daily Permethrin 08/07 Hx Cream 5% 1unit apply to B86 s all body Deborah Henderson - once/august 24 repeat in 1 week Levofloxacin 04/26 Hx Tablets 500mg 10tab once J06.9 s daily Feli, - M.D. 06/13 Azithromycin 03/15 Hx Tablets 250mg 6tabs 2 tabs by J06.9 Rex Wisdom, mouth BENDING MACHINE SET UP OPERATOR - every day 03/20 x1 day, tab by mouth every day x 4 days Doxycycline 01/18 Hx Capsules 100mg 20cap one J01.90 Rex Wisdom Hyclate s tablet BENDING MACHINE SET UP OPERATOR - twice 01/27 daily 10 days. Nasonex 01/18 Hx Suspension 50mcg/Act 17gm two J01.90 Rex Wisdom, sprays BENDING MACHINE SET UP OPERATOR - each 01/18 nostril once daily for 2 weeks. Fluticasone 01/18 Hx Suspension 50mcg/Act 16uni 2 sprays J01.90 Rex Wisdom, Propionate ts each BENDING MACHINE SET UP OPERATOR - nostril 06/13 qd for two weeks Ibuprofen 04/15 Hx Tablets 600mg 90tab three 719.46 s times a Feli, - day prn M.D. 06/13 with Metronidazole 11/10 Hx Gel 0.75% 1unit apply s intravagi Deborah Henderson - gildardo 12/08 once a day x 7 days Sulfamethoxazole 11/02 Hx Tablets 800-160mg 10tab 1 by 704.8 Sarahi /Trimethoprim s mouth Deborah Henderson - twice a Furosemide 11/02 Hx Tablets 20mg 12tab 1 tab 782.3 s every Deborah Henderson - other day 12/08 3 times a week for swelling X 3 wks Cephalexin 09/28 Hx Tablets 250mg 10tab 1 by 684 s mouth Deborah Henderson - twice a Mometasone 09/28 Hx Cream 0.1% 1unit apply to 691.8 Sarahi Furoate s affected Deborah Henderson - areas 12/08 twice a day 7 days only Methylprednisolo 09/07 Hx Tablets 4mg 995.3 Libra ne Deborah Dela Cruz - 09/07 Methylprednisolo 09/07 Hx Tablets 4mg 1pack as 995.3 Libra ne (Malik) directed Deborah Dela Cruz - 11/02 Percocet 04/11 Hx Tablets 5-325mg 10tab 1 tab po Libra /2013 s q6h prn Deborah Dela Cruz - pain 08/18 Clarithromycin 03/31 Hx Tablets 500mg 20tab 1 po bid 466.0 Eduardo Gleason /2012 s for 10 Les, - helen Cabrera,FACP 04/16 Cheratussin ac 03/31 Hx Syrup 100-10mg/ 120ml 10 J20.9 Jan Crain /2012 5ML alethea Howard M.D. - rs by 08/07 mouth four times a day as needed Butalbital/Aceta 01/06 Hx Capsules 50-325-40 20cap 1 tab 465.8 Troy minophen/Caffein /2012 mg s every 8 h william Edmond M.D. 08/18 Mometasone 12/31 Hx Cream 0.1% 1unit apply to 691.8 Sarahi Furoate s affected Deborah Henderson - areas bid 08/18 10 only Azithromycin 12/31 Hx Tablets 250mg 6tabs take 2 461.8 Sarahi /2013 tab on Deborah Henderson - day 1 01/06 then tab daily x 4 days Polymyxin B 12/11 Hx Solution 58534-6.1 10ml 1 gtt in 372.39 Kim Sulfate/ Unit/ML-% eyes b/l Anika, prim Sulfate - 4 times a N.P. 12/31 day x days Ketoconazole 09/17 Hx Tablets 200mg 2tabs 2 tab 111.0 once Deborah Henderson - /exercise 12/31 vigorousl y afterward s to cause sweating Compression 08/27 Hx Large 1unit as needed 782.3 Sarahi Stockings adam Henderson M.D. - 12/11 Furosemide 07/28 Hx Tablets 40mg 30tab 1 po qd 782.3 s Deborah Henderson - 08/27 Fluconazole 07/28 Hx Tablets 150mg 4tabs 2 po once 110.5 Tone /2012 a week X Feli, - 2 wks Deborah 08/27 Furosemide 07/20 Hx Tablets 40mg 28tab 1 tab bid s prn Deborah Henderson - 12/31 Furosemide 07/14 Hx Tablets 20mg 10tab 1 po 782.3 s daily 3 Deborah Henderson - times a Nebulizer 06/18 Hx Misc 1 J45.901 Deborah Henderson - 01/12 Advair Diskus 06/15 Hx Aerosol 250-50mcg 1unit 1 puff 461.8 Sarahi /2013 /Dose s bid Deborah Henderson - 08/18 Prednisone 05/21 Hx Tablets 20mg 27tab 3 tab by 493.92 s mouth Deborah Henderson - every day 06/15 x3 days /2012 then 2 tab daily for 5 days, then 1 tab daily for 5 days then 1/2 tab daily for 5 days Clarithromycin 05/18 Hx Tablets 500mg 20tab 1 po bid 461.9 adam Henderson M.D. - 06/15 Prednisone 05/18 Hx Tablets 10mg 13tab take 3 461.9 s tab daily Deborah Henderson - x 2 days 06/15 then tab daily x 3 days and then 1 tab daily until all taken Azithromycin 05/13 Hx Tablets 250mg 6tabs take 2 461.9 Sarahi tab on Deborah Henderson - day 1 05/18 then tab daily x 4 days Mobic 02/23 Hx Tablets 15mg 15tab once 840.8 s daily Concepcion Edmond M.D. 05/18 Flexeril 02/23 Hx Tablets 10mg 14tab 1 po bid 840.8 s prn Concepcion Edmond M.D. 05/18 Doxycycline 02/04 Hx Tablets 100mg 10tab 100 mg Kim Hyclate s orally Anika, - twice N.P. 02/09 daily x days Ibuprofen 01/29 Hx Tablets 400mg 100ta 400 mg po 462 Kim /2011 bs q4-6h; Anika, - max 2400 N.P. /09 mg/day /2014 Nasal Saline 01/29 Hx Solution 0.65% 1ml 2 sprays 461.0 Kim /2011 in each Anika, - nostril 5 N.P. 05/20 times day Amoxicillin 01/29 Hx Capsules 500mg 20cap 1 cap bid 461.0 Kim /2011 s for 10 Anika, - days N.P. 02/04 Wrist 12/11 Hx Misc 1unit 727.05 Sarahi Brace/Suede /2011 s Deborah Henderson Finish/Right/Med - ium 01/12 Permethrin 12/11 Hx Liquid 5% 1unit apply to 782.1 Sarahi /2011 s affected Deborah Henderson - areas 02/23 once/august repeat in 1 week Triamcinolone 12/11 Hx Cream 0.5% 1unit apply to 782.1 Sarahi Acetonide s affected Deborah Henderson - areas of 02/23 skin bid X 10 days Claritin 11/24 Hx Capsules 10mg 30cap 1 po qd adam Henderson M.D. - 12/11 Furosemide 11/07 Hx Tablets 20mg 30tab 1/ tab 782.3 s po every Deborah Dela Cruz - day for 5 11/07 days. august contine for 10 days if swelling is not gone Biaxin 08/25 Hx Tablets 500mg 20tab 1 po bid 461.8 adam Henderson M.D. - 12/11 Advair Diskus 08/25 Hx Aerosol 250-50mcg 1unit 1 puff 461.8 Sarahi /2012 /Dose s bid Deborah Henderson - 02/23 Azithromycin 07/31 Hx Tablets 250mg 6tabs take 2 461.8 tab on Deborah Henderson - day 1 08/25 then tab daily x 4 days Prednisone 06/18 Hx Tablets 20mg 25tab 3 tab by 493.92 Sarahi /2012 s mouth Deborah Henderson - every day 07/28 x3 days /2011 then 2 tab daily for 5 days, then 1 tab daily for 5 days then 1/2 tab daily for until finis Fexofenadine HCL 06/18 Hx Tablets 180mg 90tab 1 po qd 493.92 adam Henderson M.D. - 05/18 L Wrist Splint 05/22 Hx as needed 782.0 Sarahi /2012 Deborah Henderson - 05/18 Abilify Hx Tablets 20mg 1 every Unknown / day - 02/23 Wellbutrin SR Hx Tablets ER 150mg 180ta 1 po qd Unknown /0000 12HR bs - 12/11 Klonopin Hx Tablets 1mg 60tab 1 po tid Unknown / s prn - 03/31 Nystatin/Triamci Hx Cream 116641-0. 30gm apply to Unknown nolone /0000 1Unit/GM- affected - % area 02/23 daily as needed Qvar Hx Aerosol 40mcg/Act 1unit 2 puff Unknown /0000 s bid - 11/19 Nasonex 00/00 Hx Suspension 50mcg/Act 1unit 2 sprays Unknown /0000 s to each - nostril 12/20 twice daily Pataday Hx Solution 0.2% 2.500 instill Unknown /0000 ml one drop - into each 12/14 eye daily Wellbutrin XL 00/ Hx Tablets ER 150mg 30tab 1 po qd Unknown /0000 24HR s - 12/20 Furosemide Hx Tablets [...] HCL /0000 s bid - 08/18 Librium Hx 25mg 1 tab bid Unknown / - 04/16 Klonopin / Hx Tablets 1mg 30tab 1 po qid 300.00 Unknown /0000 s - 01/22 Pulmicort 00/ Hx Aerosol 90mcg/Act 1mont 2 puff Unknown Flexhaler /0000 h twice a - day 12/20 Primidone 00/00 Hx Tablets 50mg 1 tab bid Unknown /0000 - 12/08 Norpramin 00/ Hx Tablets 25mg at Unknown /0000 bedtime - 05/16 Tobramycin 00/00 Hx Solution 0.3% Unknown /0000 - 10/27 Norpramin 00/00 Hx Tablets 50mg 300.00 Unknown /0000 - 08/07 Pazeo 00/ Hx Solution 0.7% 1 drop 379.90 Unknown /0000 each eye - daily 06/13 Prednisone 0000 Hx Tablets 20mg 2 tabs Unknown /0000 daily - 02/05 Uribel Hx Capsules 118mg 4 times a Unknown /[address] Concepcion Chen 05/13 Nuvaring Hx Ring 0.12-0.01 insert 1 Unknown /0000 5mg/24HR ring - vaginally 06/25 every days leave in place for 3 weeks , remove and replace with a new ring after a 7 day break Albuterol Hx Nebulizer 0.63mg/3M inhale Unknown Sulfate /0000 L contents - of 1 vial 01/12 nebulizer Every 4 To 6 Hours as Needed Advair Diskus Hx Aerosol 250-50mcg 1 puff by Unknown /0000 /Dose mouth - twice a Ibuprofen Hx Tablets 800mg by mouth Unknown /0000 three - times a 07/22 day needed Fioricet Hx Capsules 50-300-40 1 by Unknown /0000 mg mouth - twice a 10/16 day needed headache max 2 days/wk Latuda Hx Tablets 40mg 1 by Unknown /0000 mouth - every day 07/12 Tramadol HCL Hx Tablets 50mg 1-2 Unknown /0000 tablets - by mouth 01/22 every hours as needed pain Venlafaxine HCL Hx Tablets 75mg 1 by Unknown /0000 mouth - every day 07/12 Gabapentin Hx Capsules 300mg 1 by Unknown /0000 mouth - four 07/12 times day Medications Administered in Office Medication Date Status Form Strength Qnty SIG Indications Ordering Provider Celestone 3 mg Administered Injection Maycol and 3mg 018 MD Vicky Celestone 3 mg Administered Injection Maycol and 3mg 017 MD Vicky Celestone 3 mg Administered Injection Maycol and 3mg 017 MD Vicky PPD Administered Injection Hakan 015 REJI Chaney Immunizations CPT Code Status Date Vaccine Lot # [id number] Given 02/06/2016 Influ Virus Vaccine, Quadrivalent, Split Virus, Im Fluzone not PF Q2035 Given 01/18/2015 Afluria Vaccine 26342 Given 02/02/2014 Flu Vaccine Split Virus Preservative Free For Indiv 3Yr Older Q2037 Given 01/20/2014 Fluvirin Im 3Yrs And Older Q2037 Given 01/05/2013 Fluvirin Im 3Yrs And Older Q2038 Given 01/15/2012 Fluzone Vaccine ol324ce 05744 Given 03/03/2005 Meningococcal Immunization 16337 Given 01/14/2000 Hep B Pediatric/Adolescent 22760 Given 01/12/1999 Hep B Pediatric/Adolescent 95856 Given 12/12/1998 Hep B Pediatric/Adolescent 96618 Given 12/12/1998 Tetanus And Diptheria (Td) For Adult Use Preservative Free 63798 Given 07/07/1990 Measles Mumps And Rubella MMR 86503 Given 09/10/1988 DTaP Vaccine Younger Than 7 09811 Given 09/10/1988 IPV/Poliomyelitis Immunization 25205 Given 07/16/1985 IPV/Poliomyelitis Immunization 88767 Given 07/16/1985 DTaP Vaccine Younger Than 7 95871 Given 04/16/1985 Measles Mumps And Rubella MMR 16630 Given 08/10/1984 IPV/Poliomyelitis Immunization 20316 Given 08/10/1984 DTaP Vaccine Younger Than 7 80717 Given 05/15/1984 IPV/Poliomyelitis Immunization 08614 Given 05/15/1984 DTaP Vaccine Younger Than 7 65552 Given 02/04/1984 IPV/Poliomyelitis Immunization 23812 Given 02/04/1984 DTaP Vaccine Younger Than 7 95051 Given Unknown Influenza Virus Vaccine, Quadrivalent, Split, Preservative Free Vital Signs Date Vital Result Comment 07/13/2018 11:07am Height 63.5 inches 5'3.50" Weight 212.38 lb Heart Rate 72 /min BP Systolic 132 mmHg BP Diastolic 68 mmHg BMI (Body Mass Index) 37.0 kg/m2 02/18/2018 11:41am Height 63.5 inches 5'3.50" Heart Rate 84 /min BP Systolic 126 mmHg BP Diastolic 84 mmHg Body Temperature 98.2 F Pain Level 2 02/04/2018 10:48am Heart Rate 68 /min BP Systolic 128 mmHg BP Diastolic 64 mmHg Respiratory Rate 16 /min Pain Level 4 01/23/2018 3:16pm Height 63.5 inches 5'3.50" Weight 205.00 lb Heart Rate 72 /min BP Systolic Sitting 104 mmHg BP Diastolic Sitting 78 mmHg Respiratory Rate 16 /min BMI (Body Mass Index) 35.7 kg/m2 10/17/2017 9:37am Height 63.5 inches 5'3.50" Weight 222.38 lb Heart Rate 70 /min BP Systolic 100 mmHg BP Diastolic 72 mmHg BMI (Body Mass Index) 38.8 kg/m2 07/22/2017 8:34am Height 63.5 inches 5'3.50" Weight 234.00 lb Heart Rate 88 /min BP Systolic Sitting 128 mmHg BP Diastolic Sitting 88 mmHg BMI (Body Mass Index) 40.8 kg/m2 06/26/2017 2:27pm Weight 243.00 lb Heart Rate 89 /min BP Systolic Sitting 120 mmHg BP Diastolic Sitting 78 mmHg Body Temperature 97.8 F Pain Level 4 lower back/head O2 % BldC Oximetry 99 % 05/23/2017 1:55pm Height 63.5 inches 5'3.50" Heart Rate 94 /min BP Systolic 110 mmHg BP Diastolic 78 mmHg Respiratory Rate 17 /min Body Temperature 98.0 F Pain Level 6 05/02/2017 11:05am Height 63.5 inches 5'3.50" Weight 240.00 lb per pt Heart Rate 88 /min reg BP Systolic Sitting 100 mmHg Rue BP Diastolic Sitting 70 mmHg Rue Respiratory Rate 16 /min Pain Level 4 right thumb BMI (Body Mass Index) 41.8 kg/m2 03/19/2017 11:43am Height 63.5 inches 5'3.50" Weight 242.00 lb Heart Rate 98 /min BP Systolic Sitting 124 mmHg BP Diastolic Sitting 88 mmHg Body Temperature 97.7 F BMI (Body Mass Index) 42.2 kg/m2 02/21/2017 10:00am Height 63.5 inches 5'3.50" Weight 242.00 lb Heart Rate 100 /min BP Systolic 108 mmHg BP Diastolic 70 mmHg BMI (Body Mass Index) 42.2 kg/m2 02/04/2017 2:23pm Height 63 inches 5'3" Weight 243.38 lb Heart Rate 40 /min BP Systolic Sitting 130 mmHg Rue large cuff BP Diastolic Sitting 86 mmHg Rue large cuff Respiratory Rate 20 /min O2 % BldC Oximetry 98 % On Ra BMI (Body Mass Index) 43.1 kg/m2 02/04/2017 2:18pm Height 63 inches 5'3" 01/13/2017 10:31am Height 63 inches 5'3" Weight 236.00 lb Heart Rate 72 /min BP Systolic Sitting 108 mmHg BP Diastolic Sitting 70 mmHg Respiratory Rate 14 /min O2 % BldC Oximetry 98 % BMI (Body Mass Index) 41.8 kg/m2 Neck Circumference in inches 14.5 01/06/2017 2:42pm Weight 240.00 lb Heart Rate 92 /min BP Systolic 110 mmHg BP Diastolic 68 mmHg Body Temperature 98.5 F O2 % BldC Oximetry 97 % 08/20/2016 3:53pm Weight 251.00 lb Heart Rate 78 /min BP Systolic Sitting 124 mmHg BP Diastolic Sitting 84 mmHg Respiratory Rate 15 /min Body Temperature 98.0 F O2 % BldC Oximetry 98 % 08/06/2016 2:39pm Height 63 inches 5'3" Weight 253.00 lb Heart Rate 87 /min BP Systolic Sitting 110 mmHg BP Diastolic Sitting 58 mmHg Respiratory Rate 18 /min Pain Level 0 O2 % BldC Oximetry 98 % BMI (Body Mass Index) 44.8 kg/m2 05/13/2016 10:10am Height 63 inches 5'3" Weight 253.00 lb Heart Rate 85 /min BP Systolic 116 mmHg BP Diastolic 64 mmHg Body Temperature 99.1 F O2 % BldC Oximetry 98 % BMI (Body Mass Index) 44.8 kg/m2 05/01/2016 3:09pm Weight 254.00 lb Heart Rate 87 /min BP Systolic Sitting 110 mmHg BP Diastolic Sitting 76 mmHg Body Temperature 97.9 F O2 % BldC Oximetry 98 % 04/11/2016 4:28pm Weight 254.00 lb Heart Rate 84 /min BP Systolic Sitting 122 mmHg BP Diastolic Sitting 84 mmHg Respiratory Rate 15 /min Body Temperature 98.6 F O2 % BldC Oximetry 98 % 02/06/2016 1:37pm Weight 254.25 lb Heart Rate 97 /min BP Systolic Sitting 110 mmHg BP Diastolic Sitting 70 mmHg Body Temperature 98.8 F O2 % BldC Oximetry 97 % 01/08/2016 4:34pm Weight 260.00 lb Heart Rate 78 /min BP Systolic Sitting 118 mmHg BP Diastolic Sitting 66 mmHg Respiratory Rate 15 /min Body Temperature 98.4 F O2 % BldC Oximetry 98 % 2015 4:21pm Weight 259.50 lb Heart Rate 81 /min BP Systolic Sitting 130 mmHg BP Diastolic Sitting 72 mmHg O2 % BldC Oximetry 95 % 11/20/2015 4:19pm Weight 260.00 lb with shoes Heart Rate 105 /min BP Systolic Sitting 98 mmHg BP Diastolic Sitting 72 mmHg Body Temperature 98.0 F O2 % BldC Oximetry 99 % 10/04/2015 4:21pm Weight 265.00 lb Heart Rate 77 /min BP Systolic Sitting 116 mmHg BP Diastolic Sitting 78 mmHg Body Temperature 98.5 F O2 % BldC Oximetry 99 % 08/18/2015 2:08pm Height 63 inches 5'3" Weight 259.00 lb Heart Rate 92 /min BP Systolic Sitting 114 mmHg BP Diastolic Sitting 72 mmHg Respiratory Rate 14 /min O2 % BldC Oximetry 97 % BMI (Body Mass Index) 45.9 kg/m2 08/08/2015 9:06am Weight 261.00 lb Heart Rate 84 /min BP Systolic Sitting 110 mmHg BP Diastolic Sitting 78 mmHg Body Temperature 97.6 F 06/27/2015 3:35pm Weight 269.00 lb Heart Rate 103 /min BP Systolic 127 mmHg BP Diastolic 78 mmHg Body Temperature 98.0 F O2 % BldC Oximetry 100 % 06/13/2015 4:46pm Height 63 inches 5'3" Weight 263.00 lb Heart Rate 82 /min BP Systolic 104 mmHg BP Diastolic 73 mmHg Body Temperature 98.5 F O2 % BldC Oximetry 96 % BMI (Body Mass Index) 46.6 kg/m2 04/26/2015 4:18pm Weight 280.00 lb Heart Rate 92 /min BP Systolic Sitting 128 mmHg BP Diastolic Sitting 88 mmHg Body Temperature 98.7 F O2 % BldC Oximetry 97 % 03/15/2015 4:03pm Weight 280.00 lb Heart Rate 100 /min BP Systolic Sitting 112 mmHg BP Diastolic Sitting 76 mmHg Respiratory Rate 16 /min Body Temperature 98.2 F O2 % BldC Oximetry 98 % 02/10/2015 3:34pm Height 63 inches 5'3" Weight 277.00 lb Heart Rate 78 /min BP Systolic 106 mmHg BP Diastolic 66 mmHg Body Temperature 98.0 F O2 % BldC Oximetry 97 % BMI (Body Mass Index) 49.1 kg/m2 01/18/2015 10:45am Height 63 inches 5'3" Weight 278.00 lb Heart Rate 80 /min BP Systolic 105 mmHg BP Diastolic 65 mmHg Body Temperature 98.2 F O2 % BldC Oximetry 98 % BMI (Body Mass Index) 49.2 kg/m2 12/16/2014 12:57pm Height 63 inches 5'3" Weight 282.38 lb Heart Rate 98 /min BP Systolic 108 mmHg BP Diastolic 76 mmHg Respiratory Rate 14 /min O2 % BldC Oximetry 98 % BMI (Body Mass Index) 50.0 kg/m2 Neck Circumference in inches 16.5 12/14/2014 1:40pm Height 63 inches 5'3" Weight 279.50 lb Heart Rate 92 /min BP Systolic Sitting 106 mmHg BP Diastolic Sitting 84 mmHg Body Temperature 97.6 F O2 % BldC Oximetry 97 % BMI (Body Mass Index) 49.5 kg/m2 10/27/2014 1:48pm Weight 293.00 lb Heart Rate 93 /min BP Systolic Sitting 125 mmHg BP Diastolic Sitting 77 mmHg Body Temperature 98.2 F 05/16/2014 12:27pm Height 98 inches 8'2" Weight 303.00 lb BP Systolic Sitting 122 mmHg BP Diastolic Sitting 76 mmHg Body Temperature 98.0 F BMI (Body Mass Index) 22.2 kg/m2 05/05/2014 2:27pm Weight 300.50 lb Heart Rate 95 /min BP Systolic Sitting 118 mmHg BP Diastolic Sitting 82 mmHg O2 % BldC Oximetry 98 % 04/22/2014 2:46pm Weight 308.25 lb Heart Rate 97 /min BP Systolic Sitting 130 mmHg BP Diastolic Sitting 87 mmHg Body Temperature 98.3 F O2 % BldC Oximetry 97 % 04/15/2014 3:19pm Weight 309.00 lb Heart Rate 88 /min BP Systolic Sitting 138 mmHg BP Diastolic Sitting 76 mmHg Body Temperature 98.2 F Pain Level 7 03/04/2014 2:10pm Height 63.25 inches 5'3.25" Weight 321.00 lb Heart Rate 122 /min BP Systolic Sitting 140 mmHg BP Diastolic Sitting 88 mmHg Respiratory Rate 18 /min O2 % BldC Oximetry 96 % BMI (Body Mass Index) 56.4 kg/m2 01/19/2014 3:42pm Height 63.25 inches 5'3.25" Weight 310.00 lb Heart Rate 76 /min BP Systolic Sitting 122 mmHg BP Diastolic Sitting 68 mmHg Respiratory Rate 20 /min BMI (Body Mass Index) 54.5 kg/m2 12/29/2013 2:07pm Height 63.25 inches 5'3.25" Weight 308.00 lb Heart Rate 92 /min BP Systolic Sitting 132 mmHg BP Diastolic Sitting 80 mmHg Respiratory Rate 20 /min BMI (Body Mass Index) 54.1 kg/m2 2013 3:10pm Weight 311.25 lb Heart Rate 97 /min BP Systolic Sitting 122 mmHg BP Diastolic Sitting 76 mmHg O2 % BldC Oximetry 98 % 11/09/2013 2:37pm Weight 302.00 lb Heart Rate 102 /min BP Systolic Sitting 122 mmHg BP Diastolic Sitting 78 mmHg 11/02/2013 2:39pm Weight 303.00 lb Heart Rate 98 /min BP Systolic Sitting 124 mmHg BP Diastolic Sitting 80 mmHg 09/28/2013 1:54pm Weight 300.00 lb Heart Rate 102 /min BP Systolic Sitting 118 mmHg BP Diastolic Sitting 70 mmHg O2 % BldC Oximetry 97 % 09/07/2013 3:16pm Weight 298.25 lb Heart Rate 88 /min BP Systolic Sitting 120 mmHg BP Diastolic Sitting 82 mmHg Body Temperature 99.0 F O2 % BldC Oximetry 99 % 08/18/2013 4:12pm Weight 293.00 lb Heart Rate 108 /min BP Systolic Sitting 120 mmHg BP Diastolic Sitting 76 mmHg 04/27/2013 1:48pm Weight 286.25 lb Heart Rate 88 /min BP Systolic 120 mmHg BP Diastolic 74 mmHg 04/16/2013 1:45pm Weight 291.00 lb Heart Rate 84 /min BP Systolic Sitting 110 mmHg BP Diastolic Sitting 72 mmHg 03/31/2013 4:27pm Height 63.25 inches 5'3.25" Weight 284.00 lb Heart Rate 108 /min BP Systolic Sitting 120 mmHg BP Diastolic Sitting 76 mmHg BMI (Body Mass Index) 49.9 kg/m2 02/16/2013 3:03pm Weight 285.00 lb Heart Rate 129 /min BP Systolic Sitting 102 mmHg BP Diastolic Sitting 68 mmHg 01/13/2013 3:04pm Weight 274.00 lb Heart Rate 100 /min BP Systolic Sitting 130 mmHg BP Diastolic Sitting 90 mmHg 01/06/2013 2:40pm Height 63.50 inches 5'3.50" Weight 282.00 lb Heart Rate 109 /min BP Systolic Sitting 100 mmHg BP Diastolic Sitting 90 mmHg Body Temperature 99.8 F BMI (Body Mass Index) 49.2 kg/m2 12/31/2012 2:04pm Weight 278.50 lb Heart Rate 108 /min BP Systolic Sitting 110 mmHg BP Diastolic Sitting 82 mmHg Body Temperature 100.5 F O2 % BldC Oximetry 96 % 12/11/2012 1:10pm Weight 276.50 lb Heart Rate 99 /min BP Systolic Sitting 120 mmHg BP Diastolic Sitting 72 mmHg 09/17/2012 2:25pm Weight 266.00 lb Heart Rate 123 /min BP Systolic Sitting 108 mmHg BP Diastolic Sitting 82 mmHg 08/27/2012 2:55pm Weight 268.50 lb Heart Rate 92 /min BP Systolic Sitting 110 mmHg BP Diastolic Sitting 78 mmHg O2 % BldC Oximetry 98 % 07/28/2012 1:52pm Weight 266.50 lb Heart Rate 96 /min BP Systolic Sitting 118 mmHg BP Diastolic Sitting 82 mmHg 07/14/2012 2:12pm Height 63.50 inches 5'3.50" Weight 263.00 lb Heart Rate 101 /min BP Systolic Sitting 110 mmHg BP Diastolic Sitting 82 mmHg BMI (Body Mass Index) 45.9 kg/m2 06/15/2012 2:30pm Height 63.50 inches 5'3.50" Weight 249.00 lb Heart Rate 80 /min BP Systolic Sitting 116 mmHg BP Diastolic Sitting 80 mmHg BMI (Body Mass Index) 43.4 kg/m2 05/21/2012 11:14am Height 63.50 inches 5'3.50" Weight 249.00 lb Heart Rate 104 /min BP Systolic Sitting 116 mmHg BP Diastolic Sitting 80 mmHg O2 % BldC Oximetry 99 % BMI (Body Mass Index) 43.4 kg/m2 05/18/2012 10:37am Height 63.50 inches 5'3.50" Weight 250.75 lb Heart Rate 115 /min BP Systolic Sitting 112 mmHg BP Diastolic Sitting 78 mmHg Body Temperature 98.3 F O2 % BldC Oximetry 98 % BMI (Body Mass Index) 43.7 kg/m2 05/13/2012 11:13am Height 63.50 inches 5'3.50" Weight 240.00 lb Heart Rate 125 /min BP Systolic Sitting 100 mmHg BP Diastolic Sitting 80 mmHg Body Temperature 98.4 F BMI (Body Mass Index) 41.8 kg/m2 02/24/2012 1:44pm Height 63.50 inches 5'3.50" Weight 236.00 lb Heart Rate 88 /min BP Systolic Sitting 120 mmHg BP Diastolic Sitting 78 mmHg BMI (Body Mass Index) 41.1 kg/m2 01/30/2012 12:38pm Height 63.50 inches 5'3.50" Weight 235.00 lb Heart Rate 84 /min BP Systolic Sitting 116 mmHg BP Diastolic Sitting 80 mmHg Body Temperature 99.5 F lt ear BMI (Body Mass Index) 41.0 kg/m2 01/28/2012 2:16pm Height 63.50 inches 5'3.50" Weight 237.00 lb Heart Rate 104 /min BP Systolic Sitting 110 mmHg BP Diastolic Sitting 76 mmHg BMI (Body Mass Index) 41.3 kg/m2 12/24/2011 1:50pm Height 63.50 inches 5'3.50" Weight 218.00 lb Heart Rate 102 /min BP Systolic Sitting 100 mmHg BP Diastolic Sitting 80 mmHg BMI (Body Mass Index) 38.0 kg/m2 12/12/2011 2:22pm Height 63.50 inches 5'3.50" Weight 223.00 lb Heart Rate 89 /min BP Systolic Sitting 104 mmHg BP Diastolic Sitting 78 mmHg BMI (Body Mass Index) 38.9 kg/m2 11/20/2011 2:02pm Height 63.50 inches 5'3.50" Weight 224.00 lb Heart Rate 79 /min BP Systolic Sitting 109 mmHg BP Diastolic Sitting 76 mmHg BMI (Body Mass Index) 39.1 kg/m2 11/08/2011 2:06pm Height 63.50 inches 5'3.50" Weight 228.00 lb Heart Rate 80 /min BP Systolic Sitting 98 mmHg BP Diastolic Sitting 60 mmHg BMI (Body Mass Index) 39.8 kg/m2 08/26/2011 2:52pm Height 63.50 inches 5'3.50" Weight 216.00 lb Heart Rate 98 /min BP Systolic Sitting 100 mmHg BP Diastolic Sitting 80 mmHg Body Temperature 97.9 F O2 % BldC Oximetry 97 % BMI (Body Mass Index) 37.7 kg/m2 08/01/2011 12:06pm Height 63.50 inches 5'3.50" Weight 215.00 lb Heart Rate 68 /min BP Systolic Sitting 102 mmHg L BP Diastolic Sitting 70 mmHg L Body Temperature 97.5 F BMI (Body Mass Index) 37.5 kg/m2 07/29/2011 2:22pm Height 63.50 inches 5'3.50" Weight 215.00 lb Heart Rate 96 /min BP Systolic Sitting 111 mmHg BP Diastolic Sitting 72 mmHg BMI (Body Mass Index) 37.5 kg/m2 06/24/2011 12:34pm Height 64 inches 5'4" Est Weight 201.00 lb Heart Rate 68 /min BP Systolic Sitting 100 mmHg BP Diastolic Sitting 80 mmHg BMI (Body Mass Index) 34.5 kg/m2 06/18/2011 10:07am Height 64 inches 5'4" Est Weight 206.00 lb Heart Rate 94 /min BP Systolic Sitting 118 mmHg L BP Diastolic Sitting 72 mmHg L BMI (Body Mass Index) 35.4 kg/m2 05/22/2011 12:45pm Height 64 inches 5'4" Est Weight 199.00 lb Heart Rate 68 /min BP Systolic Sitting 114 mmHg BP Diastolic Sitting 78 mmHg BMI (Body Mass Index) 34.2 kg/m2 Results Test Date Facility Test Result H/L Range Note Urinalysis Profile 05/31/2017 [facility] Urine Color Colorless [address] [place] [address] [phone] Urine Appearance Clear Urine Specific Wayne 1.001 Low 1.010-1.030 Urine pH 6.0 N 5-9 Urine Urobilinogen Negative Negative Urine Ketones Negative Negative Urine Protein Negative Negative Urine Leukocytes Negative Negative Urine Blood 1+ Abnormal Negative Urine Nitrite Negative Negative Urine Bilirubin Negative Negative Urine Glucose Negative Negative Urine White Blood Cell Absent Absent Urine Red Blood Cell Absent Absent Urine Bacteria 1+ Abnormal Absent Urine Culture And 05/31/2017 [facility] Urine Culture SEE RESULT [address] [place] [address] [phone] CBC Auto Diff 05/31/2017 [facility] White Blood 9.9 10^3/uL N 3.5-[address] Count .8 [place] [address] [phone] Red Blood Count 5.53 10^6/uL High 4.0-5.4 Hemoglobin 14.7 g/dL N 12.0-16.0 Hematocrit 46 % N 35-47 Mean Corpuscular Volume 83 fL N 80-97 Mean Corpuscular Hemoglobin 27 pg N 27-31 Mean Corpuscular HGB Conc 32 g/dL N 31-36 Red Cell Distribution Width 14 % N 10.5-15 Platelet Count 352 10^3/uL N 150-450 Mean Platelet Volume 8 um3 N 7.4-10.4 Abs Neutrophils 6.1 10^3/uL N 1.5-7.7 Abs Lymphocytes 3.0 10^3/uL N 1.0-4.8 Abs Monocytes 0.5 10^3/uL N 0-0.8 Abs Eosinophils 0.2 10^3/uL N 0-0.6 Abs Basophils 0.1 10^3/uL N 0-0.2 Abs Nucleated RBC 0 10^3/uL Granulocyte % 61.3 % N 38-83 Lymphocyte % 30.6 % N 25-47 Monocyte % 5.5 % N 1-9 Eosinophil % 1.8 % N 0-6 Basophil % 0.8 % N 0-2 Nucleated Red Blood Cells % 0.1 Laboratory test 05/31/2017 [facility] Alcohol 205 mg/dL High < 10 finding [address] [place] [address] [phone] Comp Metabolic 05/31/2017 [facility] Sodium 141 mmol/L N 133- 145 Panel [address] [place] [address] [phone] Chloride 108 mmol/L N 101-111 Co2 Carbon Dioxide 22 mmol/L N 22-32 Glucose 86 mg/dL N 70-100 Blood Urea Nitrogen 9 mg/dL N 6-24 Creatinine 1.13 mg/dL High 0.51-0.95 BUN/Creatinine Ratio 8.0 N 8-20 Calcium 9.3 mg/dL N 8.6-10.3 Total Protein 7.5 g/dL N 6.4-8.9 Albumin 4.4 g/dL N 3.2-5.2 Globulin 3.1 g/dL N 2-4 Albumin/Globulin Ratio 1.4 N 1-3 Total Bilirubin 0.40 mg/dL N 0.2-1.0 Alkaline Phosphatase 80 U/L N 34-104 Alt 16 U/L N 7-52 Egfr Non- 55.5 >60 Egfr 71.3 >60 2 Potassium 3.7 mmol/L N 3.5-5.0 Anion Gap 11 mmol/L N 2-11 Ast 22 U/L N 13-39 Laboratory test finding 05/31/2017 [facility] Amylase 50 U/L N 29-103 [address] [place] [address] [phone] Lipase 145 U/L High 11.0-82.0 Creatine Kinase(CK) 154 U/L N 10-223 HCG < 0.60 mIU/mL 3 Inr/Protime 05/31/2017 [facility] Inr 0.98 N 0.77-1.02 [address] [place] [address] [phone] Laboratory test 05/31/2017 [facility] Lactic Acid 1.9 mmol/L N 0.5-2.0 [address] [place] [address] [phone] Urinalysis 01/09/2017 [facility] Urine Color Yellow N Profile [address] [place] [address] [phone] Urine Appearance Cloudy N Urine Specific Wayne 1.035 High 1.010-1.030 Urine pH 5 N 5-9 Urine Urobilinogen Negative N Negative Urine Ketones Negative N Negative Urine Protein Negative N Negative Urine Leukocytes 2+ Abnormal Negative Urine Blood Negative N Negative Urine Nitrite Negative N Negative Urine Bilirubin Negative N Negative Urine Glucose Negative N Negative Urine White Blood Cell 2+(11-20/hpf) Abnormal Absent Urine Red Blood Cell Absent N Absent Urine Bacteria 1+ Abnormal Absent Urine Squamous Epithelial Cell Present Abnormal Absent Urine Culture And 01/09/2017 [facility] Urine Culture SEE RESULT [address] [place] [address] [phone] CBC Auto Diff 01/09/2017 [facility] White Blood 9.7 10^3/uL N 3.5-[address] Count .8 [place] [address] [phone] Red Blood Count 5.01 10^6/uL N 4.0-5.4 Hemoglobin 13.4 g/dL N 12.0-16.0 Hematocrit 41 % N 35-47 Mean Corpuscular Volume 81 fL N 80-97 Mean Corpuscular Hemoglobin 27 pg N 27-31 Mean Corpuscular HGB Conc 33 g/dL N 31-36 Red Cell Distribution Width 16 % High 10.5-15 Platelet Count 290 10^3/uL N 150-450 Mean Platelet Volume 7 um3 Low 7.4-10.4 Abs Neutrophils 5.2 10^3/uL N 1.5-7.7 Abs Lymphocytes 3.6 10^3/uL N 1.0-4.8 Abs Monocytes 0.7 10^3/uL N 0-0.8 Abs Eosinophils 0.2 10^3/uL N 0-0.6 Abs Basophils 0.1 10^3/uL N 0-0.2 Abs Nucleated RBC 0 10^3/uL N Granulocyte % 53.5 % N 38-83 Lymphocyte % 37.2 % N 25-47 Monocyte % 7.0 % N 1-9 Eosinophil % 1.7 % N 0-6 Basophil % 0.6 % N 0-2 Nucleated Red Blood Cells % 0 N Laboratory test 01/09/2017 [facility] B-Type 55 pg/mL N [address] [place] [address] Peptide BNP [phone] Comp Metabolic 01/09/2017 [facility] Sodium 139 mmol/L N 133- [address] [place] [address] [phone] Potassium 3.6 mmol/L N 3.5-5.0 Chloride 108 mmol/L N 101-111 Co2 Carbon Dioxide 24 mmol/L N 22-32 Anion Gap 7 mmol/L N 2-11 Glucose 81 mg/dL N 70-100 Blood Urea Nitrogen 11 mg/dL N 6-24 Creatinine 1.00 mg/dL High 0.51-0.95 BUN/Creatinine Ratio 11.0 N 8-20 Calcium 8.6 mg/dL N 8.6-10.3 Total Protein 6.9 g/dL N 6.4-8.9 Albumin 3.6 g/dL N 3.2-5.2 Globulin 3.3 g/dL N 2-4 Albumin/Globulin Ratio 1.1 N 1-3 Total Bilirubin 0.40 mg/dL N 0.2-1.0 Alkaline Phosphatase 72 U/L N 34-104 Alt 12 U/L N 7-52 Ast 14 U/L N 13-39 Egfr Non- 63.9 N >60 Egfr 82.1 N >60 7 Laboratory test 01/09/2017 [facility] C Reactive 25.08 mg/L High < 5.00 [address] [place] [address] [phone] HCG < 0.60 mIU/mL N 9 Laboratory test 09/26/2016 [facility] Fecal SEE RESULT [address] [place] [address] (Stool WBC) [phone] Stool Occult 09/26/2016 [facility] Stool Occult SEE RESULT 11 Blood Diag [address] Blood, Diag BELOW [place], [place] [id number] [phone] Laboratory test 09/26/2016 [facility] E.Coli 0157:H7 SEE RESULT [address] [place] [address] [phone] Rapid Influenza 07/28/2016 [facility] Influenza A NEGATIVE N Negative 13 A & B Molecular [address] [place] [address] [phone] Influenza B Molecular NEGATIVE N Negative Urine Culture And 06/14/2016 [facility] Urine SEE RESULT 14 , [address] [place] [address] [phone] Basic Metabolic 05/02/2016 [facility] Sodium 139 mmol/L N 133- [address] [place] [address] [phone] Potassium 3.8 mmol/L N 3.5-5.0 Chloride 107 mmol/L N 101-111 Co2 Carbon Dioxide 25 mmol/L N 22-32 Anion Gap 7 mmol/L N 2-11 Glucose 84 mg/dL N 70-100 Blood Urea Nitrogen 16 mg/dL N 6-24 Creatinine 1.03 mg/dL High 0.51-0.95 BUN/Creatinine Ratio 15.5 N 8-20 Calcium 10.6 mg/dL High 8.6-10.3 Egfr Non- 62.1 N >60 Egfr 79.9 N >60 16 Urinalysis Profile 04/27/2016 [facility] Urine Color Yellow N [address] [place] [address] [phone] Urine Appearance Cloudy N Urine Specific Wayne 1.014 N 1.010-1.030 Urine pH 8.0 N 5-9 Urine Urobilinogen Negative N Negative Urine Ketones Negative N Negative Urine Protein 2+(100 mg/dL) Abnormal Negative Urine Leukocytes 2+ Abnormal Negative Urine Blood 3+ Abnormal Negative Urine Nitrite Negative N Negative Urine Bilirubin Negative N Negative Urine Glucose Negative N Negative Urine White Blood Cell 1+(6-10/hpf) Abnormal Absent Urine Red Blood Cell 3+(>10/hpf) Abnormal Absent Urine Bacteria Absent N Absent Urine Squamous Epithelial Cell Present Abnormal Absent Urine Culture And 04/27/2016 [facility] Urine Culture SEE RESULT [address] [place] [address] [phone] Basic Metabolic 04/27/2016 [facility] Sodium 136 mmol/L N 133- [address] [place] [address] [phone] Potassium 4.2 mmol/L N 3.5-5.0 Chloride 105 mmol/L N 101-111 Co2 Carbon Dioxide 27 mmol/L N 22-32 Anion Gap 4 mmol/L N 2-11 Glucose 82 mg/dL N 70-100 Blood Urea Nitrogen 11 mg/dL N 6-24 Creatinine 1.07 mg/dL High 0.51-0.95 BUN/Creatinine Ratio 10.3 N 8-20 Calcium 8.7 mg/dL N 8.6-10.3 Egfr Non- 59.4 N >60 Egfr 76.4 N >60 18 CBC Auto 04/27/2016 [facility] White Blood 11.3 10^3/uL High 3.5-10.[address] [place] [address] [phone] Red Blood Count 5.09 10^6/uL N 4.0-5.4 Hemoglobin 13.0 g/dL N 12.0-16.0 Hematocrit 40 % N 35-47 Mean Corpuscular Volume 79 fL Low 80-97 Mean Corpuscular Hemoglobin 26 pg Low 27-31 Mean Corpuscular HGB Conc 32 g/dL N 31-36 Red Cell Distribution Width 15 % N 10.5-15 Platelet Count 317 10^3/uL N 150-450 Mean Platelet Volume 8 um3 N 7.4-10.4 Abs Neutrophils 7.5 10^3/uL N 1.5-7.7 Abs Lymphocytes 2.8 10^3/uL N 1.0-4.8 Abs Monocytes 0.7 10^3/uL N 0-0.8 Abs Eosinophils 0.3 10^3/uL N 0-0.6 Abs Basophils 0.1 10^3/uL N 0-0.2 Abs Nucleated RBC 0 10^3/uL N Granulocyte % 66.2 % N 38-83 Lymphocyte % 24.9 % Low 25-47 Monocyte % 6.2 % N 1-9 Eosinophil % 2.2 % N 0-6 Basophil % 0.5 % N 0-2 Nucleated Red Blood Cells % 0 N Laboratory test 04/24/2016 [facility] Negative N Negative [address] (HCG) [place] [address] [phone] Urinalysis 04/21/2016 [facility] Urine Color Yellow N Profile [address] [place] [address] [phone] Urine Appearance Cloudy N Urine Specific Wayne 1.018 N 1.010-1.030 Urine pH 5.0 N 5-9 Urine Urobilinogen Negative N Negative Urine Ketones Negative N Negative Urine Protein Negative N Negative Urine Leukocytes Trace Abnormal Negative Urine Blood 3+ Abnormal Negative Urine Nitrite Negative N Negative Urine Bilirubin Negative N Negative Urine Glucose Negative N Negative Urine White Blood Cell 1+(6-10/hpf) Abnormal Absent Urine Red Blood Cell 3+(>10/hpf) Abnormal Absent Urine Bacteria Absent N Absent Urine Squamous Epithelial Cell Present Abnormal Absent CBC Auto 04/21/2016 [facility] White Blood 12.2 10^3/uL High 3.5-10.[address] [place] [address] [phone] Red Blood Count 5.10 10^6/uL N 4.0-5.4 Hemoglobin 12.9 g/dL N 12.0-16.0 Hematocrit 40 % N 35-47 Mean Corpuscular Volume 79 fL Low 80-97 Mean Corpuscular Hemoglobin 25 pg Low 27-31 Mean Corpuscular HGB Conc 32 g/dL N 31-36 Red Cell Distribution Width 15 % N 10.5-15 Platelet Count 288 10^3/uL N 150-450 Mean Platelet Volume 7 um3 Low 7.4-10.4 Abs Neutrophils 8.1 10^3/uL High 1.5-7.7 Abs Lymphocytes 3.0 10^3/uL N 1.0-4.8 Abs Monocytes 0.9 10^3/uL High 0-0.8 Abs Eosinophils 0.2 10^3/uL N 0-0.6 Abs Basophils 0.1 10^3/uL N 0-0.2 Abs Nucleated RBC 0.01 10^3/uL N Granulocyte % 66.1 % N 38-83 Lymphocyte % 24.2 % Low 25-47 Monocyte % 7.4 % N 1-9 Eosinophil % 1.4 % N 0-6 Basophil % 0.9 % N 0-2 Nucleated Red Blood Cells % 0.1 N Comp Metabolic Panel 04/21/2016 [facility] Sodium 139 mmol/L N 133-[address] [place] [address] [phone] Potassium 3.7 mmol/L N 3.5-5.0 Chloride 107 mmol/L N 101-111 Co2 Carbon Dioxide 26 mmol/L N 22-32 Anion Gap 6 mmol/L N 2-11 Glucose 87 mg/dL N 70-100 Blood Urea Nitrogen 11 mg/dL N 6-24 Creatinine 1.06 mg/dL High 0.51-0.95 BUN/Creatinine Ratio 10.4 N 8-20 Calcium 8.4 mg/dL Low 8.6-10.3 Total Protein 6.8 g/dL N 6.4-8.9 Albumin 3.7 g/dL N 3.2-5.2 Globulin 3.1 g/dL N 2-4 Albumin/Globulin Ratio 1.2 N 1-3 Total Bilirubin 0.30 mg/dL N 0.2-1.0 Alkaline Phosphatase 64 U/L N 34-104 Alt 12 U/L N 7-52 Ast 15 U/L N 13-39 Egfr Non- 60.1 N >60 Egfr 77.3 N >60 20 Laboratory test finding 04/21/2016 [facility] Lipase 22 U/L N 11.0-82.[address] [place] [address] [phone] HCG < 0.60 mIU/mL N 21 Urine Culture 04/21/2016 [facility] Urine SEE RESULT [address] Culture [place] [address] [phone] Laboratory test 02/17/2016 [facility] Rapid Strep Negative N Negative [address] [place] [address] [phone] Laboratory test 01/15/2016 [facility] MRSA Screen SEE RESULT [address] [place] [address] [phone] Laboratory test 01/11/2016 [facility] MRSA Screen SEE RESULT [address] [place] [address] [phone] Laboratory test 09/20/2015 [facility] TSH (Thyroid 2.50 ?IU/mL N 0.34-5.60 [address] Stim Horm) [place] [address] [phone] CBC Auto Diff 09/20/2015 [facility] White Blood 11.7 High 3.5- 10.[address] Count 10^3/[place] [address] [phone] Red Blood Count 4.95 10^6/uL N 4.0-5.4 Hemoglobin 12.1 g/dL N 12.0-16.0 Hematocrit 38 % N 35-47 Mean Corpuscular Volume 77 fL Low 80-97 Mean Corpuscular Hemoglobin 25 pg Low 27-31 Mean Corpuscular HGB Conc 32 g/dL N 31-36 Red Cell Distribution Width 15 % N 10.5-15 Platelet Count 308 10^3/uL N 150-450 Mean Platelet Volume 7 um3 Low 7.4-10.4 Abs Neutrophils 7.8 10^3/uL High 1.5-7.7 Abs Lymphocytes 3.0 10^3/uL N 1.0-4.8 Abs Monocytes 0.7 10^3/uL N 0-0.8 Abs Eosinophils 0.2 10^3/uL N 0-0.6 Abs Basophils 0.1 10^3/uL N 0-0.2 Abs Nucleated RBC 0.01 10^3/uL N Granulocyte % 66.4 % N 38-83 Lymphocyte % 25.4 % N 25-47 Monocyte % 5.7 % N 1-9 Eosinophil % 1.9 % N 0-6 Basophil % 0.6 % N 0-2 Nucleated Red Blood Cells % 0.1 N HIV 1/2 AB 09/20/2015 [facility] HIV 1 2 Nonreactive N Nonreactive [address] [place] [address] [phone] Comp Metabolic 09/20/2015 [facility] Sodium 137 mmol/L N 133- [address] [place] [address] [phone] Potassium 3.6 mmol/L N 3.5-5.0 Chloride 104 mmol/L N 101-111 Co2 Carbon Dioxide 25 mmol/L N 22-32 Anion Gap 8 mmol/L N 2-11 Glucose 95 mg/dL N 70-100 Blood Urea Nitrogen 12 mg/dL N 6-24 Creatinine 0.94 mg/dL N 0.51-0.95 BUN/Creatinine Ratio 12.8 N 8-20 Calcium 8.7 mg/dL N 8.6-10.3 Total Protein 6.8 g/dL N 6.4-8.9 Albumin 4.0 g/dL N 3.2-5.2 Globulin 2.8 g/dL N 2-4 Albumin/Globulin Ratio 1.4 N 1-3 Total Bilirubin 0.50 mg/dL N 0.2-1.0 Alkaline Phosphatase 94 U/L N 34-104 Alt 11 U/L N 7-52 Ast 12 U/L Low 13-39 Egfr Non- 69.5 N >60 Egfr 89.3 N >60 28 Laboratory test 09/20/2015 [facility] Lyme Disease Equivocal N Negative [address] [place] [address] [phone] Lyme Western 09/20/2015 [facility] Lyme Disease Negative N Negative Blot [address] IgG Ab WB [place], [place] [address] [phone] Lyme Disease IgG Bands Present p41, kDa N Lyme Disease IgM Ab WB Negative N Negative Lyme Disease IgM Bands Present No bands detecte <SEE NOTE> kDa N 30 Lyme Disease Interpretation See Comment N 31 Urine Culture And 08/26/2015 [facility] Urine Culture SEE RESULT [address] [place] [address] [phone] Laboratory test 06/12/2015 [facility] Rapid SEE RESULT [address] Influenza [place] [address] Antigen [phone] Rapid Influenza A 06/12/2015 [facility] Influenza A NEGATIVE N Negative 34 & B Molecular [address] [place] [address] [phone] Influenza B Molecular NEGATIVE N Negative Rapid Influenza 04/26/2015 [facility] Influenza A NEGATIVE N Negative 35 A & B Molecular [address] [place] [address] [phone] Influenza B Molecular NEGATIVE N Negative Laboratory test 04/26/2015 [facility] Influenza A & B SEE RESULT [address] Request BELOW [place], [place] [id number] [phone] Laboratory test 05/24/2014 TSH (Thyroid 2.75 IU/mL N 0.34- finding Stimulating Horm) 5.60 Free T3 3.10 pg/mL N 2.5-3.9 Free T4 0.85 ng/mL N 0.61-1.12 Laboratory test 05/05/2014 [facility] Hemoglobin A1c 5.5 5-7 finding CBC Auto Diff 04/19/2014 White Blood Count 11.2 High 4.8-10.8 10^3/uL Red Blood Count 5.05 10^6/uL N 4.0-5.4 Hemoglobin 12.5 g/dL N 12.0-16.0 Hematocrit 40 % N 35-47 Mean Corpuscular Volume 79 fL Low 80-97 Mean Corpuscular Hemoglobin 25 pg Low 27-31 Mean Corpuscular HGB Conc 32 g/dL N 31-36 Red Cell Distribution Width 16 % High 10.5-15 Platelet Count 284 10^3/uL N 150-450 Mean Platelet Volume 8 um3 N 7.4-10.4 Abs Neutrophils 7.2 10^3/uL N 1.5-7.7 Abs Lymphocytes 2.9 10^3/uL N 1.0-4.8 Abs Monocytes 0.7 10^3/uL N 0-0.8 Abs Eosinophils 0.4 10^3/uL N 0-0.6 Abs Basophils 0.1 10^3/uL N 0-0.2 Abs Nucleated RBC 0.01 10^3/uL N Granulocyte % 64.1 % N 38-83 Lymphocyte % 25.8 % N 25-47 Monocyte % 6.3 % N 1-9 Eosinophil % 3.1 % N 0-6 Basophil % 0.7 % N 0-2 Nucleated Red Blood Cells % 0 N Laboratory test finding 04/19/2014 Erythrocyte Sed Rate 25 mm/Hr High 0- 14 Lyme Western Blot 04/19/2014 Lyme Disease IgG Ab WB Negative N Negative Lyme Disease IgG Bands Present p41, kDa N Lyme Disease IgM Ab WB Negative N Negative Lyme Disease IgM Bands Present No bands detecte <SEE NOTE> kDa N 37 Lyme Disease Interpretation See Comment N 38 Laboratory test 01/12/2014 [facility] Copper 1.38 g/mL N 0.75-1.45 [address] [place] [address] [phone] Ceruloplasmin 28.4 mg/dL N 40 Laboratory test 12/11/2013 [facility] Saliva <50 ng/dL N <100 [address] [place] [address] [phone] Cortisol Free 12/11/2013 Urine Free 43 mcg/24h N 3.5-45 24HR Urine Cortisol Urine Collection Duration 24 h N Urine Total Volume 2700 mL N 42 Laboratory test 2013 [facility] Hemoglobin A1c 5.6 5-7 finding GC/Chlamydia 11/09/2013 GC/Chlamydia Rna (SEE NOTE) 43 Amplified Rna Comp Metabolic 11/09/2013 Sodium 138 mmol/L N 133-145 Panel Potassium 4.1 mmol/L N 3.7-5.6 Chloride 104 mmol/L N 101-111 Co2 Carbon Dioxide 25 mmol/L N 22-32 Anion Gap 9 mmol/L N 2-11 Glucose 111 mg/dL High 70-100 Blood Urea Nitrogen 10 mg/dL N 6-24 Creatinine 0.98 mg/dL High 0.51-0.95 BUN/Creatinine Ratio 10.2 N 8-20 Calcium 8.7 mg/dL N 8.6-10.3 Total Protein 7.0 g/dL N 6.4-8.9 Albumin 3.9 g/dL N 3.2-5.2 Globulin 3.1 g/dL N 2-4 Albumin/Globulin Ratio 1.3 N 1-3 Total Bilirubin 0.40 mg/dL N 0.2-1.0 Alkaline Phosphatase 117 U/L High 34-104 Alt 21 U/L N 7-52 Ast 31 U/L N 13-39 Egfr Non- 67.1 N >60 Egfr 86.3 N >60 44 Laboratory test finding 11/09/2013 TSH (Thyroid Stimulating 1.92 IU/mL N 0.34-5.60 Horm) Free T4 0.87 ng/mL N 0.61-1.12 Free T3 4.00 pg/mL High 2.5-3.9 Laboratory test 11/09/2013 [facility] Affirm Vaginal Dna (SEE NOTE) [address] [place] [address] [phone] Surgical 07/15/2013 [facility] S RUN DATE: [address] 07/19/ <[place] [address] NOTE> [phone] Stool Culture 06/06/2013 [facility] Stool Culture (SEE NOTE) [address] [place] [address] [phone] Laboratory test 06/06/2013 [facility] Fecal Lactoferrin (SEE NOTE) [address] (Stool WBC) [place] [address] [phone] C. difficile Amplified Dna (SEE NOTE) 49 Laboratory test 06/06/2013 [facility] Stool Helicobacter TNP Negative [address] [place] [address] [phone] Stool Norovirus Ag NEGATIVE 51 Laboratory 06/06/2013 [facility] Serum Negative Negative 52 test finding [address] [place] [address] [phone] CBC Auto Diff 06/06/2013 [facility] White Blood 16.4 10^3/uL High 4.8-10.[address] [place] [address] [phone] Red Blood Count 5.20 10^6/uL 4.0-5.4 Hemoglobin [...] Cells % 0.1 Comp Metabolic Panel 06/06/2013 [facility] Sodium 139 mmol/L 133-[address] [place] [address] [phone] Potassium 4.4 mmol/L 3.7-5.6 Chloride 107 mmol/L [...] 82.4 >60 53 Laboratory test finding 06/06/2013 [facility] Lipase 16 U/L 11.0-82.0 [address] [place] [address] [phone] C Reactive Protein 41.57 mg/L 54 Urinalysis 06/06/2013 [facility] Urine Color Yellow [address] [place] [address] [phone] Urine Appearance Clear Urine Specific Wayne 1.028 1.010-1.030 Urine Esterase Negative Negative Urine Nitrate Negative Negative Urine Urobilinogen Negative E.U./dL Negative Urine Protein Trace mg/dL Abnormal Negative Urine pH 5.0 5-9 Urine Blood Negative Negative Urine Ketones Negative mg/dL Negative Urine Bilirubin Negative Negative Urine Glucose Negative mg/dL Negative Comp Metabolic Panel 05/24/2013 [facility] Sodium 136 mmol/L 133-145 [address] [place] [address] [phone] Potassium 4.1 mmol/L 3.5-5.0 Chloride 105 mmol/L [...] >60 Egfr 84.3 >60 55 Laboratory test 05/24/2013 [facility] C Reactive 4.0 mg/dL High Less than finding [address] Protein 0.5 [place] [address] [phone] Serum Negative Negative 56 CBC Auto 05/24/2013 [facility] White Blood 17.0 10^3/uL High 4.8-10.[address] [place] [address] [phone] Red Blood Count 5.18 10^6/uL 4.0-5.4 Hemoglobin [...] Red Blood Cells % 0 Urinalysis 05/24/2013 [facility] Urine Color Yellow [address] [place] [address] [phone] Urine Appearance Clear Urine Specific Wayne 1.029 1.010-1.030 Urine Esterase Negative Negative Urine Nitrate Negative Negative Urine Urobilinogen Negative E.U./dL Negative Urine Protein Trace mg/dL Abnormal Negative Urine pH 5.0 5-9 Urine Blood Negative Negative Urine Ketones Negative mg/dL Negative Urine Bilirubin Negative Negative Urine Glucose Negative mg/dL Negative CBC Auto 05/06/2013 [facility] White Blood 15.8 10^3/uL High 4.8-10.[address] [place] [address] [phone] Red Blood Count 5.48 10^6/uL High 4.0-5.4 [...] Red Blood Cells % 0.1 Laboratory test 05/06/2013 [facility] Serum Negative Negative [address] [place] [address] [phone] Comp Metabolic 05/06/2013 [facility] Sodium 141 mmol/L 133- [address] [place] [address] [phone] Potassium 3.6 mmol/L 3.5-5.0 Chloride 108 mmol/L [...] >60 Egfr 95.2 >60 58 Laboratory test 05/06/2013 [facility] Alcohol 267.5 mg/dL High Less Than [address] 10 [place] [address] [phone] Urinalysis 01/31/2013 [facility] Urine Color Yellow [address] [place] [address] [phone] Urine Appearance Clear Urine Specific Wayne 1.022 1.010-1.030 Urine Esterase 1+ Abnormal Negative Urine Nitrate Negative Negative Urine Urobilinogen Negative E.U./dL Negative Urine Protein Negative mg/dL Negative Urine pH 7.5 5-9 Urine Blood Negative Negative Urine Ketones Negative mg/dL Negative Urine Bilirubin Negative Negative Urine Glucose Negative mg/dL Negative Urine Microscopic 01/31/2013 [facility] Urine WBC 1+ (<10 None Seen [address] /hpf) [place] [address] [phone] Urine RBC None Seen None Seen Urine Epithelial Cells 2+ Squamous /hpf None Seen Bacteria Urine 2+ None Seen Urine Culture And 01/31/2013 [facility] Urine (SEE NOTE) [address] [place] [address] [phone] CBC Auto Diff 01/31/2013 [facility] White Blood 15.0 High 4.8- [address] Count 10^3/uL 0.8 [place] [address] [phone] Red Blood Count 5.07 10^6/uL 4.0-5.4 Hemoglobin [...] Cells % 0 Comp Metabolic Panel 01/31/2013 [facility] Sodium 139 mmol/L 133-145 [address] [place] [address] [phone] Potassium 3.8 mmol/L 3.5-5.0 Chloride 107 mmol/L [...] 127.2 >60 61 Laboratory test finding 01/31/2013 [facility] Amylase 41 U/L 20-120 [address] [place] [address] [phone] Lipase 21 U/L Low 22-51 C Reactive Protein 2.1 mg/dL High Less than 0.5 Hepatitis 01/31/2013 [facility] Hepatitis B Nonreactive Nonreactive Acute Panel [address] [place] [address] Antigen [phone] Hepatitis B Core IgM Nonreactive Nonreactive Hepatitis A AB IgM Nonreactive Nonreactive Hepatitis C Antibody Nonreactive Nonreactive Urinalysis 01/08/2013 [facility] Urine Color Yellow [address] [place] [address] [phone] Urine Appearance Cloudy Urine Specific Wayne 1.024 1.010-1.030 Urine Esterase 2+ Abnormal Negative Urine Nitrate Negative Negative Urine Urobilinogen Negative E.U./dL Negative Urine Protein Negative mg/dL Negative Urine pH 5.5 5-9 Urine Blood Negative Negative Urine Ketones Negative mg/dL Negative Urine Bilirubin Negative Negative Urine Glucose Negative mg/dL Negative Urine Microscopic 01/08/2013 [facility] Urine WBC 2+ (>10-30 None Seen [address] /hpf) [place] [address] [phone] Urine RBC 1+ (<3 /hpf) None Seen Urine Mucus Present /lpf Absent Urine Epithelial Cells 2+ Squamous /hpf None Seen Bacteria Urine 1+ None Seen Crystals Urine Calcium Oxalate /lpf None Seen Urine Culture And 01/08/2013 [facility] Urine (SEE NOTE) [address] [place] [address] [phone] CBC Auto Diff 01/08/2013 [facility] White Blood 13.1 High 4.8- [address] Count 10^3/uL 0.8 [place] [address] [phone] Red Blood Count 4.92 10^6/uL 4.0-5.4 Hemoglobin [...] Blood Cells % 0 Comp Metabolic Panel 01/08/2013 [facility] Sodium 139 mmol/L 133-[address] [place] [address] [phone] Potassium 4.2 mmol/L 3.5-5.0 Chloride 105 mmol/L [...] Egfr Non- 74.0 >60 Egfr 95.2 >60 64 Laboratory test finding 01/08/2013 [facility] Lipase 21 U/L Low 22-[address] [place] [address] [phone] C Reactive Protein 2.2 mg/dL High Less than 0.5 CBC Auto 01/06/2013 [facility] White Blood 11.7 10^3/uL High 4.8-10.[address] [place] [address] [phone] Red Blood Count 5.01 10^6/uL 4.0-5.4 Hemoglobin [...] Cells % 0.1 Comp Metabolic Panel 01/06/2013 [facility] Sodium 140 mmol/L 133-[address] [place] [address] [phone] Potassium 4.1 mmol/L 3.5-5.0 Chloride 107 mmol/L [...] Non- 84.8 >60 Egfr 109.1 >60 65 Laboratory test finding 08/26/2012 [facility] Glucose 87 mg/dL 70-[address] [place] [address] [phone] B Type Natriuretic Peptide 28.0 pg/mL 0-100 CBC Auto 08/26/2012 [facility] White Blood 13.6 10^3/uL High 4.8-10.[address] [place] [address] [phone] Red Blood Count 4.73 10^6/uL 4.0-5.4 Hemoglobin [...] 0-2 Nucleated Red Blood Cells % 0.1 Urinalysis W/Microscopic 07/28/2012 [facility] Urine Color Yellow [address] [place] [address] [phone] Urine Appearance Clear Urine Specific Wayne 1.007 Low 1.010-1.030 Urine Esterase 1+ Abnormal Negative Urine Nitrate Negative Negative Urine Urobilinogen Negative E.U./dL Negative Urine Protein Negative mg/dL Negative Urine pH 6.0 5-9 Urine Blood Negative Negative Urine Ketones Negative mg/dL Negative Urine Bilirubin Negative Negative Urine Glucose Negative mg/dL Negative Urine WBC 1+ (<10 /hpf) None Seen Urine RBC None Seen None Seen Urine Epithelial Cells 1+ Squamous /hpf None Seen Bacteria Urine 1+ None Seen Urine Culture And 07/28/2012 [facility] Urine Culture (SEE NOTE ) [address] [place] [address] [phone] Ua Routine 07/28/2012 [facility] Ua Specific 1.005 Wayne Ua PH 5 Ua Color yellow Ua Appera clear Ua WBC negative Ua Protein negative Ua Glucose negative Ua Ketones negative Ua Bilirubin negative Ua Urobilinogen negative Ua Nitrite negative Ua Occult Blood negative Laboratory test 07/28/2012 [facility] Hemoglobin A1c 5.7 5-7 finding CBC Auto Diff 07/15/2012 [facility] White Blood Count 14.6 High 4.8-10.[address] 10^3/[place] [address] [phone] Red Blood Count 5.04 10^6/uL 4.0-5.4 Hemoglobin [...] Cells % 0.1 Comp Metabolic Panel 07/15/2012 [facility] Sodium 140 mmol/L 133-[address] [place] [address] [phone] Potassium 4.2 mmol/L 3.5-5.0 Chloride 107 mmol/L [...] >60 Egfr 95.9 >60 67 Laboratory test 07/15/2012 [facility] Free T4 0.86 ng/mL 0.61 -1.24 [address] [place] [address] [phone] Free T3 3.68 pg/mL 2.39-6.79 69 TSH (Thyroid Stimulating Horm) 1.69 miu/mL 0.34-5.60 70 Laboratory test 01/30/2012 [facility] Throat Beta (SEE NOTE) [address] [place] [place] [address] [phone] Laboratory test 01/29/2012 [facility] Vitamin B12 258 pg/mL 180-[address] 4 [place] [address] [phone] Comp Metabolic 01/29/2012 [facility] Sodium 136 mmol/L 133- [address] 5 [place] [address] [phone] Potassium 3.9 mmol/L 3.5-5.0 Chloride 107 mmol/L [...] Non- 74.6 >60 Egfr 95.9 >60 73 CBC Auto 01/29/2012 [facility] White Blood 13.9 10^3/uL High 4.8-10.[address] [place] [address] [phone] Red Blood Count 4.94 10^6/uL 4.0-5.4 Hemoglobin [...] Red Blood Cells % 0 Laboratory test 01/29/2012 [facility] B Type 8.0 pg/mL 0-[address] [place] [address] Peptide [phone] TSH (Thyroid Stimulating Horm) 2.74 MIU/ML 0.34-5.60 Free T3 3.73 pg/mL 2.39-6.79 Free T4 0.86 NG/ML 0.61-1.24 Lipid Profile 11/11/2011 [facility] Triglyceride 132 mg/dL 40 -200 (Trig/Chol/HDL) [address] [place] [address] [phone] Cholesterol 172 mg/dL Less Than 200 74 High Density Lipoprotein 56 mg/dL 40-60 75 Cholesterol/HDL Ratio 3.07 AVERAGE 1-4.44 Low Density Lipoprotein 90 mg/dL Less Than 100 76 Laboratory test 11/11/2011 [facility] TSH 3.12 MIU/ML 0.34- 5.60 finding [address] [place] [address] [phone] Comp Metabolic 11/11/2011 [facility] Sodium 137 mmol/L 135- 145 Panel [address] [place] [address] [phone] Potassium 4.6 mmol/L 3.5-5.0 Chloride 109 mmol/L 101-111 Co2 (Carbon Dioxide) 23.0 mmol/L 22-32 Anion Gap 5.0 mmol/L 2-11 77 Glucose 86 mg/dL 70-100 BUN 9 mg/dL 6-24 Creatinine 0.8 mg/dL 0.50-1.40 One Over Creatinine 1.25 BUN/Creatinine Ratio 11.3 8-20 Calcium 8.4 mg/dL 8.1-9.9 Total Protein 5.6 GM/DL Low 6.2-8.1 Albumin 3.2 GM/DL Low 3.6-5.4 Globulin 2.4 GM/DL 2-4 Albumin/Globulin Ratio 1.3 1-3 Bilirubin Total 1.2 mg/dL 0.4-1.5 78 Alkaline Phosphatase 82 U/L 30-110 Alt (SGPT) 22 U/L 14-54 Ast (Sgot) 40 U/L 12-42 eGFR Non- 86.0 > 60 eGFR 110.7 > 60 79 Laboratory test 07/29/2011 [facility] Throat < SEE [address] [place] [address] Culture Full NOTE> [place] [address] [phone] 1 SEE RESULT BELOW Name: BARBARA SOLER : [address]: Henrietta Grace MD Acct: [id number] Unit: [id number] AGE: 31 Location: ED Re05/31/17 SEX: F Status: DEP ER SPEC: [id number] NADIR: 05/31/[address]: Henrietta Grace MD REQ: [id number] RECD: 05/31/17 STATUS: COMP CHARLESHR DR: Sarahi Henderson MD _ SOURCE: URINE SPDESC: ORDERED: Urine Culture Procedure Result Reported Site Urine Culture Final 06/01/17- 0958 ML No growth of clinically significant organisms * ML - MAIN LAB ([facility]) . END OF REPORT * ML=Testing performed at Main Lab DEPARTMENT OF PATHOLOGY, [address] [place] [address] Thomas Christensen M.D. Director [facility] # [id number] 2 Because ethnic data is not always [...] levels of up to 20 mIU/mL 4 [facility] Severe Sepsis and Septic Shock Management Bundle Measure requires all lactic acids initially measuring >2.0 mmol/L be repeated. 5 SEE RESULT BELOW Name: BARBARA SOLER : [address]: Jan Fuller MD Acct: [id number] Unit: [id number] AGE: 31 Location: ED Re01/09/17 SEX: F Status: DEP ER SPEC: [id number] NADIR: 01/09/17-[address] [facility] [address]: Jan Fuller MD REQ: [id number] RECD: 01/09/17 STATUS: NEFTALY NGUYEN DR: Sarahi Henderson MD _ SOURCE: URINE SPDESC: ORDERED: Urine Culture QUERIES: Urine Source: Random Procedure Result Reported Site Urine Culture Final 01/11/17- 0838 ML Organism 1 ENTEROCOCCUS FAECALIS [place] Count 10-25,000 (Moderate) CFU/ML 1. ENTEROCOCCUS FAECALIS [...] These antibiotics are not available in the [facility] Formulary Contact the Microbiology Department for any additional antibiotic reporting. * ML - MAIN LAB ([facility]) . END OF REPORT * ML=Testing performed at Main Lab DEPARTMENT OF PATHOLOGY, [address] [place] [address] Thomas Christensen M.D. Director [facility] # [id number] 6 >100 to <200 pg/mL: likely compensated [...] 20 mIU/mL 10 SEE RESULT BELOW Name: WILFRIDO SOLERDia Child : [address]: Sarahi Henderson MD Acct: [id number] Unit: [id number] AGE: 30 Location: [facility] Re09/26/16 SEX: F Status: REG REF SPEC: [id number] NADIR: 09/26/16-[address] [facility] [address]: Sarahi Henderson MD REQ: [id number] RECD: 09/26/16 STATUS: RES _ SOURCE: STOOL [...] ON NEXT PAGE * ML=Testing performed at [facility] Lab DEPARTMENT OF PATHOLOGY, [address] [place] [address] Thomas Christensen M.D. Director [facility] # [id number] Patient: BARBARA SOLER [id number] (Continued) Specimen: [id number] Collected: 09/26/16-1414 Received: 09/26/16-1699 (Continued) Procedure Result Reported Site Rotavirus Antigen Stool PENDING * ML - MAIN LAB ([facility]) . END OF REPORT * ML=Testing performed at Main Lab DEPARTMENT OF PATHOLOGY, [address] [place] [address] Thomas Christensen M.D. Director [facility] # [id number] 11 SEE RESULT BELOW Name: BARBARA SOLER : [address]: Sarahi Henderson MD Acct: [id number] Unit: [id number] AGE: 30 Location: [facility] Re09/26/16 SEX: F Status: REG REF SPEC: [id number] NADIR: 09/26/16-[address] [facility] [address]: Sarahi Henderson MD REQ: [id number] RECD: 09/26/16 STATUS: RES _ SOURCE: STOOL [...] performed at Main Lab DEPARTMENT OF PATHOLOGY, [address] [place] [address] Thomas Christensen M.D. Director [facility] # [id number] Patient: BARBARA SOLER [id number] (Continued) Specimen: [id number] Collected: 09/26/16 Received: 09/26/16 (Continued) Procedure Result Reported Site Fecal Lactoferrin (Stool WBC) Final (continued) 09/26/16- 2022 with this assay. Stool Occult Blood (1) Final 09/26/16- 2042 ML Stool Occult Blood Negative Collection Date (1) 09/26/16 Rotavirus Antigen Stool Final 09/27/16- 1052 ML Organism 1 Negative Rotavirus Antigen testing by enzyme immunoassay * ML - MAIN LAB ([facility]) . END OF REPORT * ML=Testing performed at Main Lab DEPARTMENT OF PATHOLOGY, [address] [place] [address] Thomas Christensen M.D. Director [facility] # [id number] 12 SEE RESULT BELOW Name: BARBARA SOLER Mateusz : [address]: Sarahi Henderson MD Acct: [id number] Unit: [id number] AGE: 30 Location: [facility] Re09/26/16 SEX: F Status: REG REF SPEC: [id number] NADIR: 09/26/16-[address]: Sarahi Henderson MD REQ: [id number] RECD: 09/26/16 STATUS: COMP _ SOURCE: STOOL [...] performed at Main Lab DEPARTMENT OF PATHOLOGY, [address] [place] [address] Thomas Christensen M.D. Director [facility] # [id number] Patient: BARBARA SOLER [id number] (Continued) Specimen: [id number] Collected: 09/26/16-1414 Received: 09/26/16 (Continued) Procedure Result [...] enzyme immunoassay * ML - MAIN LAB ([facility]) . END OF REPORT * ML=Testing performed at Main Lab DEPARTMENT OF PATHOLOGY, [address] [place] [address] Thomas Christensen M.D. Director [facility] # [id number] 13 Motor Vehicle Examiner: [id number] 15 SEE RESULT BELOW Name: BARBARA SOLER : [address]: Sheila Lawler MD Acct: [id number] Unit: [id number] AGE: 30 Location: [facility] Re06/14/16 SEX: F Status: DEP ER SPEC: [id number] NADIR: 06/14/[address] [facility] [address]: Sheila Lawler MD REQ: [id number] RECD: 06/14/16 STATUS: NEFTALY NGUYEN DR: Sarahi Henderson MD _ SOURCE: URINE SPDESC: ORDERED: Urine Culture COMMENTS: [id number] Procedure Result Reported Site Urine Culture Final 06/15/16- 0944 ML No Growth (<1,000 CFU/mL) * ML - MAIN LAB ([facility]) . END OF REPORT * ML=Testing performed at Main Lab DEPARTMENT OF PATHOLOGY, [address] [place] [address] Thomas Christensen M.D. Director [facility] # [id number] 16 Because ethnic data is not always [...] dialysis) 17 SEE RESULT BELOW Name: BARBARA SOLER Mateusz : [address]: Yoan Avila MD Acct: [id number] Unit: [id number] AGE: 30 Location: ED Re04/27/16 SEX: F Status: DEP ER SPEC: [id number] NADIR: 04/27/16-[address] [facility] [address]: Yoan Avila MD REQ: [id number] RECD: 04/27/16 STATUS: NEFTALY NGUYEN DR: [facility] Sarahi Henderson MD _ SOURCE: URINE SPDESC: ORDERED: Urine Culture Procedure Result Reported Site Urine Culture Final 04/28/16- 928 ML No Growth (<1,000 CFU/mL) * ML - MAIN LAB ([facility]) . END OF REPORT * ML=Testing performed at Main Lab DEPARTMENT OF PATHOLOGY, [address] [place] [address] Thomas Christensen M.D. Director [facility] # [id number] 18 Because ethnic data is not always [...] mIU/mL 22 SEE RESULT BELOW Name: BARBARA SOLER : [address]: Derrick Beach MD Acct: [id number] Unit: [id number] AGE: 30 Location: ED Re04/21/16 SEX: F Status: DEP ER SPEC: [id number] NADIR: 04/21/[address]: Derrick Beach MD REQ: [id number] RECD: 04/21/16 STATUS: NEFTALY NGUYEN DR: Sarahi Henderson MD _ SOURCE: URINE SPDESC: ORDERED: Urine Culture Procedure Result Reported Site Urine Culture Final 04/23/16819 ML No growth of clinically significant organisms * ML - [facility]) . END OF REPORT * ML=Testing performed at Main Lab DEPARTMENT OF PATHOLOGY, [address] [place] [address] Thomas Christensen M.D. Director [facility] # [id number] 23 Motor Vehicle Examiner: [id number] MELINA [place] 24 SEE RESULT BELOW Name: BARBARA SOLER Mateusz : [address]: Yoan ORNELAS Acct: [id number] Unit: [id number] AGE: 30 Location: [facility] Re01/15/16 SEX: F Status: REG REF SPEC: [id number] NADIR: 01/15/16-[address] [facility] [address]: Yoan ORNELAS REQ: [id number] RECD: 01/15/16 STATUS: NEFTALY NGUYEN DR: Sarahi Henderson MD _ SOURCE: NASAL SPDESC: ORDERED: MRSA PCR-Nasal Procedure Result Reported Site MRSA PCR (Nasal) Final 01/16/16- 015 ML Organism 1 MRSA NEGATIVE * ML - MAIN LAB ([facility]) . END OF REPORT * ML=Testing performed at Main Lab DEPARTMENT OF PATHOLOGY, [address] [place] [address] Thomas Christensen M.D. Director [facility] # [id number] 25 SEE RESULT BELOW Name: WILFRIDO SOLERDia Child : [address]: Yoan ORNELAS Acct: [id number] Unit: [id number] AGE: 30 Location: [facility] Re01/11/16 SEX: F Status: REG REF SPEC: [id number] NADIR: 01/11/16-[address] [facility] [address]: Yoan ORNELAS REQ: [id number] RECD: 01/15/16 STATUS: NEFTALY NGUYEN DR: Sarahi Henderson MD _ SOURCE: NASAL SPDESC: ORDERED: MRSA PCR-Nasal Procedure Result Reported Site MRSA PCR (Nasal) Final 01/16/16- 0151 ML Organism 1 MRSA NEGATIVE * ML - [facility] ([facility]) . END OF REPORT * ML=Testing performed at Main Lab DEPARTMENT OF PATHOLOGY, [address] [place] [address] Thomas Christensen M.D. Director [facility] # [id number] 26 FASTING 10 HOUR 27 It is [...] testing ordered by reflex. Test Performed by: [place] [address] Coal Gasification Technician: Santhosh Rowland II, M.D., Ph.D. 30 No [...] screening test (e.g., EIA). Test Performed by: [place] [address] Coal Gasification Technician: Santhosh Rowland II, M.D., Ph.D. 32 SEE RESULT BELOW Name: SOLERWILFRIDODia Child : [address]: Sheila Lawler MD Acct: [id number] Unit: [id number] AGE: 29 Location: [facility] Re08/26/15 SEX: F Status: DEP ER SPEC: [id number] NADIR: 08/26/[address] [facility] [address]: Sheila Lawler MD REQ: [id number] RECD: 08/27/15 STATUS: NEFTALY NGUYEN DR: [facility] Sarahi Henderson MD _ SOURCE: URINE SPDESC: ORDERED: Urine Culture Procedure Result Reported Site Urine Culture Final 08/29/15- 0832 ML Organism 1 ESCHERICHIA COLI [place] Count 75-100,000 (Many) CFU/ML 1. ESCHERICHIA COLI [...] antibiotic reporting. * ML - MAIN LAB ([facility]) . END OF REPORT * ML=Testing performed at Main Lab DEPARTMENT OF PATHOLOGY, [address] [place] [address] Thomas Christensen M.D. Director [facility] # [id number] 33 SEE RESULT BELOW Name: BARBARA SOLER : [address]: Erik Karimi MD Acct: [id number] Unit: [id number] AGE: 29 Location: ED Re06/11/15 SEX: F Status: REG ER SPEC: [id number] NADIR: 06/12/[address] [facility] [address]: Erik Karimi MD REQ: [id number] RECD: 06/12/15 STATUS: COMP CHARLESHR DR: Sarahi Henderson MD _ SOURCE: NASAL SPDESC: ORDERED: Flu A B Request Procedure Result Reported Site Rapid Influenza A B Request Final 06/12/1556 ML Specimen received for Influenza A/B Molecular testing * ML - [facility]) . END OF REPORT * ML=Testing performed at Main Lab DEPARTMENT OF PATHOLOGY, [address] [place] [address] Thomas Christensen M.D. Director [facility] # [id number] 34 Motor Vehicle Examiner: [id number] [place] 35 Motor Vehicle Examiner: [id number] MARIS VAZQUEZ 36 SEE RESULT BELOW Name: BARBARA SOLER : [address]: Tone Edmond MD Acct: [id number] Unit: [id number] AGE: 29 Location: [facility] Re04/26/15 SEX: F Status: REG REF SPEC: [id number] NADIR: 04/26/[address] [facility] [address]: Tone Edmond MD REQ: [id number] RECD: 04/26/15 STATUS: COMP _ SOURCE: [facility]: ORDERED: Flu A B Request Procedure Result Reported Site Rapid Influenza A B Request Final 04/26/15- 2044 ML Specimen received for Influenza A/B Molecular testing * ML - [facility] [facility]PITAL[facility]) . END OF REPORT * ML=Testing performed at Main Lab DEPARTMENT OF PATHOLOGY, [address] [place] [address] Thomas Christensen M.D. Director [facility] # [id number] 37 No bands detected 38 Specific serologic [...] screening test (e.g., EIA). Test Performed by: [address] [address] Coal Gasification Technician: Van Rubin M.D. 39 Test Performed by: [address] [place] [address] Coal Gasification Technician: Boy Nogueira III, M.D. 40 -- REFERENCE VALUE -- 16.0 - 45.0 Test Performed by: [address] [address] Coal Gasification Technician: Boy Nogueira III, M.D. 41 Test Performed by: [address] [address] Coal Gasification Technician: Boy Nogueira III, M.D. 42 Test Performed by: [address] [address] Coal Gasification Technician: Boy Nogueira III, M.D. 43 RUN DATE: 11/13/13 [facility] LAB LIVE PAGE 1 RUN TIME: [address] [place] [address] Specimen Inquiry Name: BARBARA SOLER : [address]: Sarahi Henderson MD Acct: [id number] Unit: [id number] AGE: 27 Location: [facility] Re11/09/13 SEX: F Status: REG REF SPEC: [id number] NADIR: 11/09/[address]: Sarahi Henderson MD REQ: [id number] RECD: 11/09/13 STATUS: COMP _ SOURCE: URINE SPDESC: ORDERED: GC/Chlam RNA QUERIES: Medent Number [id number] Procedure Result Verified Site Chlamydia Trachomatis RNA [...] ON NEXT PAGE * ML=Testing performed at [facility] Lab DEPARTMENT OF PATHOLOGY, [address] [place] [address] Thomas Christensen M.D. Director [facility] # [id number] RUN DATE: 11/13/13 [facility] LAB LIVE PAGE 2 RUN TIME: 5049 [address], [place] [address] Specimen Inquiry Patient: BARBARA SOLER [id number] (Continued) Specimen: [id number] Collected: 11/09/13 Received: 11/09/13 (Continued) Procedure Result [...] at Main Lab DEPARTMENT OF PATHOLOGY, [facility] [place] [id number] Thomas Christensen M.D. Director [facility] # [id number] 44 Because ethnic data is not always [...] <15 (or dialysis) 45 RUN DATE: 11/10/13 [facility] LAB LIVE PAGE 1 RUN TIME: 8165 [facility] [address] [place], [place] [address] Specimen Inquiry Name: BARBARA SOLER : [address]: Sarahi Henderson MD Acct: [id number] Unit: [id number] AGE: 27 Location: [facility] Re11/09/13 SEX: F Status: REG REF SPEC: [id number] NADIR: 11/09/13-[address] [facility] [address]: Sarahi Henderson MD REQ: [id number] RECD: 11/09/13 STATUS: COMP _ SOURCE: VAGINAL SPDESC: ORDERED: Affirm QUERIES: Medent Number [id number] Procedure Result Verified Site Affirm Vaginal DNA [...] at Main Lab DEPARTMENT OF PATHOLOGY, [facility] [place] [address] Thomas Christensen M.D. Director [facility] # [id number] RUN DATE: 07/19/13 [facility] LAB LIVE PAGE 1 RUN TIME: 1135 [facility] [address] [place] [address] Specimen Inquiry Name: BARBARA SOLER : [address]: Edson Dodge MD Acct: [id number] Unit: [id number] AGE: 27 Location: ENDO Re07/15/13 SEX: F Status: REG REF SPEC: [id number] NADIR: 07/15/13- SUBM DR: Edson Dodge MD REQ: [id number] RECD: 07/15/13 STATUS: MARLY NGUYEN DR: Sarahi [...] at Main Lab DEPARTMENT OF PATHOLOGY, [facility] [place], [place] [address] Thomas Christensen M.D. Director [facility] Permit #[id number] RUN DATE: 07/19/13 [facility] LAB LIVE PAGE 2 RUN TIME: 56[address], [place] [address] Specimen Inquiry Patient: BARBARA SOLER [id number] (Continued) POST-OPERATIVE DIAGNOSIS (Continued) POST-OPERATIVE DIAGNOSIS Esophagus - normal, stomach - normal, biopsied; duodenum - normal, biopsied GROSS DESCRIPTION 1. The specimen is received in formalin labeled Barbara Soler, Biopsies Duodenum, and consists of a 0.5 x 0.3 x 0.2 cm. gorman-pink, irregular soft tissue fragments. Submitted entirely, one cassette. 2. The specimen is received in formalin labeled Barbara Soler Biopsies Gastric Antrum, and consists of a 0.5 x 0.3 x 0.2 cm. gorman, irregular soft tissue fragment. Submitted entirely, one cassette. Signed (signature on file) Sara Talamantes MD 1617 END OF REPORT * ML=Testing performed at Main Lab DEPARTMENT OF PATHOLOGY, [address] [place] [address] Thomas Christensen M.D. Director [facility] Permit #[id number] RUN DATE: 06/08/13 [facility] LAB LIVE PAGE 1 RUN TIME: [address] [place], [place] [address] Specimen Inquiry Name: BARBARA SOLER : [address]: Laure Goel MD Acct: [id number] Unit: [id number] AGE: 27 Location: ED Re06/06/13 SEX: F Status: DEP ER SPEC: [id number] NADIR: 06/06/13-[address] [facility] [address]: Laure Goel MD REQ: [id number] RECD: 06/06/13-1432 STATUS: COMP [facility] DR: Sarahi Henderson MD _ SOURCE: STOOL [...] at Main Lab DEPARTMENT OF PATHOLOGY, [facility] [place], [place] [address] Thomas Christensen M.D. Director [facility] Permit #[id number] RUN DATE: 06/08/13 [facility] LAB LIVE PAGE 2 RUN TIME: 1882 [facility] [address] [place], [place] [address] Specimen Inquiry Patient: ABRBARA SOLER [id number] (Continued) Specimen: [id number] Collected: 06/06/13-1109 Received: 06/06/13-1431 (Continued) Procedure Result [...] at Main Lab DEPARTMENT OF PATHOLOGY, [facility] [place], [place] [address] Thomas Christensen M.D. Director [facility] Permit #[id number] RUN DATE: 06/07/13 [facility] LAB LIVE PAGE 1 RUN TIME: 1351 [facility] [address] [place], [place] [address] Specimen Inquiry Name: BARBARA SOLER : [address]: Laure Goel MD Acct: [id number] Unit: [id number] AGE: 27 Location: ED Re06/06/13 SEX: F Status: DEP ER SPEC: [id number] NADIR: 06/06/13-[address] [facility] [address]: Laure Goel MD REQ: [id number] RECD: 06/06/13-143 STATUS: RES OTHR : Sarahi Henderson MD _ SOURCE: STOOL SPDESC: [...] performed at Main Lab DEPARTMENT OF PATHOLOGY, [address] [place] [address] Thomas Christensen M.D. Director [facility] Permit #[id number] RUN DATE: 06/07/13 [facility] LAB LIVE PAGE 2 RUN TIME: [address] [place] [address] Specimen Inquiry Patient: BARBARA SOLER [id number] (Continued) Specimen: [id number] Collected: 06/06/13 Received: 06/06/13-143 (Continued) Procedure Result Verified Site Fecal Lactoferrin (Stool WBC) Final (continued) 06/07/13- 1350 with this assay. END OF REPORT * ML=Testing performed at Main Lab DEPARTMENT OF PATHOLOGY, [facility] [place], [place] [address] Thomas Christensen M.D. Director [facility] Permit #[id number] RUN DATE: 06/07/13 [facility] LAB LIVE PAGE 1 RUN TIME: 1411 [facility] [address] [place], [place] [address] Specimen Inquiry Name: BARBARA SOLER : [address]: Laure Goel MD Acct: [id number] Unit: [id number] AGE: 27 Location: ED Re06/06/13 SEX: F Status: DEP ER SPEC: [id number] NADIR: 06/06/13-[address]: Laure Goel MD REQ: [id number] RECD: 06/06/13 STATUS: RES OTHR DR: Sarahi Henderson MD _ SOURCE: [facility]: ORDERED: Stool Culture, Fecal Lactoferr, C. diff [...] performed at Main Lab DEPARTMENT OF PATHOLOGY, [address] [place] [address] Thomas Christensen M.D. Director [facility] Permit #[id number] RUN DATE: 06/07/13 [facility] LAB LIVE PAGE 2 RUN TIME: [address] [place] [address] Specimen Inquiry Patient: BARBARA SOLER Mateusz [id number] (Continued) Specimen: [id number] Collected: 06/06/13 Received: 06/06/13 (Continued) Procedure Result Verified Site C. difficile Amplified DNA Final (continued) 06/07/13- 1410 and other diagnostic procedures. Two distinct groups [...] performed at Main Lab DEPARTMENT OF PATHOLOGY, [address] [place] [address] Thomas Christensen M.D. Director [facility] Permit #[id number] 50 Helicobacter pylori Ag, F was cancelled on 06/14/2013 at 07:15; Strict frozen sample required, unable to aliquot. Test Performed by: [address] [address] Coal Gasification Technician: Boy Nogueira III, M.D. 51 A negative result does not exclude norovirus infection. Test Performed by: [employer] [address] [place] [phone] 52 This test detects intact HCG only [...] be accurately measured. 60 RUN DATE: 02/02/13 [facility] LAB LIVE PAGE 1 RUN TIME: [address] [place] [address] Specimen Inquiry Name: BARBARA SOLER : [address]: Keshav Narvaez MD Acct: [id number] Unit: [id number] AGE: 27 Location: ED Re01/31/13 SEX: F Status: DEP ER SPEC: [id number] NADIR: 01/31/[address] [facility] [address]: Francisco Tarango MD REQ: [id number] RECD: 01/31/13 STATUS: NEFTALY NGUYEN DR: Sarahi Henderson MD _ SOURCE: URINE SPDESC: ORDERED: Urine Culture Procedure Result Verified Site Urine Culture Final 02/02/13- 920 ML Organism 1 NORMAL VERONA [place] Count 75-100,000 (Many) CFU/ML END OF REPORT * ML=Testing performed at Main Lab DEPARTMENT OF PATHOLOGY, [facility] [place], [place] [address] Thomas Christensen M.D. Director [facility] Permit #[id number] 61 Because ethnic data is not always [...] 5 Kidney failure <15 (or dialysis) 62 2+ (>10-30 /hpf) 63 RUN DATE: 01/10/13 [facility] LAB LIVE PAGE 1 RUN TIME: [address] [place] [address] Specimen Inquiry Name: BARBARA SOLER Mateusz : [address]: Francisco Valenzuela MD Acct: [id number] Unit: [id number] AGE: 27 Location: ED Re01/08/13 SEX: F Status: DEP ER SPEC: [id number] NADIR: 01/08/[address] [facility] [address]: Francisco Valenzuela MD REQ: [id number] RECD: 01/08/13 STATUS: NEFTALY NGUYEN DR: Sarahi Henderson MD _ SOURCE: URINE SPDESC: ORDERED: Urine Culture Procedure Result Verified Site Urine Culture Final 01/10/13- 0844 ML Organism 1 NORMAL VERONA [place] Count >100,000 (Many) CFU/ML END OF REPORT * ML=Testing performed at Main Lab DEPARTMENT OF PATHOLOGY, [address] [place] [address] Thomas Christensen M.D. Director [facility] Permit #[id number] 64 Because ethnic data is not always readily [...] 15-29 5 Kidney failure <15 (or dialysis) 65 Because ethnic data is not always [...] <15 (or dialysis) 66 RUN DATE: 07/31/12 [facility] LAB LIVE PAGE 1 RUN TIME: [address] [place] [address] Specimen Inquiry Name: KARLENEBARBARA L : [address]: Sarahi Henderson MD Acct: [id number] Unit: [id number] AGE: 26 Location: [facility] Re07/28/12 SEX: F Status: REG REF SPEC: [id number] NADIR: 07/28/12-[address] [facility] [address]: Sarahi Henderson MD REQ: [id number] RECD: 07/28/12 STATUS: COMP _ SOURCE: URINE SPDESC: ORDERED: Urine Culture QUERIES: Medent Number [id number] Procedure Result Verified Site Urine Culture Final 07/31/12- 900 ML Organism 1 STREP GROUP B [place] Count >100,000 (Many) CFU/ML Organism 2 ESCHERICHIA COLI [place] Count 10-25,000 (Moderate) CFU/ML Susceptibility testing of penicillins and other B-lactams approved by FDA for treatment of Streptococcus pyogenes (Group A Strep) and Streptococcus agalactiae (Group B Strep) is not necessary for clinical purposes and need not be done routinely, since as with vancomycin, resistant strains have not been recognized. (CLSI O301-Y72;p.66) Positive isolates will be saved for one [...] at Main Lab DEPARTMENT OF PATHOLOGY, [facility] [place], [place] [address] Thomas Christensen M.D. Director [facility] Permit #[id number] RUN DATE: 07/31/12 [facility] LAB LIVE PAGE 2 RUN TIME: 900 [facility] [address] [place], [place] [address] Specimen Inquiry Patient: BARBARA SOLER [id number] (Continued) Specimen: [id number] Collected: 07/28/12 Received: 07/28/12 (Continued) Procedure Result Verified Site Urine Culture Final (continued) 07/31/12900 2. ESCHERICHIA COLI (continued) M.I.C. RX --------- ------ Tetracycline <=1 S Pipercillin/Tazobactam <=4 S Trimethoprim/Sulfamethoxazole <=20 S Amoxicillin/Clavulanic Acid 4 S Aztreonam <=1 S Contact the Microbiology Department for any additional antibiotic reporting. END OF REPORT * ML=Testing performed at Main Lab DEPARTMENT OF PATHOLOGY, [facility] [place], [place] [address] Thomas Christensen M.D. Director [facility] Permit #[id number] 67 Because ethnic data is not always [...] FASTING 12 HOUR 71 RUN DATE: 02/01/12 [facility] LAB LIVE PAGE 1 RUN TIME: [address] [place] [address] Specimen Inquiry Name: BARBARA SOLER Mateusz : [address]: Kim Donaldson NP Acct: [id number] Unit: [id number] AGE: 26 Location: [facility] Re01/30/12 SEX: F Status: REG REF SPEC: [id number] NADIR: 01/30/12-[address] [facility] [address]: Kim Donaldson NP REQ: [id number] RECD: 01/30/12 STATUS: COMP _ SOURCE: THROAT SPDESC: ORDERED: Throat Beta Str QUERIES: Medent Number [id number] Procedure Result Verified Site Throat Beta Strep Culture Final 02/01/12- 901 ML Negative For Group A Beta Streptococcus END OF REPORT * ML=Testing performed at Main Lab DEPARTMENT OF PATHOLOGY, [address] [place] [address] Thomas Christensen M.D. Director [facility] Permit #[id number] 72 A metabolite of Naproxen, O-desmethylnaproxen, has been shown to interfere with the Jendrass[place] method for measuring total bilirubin. Samples from [...] 5 Kidney failure <15 (or dialysis) 74 CHOLESTEROL INTERPRETATION: Desirable: Less than 200 MG/DL Borderline-High Risk: 200-239 MG/DL High-Risk: 240 MG/DL and over 75 HDL INTERPRETATION: Undesirable: High Risk: Less than 40 MG/DL Desirable: Low Risk: Greater than 60 MG/DL 76 LDL INTERPRETATION: Low Risk Optimal Level: LDL Less than 100 MG/DL Near or Above Optimal: LDL 100-129 MG/DL Borderline High Risk: LDL 130-159 MG/DL High Risk: LDL 160-189 MG/DL Very High Risk: LDL Greater than 189 MG/DL 77 Anion gap measurement may be of limited value in the presence of any alkalosis, especially in a combined acid base disorder. . 78 A metabolite of Naproxen, O-desmethylnaproxen, has been shown to interfere with the Jendrassik-Lakshmi method for measuring total bilirubin. Samples from patients who have taken Naproxen have shown spurious elevation in total bilirubin levels. 79 Because ethnic data is not always readily [...] 15-29 5 Kidney failure <15 (or dialysis) 80 RUN DATE: 07/31/11 [facility] NMI LIVE PAGE 1 RUN TIME: 1032 Specimen Inquiry RUN USER: INTERFACE Name: BARBARA SOLER Status: REG REF Re07/29/11 Age/Sex: 25/F Unit#: [id number] Location: [facility] : [birth year] SPEC #: [id number] NADIR: 07/29/11 STATUS: NEFTALY RESalma #: [id number] RECD: 07/29/[address] [facility] [address]: Santiago MANUEL,[facility] SOURCE: THROAT ENTR: 07/29/[address]: PRO: ORDERED: THROAT CULTURE QUERIES: MEDENT REQUISITION # [id number] ACT WKST: B 07/31/11 #1 Procedure Result Verified Site > THROAT CULTURE FULL Final 07/31/11- 1032 ML NORMAL THROAT VERONA FULL THROAT CULTURES ARE CLINICALLY INDICATED TO DETECT THE PRESENCE OF GROUP A STREP, ARCANOBACTERIUM AND YEAST. ML - [facility] Permit #[id number] [address] [place] [address] DEPARTMENT OF PATHOLOGY, [address] [place] [address] [facility] Permit #[id number] Thomas Christensen M.D. Director Cortney Morales M.D. Park Services Specialist Procedures Date Code Description Status 02/04/2018 Inject/Drain Joint/Bursa Small W/O US Completed 03/19/2017 Inject/Drain Joint/Bursa Small W/O US Completed 02/21/2017 67699 Inject Tendon Sheath Or Ligament Aponeurosis Eg Plantar Completed Fascia 03/08/2013 86700887 Colonoscopy Completed 07/30/2012 37346 Polysomnography Sleep Staging 4+ Parameters W/Cpap Completed 06/03/2012 88375 Polysomnography Sleep Staging 4+ Parameters Completed Encounters Type Date Location Provider Dx Diagnosis Office Visit 02/18/2018 Orthopedic Maycol Perry M18.11 Unil primary 11:15a Services Of [facility] C.[facility].A. carpometacarp joint, r hand Office Visit 02/04/2018 Orthopedic Maycol Perry M18.11 Unil primary 10:15a Services Of [facility] C.M.A. carpometacarp joint, r hand Office Visit 01/23/2018 [facility] Sin Nielsen, G44.309 Post- traumatic 3:00p Services Of Jatinder Cabrera headache, unspecified, not intractable F07.81 Postconcussional syndrome R42 Dizziness and giddiness Office 10/17/2017 [facility] Yoan F07.81 Postconcussional Visit 9:30a Clinic MD Kyle syndrome R42 Dizziness and giddiness G44.309 Post-traumatic headache, unspecified, not intractable Office 07/22/2017 Neurohospitalist Yoan F07.81 Postconcussional Visit 8:30a Clinic MD Kyle syndrome F06.30 Mood disorder due to known physiological condition, unsp G44.319 Acute post-traumatic headache, not intractable Office Visit 05/23/2017 1:30p Orthopedic Maycol Cloud8.11 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 carpometacarp joint, r hand Office Visit 02/21/2017 Orthopedic Maycol M65.311 Trigger thumb, 9:30a Services Of MD Vicky right thumb C.M.A. Office Visit 02/04/2017 [facility] J45.909 Unspecified asthma , 2:15p Sleep Services Of MD Sue uncomplicated Remodeler G47.33 Obstructive sleep apnea (adult) (pediatric) E66.01 Morbid (severe) obesity due to excess calories Office Visit 01/13/2017 [facility] J45.909 Unspecified asthma , 10:15a Sleep Services Of MD Sue uncomplicated Remodeler G47.33 Obstructive sleep apnea (adult) (pediatric) E66.01 Morbid (severe) obesity due to excess calories Z68.41 Body mass index (BMI) 40.0-44.9, adult Office Visit 01/06/2017 [facility] Pamela Gutierrez J45.901 Unspecified 2:20p Medicine - N.P. 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 disturbances [place] R51 Headache N20.0 Calculus of kidney E66.9 Obesity, unspecified Office Visit 04/11/2016 4:20p [facility] Rex Wisdom NP J06.9 Acute upper Medicine - respiratory [place] infection, unspecified Office Visit 02/06/2016 1:20p [facility] Pamela Gutierrez, B37.3 Candidiasis of Medicine - N.P. vulva and vagina [place] R19.7 Diarrhea, unspecified Office Visit 01/08/2016 4:20p [facility] Elzbieta R21 Rash and other Medicine Concepcion Daniels M.D. nonspecific skin [place] eruption J01.90 Acute sinusitis, unspecified Office Visit 2015 4:20p [facility] Rex Wisdom J45.21 Mild intermittent Medicine - BENDING MACHINE SET UP OPERATOR asthma with (acute) [place] exacerbation J30.9 Allergic rhinitis, unspecified R05 Cough Office Visit 11/20/2015 [facility] Rex Wisdom NP R21 Rash and other 4:00p Medicine - nonspecific skin [place] eruption Office Visit 10/04/2015 [facility] Jan Crain Z02.89 Encounter for other 4:00p Gia Howard M.D. administrative [place] examinations Office Visit 08/18/2015 [facility] G47.33 Obstructive sleep 2:00p Sleep Services Of MAGAN Diamond, apnea (adult) [facility] RN, PARKING ASSISTANT-VONNIE (pediatric) Office Visit 08/08/2015 [facility] Sarahi B86 Scabies 8:50a Gia Henderson M.D. [place] Office Visit 06/27/2015 [facility] Cory Crain J06.9 Acute upper 3:40p Gia Hoawrd M.D. respiratory [place] infection, unspecified Office Visit 06/13/2015 [facility] Jan Crain N23 Unspecified renal 4:00p Gia Howard M.D. colic [place] Office Visit 04/26/2015 [facility] Tone J06.9 Acute upper 4:00p Medicine - Feli, respiratory [place] MEddy infection, unspecified Office Visit 03/15/2015 [facility] Rex Wisdom NP J06.9 Acute upper 3:40p Medicine - respiratory [place] infection, unspecified H81.12 Benign paroxysmal vertigo, left ear Office Visit 02/10/2015 [facility] Yoan Chinchilla NP R11.0 Nausea 2:30p Medicine - [place] Office Visit 01/18/2015 [facility] Rex Wisdom NP J01.90 Acute sinusitis , 10:40a Medicine - unspecified [place] Office Visit 12/16/2014 [facility] 327.23 Obstructive Sleep 1:00p Sleep Services Of MAGAN Diamond, RN, Apnea Adult & [facility] PARKING ASSISTANT-BC Pediatric 780.52 Insomnia Unspecified Office Visit 12/14/2014 1:30p [facility] Hakan Chaney, V70.0 Examination Medicine - [place] BENDING MACHINE SET UP OPERATOR [address] Routine AT [facility] 278.01 Obesity Morbid 493.10 Asthma Intrinsic Unspecified V74.1 Screening Examination Pulmonary Tuberculosis 079.89 Viral Infection Spec Other Office Visit 10/27/2014 1:50p [facility] Sarahi Henderson, 238.2 Neoplasm Medicine - M.D. Uncertain Skin [place] 278.01 Obesity Morbid 493.10 Asthma Intrinsic Unspecified 709.9 Skin & Subcutaneous Tissue Disorders Unspec Office Visit 05/16/2014 11:50a [facility] Sarahi Henderson, V41.1 Eye Problem Medicine - M.D. Other [place] 626.4 Irregular Menstrual Cycle Office Visit 05/05/2014 2:30p [facility] Sarahi Henderson, 790.21 Impaired Medicine - M.D. Fasting Glucose [place] 844.9 Sprains & Strains Knee & Leg Unspec 278.01 Obesity Morbid Office Visit 04/22/2014 [facility] Tone 719.46 Pain Joint Lower 2:20p Gia Edmond M.D. Leg [place] Office Visit 04/15/2014 [facility] Tone 719.46 Pain Joint Lower 3:00p Gia Edmond M.D. Leg [place] Office Visit 03/04/2014 [facility]icaela Diamond, 327.23 Obstructive Sleep 2:00p Sleep Services Of RUI CARRERO, [facility]- Apnea Adult & [facility] Pediatric Office Visit 01/19/2014 [place] [facility] [place] 333.1 Tremor Essential 3:30p Services Of [facility] Deborah Hodges & Other Forms E939.3 Tranquilizers Antipsychotics Neuroleptic Miguel Adverse Effects Office Visit 12/29/2013 2:00p [facility] Ta [place] 333.1 Tremor Essential Services Of [facility] Deborah Hodges & Other Forms E939.3 Tranquilizers Antipsychotics Neuroleptic Miguel Adverse Effects Office Visit 2013 3:10p [facility] Sarahi Henderson, 790.21 Impaired Medicine Concepcion Cabrera Fasting Glucose [place] 278.01 Obesity Morbid Office Visit 11/09/2013 2:30p [facility] Sarahi 623.5 Leukorrhea Not Gia Henderson M.D. Spec as Infective [place] Office Visit 11/02/2013 2:30p [facility] Sarahi 704.8 Hair & Hair Gia Henderson M.D. Follicle Diseases [place] Other Spec 278.01 Obesity Morbid 303.91 Alcohol Dependence Continuous Other & Unspec 782.3 Edema V65.42 Counseling On Substance Use & Abuse Office Visit 09/28/2013 1:50p [facility] Medicine Sarahi Henderson, 684 Impetigo - Kat Cabrera 847.9 Sprains & Strains Unspec Site Of Back 278.01 Obesity Morbid 303.91 Alcohol Dependence Continuous Other & Unspec 691.8 Dermatitis Atopic & Related Conditions Other Office Visit 09/07/2013 3:00p [facility] Libra Dela Cruz, 995.3 Allergy Unspec Medicine - Deborah [place] Office Visit 08/18/2013 4:10p [facility] Sarahi 333.1 Tremor Essential Gia Henderson M.D. & Other Forms [place] Office Visit 04/27/2013 1:50p [facility] Sarahi 845.09 Sprains & Strains Gia Henderson M.D. Ankle Other [place] Office Visit 04/16/2013 1:40p [facility] Libra Dela Cruz, 845.09 Sprains & Strains Medicine - Deborah Ankle Other [place] Office Visit 03/31/2013 4:40p [facility] Eduardo Gleason 466.0 Bronchitis Acute Medicine - Kat Saldana M.D.,FACP Office Visit 02/16/2013 2:50p [facility] Sarahi 278.01 Obesity Morbid Medicine - Deborah Henderson [place] 303.91 Alcohol Dependence Continuous Other & Unspec Office Visit 01/13/2013 2:50p [facility] Sarahi 789.00 Pain Abdominal Medicine - Deborah Henderson Unspec Site [place] 796.2 Blood Pressure Reading Elevated W/O Hypertension Office Visit 01/06/2013 2:40p [facility] Tone 465.8 Upper Respiratory Medicine - Deborah Edmond Infections Acute [place] Other Multiple Sites Office Visit 12/31/2012 1:50p [facility] Sarahi Henderson, 461.8 Sinusitis Acute Medicine - Deborah Other [place] 691.8 Dermatitis Atopic & Related Conditions Other Office Visit 12/11/2012 [facility] Kim Donaldson, 372.39 Conjunctivitis Other 1:00p Medicine - Vickie [place] Office Visit 09/17/2012 [facility] Sarahi Henderson, 278.01 Obesity Morbid 2:30p Gia Javier M.D. [place] 111.0 Pityriasis Versicolor Office Visit 08/27/2012 2:50p [facility] Medicine Sarahi Henderson M.D. 782.3 Edema - [place] 303.90 Alcohol Dependence Other & Unspec Office Visit 07/28/2012 1:50p [facility] Medicine Sarahi Henderson M.D. 782.3 Edema - [place] 790.21 Impaired Fasting Glucose 288.60 Leukocytosis, Unspecified 303.90 Alcohol Dependence Other & Unspec 110.5 Dermatophytosis Body Office Visit 07/14/2012 2:10p [facility] Sarahi Henderson, 783.1 Weight Gain Medicine - Deborah Abnormal [place] 278.01 Obesity Morbid 303.92 Alcohol Dependence Episodic Other & Unspec 111.0 Pityriasis [place] 780.79 Malaise And Fatigue Other 782.3 Edema Office Visit 06/16/2012 Jazmyn Severino 327.23 Obstructive Sleep 10:36a Disorder Center Deborah [place] Apnea Adult & Pediatric Office Visit 06/15/2012 [facility] Sarahi Henderson, 110.5 Dermatophytosis Body 2:30p Medicine Concepcion Cabrera [place] Office Visit 05/21/2012 [facility] Sarahi Henderson, 493.92 Asthma Unspec W/ 11:10a Medicine - M.Victorino Acute Exacerbation [place] Office Visit 05/18/2012 [facility] Sarahi Henderson, 461.9 Sinusitis Acute 10:30a Medicine - MEddy Unspec [place] Office Visit 05/13/2012 [facility] Sarahi Henderson, 461.9 Sinusitis Acute 11:10a Medicine Concepcion Cabrera Unspec [place] Office Visit 04/22/2012 Jazmyn Severino 786.09 Dyspnea & 9:31a Disorder [place] Deborah Eldridge Respiratory Abnormalities Other 780.79 Malaise And Fatigue Other Office Visit 02/24/2012 1:40p [facility] [place] 840.8 Sprains & Strains Gia Edmond M.D. Shoulder & Upper [place] Arm Other Spec Sites Office Visit 01/30/2012 12:30p [facility] Kim Anika, 462 Pharyngitis Acute Medicine - N.PRich Stephens 461.0 Sinusitis Acute Maxillary Office Visit 01/28/2012 2:10p [facility] Sarahi Henderson, 783.1 Weight Gain Medicine - MEddy Abnormal [place] 780.79 Malaise And Fatigue Other 278.01 Obesity Morbid 786.02 Orthopnea Office Visit 12/24/2011 1:50p [facility] Sarahi Henderson, 782.1 Rash & Other Medicine - M.D. Nonspec Skin [place] Eruption 727.05 Tenosynovitis Hand & Wrist Other Office Visit 12/12/2011 2:10p [facility] Sarahi Henderson, 782.1 Rash & Other Medicine - M.D. Nonspec Skin [place] Eruption 727.05 Tenosynovitis Hand & Wrist Other Office Visit 11/20/2011 1:50p [facility] Sarahi Henderson, 278.00 Obesity Unspec Medicine - MEddy [place] 782.3 Edema Office Visit 11/08/2011 2:00p [facility] Libra Dela Cruz, 477.9 Rhinitis Gia Javier M.D. Allergic Cause [place] Unspec 278.00 Obesity Unspec 782.3 Edema Office Visit 08/26/2011 2:30p [facility] [place] 461.8 Sinusitis Acute Gia Henderson M.D. Other [place] Office Visit 08/01/2011 11:45a [facility] Sarahi 461.8 Sinusitis Acute Gia Henderson M.D. Other [place] Office Visit 07/29/2011 2:30p [facility] Sarahi 462 Pharyngitis Acute Gia Henderson M.D. [place] Office Visit 06/24/2011 12:45p [facility] [place] 493.10 Asthma Intrinsic Gia Henderson M.D. Unspecified [place] Office Visit 06/18/2011 10:15a [facility] Sarah[place] 493.92 Asthma Unspec W / Gia Henderson M.D. Acute Exacerbation [place] 477.9 Rhinitis Allergic Cause Unspec Office Visit 05/22/2011 1:00p [facility] [place] 782.0 Skin Sensation Gia Henderson M.D. Disturbance [place] 278.00 Obesity Unspec Plan of Treatment Future Appointment(s):01/14/2019 1:30 pm - Sin Nielsen M.D. at [facility]07/13/2018 - Sin Nielsen M.D.G44.309 Post- traumatic headache, unspecified, not intractableFollow up:Follow up in 6 [id number] Dizziness and [id number] Other visual disturbances
[2018-08-03 18:55] LABS: ABS Basophils 0 10^3/ul (0-0.2); ABS Eosinophils 0 10^3/ul (0-0.6); ABS Lymphocytes 3.9 10^3/ul (1.0-4.8); ABS Monocytes 0.9 10^3/ul (0-0.8); ABS Nucleated RBC 0 10^3/ul; Eosinophil % 0 %; Hematocrit 40 % (33-41); Hemoglobin 13.2 g/dL (12.0-16.0); Lymphocyte % 30.3 %; Mean Corpuscular HGB Conc 33 g/dL (31-36); Mean Corpuscular Hemoglobin 27 pg (27-31); Mean Corpuscular Volume 81 fL (80-97); Mean Platelet Volume 7.2 fL (7.4-10.4); Nucleated Red Blood Cells % 0.1; Platelet Count 321 10^3/uL (150-450); Red Blood Count 4.96 10^6 /uL (3.70-4.87); Red Cell Distribution Width 15 % (10.5-15); White Blood Count 12.9 10^3/uL (3.5-10.8)
[2018-08-03 19:06] LABS: ALT 14 U/L (7-52); AST 22 U/L (13-39); Albumin 4.3 g/dL (3.2-5.2); Albumin/Globulin Ratio 1.5 (1-3); Alkaline Phosphatase 67 U/L (34-104); Anion Gap 5 mmol/L (2-11); BUN/Creatinine Ratio 7.3 (8-20); Blood Urea Nitrogen 6 mg/dL (6-24); CO2 Carbon Dioxide 30 mmol/L (22-32); Calcium 9.3 mg/dL (8.6-10.3); Chloride 105 mmol/L (101-111); EGFR African American 96.6 (>60); EGFR Non-African American 79.8 (>60); Globulin 2.8 g/dL (2-4); Glucose 73 mg/dL (70-100); Potassium 3.4 mmol/L (3.5-5.0); Sodium 140 mmol/L (135-145); Total Protein 7.1 g/dL (6.4-8.9)
[2018-08-03 19:16] LABS: Acetaminophen < 15 mcg/mL; Alcohol < 10 mg/dL (<10); Salicylate < 2.50 mg/dL (<30)
[2018-08-03 19:16] LABS: Barbiturates Urine Screen None Detected (None Detect); Benzodiazepine Urine Screen None Detected (None Detect); Urine Cannabinoids Screen Presumptive Positive (None Detect)
[2018-08-03 19:31] LABS: TSH (Thyroid Stimulating Horm) 1.36 mcIU/mL (0.34-5.60)
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
[2018-08-03] MEDS ORDERED: Acetaminophen TAB* 325 MG PO PRN (21:50)
[2018-08-03] MEDS ORDERED: Al Hydrox/Mg Hydrox/Simet LIQ* 30 ML UDC PO PRN (21:50)
[2018-08-03] MEDS ORDERED: hydrOXYzine HCL TAB* 50 MG ONE (22:40)
[2018-08-03] MEDS ORDERED: hydrOXYzine HCL TAB* 50 MG PO PRN (22:40)
[2018-08-04 08:55] VITALS: BP 123/62
[2018-08-04] MEDS: Vitamin THERAPEUTIC TAB PO SCH (11:09)
[2018-08-04] MEDS: Venlafaxine EXT RELEASE CAP* 75 MG PO SCH (13:47)
[2018-08-04] MEDS: Montelukast Sodium TAB* 10 MG PO SCH (13:48)
[2018-08-04] MEDS: Gabapentin CAP(*) 400 MG PO SCH ×3 (13:48→20:55)
[2018-08-04] MEDS: Cetirizine* 10 MG TAB PO SCH (13:48)
[2018-08-04] MEDS: BuPROPion XL* 150 MG TAB.XL PO SCH (13:48)
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
[2018-08-05] MEDS: Venlafaxine EXT RELEASE CAP* 75 MG PO SCH (08:54)
[2018-08-05] MEDS: Cetirizine* 10 MG TAB PO SCH (08:55)
[2018-08-05] MEDS: Vitamin THERAPEUTIC TAB PO SCH (08:55)
[2018-08-05] MEDS: Gabapentin CAP(*) 400 MG PO SCH (08:55)
[2018-08-05] MEDS: Montelukast Sodium TAB* 10 MG PO SCH (08:56)
[2018-08-05] MEDS: BuPROPion XL* 150 MG TAB.XL PO SCH (08:56)
--- NOTE | 2018-08-05 10:35 | DCNOTE ---
Subjective - Subjective Service Types: [facility] [facility] Day Mgmt simple under 30 min Discharge Date: 08/05/18 Subjective: Patient reports improvement in mood and denies side effects from medications. She reports improvement in headache and sleep. She expresses desire to return to medication, Latuda and would prefer to do so with outpatient psychiatrist. She states readiness to discharge and denies SI or passive wish. She has medical appointments today and friday for a D&C. She agrees to follow up with [facility], as well. Objective - Appearance Appearance: Well Developed/Nourished Dysmorphic Features: No Hygiene: Normal Grooming: Well Kept - Behavior Psychomotor Activities: Normal Exhibits Abnormal Movement: No - Attitude and Relatedness Attitude and Relatedness: Cooperative Eye Contact: Good - Speech Quality: Unpressured Latencies: Normal Quantity: Appropriate - Mood Patient's Decription of Mood: "Good" - Affect Observed Affect: Good Affect Consistent with: Euthymia - Thought Process Patient's Thought Process: Coherent, Goal Directed Thought Content: No Passive Wish, No Suicidal Planning, No Homicidal Ideation, No Paranoid Ideation - Sensorium Experiencing Hallucinations: No, Sensorium is Clear Type of Hallucinations: Visual: No, Auditory: No, Command: No - Level of Consciousness Level of Consciousness: Alert Orientation: Yes Intact, Yes Orientated to Time, Yes Orientated to Place, Yes Orientated to Person - Impulse Control Impulse Control: Intact - Insight and Judgement Insight and Judgement: Good - Group Participation Particating in Group Activities: Yes - Medication Management Medication Management Adherence: Yes DC Assessment - Assessment Clinical Impression: 32yo wf with known history of PTSD and borderline personality d/o who presented to ED, self-referred for stabilization. She has resumed outpatient medications and expresses much relief. Merits Inpatient Hospitalization: No Clear for Discharge: Adequate Clinical Respons, Acceptable Safety Profile Discharge Planning - Discharge Planning Discharge Plan: Outpatient Follow Up Outpatient Program: [facility] Recommendations for Continuing Care: Medication Management, Psychotherapy Medications: Current Medications Bupropion HCl (Wellbutrin Xl *) 150 mg PO DAILY [facility] Last Admin: 08/05/18 08:56 Dose: 150 mg Cetirizine HCl (Zyrtec*) 10 mg PO DAILY [facility]; Protocol Last Admin: 08/05/18 08:55 Dose: 10 mg Gabapentin (Neurontin Cap(*)) 400 mg PO QID [facility] Last Admin: 08/05/18 08:55 Dose: 400 mg Hydroxyzine HCl (Atarax Tab*) 50 mg PO ONCE PRN PRN Reason: MD MENCHACA Montelukast Sodium (Singulair Tab*) 10 mg PO DAILY [facility] Last Admin: 08/05/18 08:56 Dose: 10 mg Venlafaxine HCl (Effexor Xr Cap*) 225 mg PO DAILY [facility] Last Admin: 08/05/18 08:54 Dose: 225 mg Discharge Planning: Prescriptions provided for discharge [x] Yes [] No Follow up care details as per social work arrangements: [facility]: You have an appointment on Saturday 08/12 at 3:[address] Sapp. You will be scheduled to see Aurora after that appointment PCP: Dr Breanne Fernandez- call to f/u as needed Patient response to discharge plan: [x] eager for discharge [x] agreeable with discharge plan [] ambivalent about discharge [] disagrees with discharge today
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
== END 2018-08-05 11:20 | disposition home or self-care (01) | DRG 566 ==
LOC: ED 17:44 → BSU 21:23
PROVIDERS: ADMIT Psychiatry & Neurology Psychiatry; ATTEND Psychiatry & Neurology Psychiatry
DX: O99.341 Other mental disorders complicating pregnancy, first trimester (principal); F33.1 Major depressive disorder, recurrent, moderate; Z3A.00 Weeks of gestation of pregnancy not specified; F43.10 Post-traumatic stress disorder, unspecified; F60.3 Borderline personality disorder; J45.909 Unspecified asthma, uncomplicated; G47.30 Sleep apnea, unspecified; O99.511 Diseases of the respiratory system complicating pregnancy, first trimester; G43.909 Migraine, unspecified, not intractable, without status migrainosus; O26.891 Other specified pregnancy related conditions, first trimester; F43.0 Acute stress reaction; Z81.8 Family history of other mental and behavioral disorders; Z56.0 Unemployment, unspecified; Z91.5 Personal history of self-harm; Z87.820 Personal history of traumatic brain injury; Z91.410 Personal history of adult physical and sexual abuse; Z87.442 Personal history of urinary calculi; Z88.1 Allergy status to other antibiotic agents; Z88.0 Allergy status to penicillin; Z81.1 Family history of alcohol abuse and dependence
CPT/HCPCS: 36415; 80053; 80307; 80320; 80329; 81003; 84443; 84702; 85025; 99222; 99238; 99284; A9270-GY; G0480

== ENCOUNTER 2018-11-16 10:34 | Emergency (ER) | payer OTHER ==
[2018-11-16 11:17] VITALS: BP 130/69
--- NOTE | 2018-11-16 11:17 | ED ---
Skin Complaint - HPI Summary HPI Summary: Pt. is a 32 y.o female who presents to the ER for wound to nose x several days. Pt. states she has a hx of MRSA and feels wound to nose is similar. Pt. denies injury, falls, fever, recent illness. Currently 5 months . Sxs are mild in severity. No current modifying factors. - History of Current Complaint Chief Complaint: EDGeneral Time Seen by Provider: 11/16/18 10:47 Stated Complaint: POSS STAFF INF IN NOSE PER PT Hx Obtained From: Patient Hx Last Menstrual Period: 06/23/2017 Pain Intensity: 0 Pain Scale Used: 0-10 Numeric - Additional Pertinent History Primary Care Physician: ROCCO - Allergy/Home Medications Allergies/Adverse Reactions: Allergies Allergy/AdvReac Type Severity Reaction Status Date / Time amoxicillin AdvReac Intermediate Diarrhea Verified 11/16/18 10:45 metronidazole [From Flagyl] AdvReac Unknown Diarrhea Verified 11/16/18 10:45 PMH/Surg Hx/FS Hx/Imm Hx Previously Healthy: Yes Endocrine/Hematology History: Reports: Hx Anemia - STATES HX OF -OFF AND ON Denies: Hx Anticoagulant Therapy, Hx Diabetes, Hx Thyroid Disease Cardiovascular History: Denies: Hx Congestive Heart Failure, Hx Deep Vein Thrombosis, Hx Hypertension , Hx Myocardial Infarction, Hx Pacemaker/ICD Respiratory History: Reports: Hx Asthma, Hx Sleep Apnea - current CPAP user Denies: Hx Chronic Obstructive Pulmonary Disease (COPD), Hx Lung Cancer, Hx Pneumonia, Hx Pulmonary Embolism GI History: Denies: Hx Gall Bladder Disease, Hx Gastrointestinal Bleed, Hx Ulcer, Hx Urosepsis, Other GI Disorders History: Reports: Hx Kidney Stones - 04/2016 STENT PLACEMENT, Other Problems/Disorders - RENAL STONES Denies: Hx Dialysis, Hx Renal Disease Sensory History: Denies: Hx Contacts or Glasses, Hx Hearing Aid Opthamlomology History: Denies: Hx Contacts or Glasses Neurological History: Reports: Other Neuro Impairments/Disorders Denies: Hx Dementia, Hx Migraine, Hx Seizures, Hx Transient Ischemic Attacks (TIA) Psychiatric History: Reports: Hx Anxiety - ON MEDICATION FOR, Hx Eating Disorder - "binging and ristricting per outpatient. No appetite.", Hx Depression - ON MEDICATION FOR, Hx Panic Disorder, Hx Inpatient Treatment, Hx Community Mental Health Tx Denies: Hx Schizophrenia, Hx Bipolar Disorder - Surgical History Surgery Procedure, Year, and Place: 01/19 [facility] [place]. 08/27 [facility] [place] (right ) renal lithotripsy with stent again in 04/2016 with stents Hx Anesthesia Reactions: No - Immunization History Date of Tetanus Vaccine: october 2012 Date of Influenza Vaccine: 12/2012 Infectious Disease History: Yes Infectious Disease History: Reports: Hx of Known/Suspected MRSA - treated Denies: Hx Clostridium Difficile, Hx Hepatitis, Hx Human Immunodeficiency Virus (HIV), Hx Shingles, Hx Tuberculosis, Hx Known/Suspected VRE, Hx Known/ Suspected VRSA, History Other Infectious Disease, Traveled Outside the in Last 30 Days - Family History Known Family History: Positive: Respiratory Disease - sister - asthma, Non- Contributory Negative: Cardiac Disease, Hypertension, Diabetes Family History: KIDNEY STONES - DAD - Social History Occupation: Employed Full-time Lives: With Family Alcohol Use: Rare Alcohol Amount: 2 DRINKS Hx Substance Use: No Substance Use Type: Reports: None Hx Tobacco Use: No Smoking Status (MU): Never Smoked Tobacco Amount Used/How Often: tried once or twice as a teen Review of Systems Constitutional: Negative Negative: Fever, Chills ENT: Negative Gastrointestinal: Negative Positive: Other - wound to nose All Other Systems Reviewed And Are Negative: Yes Physical Exam Triage Information Reviewed: Yes Vital Signs On Initial Exam: Initial Vitals Temp Pulse Resp BP Pulse Ox 98.3 F 99 16 125/74 98 11/16/18 10:42 11/16/18 10:42 11/16/18 10:42 11/16/18 10:42 11/16/18 10:42 Vital Signs Reviewed: Yes Appearance: Positive: Well-Appearing Skin: Positive: Warm, Dry, Other - Very mild erythema noted to tip of nose with small scabbed area to the right aspect. No drainage or induration. Head/Face: Positive: Normal Head/Face Inspection Eyes: Positive: Normal, EOMI Neck: Positive: Supple Musculoskeletal: Positive: Normal, Strength/ROM Intact Neurological: Positive: Normal, CN Intact II-III Psychiatric: Positive: Affect/Mood Appropriate Diagnostics - Vital Signs Vital Signs Temp Pulse Resp BP Pulse Ox 11/16/18 11:15 98.3 F 86 18 130/69 99 11/16/18 10:42 98.3 F 99 16 125/74 98 - Laboratory Lab Statement: Any lab studies that have been ordered have been reviewed, and results considered in the medical decision making process. Course/Dx - Course Course Of Treatment: Pt. with small wound to tip of nose. Not vesicular. Wound collected culture. Will treat with bactroban. Will f.u with PCP if sxs persist. - Differential Diagnoses - Skin Complaint Differential Diagnoses: Abscess, Cellulitis, Contact Dermatitis, Eczema, Impetigo - Diagnoses Provider Diagnoses: Rash Discharge - Sign-Out/Discharge Documenting (check all that apply): Patient Departure Patient Received Moderate/Deep Sedation with Procedure: No - Discharge Plan Condition: Good Disposition: HOME Prescriptions: Mupirocin 2% OINT* [Bactroban 2 % Oint*] 1 applic TOPICAL BID 10 Days #1 tube Patient Education Materials: Acute Wound Care (ED) Referrals: Breanne Fernandez MD [Primary Care Provider] - Additional Instructions: Follow up with PCP in one week if symptoms persist Use ointment as directed Avoid touching area Return to ER if symptoms change or worsen - Billing Disposition and Condition Condition: GOOD Disposition: Home
== END 2018-11-16 11:15 | disposition home or self-care (01) ==
LOC: ED 10:34
DX: O26.892 Other specified pregnancy related conditions, second trimester (principal); R21 Rash and other nonspecific skin eruption; Z3A.00 Weeks of gestation of pregnancy not specified; Z86.14 Personal history of Methicillin resistant Staphylococcus aureus infection; G47.30 Sleep apnea, unspecified; F41.9 Anxiety disorder, unspecified; F32.9 Major depressive disorder, single episode, unspecified; Z88.1 Allergy status to other antibiotic agents; Z88.0 Allergy status to penicillin
CPT/HCPCS: 87070; 87077; 87205; 99282

== ENCOUNTER 2019-04-04 07:10 | Inpatient (IN) | payer OTHER ==
[2019-04-04] MEDS ORDERED: Lactated Ringers 1000 ML Bag* 1,000 ML IV ONE ×2 (08:37→13:59)
[2019-04-04] MEDS ORDERED: Buffered Lidocaine 1% SYRIN* 1 ML/SYRINGE INTRADERM ONE (08:37)
--- NOTE | 2019-04-04 08:54 | HP ---
General Information - Reason for Visit Pt reports labor ctx increasing in strength and frequency over the night and into morning. Denies SROM. Reports active FM. - General Information Maternal Age: 33 Grav: 3 Para: 0 SAB: 0 IEA: 2 Estimated Due Date: 03/30/19 Determined By: LMP Gestational Age in Weeks/Days: 40 5/7 Maternal Blood Type and Rh: O Positive - Results this Serology/RPR Result: Non-Reactive Rubella Result: Immune HBsAg Result: Negative HIV Result: Negative GBS Culture Result: Negative Past Medical History Delivery History: See Records - primigravida Pertinent Past Medical History: See Records - asthma, depression, kidney stones, anxiety Pertinent Past Surgical History: See Records - lithotripsy Pertinent Family History: See Records - kidney stones - Antepartal Records Antepartal Records: Reviewed, Complicated by: - excess weight gain Review of Systems Constitutional: Comfortable CV Complaint: No Respiratory: Shortness of Breath: No Gastrointestinal: Normal Bowel Movement, Nausea Genitourinary: No Dysuria, No Bleeding, No Leaking Fluid Musculoskeletal: No Epigastric Pain, Contractions Neurological: No Headache, No Visual Changes Movement: Normal Exam Allergies/Adverse Reactions: Allergies amoxicillin Adverse Reaction (Intermediate, Verified 11/16/18 10:45) Diarrhea VOMITING metronidazole [From Flagyl] Adverse Reaction (Mild, Verified 04/04/19 08:04) Diarrhea T-97.8, P-90, R-19, BP- 110/78, O2-97% - Measurements Height: 5 ft 3 in Weight: 102.058 kg Weight in lbs: [id number] Body Mass Index (BMI): 39.8 Pre- Weight: 95.708 kg - Exam Breast: Breast Exam Deferred CVA: No CVA Tenderness Extremities: No Edema Heart: Normal Rhythm/Heart Sounds HEENT: No Significant Findings Lungs: Clear Bilaterally Rectal: Rectal Exam Deferred Thyroid: No Thyromegaly - Abdominal Exam Abdomen Exam: Non-Tender, Fundal Height Consistent with Dates - Ultrasound/Biophysical Profile Ultrasound Status: Not Done Targeted Exam Findings See L&D Outpatient Visit Provider Note for Findings: N/A Estimated Weight: 8# Cervical Exam: 4cm Effacement: 90% Station: -1 Presenting Part: Vertex Membrane Status: Intact Bleeding/Discharge: Bloody Show EFM Findings - External Monitor Findings Baseline Heart Rate: 135 External Monitor Findings: Accelerations Present, No Pattern of Variable or Late Decelerations, Variability Moderate, Baseline Stable Contractions: Regular, Moderate, 45-90 Seconds Contraction Frequency: 6-8 Assessment/Plan - Assessment 33 year old at 40 5/7 weeks gestation in early labor, no evidence of acidemia or chorioamnionitis. - Obstetrical Risk Factors Obstetrical Risk Factors: Obesity - Plan Plan: Admit - Anticipate Vaginal Delivery - Date/Time of Admission Date of Admission: 04/04/19 Time of Admission: 08:37
[2019-04-04] MEDS ORDERED: Lactated Ringers 1000 ML Bag* 1,000 ML IV SCH ×2 (09:00→14:00)
[2019-04-04 09:20] LABS: Urine Benzodiazepine Screen None Detected (None Detect); Urine Opiates Screen None Detected (None Detect)
[2019-04-04] MEDS ORDERED: OBEPIDURAL* 250 ML EPIDURAL ONE (13:24)
[2019-04-04] MEDS ORDERED: Bupivacaine 0.25% SDV PF* 10 ML VIAL INJ ONE (13:30)
[2019-04-04 13:34] LABS: ABS Lymphocytes 1.4 10^3/ul (1.0-4.8); ABS Monocytes 0.5 10^3/ul (0-0.8); ABS Neutrophils 13.4 10^3/ul (1.5-7.7); Hematocrit 36 % (35-47); Lymphocyte % 9.3 %; Mean Corpuscular HGB Conc 34 g/dL (31-36); Mean Corpuscular Hemoglobin 27 pg (27-31); Mean Corpuscular Volume 81 fL (80-97); Mean Platelet Volume 7.9 fL (7.4-10.4); Platelet Count 221 10^3/uL (150-450); Red Blood Count 4.41 10^6 /uL (3.70-4.87); Red Cell Distribution Width 15 % (10-15); White Blood Count 15.5 10^3/uL (3.5-10.8)
[2019-04-04] MEDS ORDERED: Phenylephrine 40 MCG/ML SYRINGE IV PUSH PRN (13:59)
[2019-04-04] MEDS ORDERED: EPHEDrine (Pressors)* 50 MG/ML VIAL IV PUSH PRN (13:59)
[2019-04-04] MEDS ORDERED: Famotidine TAB* 20 MG PO PRN (13:59)
[2019-04-04] MEDS ORDERED: Sodium Citrate/Citric Acid* 15 ML UDC PO PRN (13:59)
[2019-04-04] MEDS ORDERED: OBEPIDURAL* 250 ML EPIDURAL SCH (14:00)
--- NOTE | 2019-04-04 14:53 | PN ---
Progress Note - Progress Note Date of Service: 04/04/19 SOAP: Subjective: Pt comfortable with epidural. Happy that she got it. Objective: FHR: Exhibited decel following maternal hypotension after epidural placement. Now baseline 145, + accels, no decels UCs: [place] adjusted, difficult to trace Temp: 98.3 BP: 105/57 Last cervical exam prior to epidural was 6-7cm/ 100%/ 0 station Assessment: Pt comfortable with epidural. FHR currently Category I. Ctx pattern unclear. Plan: Recheck pt in an hour or so. Consider AROM/ Pitocin/ IUPC as needed.
[2019-04-04] MEDS ORDERED: Oxytocin in LR* 20 UNITS/1,000 ML BAG IVPB ONE (17:36)
[2019-04-04] MEDS ORDERED: Oxytocin in LR* 20 UNITS/1,000 ML BAG IVPB SCH (18:00)
--- NOTE | 2019-04-04 18:27 | PN ---
Progress Note - Progress Note Date of Service: 04/04/19 SOAP: Subjective: Pt very comfortable with epidural. Objective: Ctx had spaced out prior to starting Pitocin, now are every 5 minutes FHR: Baseline 130/ moderate variability/ + accels/ no decels AROM performed to meconium stained fluid Cervix: 7 cm/ 100%/ 0 station Temp: 98.2 Assessment: Labor progress has slowed. No evidence of chorioamnionitis or acidemia. Plan: AROM performed to mec-stained fluid. Low dose Pitocin augmentation initiated. Encourage position changes.
[2019-04-04] MEDS ORDERED: Sertraline* 25 MG TAB PO SCH (20:00)
--- NOTE | 2019-04-04 21:38 | PN ---
Progress Note - Progress Note Date of Service: 04/04/19 SOAP: Subjective: Pt very comfortable overall, does report some increased pressure. Friend at bedside. Objective: Cervix: Anterior lip/ +1/ vtx FHR: Baseline 155/ moderate variability/ + accels/ isolated late decel UCs: 2-3 minutes Pitocin at 8 mu/min Temp: 97.8 Assessment: Pt making good progress, good response to Pitocin. Single isolated decel, otherwise Category I FHR tracing. Plan: Continue Pitocin augmentation. Anticipate .
--- NOTE | 2019-04-04 22:47 | PN ---
Progress Note - Progress Note Date of Service: 04/04/19 Note: Pt pushing with steady progress. FHR baseline 160/ moderate variability/ decels with pushing. Anticipate .
[2019-04-05] MEDS ORDERED: Glycerin ADULT SUPP PR PRN (00:23)
[2019-04-05] MEDS ORDERED: Acetaminophen TAB* 325 MG PO PRN (00:23)
[2019-04-05] MEDS ORDERED: Witch Hazel PAD* JAR TOPICAL PRN (00:23)
[2019-04-05] MEDS ORDERED: Dibucaine 1% 28.35 GM TUBE PR PRN (00:23)
[2019-04-05] MEDS ORDERED: Lactated Ringers 1000 ML Bag* 1,000 ML IV SCH (01:00)
[2019-04-05] MEDS ORDERED: Oxytocin in LR* 20 UNITS/1,000 ML BAG IVPB SCH (01:00)
[2019-04-05] MEDS: Ibuprofen TAB* 600 MG PO PRN ×4 (01:15→20:01)
[2019-04-05 05:41] LABS: ABS Lymphocytes 1.6 10^3/ul (1.0-4.8); ABS Monocytes 1.2 10^3/ul (0-0.8); ABS Neutrophils 17.8 10^3/ul (1.5-7.7); Hematocrit 31 % (35-47); Hemoglobin 10.3 g/dL (12.0-16.0); Lymphocyte % 7.6 %; Mean Corpuscular HGB Conc 34 g/dL (31-36); Mean Corpuscular Hemoglobin 27 pg (27-31); Mean Corpuscular Volume 81 fL (80-97); Mean Platelet Volume 7.9 fL (7.4-10.4); Platelet Count 205 10^3/uL (150-450); Red Blood Count 3.75 10^6 /uL (3.70-4.87); Red Cell Distribution Width 15 % (10-15); White Blood Count 20.6 10^3/uL (3.5-10.8)
--- NOTE | 2019-04-05 08:01 | PROCNOTE ---
[facility] OB: Delivery Note - Delivery A Date of : 04/04/19 Time of : 23:52 [place] Sex: Male Weight at : 3.295 kg Score 1 Minute: 8 Score 5 Minutes: 9 Gestational Age in Weeks and Days at Delivery: 40 Weeks and 5 Days Delivery Method: Spontaneous Vaginal Labor: Spontaneous Did Patient attempt ?: N/A, No Previous Amniotic Fluid: Meconium Estimated Blood Loss: 300 Anesthesia/Analgesia: CEI for Labor Delivered By: Gladys Pena - Nursery Level of Nursery: Regular/Bedside - Perineum Perineal Injury: Abrasion Only - Not Repaired Perineal Repair: None - Events Delivery Events of Note: Pitocin During Labor, Supplemental O2 to Mother - Additional Delivery Notes Additional Delivery Notes: Pt admitted to L&D in active labor. Made steady progress, eventually requesting and receiving an epidural with good relief of pain. AROM performed to meconium stained fluid. Pt continued to progress, eventually reaching full dilation and urge to push. Pt coached through pushing with slow but steady descent. Pt eventually brought infant to perineum, and was coached through slow, controlled delivery of the head. Shoulders followed without difficulty. with short cord, placed on lower maternal abdomen, dried and stimulated with vigorous cry and good tone. After cord pulsation ceased clamped x2 and cut by pt's support person. Placenta was slow to separate, then delivered with a gush of blood. After that bleeding was minimal. Inspection of the perineum revealed several small hemostatic abrasions, not repaired. Infant and mother stable at this time , anticipate normal course.
[2019-04-05] MEDS: Docusate CAP* 100 MG PO SCH ×3 (09:07→20:01)
[2019-04-05] MEDS: Simethicone TAB* 80 MG TAB.CHEW PO SCH (13:17)
[2019-04-05] MEDS ORDERED: Lidocaine 1% MPF ** 5 ML VIAL ONE (13:55)
[2019-04-05] MEDS ORDERED: Sertraline* 25 MG TAB PO SCH (21:00)
[2019-04-06] MEDS ORDERED: Ferrous Gluconate TAB* 324 MG TAB PO SCH (09:00)
[2019-04-06] MEDS: Docusate CAP* 100 MG PO SCH (09:07)
[2019-04-06 09:08] VITALS: BP 126/72
[2019-04-06] MEDS: Ibuprofen TAB* 600 MG PO PRN (10:18)
== END 2019-04-06 16:38 | disposition home or self-care (01) | DRG 560 ==
LOC: MCHOBOUT 07:10 → MCHOR 07:10 → MCHOB 08:37
PROVIDERS: ADMIT Midwife; ATTEND Midwife
PROC: 10E0XZZ Delivery of Products of Conception, External Approach (ICD-10-PCS; principal; 2019-04-05)
PROC: 10907ZC Drainage of Amniotic Fluid, Therapeutic from Products of Conception, Via Natural or Artificial Opening (ICD-10-PCS; 2019-04-05)
PROC: 4A1HXCZ Monitoring of Products of Conception, Cardiac Rate, External Approach (ICD-10-PCS; 2019-04-05)
DX: O48.0 Post-term pregnancy (principal); O99.42 Diseases of the circulatory system complicating childbirth; Z37.0 Single live birth; O77.0 Labor and delivery complicated by meconium in amniotic fluid; O71.82 Other specified trauma to perineum and vulva; O69.3XX0 Labor and delivery complicated by short cord, not applicable or unspecified; O99.214 Obesity complicating childbirth; O76 Abnormality in fetal heart rate and rhythm complicating labor and delivery; I95.9 Hypotension, unspecified; J45.909 Unspecified asthma, uncomplicated; O99.52 Diseases of the respiratory system complicating childbirth; O99.344 Other mental disorders complicating childbirth; F32.9 Major depressive disorder, single episode, unspecified; F41.9 Anxiety disorder, unspecified; Z88.0 Allergy status to penicillin; Z88.1 Allergy status to other antibiotic agents; Z28.21 Immunization not carried out because of patient refusal; Z3A.40 40 weeks gestation of pregnancy
CPT/HCPCS: 36415; 80307; 85025; 86850; 86900; 86901; A9270-GY; J3490